=== PATIENT | female | born 1980 | race African-American/Black ===

== ENCOUNTER 2016-07-04 15:35 | Emergency (ER) | payer OTHER ==
[~2016-07-04] VITALS: Ht 157.5 cm; Wt 98.0 kg
[~2016-07-04 15:35] MED LIST: ASPI81CH CHEW; CARA1TAB6 PO; CYMB30CA PO; HYDR-3533 PO; PROT40TA PO; REST15CA PO
[2016-07-04 15:40] VITALS: BP 129/60; PULSE 118; RESP 17; TEMP 98.1; O2SAT 96
--- NOTE | 2016-07-04 17:28 | PD ---
HPI Chief Complaint: Medical Clearance Time Seen by Provider: 17:28 Travel History International Travel<30 days: No Contact w/Intl Traveler<30days: No Traveled to known affect area: No History of Present Illness HPI 35-year-old Afro-[place] female presents the emergency department with 4 day history of left-sided tremor mainly in the left arm and hand. Patient has a history of CVA in the past and followed by Dr. Riddle. Patient had an appointment with Dr. Riddle today and she was referred here for further evaluation and treatment. Patient denies any specific pain although Friday she had a headache, which has since resolved, but now she has left-sided tremor in the left hand and arm. Patient has a history of left-sided weakness from previous CVA. Patient denies fever but has had some chills. She denies any other symptoms at this time. She is allergic to Dilaudid and penicillin. PFSH Past Medical History Arthritis: No Asthma: Yes (USES INHALERS) Autoimmune Disease: No Anxiety: No Depression: No Heart Rhythm Problems: No Cancer: No Cardiovascular Problems: No High Cholesterol: No Chemotherapy: No Chest Pain: No Congestive Heart Failure: No COPD: No Cerebrovascular Accident: Yes Diabetes: Yes (BORDERLINE DIABETES, HYPERGLYCEMIA) Diminished Hearing: No Endocrine: No Gastrointestinal Disorders: Yes (RECENT ABD PAIN WITH MELENA) GERD: Yes Genitourinary: Yes Headaches: Yes Hiatal Hernia: No Hypertension: Yes (UNCONTROLLED HTN) Immune Disorder: No Kidney Stones: No Musculoskeletal: Yes Neurologic: Yes (ACUTE ENCEPHALOPATHY) Psychiatric: No Reproductive: No Respiratory: Yes (ASPIRATION PNEUMONIA, ACUTE RESPIRATORY FAILURE WITH HYPOXEMIA) Migraines: No Radiation Therapy: No Renal Failure: Yes (ACUTE RENAL INSUFFICIENCY) Seizures: No Sickle Cell Disease: No Sleep Apnea: No Thyroid Disease: No Ulcer: No ?: Not LMP: 06/06/2016 : 0 Ovarian Cysts: Yes Past Surgical History Abdominal Surgery: Yes (GALLBLADDER 2014 ) AICD: No Arteriovenous Shunt: No Cardiac Surgery: No Cholecystectomy: Yes Ear Surgery: No Endocrine Surgery: No Eye Surgery: No Genitourinary Surgery: No Gynecologic Surgery: Yes (OVARIAN CYST D/C 2014) Insulin Pump: No Joint Replacement: No Oral Surgery: No Pacemaker: No Thoracic Surgery: No Other Surgery: Yes Social History Alcohol Use: No Tobacco Use: No Substance Use: No Allergies-Medications (Allergen,Severity, Reaction): Coded Allergies: Penicillin (Verified Allergy, Unknown, hives, 07/04/16) Dilaudid (Verified Adverse Reaction, Intermediate, Itching, 07/04/16) PT. STATES SHE ITCHES WHEN SHE GETS DILAUDID AND GETS BENADRYL WITH IT Reported Meds & Prescriptions Reported Meds & Active Scripts Active Restoril (Temazepam) 15 Mg Cap 0.5 Tab PO HS PRN Cymbalta DR (Duloxetine HCl) 30 Mg Capdr 30 Mg PO DAILY Lortab (Hydrocodone-Acetaminophen) 5-325 Mg Tab 1 Tab PO Q8HR PRN Reported Protonix (Pantoprazole Sodium) 40 Mg Tab 40 Mg PO DAILY Carafate (Sucralfate) 1 Gm Tab 1 Gm PO TID On empty stomach Aspirin 81 Mg Chew 81 Mg CHEW DAILY Review of Systems Except as stated in HPI: all other systems reviewed are Neg General / Constitutional: No: Fever Eyes: No: Visual changes HENT: No: Headaches Cardiovascular: No: Chest Pain or Discomfort Respiratory: No: Shortness of Breath Gastrointestinal: No: Abdominal Pain Genitourinary: No: Dysuria Musculoskeletal: Positive: Limited ROM (chronic left-sided weakness.), No: Myalgias, Arthralgias, Pain Skin: No Rash Neurologic: Positive: Tremor (see history present illness.), No: Weakness Psychiatric: No: Depression Endocrine: No: Polydipsia Hematologic/Lymphatic: No: Easy Bruising Physical Exam Narrative GENERAL: Patient is alert and oriented, and anxious but in otherwise no acute distress. SKIN: Warm and dry. Normal color. Normal turgor. HEAD: Atraumatic. Normocephalic. EYES: Pupils equal and round. No scleral icterus. No injection or drainage. ENT: No nasal bleeding or discharge. Mucous membranes pink and moist. Pharynx is normal. Airway is patent. NECK: Trachea midline. Supple and nontender. No bruits appreciated. CARDIOVASCULAR: Regular rate and rhythm. RESPIRATORY: No accessory muscle use. Clear to auscultation. Breath sounds equal bilaterally. MUSCULOSKELETAL: Extremities without clubbing, cyanosis, or edema. No obvious deformities. Patient has foot drop brace present on the left. She has normal left-sided tremor which is constant even with active movement and at rest. It is localized to the left wrist and fingers. Patient has no focal findings otherwise that are new. NEUROLOGICAL: Awake and alert. No obvious cranial nerve deficits. Motor grossly within normal limits. Five out of 5 muscle strength in the arms and legs. Normal speech. PSYCHIATRIC: Appropriate mood and affect; insight and judgment normal. Data Data Last Documented VS Vital Signs Date Time Temp Pulse Resp B/P Pulse Ox O2 Delivery O2 Flow Rate FiO2 07/04/16 15:40 98.1 118 17 129/60 96 Orders Complete Blood Count With Diff (07/04/16 17:34) Comprehensive Metabolic Panel (07/04/16 17:34) Prothrombin Time / Inr (Pt) (07/04/16 17:34) Act Partial Throm Time (Ptt) (07/04/16 17:34) Urinalysis - C+S If Indicated (07/04/16 17:34) NPO (07/04/16 17:34) Acetaminophen (Tylenol) (07/04/16 17:45) Mri Brain W/O Contrast (07/04/16 17:34) Labs Laboratory Tests Test 07/04/16 17:58 White Blood Count 8.5 TH/MM3 Red Blood Count 4.37 MIL/MM3 Hemoglobin 12.3 GM/DL Hematocrit 37.2 % Mean Corpuscular Volume 85.2 FL Mean Corpuscular Hemoglobin 28.2 PG Mean Corpuscular Hemoglobin 33.1 % Concent Red Cell Distribution Width 16.3 % Platelet Count 362 TH/MM3 Mean Platelet Volume 7.3 FL Neutrophils (%) (Auto) 44.8 % Lymphocytes (%) (Auto) 46.2 % Monocytes (%) (Auto) 6.9 % Eosinophils (%) (Auto) 1.6 % Basophils (%) (Auto) 0.5 % Neutrophils # (Auto) 3.8 TH/MM3 Lymphocytes # (Auto) 3.9 TH/MM3 Monocytes # (Auto) 0.6 TH/MM3 Eosinophils # (Auto) 0.1 TH/MM3 Basophils # (Auto) 0.0 TH/MM3 CBC Comment DIFF FINAL Differential Comment Prothrombin Time 10.5 SEC Prothromb Time International 1.0 RATIO Ratio Activated Partial 31.3 SEC Thromboplast Time Sodium Level 138 MEQ/L Potassium Level 4.0 MEQ/L Chloride Level 104 MEQ/L Carbon Dioxide Level 26.5 MEQ/L Anion Gap 8 MEQ/L Blood Urea Nitrogen 10 MG/DL Creatinine 0.95 MG/DL Estimat Glomerular Filtration 82 ML/MIN Rate Random Glucose 84 MG/DL Calcium Level 9.1 MG/DL Total Bilirubin 0.4 MG/DL Aspartate Amino Transf 11 U/L (AST/SGOT) Alanine Aminotransferase 19 U/L (ALT/SGPT) Alkaline Phosphatase 88 U/L Total Protein 8.5 GM/DL Albumin 3.7 GM/DL MDM Medical Decision Making Medical Screen Exam Complete: Yes Emergency Medical Condition: Yes Differential Diagnosis New-onset tremor. CVA. Anxiety. Narrative Course Patient is felt to be medically stable at time of exam. Labs ordered on the patient including CBC, CMP, urinalysis, PT PTT and INR. Patient is given Tylenol 1000 mg by mouth. MRI of the brain is ordered with and without contrast. CBC was within normal limits. CMP is essentially unremarkable. Coags are normal. MRI is pending. Patient is awaiting medical bed placement. Condition: Stable Jonas Beckman Jul 04, 2016 17:28
[2016-07-04] MEDS ORDERED: ACETAMINOPHEN 500 MG CPLT PO ONE (17:45)
[2016-07-04 18:15] LABS: AUTOMATED NEUTROPHIL # 3.8 TH/MM3 (1.8-7.7); BASOPHIL % 0.5 % (0.0-2.0); EOSINOPHIL # 0.1 TH/MM3 (0-0.4); EOSINOPHIL % 1.6 % (0.0-4.0); HEMATOCRIT 37.2 % (35.0-46.0); HEMO FLAGS DIFF FINAL; LYMPH % 46.2 % (9.0-44.0); LYMPHOCYTE # 3.9 TH/MM3 (1.0-4.8); MEAN CELL VOLUME 85.2 FL (80.0-100.0); MEAN CORPUSCULAR HEMOGLOBIN 28.2 PG (27.0-34.0); MEAN CORPUSCULAR HGB CONC 33.1 % (32.0-36.0); MONO % 6.9 % (0.0-8.0); NEUT % 44.8 % (16.0-70.0); PLATELET COUNT 362 TH/MM3 (150-450); RED BLOOD COUNT 4.37 MIL/MM3 (4.00-5.30); RED CELL DISTRIBUTION WIDTH 16.3 % (11.6-17.2); WHITE BLOOD COUNT 8.5 TH/MM3 (4.0-11.0)
[2016-07-04 18:22] LABS: APTT (PATIENT) 31.3 SEC (24.3-30.1); PROTHROMBIN TIME - PATIENT 10.5 SEC (9.8-11.6)
[2016-07-04 18:32] LABS: ANION GAP 8 MEQ/L (5-15); AST (GOT) 11 U/L (15-37); BICARBONATE 26.5 MEQ/L (21.0-32.0); BLOOD UREA NITROGEN 10 MG/DL (7-18); CHLORIDE 104 MEQ/L (98-107); GLOMERULAR FILTRATION RATE 82 ML/MIN (>89); SODIUM (NA) 138 MEQ/L (136-145)
[2016-07-04 18:35] LABS: ALKALINE PHOSPHATASE 88 U/L (45-117); ALT (GPT) 19 U/L (10-53); TOTAL BILIRUBIN ADULT 0.4 MG/DL (0.2-1.0)
--- NOTE | 2016-07-04 19:05 | RADRPT ---
EXAM DATE/TIME: 07/04/2016 18:29 [facility] COMPARISON: MRV BRAIN W/WO CONTRAST, December 12, 2015, 19:16. MRI BRAIN W/O CONTRAST, December 12, 2015, 11:35. INDICATIONS : Seizures. Tremors with weakness on left side. MEDICAL HISTORY : Asthma. SURGICAL HISTORY : Cholecystectomy. ENCOUNTER: Subsequent ACUITY: 3 day PAIN SCORE: 2/10 LOCATION: Head. TECHNIQUE: Multiplanar, multisequence MRI of the brain was performed without contrast. FINDINGS: CEREBRUM: The ventricles are normal for age. No evidence of midline shift, mass lesion, hemorrhage or acute in farction. No extraaxial fluid collections are seen. The pituitary gland and suprasellar cistern are normal in configuration. Old infarcts of the bilateral perifalcine parietal lobes again noted. WHITE MATTER: No significant signal abnormalities are seen in the white matter. POSTERIOR FOSSA: The cerebellum and brainstem are intact. The 4th ventricle is midline. The cerebellopontine angle is unremarkable. The cerebellar tonsils are normal in position. DIFFUSION IMAGING: No focal areas of restricted diffusion are seen. No evidence of acute infarction. EXTRACRANIAL: The visualized portions of the orbits and paranasal sinuses are unremarkable. CONCLUSION: 1. No acute intracranial abnormality. 2. Old, focal cortical infarcts perifalcine regions of both parietal lobes, right more so than left. Julio West MD on July 04, 2016 at 19:01 Board Certified Radiologist. This report was verified electronically.
--- NOTE | 2016-07-04 21:33 | PD ---
Physical Exam Time Seen by Provider: 21:31 Narrative 35-year-old female with history of bilateral parietal infarct in November 2015 presents to emergency department for evaluation of generalized tremor that developed over the weekend following a severe headache that lasted for approximately one hour. Pt is followed by Dr. Brock. She advised the pt to come to the ED for further evaluation. Patient denies any recent illnesses. She has had no fever. She denies any head trauma. Workup was initiated in triage. MRI was complete. Data Data Last Documented VS Vital Signs Date Time Temp Pulse Resp B/P Pulse Ox O2 Delivery O2 Flow Rate FiO2 07/04/16 15:40 98.1 118 17 129/60 96 Orders Complete Blood Count With Diff (07/04/16 17:34) Comprehensive Metabolic Panel (07/04/16 17:34) Prothrombin Time / Inr (Pt) (07/04/16 17:34) Act Partial Throm Time (Ptt) (07/04/16 17:34) Urinalysis - C+S If Indicated (07/04/16 17:34) NPO (07/04/16 17:34) Acetaminophen (Tylenol) (07/04/16 17:45) Mri Brain W/O Contrast (07/04/16 17:34) Labs Laboratory Tests Test 07/04/16 17:58 White Blood Count 8.5 TH/MM3 Red Blood Count 4.37 MIL/MM3 Hemoglobin 12.3 GM/DL Hematocrit 37.2 % Mean Corpuscular Volume 85.2 FL Mean Corpuscular Hemoglobin 28.2 PG Mean Corpuscular Hemoglobin 33.1 % Concent Red Cell Distribution Width 16.3 % Platelet Count 362 TH/MM3 Mean Platelet Volume 7.3 FL Neutrophils (%) (Auto) 44.8 % Lymphocytes (%) (Auto) 46.2 % Monocytes (%) (Auto) 6.9 % Eosinophils (%) (Auto) 1.6 % Basophils (%) (Auto) 0.5 % Neutrophils # (Auto) 3.8 TH/MM3 Lymphocytes # (Auto) 3.9 TH/MM3 Monocytes # (Auto) 0.6 TH/MM3 Eosinophils # (Auto) 0.1 TH/MM3 Basophils # (Auto) 0.0 TH/MM3 CBC Comment DIFF FINAL Differential Comment Prothrombin Time 10.5 SEC Prothromb Time International 1.0 RATIO Ratio Activated Partial 31.3 SEC Thromboplast Time Sodium Level 138 MEQ/L Potassium Level 4.0 MEQ/L Chloride Level 104 MEQ/L Carbon Dioxide Level 26.5 MEQ/L Anion Gap 8 MEQ/L Blood Urea Nitrogen 10 MG/DL Creatinine 0.95 MG/DL Estimat Glomerular Filtration 82 ML/MIN Rate Random Glucose 84 MG/DL Calcium Level 9.1 MG/DL Total Bilirubin 0.4 MG/DL Aspartate Amino Transf 11 U/L (AST/SGOT) Alanine Aminotransferase 19 U/L (ALT/SGPT) Alkaline Phosphatase 88 U/L Total Protein 8.5 GM/DL Albumin 3.7 GM/DL [facility] Medical Record Reviewed: Yes Supervised Visit with HERMAN: No Differential Diagnosis essential tremor vs viral syndrome vs intracranial etiology Narrative Course 35 year old female presents to the ED for evaluation of generalized tremors. Lab work is without acute concern. VS are stable. MRI is without acute intracranial abnormality. I discussed the pt with my attending Dr. Crabtree who advised contacting neurology for any additional work up recommendations. I spoke with Dr. Kemp, neurologist business support liaison. He agrees the pt can be followed up with outpt. Plan is discussed with pt. She is in agreement with this plan of care. HemaPrompt Test Point of Care Comment I spoke with Dr. Kemp, neurology business support liaison. I informed him of the MRI and lab findings. At this time, he agrees the pt can follow up outpt. Diagnosis Primary Impression: Tremor of unknown origin Additional Impression: History of CVA (cerebrovascular accident) Referrals: Ilene Brock MD Neurologist Primary Care Physician Patient Instructions: General Instructions, Tremors (ED) Additional Instruction: Follow up with Dr. Brock Return immediately with any acute worsening of symptoms Med/Other Pt SpecificInfo: No Change to Meds Disposition: 01 DISCHARGE HOME Condition: Stable Shell Schneider ABHISHEK Jul 04, 2016 21:33
[2016-07-22] MEDS ORDERED: CYMB60CA PO (16:49)
[2016-10-16] MEDS ORDERED: ULTR50TA5 PO (10:25)
[2016-10-16] MEDS ORDERED: ASPI325T PO (13:28)
== END 2016-07-04 22:22 | disposition home or self-care (01) ==
LOC: NEPC 15:35
DX: R25.1 Tremor, unspecified (principal); J45.909 Unspecified asthma, uncomplicated; I10 Essential (primary) hypertension; R73.9 Hyperglycemia, unspecified; N17.9 Acute kidney failure, unspecified; Z86.73 Personal history of transient ischemic attack (TIA), and cerebral infarction without residual deficits
CPT/HCPCS: 70551; 80053; 85025; 85610; 85730

== ENCOUNTER 2016-12-26 18:13 | Inpatient (IN) | payer OTHER ==
[~2016-12-26] VITALS: Ht 167.6 cm; Wt 127.5 kg
[~2016-12-26 18:13] MED LIST changes: +ASPI325T PO; -ASPI81CH CHEW; -HYDR-3533 PO; -REST15CA PO; +ULTR50TA5 PO
[2016-12-26 18:30] VITALS: BP 124/72; PULSE 80; RESP 18; TEMP 100.3; TEMP 98.3; O2SAT 98
--- NOTE | 2016-12-26 18:35 | PD ---
HPI Chief Complaint: Altered Mental Status Time Seen by Provider: 18:32 Travel History International Travel<30 days: No Contact w/Intl Traveler<30days: No Traveled to known affect area: No History of Present Illness HPI Patient comes in by EMS after reported having altered mental status since 11 AM this morning by her sister. Patient has a history of CVAs 2 and reportedly has some unknown neurological deficits. Per EMS patient sister is uncertain what the deficit is. Patient is currently nonverbal but will respond to painful stimuli thus limiting H&P. EMS reports patient was nonverbal in route as well. EMS reports patient sister is a poor historian and not able give much information on patient's altered mental status. PFSH Past Medical History Hx Anticoagulant Therapy: Yes Arthritis: No Asthma: Yes (USES INHALERS) Autoimmune Disease: No Anxiety: No Depression: No Heart Rhythm Problems: No Cancer: No Cardiovascular Problems: No High Cholesterol: No Chemotherapy: No Chest Pain: No Congestive Heart Failure: No COPD: No Cerebrovascular Accident: Yes Diabetes: Yes (BORDERLINE DIABETES, HYPERGLYCEMIA) Diminished Hearing: No Endocrine: No Gastrointestinal Disorders: Yes (RECENT ABD PAIN WITH MELENA) GERD: Yes Genitourinary: Yes Headaches: Yes Hiatal Hernia: No Hypertension: Yes (UNCONTROLLED HTN) Immune Disorder: No Kidney Stones: No Musculoskeletal: Yes Neurologic: Yes (ACUTE ENCEPHALOPATHY) Psychiatric: No Reproductive: No Respiratory: Yes (ASPIRATION PNEUMONIA, ACUTE RESPIRATORY FAILURE WITH HYPOXEMIA) Migraines: No Radiation Therapy: No Renal Failure: Yes (ACUTE RENAL INSUFFICIENCY) Seizures: No Sickle Cell Disease: No Sleep Apnea: No Thyroid Disease: No Ulcer: No : 0 Ovarian Cysts: Yes Past Surgical History Abdominal Surgery: Yes (GALLBLADDER 2014 ) AICD: No Arteriovenous Shunt: No Cardiac Surgery: No Cholecystectomy: Yes Ear Surgery: No Endocrine Surgery: No Eye Surgery: No Genitourinary Surgery: No Gynecologic Surgery: Yes (OVARIAN CYST D/C 2014) Insulin Pump: No Joint Replacement: No Oral Surgery: No Pacemaker: No Thoracic Surgery: No Other Surgery: Yes Social History Alcohol Use: No Tobacco Use: No Substance Use: No Allergies-Medications (Allergen,Severity, Reaction): Coded Allergies: penicillin G (Unverified Allergy, Unknown, hives, 12/26/16) hydromorphone (Unverified Adverse Reaction, Intermediate, Itching, 12/26/16 ) PT. STATES SHE ITCHES WHEN SHE GETS DILAUDID AND GETS BENADRYL WITH IT Reported Meds & Prescriptions Reported Meds & Active Scripts Active Cymbalta DR (Duloxetine HCl) 30 Mg Capdr 30 Mg PO DAILY Reported [place]ink (Hydrocodone-Acetaminophen) 5-325 mg Tab 1 Tab PO Q6H PRN Gabapentin 300 Mg Cap 300 Mg PO BID Gabapentin 100 Mg Cap 100 Mg PO HS Celexa (Citalopram Hydrobromide) 20 Mg Tab 20 Mg PO DAILY Aspirin 325 Mg Tab 325 Mg PO DAILY Protonix (Pantoprazole Sodium) 40 Mg Tab 40 Mg PO DAILY Carafate (Sucralfate) 1 Gm Tab 1 Gm PO TID On empty stomach Review of Systems ROS Limitations: Altered Mental Status Except as stated in HPI: all other systems reviewed are Neg Physical Exam Exam Limitations: Altered Mental Status Narrative GENERAL: Well-developed, overly nourished, in no acute distress, and non-ill appearing. SKIN: Focused skin assessment warm and dry. HEAD: Atraumatic. Normocephalic. EYES: Pupils equal and round. EOMI. No scleral icterus. No injection or drainage. ENT: No nasal bleeding or discharge. Mucous membranes pink and moist. NECK: Trachea midline. Supple. No nuclear rigidity. CARDIOVASCULAR: Regular rate and rhythm. No murmur appreciated. RESPIRATORY: No accessory muscle use. No respiratory distress. Clear to auscultation. Breath sounds equal bilaterally. MUSCULOSKELETAL: No obvious deformities. No clubbing. No cyanosis. No edema. Full range of motion. NEUROLOGICAL: No obvious cranial nerve deficits. Data Data Last Documented VS Vital Signs Date Time Temp Pulse Resp B/P (MAP) Pulse Ox O2 Delivery O2 Flow Rate FiO2 12/26/16 18:49 16 100 Room Air 12/26/16 18:36 80 12/26/16 18:30 100.3 124/72 (89) Orders Orders Electrocardiogram (12/26/16 18:34) Complete Blood Count With Diff (12/26/16 18:34) Comprehensive Metabolic Panel (12/26/16 18:34) Creatine Kinase (Cpk) (12/26/16 18:34) Prothrombin Time / Inr (Pt) (12/26/16 18:34) Act Partial Throm Time (Ptt) (12/26/16 18:34) Troponin I (12/26/16 18:34) Thyroid Stimulating Hormone (12/26/16 18:34) Urinalysis - C+S If Indicated (12/26/16 18:34) Chest, Single Ap (12/26/16 18:34) Ct Brain W/O Iv Contrast(Rout) (12/26/16 18:34) Blood Glucose (12/26/16 18:34) Ecg Monitoring (12/26/16 18:34) Iv Access Insert/Monitor (12/26/16 18:34) Cath For Specimen (12/26/16 18:34) Oximetry (12/26/16 18:34) Sodium Chloride 0.9% Flush (Ns Flush) (12/26/16 18:45) Drug Screen, Random Urine (12/26/16 18:34) Alcohol (Ethanol) (12/26/16 18:34) Ed Urine Pregnancytest Poc (12/26/16 18:34) Lorazepam Inj (Ativan Inj) (12/26/16 18:45) Sodium Chlor 0.9% 1000 Ml Inj (Ns 1000 M (12/26/16 19:00) Admit Order (Ed Use Only) (12/26/16 20:42) Labs Laboratory Tests Test 12/26/16 18:45 12/26/16 20:20 White Blood Count 8.4 TH/MM3 Red Blood Count 4.26 MIL/MM3 Hemoglobin 11.4 GM/DL Hematocrit 34.6 % Mean Corpuscular Volume 81.3 FL Mean Corpuscular Hemoglobin 26.7 PG Mean Corpuscular Hemoglobin Concent 32.9 % Red Cell Distribution Width 16.8 % Platelet Count 371 TH/MM3 Mean Platelet Volume 7.0 FL Neutrophils (%) (Auto) 50.5 % Lymphocytes (%) (Auto) 37.6 % Monocytes (%) (Auto) 9.2 % Eosinophils (%) (Auto) 2.4 % Basophils (%) (Auto) 0.3 % Neutrophils # (Auto) 4.3 TH/MM3 Lymphocytes # (Auto) 3.2 TH/MM3 Monocytes # (Auto) 0.8 TH/MM3 Eosinophils # (Auto) 0.2 TH/MM3 Basophils # (Auto) 0.0 TH/MM3 CBC Comment DIFF FINAL Differential Comment Prothrombin Time 9.8 SEC Prothromb Time International Ratio 0.9 RATIO Activated Partial Thromboplast Time 28.7 SEC Blood Urea Nitrogen 10 MG/DL Creatinine 0.86 MG/DL Random Glucose 99 MG/DL Total Protein 7.6 GM/DL Albumin 3.3 GM/DL Calcium Level 8.8 MG/DL Alkaline Phosphatase 86 U/L Aspartate Amino Transf (AST/SGOT) 21 U/L Alanine Aminotransferase (ALT/SGPT) 22 U/L Total Bilirubin 0.3 MG/DL Sodium Level 139 MEQ/L Potassium Level 4.0 MEQ/L Chloride Level 106 MEQ/L Carbon Dioxide Level 25.1 MEQ/L Anion Gap 8 MEQ/L Estimat Glomerular Filtration Rate 91 ML/MIN Total Creatine Kinase 121 U/L Troponin I LESS THAN 0.02 NG/ML Thyroid Stimulating Hormone 3rd Gen 1.940 uIU/ML Ethyl Alcohol Level 4 MG/DL Urine Color YELLOW Urine Turbidity CLEAR Urine pH 6.5 Urine Specific Barling 1.028 Urine Protein TRACE mg/dL Urine Glucose (UA) NEG mg/dL Urine Ketones NEG mg/dL Urine Occult Blood NEG Urine Nitrite NEG Urine Bilirubin NEG Urine Urobilinogen 2.0 MG/DL Urine Leukocyte Esterase NEG Urine RBC 2 /hpf Urine WBC 2 /hpf Urine Squamous Epithelial Cells 1 /hpf Urine Mucus FEW /lpf Microscopic Urinalysis Comment CATH-CULT NOT IND MDM Medical Decision Making Medical Screen Exam Complete: Yes Emergency Medical Condition: Yes Interpretation(s) CT the head read by the radiologist shows: No acute disease. Small areas of the encephalomalacia at the posterior medial parietal lobes are again seen. Chest x-ray read by the radiologist shows: No acute disease EKG reviewed by Dr. Pardo shows sinus rhythm with ventricular rate of 90. No STEMI. Differential Diagnosis CVA, electrolyte abnormality, sepsis, pneumonia, UTI, other Narrative Course After initial evaluation. RN reports patient was started to froth at the mouth. Patient was reassessed and noted to be having active seizure. 2 mg Ativan was ordered IV. Patient is not a TPA candidate secondary to seizures. 1853 after patient received Ativan. Patient is postictal. 1910 patient's sister is not bedside states that around 520 pm she was found by her daughter to be laying in bed convulsing. Sister states that the provider covering physician and she would open her eyes to stimulation but would not talk. Denies any known history of seizures. Denies any known trauma. Denies fevers. Patient recently started seeing a new neurologist and was started on new medication however she has not started taking that she. Sister states patient is normally able to ambulate with a cane and has residual weakness on the left side secondary to previous stroke. Denies any history of seizures. I clinic in patient's sister. All questions were answered. Will admit patient to hospital. Discussed patient with , who is agreeable to plan of care and disposition. Discussed patient with hospitalist who is agreeable to admit the patient. 2144 patient's sister comes and states patient's complaining of generalized body pain. Patient is reassessed and is answering questions easier now. Reports generalized body pain all over. Patient states she is allergic to Dilaudid and penicillin but can take morphine. We'll give the patient dose of morphine for her pain. Physician Communication Physician Communication [id number] Woods, who is agreeable to admit the patient. Diagnosis Primary Impression: New onset seizure Admitting Information Admitting Physician Requests: Admit Condition: Stable Abner Gan Dec 26, 2016 18:35
[2016-12-26] MEDS ORDERED: SODIUM CHLORIDE 0.9% FLUSH 5 ML FLUSH IV FLUSH PRN (18:45)
[2016-12-26] MEDS ORDERED: LORazepam 2 MG/ML VIAL IV PUSH ONE (18:45)
[2016-12-26 18:49] VITALS: RESP 16; O2SAT 100
[2016-12-26] MEDS ORDERED: SODIUM CHLOR 0.9% 1000 ML INJ 1,000 ML IV ONE (19:00)
[2016-12-26 19:07] LABS: AUTOMATED NEUTROPHIL # 4.3 TH/MM3 (1.8-7.7); BASOPHIL % 0.3 % (0.0-2.0); EOSINOPHIL # 0.2 TH/MM3 (0-0.4); EOSINOPHIL % 2.4 % (0.0-4.0); HEMATOCRIT 34.6 % (35.0-46.0); HEMO FLAGS DIFF FINAL; LYMPH % 37.6 % (9.0-44.0); LYMPHOCYTE # 3.2 TH/MM3 (1.0-4.8); MEAN CELL VOLUME 81.3 FL (80.0-100.0); MEAN CORPUSCULAR HEMOGLOBIN 26.7 PG (27.0-34.0); MEAN CORPUSCULAR HGB CONC 32.9 % (32.0-36.0); MONO % 9.2 % (0.0-8.0); NEUT % 50.5 % (16.0-70.0); PLATELET COUNT 371 TH/MM3 (150-450); RED BLOOD COUNT 4.26 MIL/MM3 (4.00-5.30); RED CELL DISTRIBUTION WIDTH 16.8 % (11.6-17.2); WHITE BLOOD COUNT 8.4 TH/MM3 (4.0-11.0)
[2016-12-26 19:17] LABS: APTT (PATIENT) 28.7 SEC (24.3-30.1); INTERNATIONAL NORMALIZED RATIO 0.9 RATIO; PROTHROMBIN TIME - PATIENT 9.8 SEC (9.8-11.6)
[2016-12-26 19:27] LABS: ANION GAP 8 MEQ/L (5-15); AST (GOT) 21 U/L (15-37); BICARBONATE 25.1 MEQ/L (21.0-32.0); BLOOD UREA NITROGEN 10 MG/DL (7-18); CHLORIDE 106 MEQ/L (98-107); GLOMERULAR FILTRATION RATE 91 ML/MIN (>89); SODIUM (NA) 139 MEQ/L (136-145)
[2016-12-26 19:28] LABS: ALT (GPT) 22 U/L (10-53)
[2016-12-26 19:38] LABS: ALKALINE PHOSPHATASE 86 U/L (45-117); CREATINE KINASE 121 U/L (26-192); TOTAL BILIRUBIN ADULT 0.3 MG/DL (0.2-1.0)
[2016-12-26 19:41] LABS: ALCOHOL 4 MG/DL (0-5)
--- NOTE | 2016-12-26 20:16 | RADRPT ---
EXAM DATE/TIME: 12/26/2016 19:06 [facility] COMPARISON: CHEST SINGLE AP, December 16, 2015, 4:12. INDICATIONS : Seizure. MEDICAL HISTORY : Asthma, Seizures, Stroke. SURGICAL HISTORY : Cholecystectomy. ENCOUNTER: Initial ACUITY: 1 day PAIN SCORE: Non-responsive. LOCATION: Bilateral chest FINDINGS: A single view of the chest demonstrates the lungs to be symmetrically aerated without evidence of mas s, infiltrate or effusion. The cardiomediastinal contours are unremarkable. Osseous structures are intact. CONCLUSION: No acute disease. Julio Velasco MD on December 26, 2016 at 20:14 Board Certified Radiologist. This report was verified electronically.
--- NOTE | 2016-12-26 20:22 | RADRPT ---
EXAM DATE/TIME: 12/26/2016 19:07 [facility] COMPARISON: MRI BRAIN W/O CONTRAST, July 04, 2016, 18:29. MRI BRAIN W/O CONTRAST, December 12, 2015, 11:35. CT B RAIN W/O CONTRAST, December 12, 2015, 8:33. INDICATIONS : Altered mental status. Possible seizure. RADIATION DOSE: 39.51 CTDIvol (mGy) MEDICAL HISTORY : Cerebrovascular disease. Hypertension. Diabetes mellitus type 2. SURGICAL HISTORY : None. ENCOUNTER: Initial ACUITY: 1 day PAIN SCALE: Non-responsive LOCATION: cranial TECHNIQUE: Multiple contiguous axial images were obtained of the head. Using automated exposure control and adj ustment of the mA and/or kV according to patient size, radiation dose was kept as low as reasonably a chievable to obtain optimal diagnostic quality images. DICOM format image data is available electro nically for review and comparison. FINDINGS: CEREBRUM: The ventricles are normal for age. There are small areas of the encephalomalacia at the posterior me dial parietal lobes in the parafalcine regions being greater on the right than the left. No evidence of midline shift, mass lesion, hemorrhage or acute infarction. No extra-axial fluid collections are seen. POSTERIOR FOSSA: The cerebellum and brainstem are intact. The 4th ventricle is midline. The cerebellopontine angle i s unremarkable. EXTRACRANIAL: The visualized portion of the orbits is intact. SKULL: The calvaria is intact. No evidence of skull fracture. CONCLUSION: No acute disease. Small areas of the encephalomalacia at the posterior medial parietal lobes are agai n seen. Julio Velasco MD on December 26, 2016 at 20:18 Board Certified Radiologist. This report was verified electronically.
[2016-12-26 20:58] LABS: BLOOD, URINE NEG (NEG); GLUCOSE,URINE NEG (NEG); KETONE, URINE NEG (NEG); MUCUS URINE FEW /lpf (OCC); NITRITE,URINE NEG (NEG); PH, URINE 6.5 (5.0-8.5); SQUAMOUS EPITHELIAL CELL URINE 1 /hpf (0-5); URINE COLOR YELLOW (YELLW/STRAW)
[2016-12-26 21:00] VITALS: BP 125/80; PULSE 86; RESP 17; O2SAT 99
[2016-12-26 21:00] LABS: COMMENT (UR) CATH-CULT NOT IND; CULTURE IF INDICATED CATH CULTURE NOT IND
[2016-12-26] MEDS ORDERED: GABA100C4 PO (21:21)
[2016-12-26] MEDS ORDERED: NORC5TAB PO (21:21)
[2016-12-26] MEDS ORDERED: CELE20TA PO (21:21)
[2016-12-26] MEDS ORDERED: GABA300C5 PO (21:21)
[2016-12-26 22:00] VITALS: BP 119/73; PULSE 92; RESP 17; O2SAT 97
[2016-12-26] MEDS ORDERED: ONDANSETRON HCL 4 MG/2 ML VIAL IV PUSH ONE (22:00)
[2016-12-26] MEDS ORDERED: MORPHINE SULFATE 4 MG/ML INJ IV PUSH ONE (22:00)
[2016-12-26 23:00] VITALS: BP 117/65; PULSE 86; RESP 15; O2SAT 97
--- NOTE | 2016-12-26 23:55 | HHI.HP ---
[facility] Denita Gayle M.D. Admission Diagnosis new-onset seizures Diagnoses: Chief Complaint: seizure Travel History International Travel<30 Days: No Contact w/Intl Traveler <30 Da: No Traveled to Known Affected Are: No History of Present Illness Written by ABHISHEK Pereyra acting as scribe for [Chuck] on 12/26/16 at 23: 44. 36 y/o female with a history of CVA x 2, insomnia, intermittent HTN, SHANEKA and COPD presented to the ED with complaints of a seizure per her sister. Per her sister she was laying in bed and she felt sick and then the patient began to have a seizure. She was also told in the [facility] that she had another one. She is able to communicate very little, and able to to nod yes and no as well. She states she has had a productive cough for 2 days with yellow sputum, nausea and dizziness, but no passing out episodes. She denies any chest pain, sob, fever or chills. She states she follows outpatient with treatment supervisor Dr. Lake. She does walk with a cane and has a foot drop. Review of Systems Except as stated in HPI: all other systems reviewed are Neg Past Family Social History Past Medical History CVA x 2 intermittent HTN COPD insomnia SHANEKA Past Surgical History Cholecystectomy Fibroid surgery Reported Medications Reported Meds & Active Scripts Active Cymbalta (Duloxetine HCl) 30 Mg Capdr 30 Mg PO DAILY Reported Sublette (Hydrocodone-Acetaminophen) 5-325 mg Tab 1 Tab PO Q6H PRN Gabapentin 300 Mg Cap 300 Mg PO BID Gabapentin 100 Mg Cap 100 Mg PO HS Celexa (Citalopram Hydrobromide) 20 Mg Tab 20 Mg PO DAILY Aspirin 325 Mg Tab 325 Mg PO DAILY Protonix (Pantoprazole Sodium) 40 Mg Tab 40 Mg PO DAILY Carafate (Sucralfate) 1 Gm Tab 1 Gm PO TID On empty stomach Allergies: Coded Allergies: penicillin G (Unverified Allergy, Unknown, hives, 12/26/16) hydromorphone (Unverified Adverse Reaction, Intermediate, Itching, 12/26/16 ) PT. STATES SHE ITCHES WHEN SHE GETS DILAUDID AND GETS BENADRYL WITH IT Active Ordered Medications Current Medications Medications (Trade) Dose Ordered Sig/Annette Route Start Time Stop Time Status Last Admin (NS Flush) 2 ml UNSCH PRN IV FLUSH 12/26/16 18:45 12/26/16 22:18 Family History Family history significant for breast, ovarian, and stomach cancer, and DM Social History Tobacco use: Denies Alcohol use: Denies Physical Exam Vital Signs Vital Signs Date Time Temp Pulse Resp B/P (MAP) Pulse Ox O2 Delivery O2 Flow Rate FiO2 12/26/16 22:00 92 17 119/73 (88) 97 Room Air 12/26/16 18:49 16 100 Room Air 12/26/16 18:36 80 18 97 Room Air 12/26/16 18:30 100.3 80 18 124/72 (89) 98 Physical Exam GENERAL: This is a well-nourished, obese patient, who appears in pain with mild tremors. SKIN: No rashes, ecchymoses or lesions. Cool and dry. HEAD: Atraumatic. Normocephalic. EYES: Pupils equal round and reactive. Extraocular motions intact. No scleral icterus. No injection or drainage. ENT: Nose without bleeding, purulent drainage or septal hematoma. Airway patent. NECK: Trachea midline. No JVD or lymphadenopathy. Supple, nontender, no meningeal signs. CARDIOVASCULAR: Regular rate and rhythm without murmurs, gallops, or rubs. RESPIRATORY: Clear to auscultation. Breath sounds equal bilaterally. No wheezes , rales, or rhonchi. GASTROINTESTINAL: Abdomen soft, non-tender, nondistended. No hepato-splenomegaly , or palpable masses. No guarding. MUSCULOSKELETAL: Extremities without clubbing, cyanosis, or edema. No joint tenderness, effusion, or edema noted. No calf tenderness. NEUROLOGICAL: Awake and alert. Mild tremors in bilateral upper extremities. Motor and sensory grossly within normal limits. Normal speech. Laboratory Laboratory Tests Test 12/26/16 18:45 12/26/16 20:20 White Blood Count 8.4 Red Blood Count 4.26 Hemoglobin 11.4 Hematocrit 34.6 Mean Corpuscular Volume 81.3 Mean Corpuscular Hemoglobin 26.7 Mean Corpuscular Hemoglobin Concent 32.9 Red Cell Distribution Width 16.8 Platelet Count 371 Mean Platelet Volume 7.0 Neutrophils (%) (Auto) 50.5 Lymphocytes (%) (Auto) 37.6 Monocytes (%) (Auto) 9.2 Eosinophils (%) (Auto) 2.4 Basophils (%) (Auto) 0.3 Neutrophils # (Auto) 4.3 Lymphocytes # (Auto) 3.2 Monocytes # (Auto) 0.8 Eosinophils # (Auto) 0.2 Basophils # (Auto) 0.0 CBC Comment DIFF FINAL Differential Comment Prothrombin Time 9.8 Prothromb Time International Ratio 0.9 Activated Partial Thromboplast Time 28.7 Blood Urea Nitrogen 10 Creatinine 0.86 Random Glucose 99 Total Protein 7.6 Albumin 3.3 Calcium Level 8.8 Alkaline Phosphatase 86 Aspartate Amino Transf (AST/SGOT) 21 Alanine Aminotransferase (ALT/SGPT) 22 Total Bilirubin 0.3 Sodium Level 139 Potassium Level 4.0 Chloride Level 106 Carbon Dioxide Level 25.1 Anion Gap 8 Estimat Glomerular Filtration Rate 91 Total Creatine Kinase 121 Troponin I LESS THAN 0.02 Thyroid Stimulating Hormone 3rd Gen 1.940 Ethyl Alcohol Level 4 Urine Color YELLOW Urine Turbidity CLEAR Urine pH 6.5 Urine Specific [place] 1.028 Urine Protein TRACE Urine Glucose (UA) NEG Urine Ketones NEG Urine Occult Blood NEG Urine Nitrite NEG Urine Bilirubin NEG Urine Urobilinogen 2.0 Urine Leukocyte Esterase NEG Urine RBC 2 Urine WBC 2 Urine Squamous Epithelial Cells 1 Urine Mucus FEW Microscopic Urinalysis Comment CATH-CULT NOT IND Result Diagram: 12/26/16 1845 12/26/16 184 Imaging Last Impressions Head CT 12/26/161833 Signed Impressions: Service Date/Time: November 19:07 - CONCLUSION: No acute disease. Small areas of the encephalomalacia at the posterior medial parietal lobes are again seen. Julio Velasco MD Chest X-Ray 12/26/161833 Signed Impressions: Service Date/Time: November 19:06 - CONCLUSION: No acute disease. MD Mazin Andersen VTE Risk Assessment Ismaeli VTE Risk Assessment: Mod/High Risk (score >= 2) Caprini Risk Assessment Model Point Value = 1 Point Value = 2 Point Value = 3 Point Value = 5 Age 41-60 Minor surgery BMI > 25 kg/m2 Swollen legs Varicose veins or History of unexplained or recurrent spontaneous Oral contraceptives or hormone replacement Sepsis (< 1 month) Serious lung disease, including pneumonia (< 1 month) Abnormal pulmonary function Acute myocardial infarction Congestive heart failure (< 1 month) History of inflammatory bowel disease Medical patient at bed rest Age 61-74 Arthroscopic surgery Major open surgery (> 45 min) Laparoscopic surgery (> 45 min) Malignancy Confined to bed (> 72 hours) Immobilizing plaster cast Central venous access Age >= 75 History of VTE Family history of VTE Factor V Leiden Prothrombin [id number] Lupus anticoagulant Anticardiolipin antibodies Elevated serum homocysteine Heparin-induced thrombocytopenia Other congenital or acquired thrombophilia Stroke (< 1 month) Elective arthroplasty Hip, pelvis, or leg fracture Acute spinal cord injury (< 1 month) Prophylaxis Regimen Total Risk Factor Score Risk Level Prophylaxis Regimen 0-1 Low Early ambulation 2 Moderate Order ONE of the following: *Sequential Compression Device (SCD) *Heparin 5000 units SQ BID 3-4 Higher Order ONE of the following medications: *Heparin 5000 units SQ TID *Enoxaparin/Lovenox 40 mg SQ daily (WT < 150 kg, CrCl > 30 mL/min) *Enoxaparin/Lovenox 30 mg SQ daily (WT < 150 kg, CrCl > 10-29 mL/min) *Enoxaparin/Lovenox 30 mg SQ BID (WT < 150 kg, CrCl > 30 mL/min) AND/OR *Sequential Compression Device (SCD) 5 or more Highest Order ONE of the following medications: *Heparin 5000 units SQ TID (Preferred with Epidurals) *Enoxaparin/Lovenox 40 mg SQ daily (WT < 150 kg, CrCl > 30 mL/min) *Enoxaparin/Lovenox 30 mg SQ daily (WT < 150 kg, CrCl > 10-29 mL/min) *Enoxaparin/Lovenox 30 mg SQ BID (WT < 150 kg, CrCl > 30 mL/min) AND *Sequential Compression Device (SCD) Assessment and Plan Problem List: (1) New onset seizure ICD Code: R56.9 - Unspecified convulsions Status: Acute Assessment and Plan 36 y/o female with a history of CVA x 2, insomnia, intermittent HTN, Factor 8 disorder, COPD presented to the ED with complaints of a seizure per her sister. New Onset seizure patient had 2 witnessed tonic clonic seizures Head CT reviewed and shows -Consult neurology for recommendations on therapy -Seizure precautions -Ativan IV PRN -EEG ordered -Loaded with Fosphenytoin 1000mg -ASA daily Muscular pain, suspected due to multiple seizures -Sublette for pain management -PT eval and treat Depression, chronic: Reorder home medications DVT prophylaxis: Lovenox This note was transcribed by scribe [Jessica Morris]. I, Dr. Kelsey Woods personally performed the history, physical exam, and medical decision making; and confirmed the accuracy of the information in the transcribed note. Authenticated by Dr. Kelsey Woods on 12/26/16 at 23:44. Physician Certification 2 Midnight Certification Type: Admission for Inpatient Services Order for Inpatient Services The services are ordered in accordance with Medicare regulations or non- Medicare payer requirements, as applicable. In the case of services not specified as inpatient-only, they are appropriately provided as inpatient services in accordance with the 2-midnight benchmark. Estimated LOS (days): 2 days is the estimated time the patient will need to remain in the hospital, assuming treatment plan goals are met and no additional complications. Post-Hospital Plan: Home Jessica Morris Dec 26, 2016 23:55 Kelsey Woods MD Dec 27, 2016 09:36
[2016-12-27] VITALS (10 sets, daily range): BP systolic 113–152; BP diastolic 68–78; PULSE 53–97; RESP 16–20; TEMP 97.7–98.7; O2SAT 94–99
[2016-12-27] MEDS ORDERED: NALOXONE HCL 0.4 MG/ML AMP IV PRN (00:15)
[2016-12-27] MEDS ORDERED: SODIUM CHLORIDE 0.9% FLUSH 10 ML FLUSH IV FLUSH PRN (00:15)
[2016-12-27] MEDS ORDERED: LORazepam 2 MG/ML VIAL IV PUSH PRN (00:45)
[2016-12-27] MEDS: ACETAMINOPHEN/HYDROcodone 325 MG/5 MG TAB PO PRN ×3 (00:47→23:28)
[2016-12-27] MEDS ORDERED: FOSPHENYTOIN INJ 1,000 MGPE in SODIUM CHLORIDE 0.9% INJ 50 ML IV ONE (01:00)
[2016-12-27] MEDS: SODIUM CHLORIDE 0.9% FLUSH 10 ML FLUSH IV FLUSH SCH ×2 (09:00→20:30)
[2016-12-27] MEDS: PANTOPRAZOLE SOD 40 MG DELAYED RELEASE TAB PO SCH (09:49)
[2016-12-27] MEDS: GABAPENTIN 300 MG CAP PO SCH ×2 (09:49→20:28)
[2016-12-27] MEDS: ENOXAPARIN SODIUM 40 MG/0.4 ML SYRINGE SQ SCH (09:49)
[2016-12-27] MEDS: ASPIRIN 325 MG TAB PO SCH (09:49)
[2016-12-27] MEDS: CITALOPRAM HYDROBROMIDE 20 MG TAB PO SCH (09:49)
[2016-12-27] MEDS: SUCRALFATE 1 GM TAB PO SCH ×3 (09:49→17:44)
[2016-12-27] MEDS: DULoxetine HCl DR 30 MG CAP PO SCH (09:49)
[2016-12-27] MEDS: levETIRAcetam 500 MG TAB PO SCH ×2 (14:30→20:29)
--- NOTE | 2016-12-27 14:55 | HHI.PR ---
Subjective Remarks patient c/o diffuse pain on the left side of the body also some chest pain denies sob No further seizures since yesterday denies abdominal pain, nausea or vomiting Vital signs stable Objective Vitals Vital Signs Date Time Temp Pulse Resp B/P (MAP) Pulse Ox O2 Delivery O2 Flow Rate FiO2 12/27/16 12:00 98.7 87 18 121/72 (88) 94 12/27/16 08:00 98.5 64 16 118/78 (91) 96 12/27/16 04:00 98.6 97 20 118/71 (87) 94 12/27/16 03:10 82 12/27/16 01:00 92 17 119/73 (88) 97 Room Air 12/27/16 00:59 86 16 121/76 (91) 97 12/27/16 00:00 88 17 116/75 (89) 98 Room Air 12/26/16 23:00 86 15 117/65 (82) 97 Room Air 12/26/16 22:00 92 17 119/73 (88) 97 Room Air 12/26/16 21:00 86 17 125/80 (95) 99 Room Air 12/26/16 18:49 16 100 Room Air 12/26/16 18:36 80 18 97 Room Air 12/26/16 18:30 100.3 80 18 124/72 (89) 98 I/O 12/26/16 12/26/16 12/26/16 12/27/16 12/27/16 12/27/16 06:59 14:59 22:59 06:59 14:59 22:59 Output Total 350 ml Balance -350 ml Output Urine Total 350 ml # Voids 1 Result Diagram: 12/26/16184412/26/161844 Imaging Last Impressions Head CT 12/26/161833 Signed Impressions: Service Date/Time: November 19:07 - CONCLUSION: No acute disease. Small areas of the encephalomalacia at the posterior medial parietal lobes are again seen. Julio Velasco MD Chest X-Ray 12/26/161833 Signed Impressions: Service Date/Time: November 19:06 - CONCLUSION: No acute disease. Julio Velasco MD Objective Remarks AAOx3 NAD Left hemiparesis with intact sensation difuse muscular pain over left side of the body on upper and lower extremities Clear lungs BL S1S2 RRR, no MRG Left foot drop Medications and IVs Current Medications Medications (Trade) Dose Ordered Sig/Annette Route Start Time Stop Time Status Last Admin (NS Flush) 2 ml UNSCH PRN IV FLUSH 12/26/16 18:45 12/26/16 22:18 (Aspirin) 325 mg DAILY PO 12/27/16 09:00 12/27/16 09:49 (CeleXA) 20 mg DAILY PO 12/27/16 09:00 12/27/16 09:49 (Cymbalta Dr) 30 mg DAILY PO 12/27/16 09:00 12/27/16 09:49 (Neurontin) 100 mg HS PO 12/27/16 21:00 (Neurontin) 300 mg BID PO 12/27/16 09:00 12/27/16 09:49 (Trimble 5-325 Mg) 1 tab Q6H PRN PO 12/27/16 00:15 12/27/16 12:22 (Protonix) 40 mg DAILY PO 12/27/16 09:00 12/27/16 09:49 (Carafate) 1 gm TID PO 12/27/16 09:00 12/27/16 12:21 (NS Flush) 2 ml UNSCH PRN IV FLUSH 12/27/16 00:15 (NS Flush) 2 ml BID IV FLUSH 12/27/16 09:00 12/27/16 09:00 (Narcan Inj) 0.4 mg UNSCH PRN IV 12/27/16 00:15 (Lovenox Inj) 40 mg Q24H SQ 12/27/16 09:00 12/27/16 09:49 (Ativan Inj) 1 mg Q15M PRN IV PUSH 12/27/16 00:45 (Keppra) 500 mg Q12HR PO 12/27/16 14:15 12/27/16 14:30 Urinary Catheter: No A/P Problem List: (1) New onset seizure ICD Code: R56.9 - Unspecified convulsions Status: Acute Plan: CT of the head did not show any acute disease The patient was admitted to the neurological floor and placed on seizure precautions Patient started on Ativan when necessary and loaded with fosphenytoin 1000 mg. Patient has been started on Keppra as per neurology recommendations. Continue daily aspirin. EEG ordered and pending. (2) Chest pain ICD Code: R07.9 - Chest pain, unspecified Status: Acute Plan: Likely muscular skeletal in nature. EKG on admission showed normal sinus rhythm without ST-T changes. Reviewed by me. I will repeat EKG and and repeat troponin level. (3) Muscular pain ICD Code: M79.1 - Myalgia Status: Acute Plan: Likely secondary to seizure activity and compulsions. Continue gabapentin, continue Trimble for pain management. I will add IV morphine for breakthrough pain and give 1 dose of 2 mg IV morphine now since patient seems to be uncontrolled. Patient states that she is not allergic to morphine and that she really does not have a true allergy to hydromorphone. She states that she gets itching and needs to get Benadryl with it. (4) Left hemiparesis ICD Code: G81.94 - Hemiplegia, unspecified affecting left nondominant side Status: Chronic Plan: PT consulted. Recommended home with home health PT versus outpatient PT. We'll consult occupational therapy (5) Depression ICD Code: F32.9 - Major depressive disorder, single episode, unspecified Status: Chronic Plan: Seems stable. Continue Celexa. (6) H/O: CVA (cerebrovascular accident) ICD Code: Z86.73 - Personal history of transient ischemic attack (TIA), and cerebral infarction without residual deficits Status: Chronic Plan: Continue aspirin daily. Head CT as above. Neurology following Assessment and Plan GI prophylaxis: Continue Carafate and PPI that the patient has been taking for gastritis. DVT prophylaxis: SCDs, no chemoprophylaxis given previous history of iron deficiency anemia and gastritis. Discharge Planning Continue to monitor in the medical floor. Discharge pending neurology clearance , OT consultation. Problem Qualifiers (1) Depression: Qualified Codes: F32.9 - Major depressive disorder, single episode, unspecified Rudolph Russell MD Dec 27, 2016 14:55
[2016-12-27] MEDS ORDERED: MORPHINE SULFATE 4 MG/ML INJ IV PUSH ONE (16:00)
--- NOTE | 2016-12-27 19:06 | MB ---
cc: ELIZABETH ORTIZ M.D. DATE OF CONSULTATION 12/27/16 DATE OF 1980 AGE [id number]. REASON FOR CONSULTATION Seizure. HISTORY OF PRESENT ILLNESS The patient is a 36-year-old woman with a history of stroke back in 2016 with residual left hemiparesis and left foot drop, wears an AFO and walks with a cane. Hypertension, COPD, came into the ER with a seizure. per her sister apparently may have had two while asleep. She does not remember feeling ill prior to that. She does admit to having a mild headache the night before, now she has some pain over her left side. Per note she may have had a productive cough for a couple of days. PAST MEDICAL HISTORY She has a history of stroke x2, intermittent hypertension, COPD, insomnia, increased factor VIII disorder. Iron deficiency anemia. PAST SURGICAL HISTORY Cholecystectomy, fibroids. MEDICATIONS Active medicines at home are: 1. Cymbalta. 2. [place]. 3. Gabapentin. 4. Celexa. 5. Full dose aspirin. 6. Protonix. 7. Carafate. ALLERGIES PENICILLIN G AND HYDROMORPHONE. FAMILY HISTORY Breast, ovarian, stomach cancer as well as diabetes in the FAMILY. SOCIAL HISTORY Does not smoke or drink. Lives with family PHYSICAL EXAMINATION VITAL SIGNS: Temperature is 98.7, pulse 87, respiratory rate 18, blood pressure 121/72. NECK: supple. HEART: Regular. NEURO: She is awake and alert. Her speech is normal, fluent. Pupils reactive. Face is symmetrical. She has residual left hemiparesis as well as upper and lower extremity with a left foot drop. Reflexes trace to 1+. Sensory is normal. Cerebellum on the right is intact. Gait is withheld LABORATORY DATA Labs were reviewed. The hemoglobin is 11.4, hematocrit 34.6, platelets are 371,000. Coags are normal. Chemistries are unremarkable except albumin 3.3. Toxicology was unremarkable as well. Urine few mucus, otherwise, unremarkable. IMAGING STUDIES CT head shows no acute findings, just encephalomalacia from old strokes in the parietal lobes. IMPRESSION Acute onset seizure likely due to history of stroke. Recommend getting an EEG. She was loaded with Cerebyx, I am going to change that over to the Keppra 500 milligrams q. 12. Will get a follow-up MRI. Continue her gabapentin. I am not sure why she is on Celexa and Cymbalta. Out of bed with physical therapy and depending on findings further recommendations will be made. Maintain seizure precautions. Elizabeth Ortiz MD DF/FAISAL /2:14 PM /6:49 PM
--- NOTE | 2016-12-27 20:07 | RADRPT ---
EXAM DATE/TIME: 12/27/2016 18:38 [facility] COMPARISON: CT BRAIN W/O CONTRAST, December 26, 2016, 19:07. MRI BRAIN W/O CONTRAST, July 04, 2016, 18:29. INDICATIONS : Seizures. New onset seizures. MEDICAL HISTORY : None. SURGICAL HISTORY : Cholecystectomy. Ovarian cyst removal. ENCOUNTER: Subsequent ACUITY: 1 day PAIN SCORE: 3/10 LOCATION: cranial TECHNIQUE: Multiplanar, multisequence MRI of the brain was performed without contrast. FINDINGS: CEREBRUM: The ventricles are normal for age. There are stable small areas of encephalomalacia at the superior medial parietal lobes being greater on the right. There some stable minimal dural thickening at the posterior right parietal region. There stable small cystic areas in the medial basal ganglia regions related to either lacunar infarct or dilated perivascular spaces. No evidence of midline shift, mass lesion, hemorrhage or acute infarction. No extraaxial fluid collections are seen. The pituitary gla nd and suprasellar cistern are normal in configuration. The hippocampal structures appear fairly symm etric. The temporal horn of the right lateral ventricle is slightly larger than the left temporal hor n. WHITE MATTER: No significant signal abnormalities are seen in the white matter. POSTERIOR FOSSA: The cerebellum and brainstem are intact. The 4th ventricle is midline. The cerebellopontine angle is unremarkable. The cerebellar tonsils are normal in position. DIFFUSION IMAGING: No focal areas of restricted diffusion are seen. No evidence of acute infarction. EXTRACRANIAL: The visualized portions of the orbits and paranasal sinuses are unremarkable. CONCLUSION: 1. No acute abnormality is seen. 2. Small areas of encephalomalacia at the superior medial parietal lobe being greater on the right. 3. Small area of stable cystic change in the medial basal ganglia regions representing either lacunar infarcts or dilated perivascular spaces. 4. Minimal asymmetry to the temporal horns of the lateral ventricles with the right side being slight ly more distended. The hippocampal structures themselves appear relatively symmetric. Julio Velasco MD on December 27, 2016 at 20:01 Board Certified Radiologist. This report was verified electronically.
[2016-12-27] MEDS: MORPHINE SULFATE 4 MG/ML INJ IV PUSH PRN (20:25)
[2016-12-27] MEDS: GABAPENTIN 100 MG CAP PO SCH (20:29)
--- NOTE | 2016-12-27 21:36 | MG ---
cc: ELIZABETH ORTIZ MD Lab No: [id number] Date: 12/27/16 Age: 36 Sex: F Race: DATE OF [address] Lee Hyperventilation and photic stimulation with fair effort, awake, drowsy study. CT - no acute disease except for bilateral more posterior medial parietal lobe infarcts, old infarcts. Admitted due to possible new onset seizures. Loaded with Cerebyx. DESCRIPTION OF RECORD The patient has an overall 8-9 Hz alpha. At one point at epoch 9 she develops what looks like phase reversals. This is predominately over the right frontal and parietal occipital left. Some sharp waves were seen bilaterally as well. Sharp waves were quite frequent after the initial portion bilateral. There was some twitching over the right face during the sharp wave activity. Photic stimulation did elicit a driving response. Hyperventilation performed. Adequate with occasional sharps there as well. IMPRESSION Abnormal EEG due to sharp wave activity in the few phase reversals seen consistent with epileptic activity in this patient. After EEG was completed, the patient was evaluated by myself and I started her on Keppra 500 mg twice a day. Further recommendations will be made. Clinical correlation. Elizabeth Ortiz MD DF/ /7:27 PM /9:19 PM
[2016-12-28] VITALS (8 sets, daily range): BP systolic 117–143; BP diastolic 58–85; PULSE 64–96; RESP 16–20; TEMP 97.7–98.6; O2SAT 95–100
--- NOTE | 2016-12-28 00:57 | EKG ---
Date Performed: 12/26/2016 Time Performed: 20:13:13 PTAGE: 36 years EKG: Sinus rhythm NON-SPECIFIC ST/T WAVES CHANGES PREVIOUS TRACING : 12/12/2015 07.29 Compared to prior tracing no significant change DOCTOR: London James Interpretating Date/Time 12/28/2016 00:56:32
[2016-12-28] MEDS: MORPHINE SULFATE 4 MG/ML INJ IV PUSH PRN ×5 (01:06→20:34)
[2016-12-28] MEDS: ACETAMINOPHEN/HYDROcodone 325 MG/5 MG TAB PO PRN ×3 (06:23→18:44)
[2016-12-28] MEDS: SUCRALFATE 1 GM TAB PO SCH ×3 (09:17→17:41)
[2016-12-28] MEDS: ENOXAPARIN SODIUM 40 MG/0.4 ML SYRINGE SQ SCH (09:17)
[2016-12-28] MEDS: levETIRAcetam 500 MG TAB PO SCH ×2 (09:18→20:34)
[2016-12-28] MEDS: GABAPENTIN 300 MG CAP PO SCH ×2 (09:18→20:34)
[2016-12-28] MEDS: PANTOPRAZOLE SOD 40 MG DELAYED RELEASE TAB PO SCH (09:18)
[2016-12-28] MEDS: DULoxetine HCl DR 30 MG CAP PO SCH (09:19)
[2016-12-28] MEDS: ASPIRIN 325 MG TAB PO SCH (09:19)
[2016-12-28] MEDS: CITALOPRAM HYDROBROMIDE 20 MG TAB PO SCH (09:27)
[2016-12-28] MEDS: SODIUM CHLORIDE 0.9% FLUSH 10 ML FLUSH IV FLUSH SCH ×2 (09:27→20:34)
--- NOTE | 2016-12-28 09:45 | EKG ---
Date Performed: 12/27/2016 Time Performed: 16:29:30 PTAGE: 36 years EKG: Sinus rhythm NORMAL ECG PREVIOUS TRACING : 12/26/2016 20.13 DOCTOR: Maurilio Tello Interpretating Date/Time 12/28/2016 09:44:24
[2016-12-28 09:55] LABS: AUTOMATED NEUTROPHIL # 3.3 TH/MM3 (1.8-7.7); BASOPHIL % 0.4 % (0.0-2.0); EOSINOPHIL # 0.3 TH/MM3 (0-0.4); EOSINOPHIL % 3.7 % (0.0-4.0); HEMATOCRIT 35.5 % (35.0-46.0); LYMPH % 44.5 % (9.0-44.0); LYMPHOCYTE # 3.3 TH/MM3 (1.0-4.8); MEAN CELL VOLUME 82.3 FL (80.0-100.0); MEAN CORPUSCULAR HEMOGLOBIN 26.6 PG (27.0-34.0); MEAN CORPUSCULAR HGB CONC 32.3 % (32.0-36.0); MONO % 6.1 % (0.0-8.0); NEUT % 45.3 % (16.0-70.0); PLATELET COUNT 331 TH/MM3 (150-450); RED BLOOD COUNT 4.32 MIL/MM3 (4.00-5.30); WHITE BLOOD COUNT 7.3 TH/MM3 (4.0-11.0)
[2016-12-28 10:03] LABS: HEMO FLAGS AUTO DIFF
[2016-12-28 10:18] LABS: BICARBONATE 28.9 MEQ/L (21.0-32.0); POTASSIUM 3.8 MEQ/L (3.5-5.1)
[2016-12-28 10:55] LABS: PLATELET ESTIMATE SMEAR NORMAL (NORMAL); PLATELET MORPHOLOGY NORMAL (NORMAL); SCAN/DIFF AUTO DIFF CONFIRMED
--- NOTE | 2016-12-28 14:05 | HHI.PR ---
Subjective Remarks c/o left sided pain from neck to left leg. no sz's reported. Objective Vital Signs Date Time Temp Pulse Resp B/P (MAP) Pulse Ox O2 Delivery O2 Flow Rate FiO2 12/28/16 12:00 97.7 64 17 143/81 (101) 97 12/28/16 09:33 16 12/28/16 08:00 97.9 76 16 117/85 (96) 100 12/28/16 07:51 81 12/28/16 07:51 16 12/28/16 04:00 98.1 82 20 122/66 (84) 96 12/28/16 00:00 98.6 85 20 129/58 (81) 95 12/27/16 20:16 89 12/27/16 20:00 97.7 78 20 123/75 (91) 99 12/27/16 16:00 98.4 78 20 113/78 (90) 94 I/O 12/27/16 12/27/16 12/27/16 12/28/16 12/28/16 12/28/16 07:00 15:00 23:00 07:00 15:00 23:00 # Voids 1 1 1 awake alert fluent,perrla c spine normal rom some tenderness to touch left arm able to lift left leg unable o lift due to pain. dtrs 1+ gait can not test Result Diagram: 12/28/16 0855 12/28/16 0855 Imaging mri brain no acute findings eeg c/w sz Assessment and Plan Assessment and Plan sz left leg pain and weakness-possible muscular from sz -cont keppra sz precautions ativan prn -oob with PT for eval. consider doppler left leg doubt dvt but tender check cpk level as well if not done. can try muscle relaxer. Elizabeth Ortiz MD Dec 28, 2016 14:05
[2016-12-28] MEDS: diphenhydrAMINE HCL 25 MG CAP PO PRN ×2 (15:51→23:03)
--- NOTE | 2016-12-28 16:32 | HHI.PR ---
Subjective Remarks Denies any further seizures still c/o pain over the left side of her body afebrile vital signs stable Objective Vitals Vital Signs Date Time Temp Pulse Resp B/P (MAP) Pulse Ox O2 Delivery O2 Flow Rate FiO2 12/28/16 12:00 97.7 64 17 143/81 (101) 97 12/28/16 09:33 16 12/28/16 08:00 97.9 76 16 117/85 (96) 100 12/28/16 07:51 81 12/28/16 07:51 16 12/28/16 04:00 98.1 82 20 122/66 (84) 96 12/28/16 00:00 98.6 85 20 129/58 (81) 95 12/27/16 20:16 89 12/27/16 20:00 97.7 78 20 123/75 (91) 99 I/O 12/27/16 12/27/16 12/27/16 12/28/16 12/28/16 12/28/16 06:59 14:59 22:59 06:59 14:59 22:59 # Voids 1 1 1 Result Diagram: 12/28/16 0855 12/28/16 0855 Imaging Last Impressions Brain MRI 12/27/16 0000 Signed Impressions: Service Date/Time: Tuesday, December 27, 2016 18:38 - CONCLUSION: 1. No acute abnormality is seen. 2. Small areas of encephalomalacia at the superior medial parietal lobe being greater on the right. 3. Small area of stable cystic change in the medial basal ganglia regions representing either lacunar infarcts or dilated perivascular spaces. 4. Minimal asymmetry to the temporal horns of the lateral ventricles with the right side being slightly more distended. The hippocampal structures themselves appear relatively symmetric. Julio Velasco MD Head CT 12/26/161833 Signed Impressions: Service Date/Time: November 19:07 - CONCLUSION: No acute disease. Small areas of the encephalomalacia at the posterior medial parietal lobes are again seen. Julio Velasco MD Chest X-Ray 12/26/161833 Signed Impressions: Service Date/Time: November 19:06 - CONCLUSION: No acute disease. Julio Velasco MD Objective Remarks AAOx3 NAD Left hemiparesis with intact sensation difuse muscular pain over left side of the body on upper and lower extremities there is some spasm over the left side of the neck Upper extremity with some spasticity Clear lungs BL S1S2 RRR, no MRG Left foot drop Procedures None Medications and IVs Current Medications Medications (Trade) Dose Ordered Sig/Annette Route Start Time Stop Time Status Last Admin (NS Flush) 2 ml UNSCH PRN IV FLUSH 12/26/16 18:45 12/26/16 22:18 (Aspirin) 325 mg DAILY PO 12/27/16 09:00 12/28/16 09:19 (CeleXA) 20 mg DAILY PO 12/27/16 09:00 12/28/16 09:27 (Cymbalta Dr) 30 mg DAILY PO 12/27/16 09:00 12/28/16 09:19 (Neurontin) 100 mg HS PO 12/27/16 21:00 12/27/16 20:29 (Neurontin) 300 mg BID PO 12/27/16 09:00 12/28/16 09:18 ([place] 5-325 Mg) 1 tab Q6H PRN PO 12/27/16 00:15 12/28/16 12:55 (Protonix) 40 mg DAILY PO 12/27/16 09:00 12/28/16 09:18 (Carafate) 1 gm TID PO 12/27/16 09:00 12/28/16 12:55 (NS Flush) 2 ml UNSCH PRN IV FLUSH 12/27/16 00:15 (NS Flush) 2 ml BID IV FLUSH 12/27/16 09:00 12/28/16 09:27 (Narcan Inj) 0.4 mg UNSCH PRN IV 12/27/16 00:15 (Lovenox Inj) 40 mg Q24H SQ 12/27/16 09:00 12/28/16 09:17 (Ativan Inj) 1 mg Q15M PRN IV PUSH 12/27/16 00:45 (Keppra) 500 mg Q12HR PO 12/27/16 14:15 12/28/16 09:18 (Morphine Inj) 2 mg Q3H PRN IV PUSH 12/27/16 18:00 12/28/16 15:52 (Benadryl) 25 mg Q4H PRN PO 12/28/16 15:30 12/28/16 15:51 Urinary Catheter: No Vascular Central Line Catheter: No A/P Problem List: (1) New onset seizure ICD Code: R56.9 - Unspecified convulsions Status: Acute (2) Chest pain ICD Code: R07.9 - Chest pain, unspecified Status: Acute (3) Muscular pain ICD Code: M79.1 - Myalgia Status: Acute (4) Left hemiparesis ICD Code: G81.94 - Hemiplegia, unspecified affecting left nondominant side Status: Chronic (5) Depression ICD Code: F32.9 - Major depressive disorder, single episode, unspecified Status: Chronic (6) H/O: CVA (cerebrovascular accident) ICD Code: Z86.73 - Personal history of transient ischemic attack (TIA), and cerebral infarction without residual deficits Status: Chronic Assessment and Plan (1) New onset seizure Plan: CT of the head did not show any acute disease The patient was admitted to the neurological floor and placed on seizure precautions Patient started on Ativan when necessary and loaded with fosphenytoin 1000 mg. Patient has been started on Keppra as per neurology recommendations. Continue daily aspirin. 12/28 EEG abnormal due to sharp wave activity in the few phase reversal seen consistent with epileptic activity. Patient started on Keppra 500 mg twice a day. No further seizure activity reported. Continue to follow-up neurology recommendations. MRI of the brain did not show any acute abnormalities. (2) Chest pain Plan: Likely muscular skeletal in nature. EKG on admission showed normal sinus rhythm without ST-T changes. Reviewed by me. Chest pain now resolved. (3) Muscular pain Plan: Likely secondary to seizure activity and compulsions. Continue gabapentin, continue [place] for pain management. Patient started an IV morphine for breakthrough pain. 12/28 patient is complaining of itchiness, I will Rx morphine be given prior to IV morphine to prevent itchiness. The patient is also still complaining of left -sided pain. I will request a venous Doppler of the left upper and lower extremities to rule out DVT. I will also start the patient on baclofen since there is some evidence of muscle spasms. (4) Left hemiparesis Plan: PT consulted. Recommended home with home health PT versus outpatient PT. We'll consult occupational therapy (5) Depression Plan: Seems stable. Continue Celexa. (6) H/O: CVA (cerebrovascular accident) Plan: Continue aspirin daily. Head CT as above. Neurology following Assessment and Plan GI prophylaxis: Continue Carafate and PPI that the patient has been taking for gastritis. DVT prophylaxis: SCDs, no chemoprophylaxis given previous history of iron deficiency anemia and gastritis. GI prophylaxis: Continue Carafate and PPI that the patient has been taking for gastritis. DVT prophylaxis: SCDs, no chemoprophylaxis given previous history of iron deficiency anemia and gastritis. Discharge Planning Continue to monitor in the medical floor. Discharge pending neurology clearance , OT consultation. Problem Qualifiers (1) Depression: Qualified Codes: F32.9 - Major depressive disorder, single episode, unspecified Rudolph Russell MD Dec 28, 2016 16:32
--- NOTE | 2016-12-28 16:40 | RADRPT ---
EXAM DATE/TIME: 12/28/2016 16:06 [facility] COMPARISON: No previous studies available for comparison. INDICATIONS : Left leg pain. MEDICAL HISTORY : Stroke. Hypertension. Neck pain. Acute encephalopathy. Headache. Anticoagulant therapy. Asthma. P neumonia. Ovarian cysts. Renal failure. Absent right kidney. Diabetes. Leukocytosis. SURGICAL HISTORY : Cholecystectomy. ENCOUNTER: Initial ACUITY: 1 month PAIN SCORE: 10/10 LOCATION: Left leg. TECHNIQUE: Venous ultrasound of the leg was performed from the inguinal ligament to the proximal calf. Real-kimberli e, color Doppler and spectral tracing, compression and augmentation techniques were used. FINDINGS: There is normal compressibility of the deep venous system from the inguinal region to the proximal ca lf. No echogenic clot is seen in the lumen of the common femoral, femoral, popliteal, and posterior tibial veins. There is a normal response of the venous system to proximal and distal augmentation an d respiration. CONCLUSION: Negative exam with no evidence of deep venous thrombosis. Ambrosio Tran MD on December 28, 2016 at 16:37 Board Certified Radiologist. This report was verified electronically.
--- NOTE | 2016-12-28 16:41 | RADRPT ---
EXAM DATE/TIME: 12/28/2016 15:54 [facility] COMPARISON: No previous studies available for comparison. INDICATIONS : Left arm pain. MEDICAL HISTORY : Stroke. Hypertension. Neck pain. Acute encephalopathy. Headache. Anticoagulant therapy. Asthma. Pneu monia. Ovarian cysts. Renal failure. Absent right kidney. Diabetes. Leukocytosis. SURGICAL HISTORY : Cholecystectomy. ENCOUNTER: Initial ACUITY: 1 month PAIN SCORE: 10/10 LOCATION: Left arm. FINDINGS: There is spontaneous flow documented in the brachial, basilic, cephalic, axillary, and subclavian vei ns. The vessels are compressible and augmentation response is documented. No filling defects are se en. The flow is phasic with respiration. Direction of flow in the jugular vein is caudal. CONCLUSION: Negative exam with no evidence of deep venous thrombosis. Ambrosio Tran MD on December 28, 2016 at 16:38 Board Certified Radiologist. This report was verified electronically.
[2016-12-28] MEDS: BACLOFEN 10 MG TAB PO SCH ×2 (17:41→22:34)
[2016-12-28] MEDS: GABAPENTIN 100 MG CAP PO SCH (20:34)
[2016-12-29] VITALS (8 sets, daily range): BP systolic 105–145; BP diastolic 55–71; PULSE 79–95; RESP 15–20; TEMP 96.9–98.6; O2SAT 95–100
[2016-12-29] MEDS: MORPHINE SULFATE 4 MG/ML INJ IV PUSH PRN ×4 (03:06→21:47)
[2016-12-29] MEDS: ACETAMINOPHEN/HYDROcodone 325 MG/5 MG TAB PO PRN ×3 (05:10→17:46)
[2016-12-29] MEDS: BACLOFEN 10 MG TAB PO SCH ×3 (05:10→21:48)
[2016-12-29] MEDS: SUCRALFATE 1 GM TAB PO SCH ×3 (08:38→17:46)
[2016-12-29] MEDS: levETIRAcetam 500 MG TAB PO SCH ×2 (08:38→21:47)
[2016-12-29] MEDS: DULoxetine HCl DR 30 MG CAP PO SCH (08:38)
[2016-12-29] MEDS: GABAPENTIN 300 MG CAP PO SCH ×2 (08:38→21:47)
[2016-12-29] MEDS: PANTOPRAZOLE SOD 40 MG DELAYED RELEASE TAB PO SCH (08:38)
[2016-12-29] MEDS: CITALOPRAM HYDROBROMIDE 40 MG TAB PO SCH (08:38)
[2016-12-29] MEDS: ASPIRIN 325 MG TAB PO SCH (08:38)
[2016-12-29] MEDS: ENOXAPARIN SODIUM 40 MG/0.4 ML SYRINGE SQ SCH (08:39)
[2016-12-29] MEDS: diphenhydrAMINE HCL 25 MG CAP PO PRN ×4 (08:39→21:30)
[2016-12-29] MEDS: SODIUM CHLORIDE 0.9% FLUSH 10 ML FLUSH IV FLUSH SCH ×2 (08:41→21:52)
--- NOTE | 2016-12-29 16:51 | HHI.PR ---
Subjective Remarks Denies further seizures pain in left side of the body is much improved Objective Vitals Vital Signs Date Time Temp Pulse Resp B/P (MAP) Pulse Ox O2 Delivery O2 Flow Rate FiO2 12/29/16 13:09 16 12/29/16 12:40 98.6 88 15 145/67 (93) 98 12/29/16 12:33 16 12/29/16 08:00 97.8 84 16 125/68 (87) 95 12/29/16 07:15 79 12/29/16 04:00 98.3 79 18 105/55 (72) 97 12/29/16 00:00 98.1 84 20 115/70 (85) 96 12/28/16 21:55 96 12/28/16 20:00 98.3 86 18 131/74 (93) 97 I/O 12/28/16 12/28/16 12/28/16 12/29/16 12/29/16 12/29/16 07:00 15:00 23:00 07:00 15:00 23:00 Intake Total 1200 ml 360 ml Balance 1200 ml 360 ml Intake Oral 1200 ml 360 ml # Voids 1 2 1 # Bowel Movements 0 Result Diagram: 12/28/16 0855 12/28/16 0855 Imaging Last Impressions Upper Extremity Ultrasound 12/28/16 0000 Signed Impressions: Service Date/Time: Wednesday, December 28, 2016 15:54 - CONCLUSION: Negative exam with no evidence of deep venous thrombosis. Ambrosio Tran MD Lower Extremity Ultrasound 12/28/16 0000 Signed Impressions: Service Date/Time: Wednesday, December 28, 2016 16:06 - CONCLUSION: Negative exam with no evidence of deep venous thrombosis. Ambrosio Tran MD Brain MRI 12/27/16 0000 Signed Impressions: Service Date/Time: Tuesday, December 27, 2016 18:38 - CONCLUSION: 1. No acute abnormality is seen. 2. Small areas of encephalomalacia at the superior medial parietal lobe being greater on the right. 3. Small area of stable cystic change in the medial basal ganglia regions representing either lacunar infarcts or dilated perivascular spaces. 4. Minimal asymmetry to the temporal horns of the lateral ventricles with the right side being slightly more distended. The hippocampal structures themselves appear relatively symmetric. Julio Velasco MD Head CT [id number] Signed Impressions: Service Date/Time: November 19:07 - CONCLUSION: No acute disease. Small areas of the encephalomalacia at the posterior medial parietal lobes are again seen. Julio Velasco MD Chest X-Ray 12/26/161833 Signed Impressions: Service Date/Time: November 19:06 - CONCLUSION: No acute disease. Julio Velasco MD Objective Remarks AAOx3 NAD Left hemiparesis with intact sensation difuse muscular pain over left side of the body on upper and lower extremities there is some spasm over the left side of the neck Upper extremity with some spasticity Clear lungs BL S1S2 RRR, no MRG Left foot drop Procedures None Medications and IVs Current Medications Medications (Trade) Dose Ordered Sig/Annette Route Start Time Stop Time Status Last Admin (NS Flush) 2 ml UNSCH PRN IV FLUSH 12/26/16 18:45 12/26/16 22:18 (Aspirin) 325 mg DAILY PO 12/27/16 09:00 12/29/16 08:38 (Cymbalta Dr) 30 mg DAILY PO 12/27/16 09:00 12/29/16 08:38 (Neurontin) 100 mg HS PO 12/27/16 21:00 12/28/16 20:34 (Neurontin) 300 mg BID PO 12/27/16 09:00 12/29/16 08:38 ([place] 5-325 Mg) 1 tab Q6H PRN PO 12/27/16 00:15 12/29/16 17:46 (Protonix) 40 mg DAILY PO 12/27/16 09:00 12/29/16 08:38 (Carafate) 1 gm TID PO 12/27/16 09:00 12/29/16 17:46 (NS Flush) 2 ml UNSCH PRN IV FLUSH 12/27/16 00:15 (NS Flush) 2 ml BID IV FLUSH 12/27/16 09:00 12/29/16 08:41 (Narcan Inj) 0.4 mg UNSCH PRN IV 12/27/16 00:15 (Lovenox Inj) 40 mg Q24H SQ 12/27/16 09:00 12/29/16 08:39 (Ativan Inj) 1 mg Q15M PRN IV PUSH 12/27/16 00:45 (Keppra) 500 mg Q12HR PO 12/27/16 14:15 12/29/16 08:38 (Morphine Inj) 2 mg Q3H PRN IV PUSH 12/27/16 18:00 12/29/16 13:03 (Benadryl) 25 mg Q4H PRN PO 12/28/16 15:30 12/29/16 17:46 (Lioresal) 10 mg Q8HR PO 12/28/16 16:45 12/29/16 13:02 (CeleXA) 40 mg DAILY PO 12/29/16 09:00 12/29/16 08:38 (Narcan Inj) 0.4 mg UNSCH PRN IV 12/29/16 17:00 (Kate-Colace) 1 tab BID PO 12/29/16 21:00 (Milk Of Magnesia Liq) 30 ml Q12H PRN PO 12/29/16 17:00 (Senokot) 17.2 mg Q12H PRN PO 12/29/16 17:00 (Dulcolax Supp) 10 mg DAILY PRN RECTAL 12/29/16 17:00 (Lactulose Liq) 30 ml DAILY PRN PO 12/29/16 17:00 Urinary Catheter: No Vascular Central Line Catheter: No A/P Problem List: (1) New onset seizure ICD Code: R56.9 - Unspecified convulsions Status: Acute (2) Chest pain ICD Code: R07.9 - Chest pain, unspecified Status: Acute (3) Muscular pain ICD Code: M79.1 - Myalgia Status: Acute (4) Left hemiparesis ICD Code: G81.94 - Hemiplegia, unspecified affecting left nondominant side Status: Chronic (5) Depression ICD Code: F32.9 - Major depressive disorder, single episode, unspecified Status: Chronic (6) H/O: CVA (cerebrovascular accident) ICD Code: Z86.73 - Personal history of transient ischemic attack (TIA), and cerebral infarction without residual deficits Status: Chronic Assessment and Plan (1) New onset seizure Plan: CT of the head did not show any acute disease The patient was admitted to the neurological floor and placed on seizure precautions Patient started on Ativan when necessary and loaded with fosphenytoin 1000 mg. Patient has been started on Keppra as per neurology recommendations. Continue daily aspirin. EEG abnormal due to sharp wave activity in the few phase reversal seen consistent with epileptic activity. Patient started on Keppra 500 mg twice a day. No further seizure activity reported. Continue to follow-up neurology recommendations. MRI of the brain did not show any acute abnormalities. (2) Chest pain Plan: Likely muscular skeletal in nature. EKG on admission showed normal sinus rhythm without ST-T changes. Reviewed by me. Chest pain now resolved. (3) Muscular pain Plan: Likely secondary to seizure activity and compulsions. Continue gabapentin, continue [place] for pain management. Patient started an IV morphine for breakthrough pain. 12/28 patient is complaining of itchiness, I will Rx morphine be given prior to IV morphine to prevent itchiness. The patient is also still complaining of left -sided pain. I will request a venous Doppler of the left upper and lower extremities to rule out DVT. I will also start the patient on baclofen since there is some evidence of muscle spasms. 12/29 doppler ultrasound negative for DVT. Pain on left side of the body better on Baclofen. continue. (4) Left hemiparesis Plan: PT consulted. Recommended home with home health PT versus outpatient PT. We'll consult occupational therapy (5) Depression Plan: Seems stable. Continue Celexa. (6) H/O: CVA (cerebrovascular accident) Plan: Continue aspirin daily. Head CT as above. Neurology following Assessment and Plan GI prophylaxis: Continue Carafate and PPI that the patient has been taking for gastritis. DVT prophylaxis: SCDs, no chemoprophylaxis given previous history of iron deficiency anemia and gastritis. GI prophylaxis: Continue Carafate and PPI that the patient has been taking for gastritis. DVT prophylaxis: SCDs, no chemoprophylaxis given previous history of iron deficiency anemia and gastritis. Discharge Planning Continue to monitor in the medical floor. Discharge pending neurology clearance , OT consultation. Problem Qualifiers (1) Depression: Qualified Codes: F32.9 - Major depressive disorder, single episode, unspecified Rudolph Russell MD Dec 29, 2016 16:51
[2016-12-29] MEDS ORDERED: MAGNESIUM HYDROXIDE SUSP 30 ML CUP PO PRN (17:00)
[2016-12-29] MEDS ORDERED: LACTULOSE SYRUP 20 GM/30 ML CUP PO PRN (17:00)
[2016-12-29] MEDS ORDERED: BISACODYL 10 MG SUPP RECTAL PRN (17:00)
[2016-12-29] MEDS ORDERED: NALOXONE HCL 0.4 MG/ML AMP IV PRN (17:00)
[2016-12-29] MEDS ORDERED: SENNOSIDES 8.6 MG TAB PO PRN (17:00)
[2016-12-29] MEDS: DOCUSATE SODIUM 50 MG/SENNA 8.6 MG TAB PO SCH (21:47)
[2016-12-29] MEDS: GABAPENTIN 100 MG CAP PO SCH (21:48)
[2016-12-30] VITALS (8 sets, daily range): BP systolic 105–131; BP diastolic 59–84; PULSE 70–106; RESP 18–20; TEMP 98.3–99.5; O2SAT 97–99
[2016-12-30] MEDS: ACETAMINOPHEN/HYDROcodone 325 MG/5 MG TAB PO PRN ×3 (02:18→16:27)
[2016-12-30] MEDS: diphenhydrAMINE HCL 25 MG CAP PO PRN ×4 (03:54→20:50)
[2016-12-30] MEDS: MORPHINE SULFATE 4 MG/ML INJ IV PUSH PRN ×4 (04:04→17:57)
[2016-12-30] MEDS: BACLOFEN 10 MG TAB PO SCH ×2 (06:06→13:26)
[2016-12-30] MEDS: GABAPENTIN 300 MG CAP PO SCH ×2 (08:32→17:57)
[2016-12-30] MEDS: CITALOPRAM HYDROBROMIDE 40 MG TAB PO SCH (08:32)
[2016-12-30] MEDS: SUCRALFATE 1 GM TAB PO SCH ×3 (08:33→17:56)
[2016-12-30] MEDS: PANTOPRAZOLE SOD 40 MG DELAYED RELEASE TAB PO SCH (08:33)
[2016-12-30] MEDS: DULoxetine HCl DR 30 MG CAP PO SCH (08:33)
[2016-12-30] MEDS: ASPIRIN 325 MG TAB PO SCH (08:33)
[2016-12-30] MEDS: DOCUSATE SODIUM 50 MG/SENNA 8.6 MG TAB PO SCH ×2 (08:33→20:56)
[2016-12-30] MEDS: levETIRAcetam 500 MG TAB PO SCH ×2 (08:33→20:56)
[2016-12-30] MEDS: ENOXAPARIN SODIUM 40 MG/0.4 ML SYRINGE SQ SCH (08:34)
[2016-12-30] MEDS: SODIUM CHLORIDE 0.9% FLUSH 10 ML FLUSH IV FLUSH SCH ×2 (08:34→20:56)
--- NOTE | 2016-12-30 16:09 | HHI.PR ---
Subjective Remarks Patient still complaining of pain in left side of the body. Denies further seizures Objective Vitals Vital Signs Date Time Temp Pulse Resp B/P (MAP) Pulse Ox O2 Delivery O2 Flow Rate FiO2 12/30/16 13:40 20 12/30/16 12:00 98.3 87 20 117/84 (95) 99 12/30/16 10:38 20 12/30/16 08:37 76 12/30/16 08:00 98.4 82 20 121/75 (90) 97 12/30/16 04:00 98.4 79 18 120/75 (90) 98 12/30/16 00:00 98.3 70 18 105/64 (78) 99 12/29/16 21:00 95 12/29/16 19:40 96.9 94 116/71 (86) 100 12/29/16 19:40 96.9 94 116/71 (86) 100 I/O 12/29/16 12/29/16 12/29/16 12/30/16 12/30/16 12/30/16 06:59 14:59 22:59 06:59 14:59 22:59 Intake Total 360 ml 480 ml 360 ml Balance 360 ml 480 ml 360 ml Intake Oral 360 ml 480 ml 360 ml # Voids 1 1 2 Result Diagram: 12/28/16 0855 12/28/16 0855 Imaging Last Impressions Upper Extremity Ultrasound 12/28/16 0000 Signed Impressions: Service Date/Time: Wednesday, December 28, 2016 15:54 - CONCLUSION: Negative exam with no evidence of deep venous thrombosis. Ambrosio Tran MD Lower Extremity Ultrasound 12/28/16 0000 Signed Impressions: Service Date/Time: Wednesday, December 28, 2016 16:06 - CONCLUSION: Negative exam with no evidence of deep venous thrombosis. Ambrosio Tran MD Brain MRI 12/27/16 0000 Signed Impressions: Service Date/Time: Tuesday, December 27, 2016 18:38 - CONCLUSION: 1. No acute abnormality is seen. 2. Small areas of encephalomalacia at the superior medial parietal lobe being greater on the right. 3. Small area of stable cystic change in the medial basal ganglia regions representing either lacunar infarcts or dilated perivascular spaces. 4. Minimal asymmetry to the temporal horns of the lateral ventricles with the right side being slightly more distended. The hippocampal structures themselves appear relatively symmetric. Julio Velasco MD Head CT 12/26/161833 Signed Impressions: Service Date/Time: November 19:07 - CONCLUSION: No acute disease. Small areas of the encephalomalacia at the posterior medial parietal lobes are again seen. Julio Velasco MD Chest X-Ray 12/26/161833 Signed Impressions: Service Date/Time: November 19:06 - CONCLUSION: No acute disease. Julio Velasco MD Objective Remarks AAOx3 NAD Left hemiparesis with intact sensation difuse muscular pain over left side of the body on upper and lower extremities there is some spasm over the left side of the neck Upper extremity with some spasticity Clear lungs BL S1S2 RRR, no MRG Left foot drop Procedures None Medications and IVs Current Medications Medications (Trade) Dose Ordered Sig/Annette Route Start Time Stop Time Status Last Admin (NS Flush) 2 ml UNSCH PRN IV FLUSH 12/26/16 18:45 12/26/16 22:18 (Aspirin) 325 mg DAILY PO 12/27/16 09:00 12/30/16 08:33 (Cymbalta Dr) 30 mg DAILY PO 12/27/16 09:00 12/30/16 08:33 (Neurontin) 100 mg HS PO 12/27/16 21:00 12/29/16 21:48 (Neurontin) 300 mg BID PO 12/27/16 09:00 12/30/16 08:32 ([place] 5-325 Mg) 1 tab Q6H PRN PO 12/27/16 00:15 12/30/16 08:32 (Protonix) 40 mg DAILY PO 12/27/16 09:00 12/30/16 08:33 (Carafate) 1 gm TID PO 12/27/16 09:00 12/30/16 13:21 (NS Flush) 2 ml UNSCH PRN IV FLUSH 12/27/16 00:15 (NS Flush) 2 ml BID IV FLUSH 12/27/16 09:00 12/30/16 08:34 (Narcan Inj) 0.4 mg UNSCH PRN IV 12/27/16 00:15 (Lovenox Inj) 40 mg Q24H SQ 12/27/16 09:00 12/30/16 08:34 (Ativan Inj) 1 mg Q15M PRN IV PUSH 12/27/16 00:45 (Keppra) 500 mg Q12HR PO 12/27/16 14:15 12/30/16 08:33 (Morphine Inj) 2 mg Q3H PRN IV PUSH 12/27/16 18:00 12/30/16 13:27 (Benadryl) 25 mg Q4H PRN PO 12/28/16 15:30 12/30/16 08:32 (Lioresal) 10 mg Q8HR PO 12/28/16 16:45 12/30/16 13:26 (CeleXA) 40 mg DAILY PO 12/29/16 09:00 12/30/16 08:32 (Narcan Inj) 0.4 mg UNSCH PRN IV 12/29/16 17:00 (Kate-Colace) 1 tab BID PO 12/29/16 21:00 12/30/16 08:33 (Milk Of Magnesia Liq) 30 ml Q12H PRN PO 12/29/16 17:00 (Senokot) 17.2 mg Q12H PRN PO 12/29/16 17:00 12/30/16 08:33 (Dulcolax Supp) 10 mg DAILY PRN RECTAL 12/29/16 17:00 (Lactulose Liq) 30 ml DAILY PRN PO 12/29/16 17:00 A/P Problem List: (1) New onset seizure ICD Code: R56.9 - Unspecified convulsions Status: Acute (2) Chest pain ICD Code: R07.9 - Chest pain, unspecified Status: Acute (3) Muscular pain ICD Code: M79.1 - Myalgia Status: Acute (4) Left hemiparesis ICD Code: G81.94 - Hemiplegia, unspecified affecting left nondominant side Status: Chronic (5) Depression ICD Code: F32.9 - Major depressive disorder, single episode, unspecified Status: Chronic (6) H/O: CVA (cerebrovascular accident) ICD Code: Z86.73 - Personal history of transient ischemic attack (TIA), and cerebral infarction without residual deficits Status: Chronic Assessment and Plan (1) New onset seizure Plan: CT of the head did not show any acute disease The patient was admitted to the neurological floor and placed on seizure precautions Patient started on Ativan when necessary and loaded with fosphenytoin 1000 mg. Patient has been started on Keppra as per neurology recommendations. Continue daily aspirin. EEG abnormal due to sharp wave activity in the few phase reversal seen consistent with epileptic activity. Patient started on Keppra 500 mg twice a day. No further seizure activity reported. Continue to follow-up neurology recommendations. MRI of the brain did not show any acute abnormalities. (2) Chest pain Plan: Likely muscular skeletal in nature. EKG on admission showed normal sinus rhythm without ST-T changes. Reviewed by me. Chest pain now resolved. (3) Muscular pain Plan: Likely secondary to seizure activity and compulsions. Continue gabapentin, continue [place] for pain management. Patient started an IV morphine for breakthrough pain. 12/28 patient is complaining of itchiness, I will Rx morphine be given prior to IV morphine to prevent itchiness. The patient is also still complaining of left -sided pain. I will request a venous Doppler of the left upper and lower extremities to rule out DVT. I will also start the patient on baclofen since there is some evidence of muscle spasms. doppler ultrasound negative for DVT. Pain on left side of the body better on Baclofen. continue. 12/30 Continue Baclofen, patient still c/o left body pain. Possibly due to neuropathic pain, will increase Gabapentin to 300 mg po TID. (4) Left hemiparesis Plan: PT consulted. Recommended home with home health PT versus outpatient PT. We'll consult occupational therapy (5) Depression Plan: Seems stable. Continue Celexa. (6) H/O: CVA (cerebrovascular accident) Plan: Continue aspirin daily. Head CT as above. Neurology following GI prophylaxis: Continue Carafate and PPI that the patient has been taking for gastritis. DVT prophylaxis: SCDs, no chemoprophylaxis given previous history of iron deficiency anemia and gastritis. Discharge Planning Continue to monitor in the medical floor. Discharge pending neurology clearance , OT consultation. Problem Qualifiers (1) Depression: Qualified Codes: F32.9 - Major depressive disorder, single episode, unspecified Rudolph Russell MD Dec 30, 2016 16:09
[2016-12-31] VITALS (8 sets, daily range): BP systolic 111–134; BP diastolic 59–83; PULSE 83–96; RESP 17–18; TEMP 97.5–98.5; O2SAT 95–97
[2016-12-31] MEDS: ACETAMINOPHEN/HYDROcodone 325 MG/5 MG TAB PO PRN ×4 (00:32→22:50)
[2016-12-31] MEDS: BACLOFEN 10 MG TAB PO SCH ×3 (02:37→21:21)
[2016-12-31] MEDS: MORPHINE SULFATE 4 MG/ML INJ IV PUSH PRN ×6 (02:40→21:11)
[2016-12-31] MEDS: DULoxetine HCl DR 30 MG CAP PO SCH (08:37)
[2016-12-31] MEDS: ENOXAPARIN SODIUM 40 MG/0.4 ML SYRINGE SQ SCH (08:37)
[2016-12-31] MEDS: SODIUM CHLORIDE 0.9% FLUSH 10 ML FLUSH IV FLUSH SCH ×2 (08:38→21:22)
[2016-12-31] MEDS: GABAPENTIN 300 MG CAP PO SCH ×3 (08:38→16:52)
[2016-12-31] MEDS: ASPIRIN 325 MG TAB PO SCH (08:39)
[2016-12-31] MEDS: PANTOPRAZOLE SOD 40 MG DELAYED RELEASE TAB PO SCH (08:39)
[2016-12-31] MEDS: levETIRAcetam 500 MG TAB PO SCH ×2 (08:40→21:12)
[2016-12-31] MEDS: CITALOPRAM HYDROBROMIDE 40 MG TAB PO SCH (08:40)
[2016-12-31] MEDS: SUCRALFATE 1 GM TAB PO SCH ×3 (08:40→16:52)
[2016-12-31] MEDS: DOCUSATE SODIUM 50 MG/SENNA 8.6 MG TAB PO SCH ×2 (08:41→21:12)
--- NOTE | 2016-12-31 15:50 | HHI.PR ---
Subjective Remarks no further seizures still c/o pain in left side of the body Objective Vitals Vital Signs Date Time Temp Pulse Resp B/P (MAP) Pulse Ox O2 Delivery O2 Flow Rate FiO2 12/31/16 12:00 98.5 90 18 125/77 (93) 96 12/31/16 08:31 84 12/31/16 08:00 98.3 93 18 116/74 (88) 96 12/31/16 05:15 97.5 87 17 111/59 (76) 97 12/31/16 00:49 97.8 83 17 134/78 (96) 97 12/30/16 20:55 99.3 87 131/74 (93) 99 12/30/16 20:00 106 12/30/16 18:07 18 12/30/16 17:27 18 12/30/16 16:00 99.5 100 20 118/59 (78) 98 I/O 12/30/16 12/30/16 12/30/16 12/31/16 12/31/16 12/31/16 07:00 15:00 23:00 07:00 15:00 23:00 Intake Total 360 ml 600 ml 240 ml Balance 360 ml 600 ml 240 ml Intake Oral 360 ml 600 ml 240 ml # Voids 2 5 2 # Bowel Movements 1 Result Diagram: 12/28/1685412/28/1655 Imaging Last Impressions Upper Extremity Ultrasound 12/28/16 0000 Signed Impressions: Service Date/Time: Wednesday, December 28, 2016 15:54 - CONCLUSION: Negative exam with no evidence of deep venous thrombosis. Ambrosio Tran MD Lower Extremity Ultrasound 12/28/16 0000 Signed Impressions: Service Date/Time: Wednesday, December 28, 2016 16:06 - CONCLUSION: Negative exam with no evidence of deep venous thrombosis. Ambrosio Tran MD Brain MRI 12/27/16 0000 Signed Impressions: Service Date/Time: Tuesday, December 27, 2016 18:38 - CONCLUSION: 1. No acute abnormality is seen. 2. Small areas of encephalomalacia at the superior medial parietal lobe being greater on the right. 3. Small area of stable cystic change in the medial basal ganglia regions representing either lacunar infarcts or dilated perivascular spaces. 4. Minimal asymmetry to the temporal horns of the lateral ventricles with the right side being slightly more distended. The hippocampal structures themselves appear relatively symmetric. Julio Velasco MD Head CT 12/26/161833 Signed Impressions: Service Date/Time: November 19:07 - CONCLUSION: No acute disease. Small areas of the encephalomalacia at the posterior medial parietal lobes are again seen. Julio Velasco MD Chest X-Ray 12/26/161833 Signed Impressions: Service Date/Time: November 19:06 - CONCLUSION: No acute disease. Julio Velasco MD Objective Remarks AAOx3 NAD Left hemiparesis with intact sensation difuse muscular pain over left side of the body on upper and lower extremities there is some spasm over the left side of the neck Upper extremity with some spasticity Clear lungs BL S1S2 RRR, no MRG Left foot drop Procedures None Medications and IVs Current Medications Medications (Trade) Dose Ordered Sig/Annette Route Start Time Stop Time Status Last Admin (NS Flush) 2 ml UNSCH PRN IV FLUSH 12/26/16 18:45 12/26/16 22:18 (Aspirin) 325 mg DAILY PO 12/27/16 09:00 12/31/16 08:39 (Cymbalta Dr) 30 mg DAILY PO 12/27/16 09:00 12/31/16 08:37 ([place] 5-325 Mg) 1 tab Q6H PRN PO 12/27/16 00:15 12/31/16 08:13 (Protonix) 40 mg DAILY PO 12/27/16 09:00 12/31/16 08:39 (Carafate) 1 gm TID PO 12/27/16 09:00 12/31/16 13:21 (NS Flush) 2 ml UNSCH PRN IV FLUSH 12/27/16 00:15 (NS Flush) 2 ml BID IV FLUSH 12/27/16 09:00 12/31/16 08:38 (Narcan Inj) 0.4 mg UNSCH PRN IV 12/27/16 00:15 (Lovenox Inj) 40 mg Q24H SQ 12/27/16 09:00 12/31/16 08:37 (Ativan Inj) 1 mg Q15M PRN IV PUSH 12/27/16 00:45 (Keppra) 500 mg Q12HR PO 12/27/16 14:15 12/31/16 08:40 (Morphine Inj) 2 mg Q3H PRN IV PUSH 12/27/16 18:00 12/31/16 13:19 (Benadryl) 25 mg Q4H PRN PO 12/28/16 15:30 12/30/16 20:50 (CeleXA) 40 mg DAILY PO 12/29/16 09:00 12/31/16 08:40 (Narcan Inj) 0.4 mg UNSCH PRN IV 12/29/16 17:00 (Kate-Colace) 1 tab BID PO 12/29/16 21:00 12/31/16 08:41 (Milk Of Magnesia Liq) 30 ml Q12H PRN PO 12/29/16 17:00 (Senokot) 17.2 mg Q12H PRN PO 12/29/16 17:00 12/30/16 08:33 (Dulcolax Supp) 10 mg DAILY PRN RECTAL 12/29/16 17:00 (Lactulose Liq) 30 ml DAILY PRN PO 12/29/16 17:00 (Neurontin) 300 mg TID PO 12/30/16 18:00 12/31/16 13:21 (Lioresal) 20 mg Q8HR PO 12/31/16 14:00 12/31/16 13:20 A/P Problem List: (1) New onset seizure ICD Code: R56.9 - Unspecified convulsions Status: Acute (2) Chest pain ICD Code: R07.9 - Chest pain, unspecified Status: Acute (3) Muscular pain ICD Code: M79.1 - Myalgia Status: Acute (4) Left hemiparesis ICD Code: G81.94 - Hemiplegia, unspecified affecting left nondominant side Status: Chronic (5) Depression ICD Code: F32.9 - Major depressive disorder, single episode, unspecified Status: Chronic (6) H/O: CVA (cerebrovascular accident) ICD Code: Z86.73 - Personal history of transient ischemic attack (TIA), and cerebral infarction without residual deficits Status: Chronic Assessment and Plan (1) New onset seizure Plan: CT of the head did not show any acute disease The patient was admitted to the neurological floor and placed on seizure precautions Patient started on Ativan when necessary and loaded with fosphenytoin 1000 mg. Patient has been started on Keppra as per neurology recommendations. Continue daily aspirin. EEG abnormal due to sharp wave activity in the few phase reversal seen consistent with epileptic activity. Patient started on Keppra 500 mg twice a day. No further seizure activity reported. Continue to follow-up neurology recommendations. MRI of the brain did not show any acute abnormalities. 12/31 As per RN report - Patient cleared to be discharged by neurology. (2) Chest pain Plan: Likely muscular skeletal in nature. EKG on admission showed normal sinus rhythm without ST-T changes. Reviewed by me. Chest pain now resolved. (3) Muscular pain Plan: Likely secondary to seizure activity and compulsions. Continue gabapentin, continue [place] for pain management. Patient started an IV morphine for breakthrough pain. 12/28 patient is complaining of itchiness, I will Rx morphine be given prior to IV morphine to prevent itchiness. The patient is also still complaining of left -sided pain. I will request a venous Doppler of the left upper and lower extremities to rule out DVT. I will also start the patient on baclofen since there is some evidence of muscle spasms. doppler ultrasound negative for DVT. Pain on left side of the body better on Baclofen. continue. 12/30 Continue Baclofen, patient still c/o left body pain. Possibly due to neuropathic pain, will increase Gabapentin to 300 mg po TID. 12/31 Patient still c/o pain on left side of the body. Continue Gabapentin and increase baclofen dose to 20 mg po TID. (4) Left hemiparesis Plan: PT consulted. Recommended home with home health PT versus outpatient PT. We'll consult occupational therapy (5) Depression Plan: Seems stable. Continue Celexa. (6) H/O: CVA (cerebrovascular accident) Plan: Continue aspirin daily. Head CT as above. Neurology following GI prophylaxis: Continue Carafate and PPI that the patient has been taking for gastritis. DVT prophylaxis: SCDs, no chemoprophylaxis given previous history of iron deficiency anemia and gastritis. Discharge Planning Possible Dc later today vs am - depending on clinical improvement on pain on left side. Problem Qualifiers (1) Depression: Qualified Codes: F32.9 - Major depressive disorder, single episode, unspecified Rudolph Russell MD Dec 31, 2016 15:50
--- NOTE | 2016-12-31 16:01 | HHI.DCPOC ---
Discharge Care Plan Diagnosis: (1) CVA (cerebral vascular accident) (2) New onset seizure (3) Left hemiparesis (4) H/O: CVA (cerebrovascular accident) (5) Neuropathic pain (6) Pain of left side of body (7) Depression Goals to Promote Your Health * To prevent worsening of your condition and complications * To maintain your health at the optimal level Directions to Meet Your Goals Take your medications as prescribed Follow your dietary instruction Follow activity as directed Keep your appointments as scheduled Take your immunizations and boosters as scheduled If your symptoms worsen call your PCP, if no PCP go to Urgent Care Center or Emergency Room Smoking is Dangerous to Your Health. Avoid second hand smoke Call the 24-hour hour crisis hotline for domestic abuse at Rudolph Russell MD Dec 31, 2016 16:01
--- NOTE | 2016-12-31 16:08 | HHI.DCPOC ---
Discharge Care Plan Diagnosis: (1) New onset seizure (2) Pain of left side of body (3) H/O: CVA (cerebrovascular accident) (4) Left hemiparesis (5) Depression (6) Neuropathic pain Goals to Promote Your Health * To prevent worsening of your condition and complications * To maintain your health at the optimal level Directions to Meet Your Goals Take your medications as prescribed Follow your dietary instruction Follow activity as directed Keep your appointments as scheduled Take your immunizations and boosters as scheduled If your symptoms worsen call your PCP, if no PCP go to Urgent Care Center or Emergency Room Smoking is Dangerous to Your Health. Avoid second hand smoke Call the 24-hour hour crisis hotline for domestic abuse at Rudolph Russell MD Dec 31, 2016 16:08
--- NOTE | 2016-12-31 16:10 | HHI.FF ---
Face to Face Verification Diagnosis: (1) H/O: CVA (cerebrovascular accident) (2) Pain of left side of body (3) New onset seizure (4) Left hemiparesis (5) Depression (6) Neuropathic pain Physical Therapy Order: Improve ambulation, Strength and gait training Occupational Therapy Order: Gross motor coordination, Fine motor coordination I have seen patient Faith Cuevas on 12/31/16. My clinical findings support the need for the requested home health care services because: Ltd mobility - disease progression Deconditioned w/ increased weakness Limited ability to care for self Need for psychosocial assistance High risk of falls I certify that my clinical findings support that this patient is homebound because: Unsafe to leave home unassisted Need for psychosocial assistance [id number] bed/chair Unable to use public transportation Rudolph Russell MD Dec 31, 2016 16:10
[2016-12-31] MEDS: diphenhydrAMINE HCL 25 MG CAP PO PRN (21:21)
[2017-01-01] VITALS (8 sets, daily range): BP systolic 119–145; BP diastolic 58–93; PULSE 80–93; RESP 16–20; TEMP 97.5–98.4; O2SAT 95–99
[2017-01-01] MEDS: BACLOFEN 10 MG TAB PO SCH ×3 (05:07→21:28)
[2017-01-01] MEDS: MORPHINE SULFATE 4 MG/ML INJ IV PUSH PRN ×4 (05:12→19:07)
[2017-01-01] MEDS: diphenhydrAMINE HCL 25 MG CAP PO PRN ×2 (05:16→21:25)
[2017-01-01] MEDS: GABAPENTIN 400 MG CAP PO SCH ×3 (08:18→18:10)
[2017-01-01] MEDS: CITALOPRAM HYDROBROMIDE 40 MG TAB PO SCH (08:18)
[2017-01-01] MEDS: ENOXAPARIN SODIUM 40 MG/0.4 ML SYRINGE SQ SCH (08:19)
[2017-01-01] MEDS: levETIRAcetam 500 MG TAB PO SCH ×2 (08:19→21:27)
[2017-01-01] MEDS: SUCRALFATE 1 GM TAB PO SCH ×3 (08:19→18:10)
[2017-01-01] MEDS: DOCUSATE SODIUM 50 MG/SENNA 8.6 MG TAB PO SCH ×2 (08:19→21:28)
[2017-01-01] MEDS: ASPIRIN 325 MG TAB PO SCH (08:19)
[2017-01-01] MEDS: DULoxetine HCl DR 30 MG CAP PO SCH (08:19)
[2017-01-01] MEDS: PANTOPRAZOLE SOD 40 MG DELAYED RELEASE TAB PO SCH (08:19)
[2017-01-01] MEDS: SODIUM CHLORIDE 0.9% FLUSH 10 ML FLUSH IV FLUSH SCH ×2 (08:20→21:27)
[2017-01-01] MEDS: ACETAMINOPHEN/HYDROcodone 325 MG/5 MG TAB PO PRN (09:51)
[2017-01-01] MEDS ORDERED: oxyCODONE/ACETAMINOPHEN 7.5 MG/325 MG TAB PO PRN (13:15)
--- NOTE | 2017-01-01 17:00 | HHI.PR ---
Subjective Remarks Patient seen at 1:20 pm Patient had a witnessed seizure as per patient lost urine control Patient still c/o severe left body pain. Objective Vitals Vital Signs Date Time Temp Pulse Resp B/P (MAP) Pulse Ox O2 Delivery O2 Flow Rate FiO2 01/01/17 12:00 98.1 86 20 119/82 (94) 98 01/01/17 10:24 83 01/01/17 08:00 97.5 93 20 140/76 (97) 95 01/01/17 06:17 98.4 90 16 120/59 (79) 97 01/01/17 01:50 98.2 85 16 128/58 (81) 97 12/31/16 21:49 98.3 91 18 127/75 (92) 95 12/31/16 17:59 96 I/O 12/31/16 12/31/16 12/31/16 01/01/17 01/01/17 01/01/17 07:00 15:00 23:00 07:00 15:00 23:00 Intake Total 240 ml 720 ml Balance 240 ml 720 ml Intake Oral 240 ml 720 ml # Voids 2 3 1 2 # Bowel Movements 1 2 0 Result Diagram: 12/28/16 0855 12/28/16 0855 Imaging Last Impressions Upper Extremity Ultrasound 12/28/16 0000 Signed Impressions: Service Date/Time: Wednesday, December 28, 2016 15:54 - CONCLUSION: Negative exam with no evidence of deep venous thrombosis. Ambrosio Tran MD Lower Extremity Ultrasound 12/28/16 0000 Signed Impressions: Service Date/Time: Wednesday, December 28, 2016 16:06 - CONCLUSION: Negative exam with no evidence of deep venous thrombosis. Ambrosio Tran MD Brain MRI 12/27/16 0000 Signed Impressions: Service Date/Time: Tuesday, December 27, 2016 18:38 - CONCLUSION: 1. No acute abnormality is seen. 2. Small areas of encephalomalacia at the superior medial parietal lobe being greater on the right. 3. Small area of stable cystic change in the medial basal ganglia regions representing either lacunar infarcts or dilated perivascular spaces. 4. Minimal asymmetry to the temporal horns of the lateral ventricles with the right side being slightly more distended. The hippocampal structures themselves appear relatively symmetric. Julio Velasco MD Head CT 12/26/16 0597 Signed Impressions: Service Date/Time: November 19:07 - CONCLUSION: No acute disease. Small areas of the encephalomalacia at the posterior medial parietal lobes are again seen. Julio Velasco MD Chest X-Ray 12/26/161833 Signed Impressions: Service Date/Time: November 19:06 - CONCLUSION: No acute disease. Julio Velasco MD Objective Remarks AAOx3 NAD Left hemiparesis with intact sensation difuse muscular pain over left side of the body on upper and lower extremities there is some spasm over the left side of the neck Upper extremity with some spasticity Clear lungs BL S1S2 RRR, no MRG Left foot drop Procedures None Medications and IVs Current Medications Medications (Trade) Dose Ordered Sig/Annette Route Start Time Stop Time Status Last Admin (NS Flush) 2 ml UNSCH PRN IV FLUSH 12/26/16 18:45 12/26/16 22:18 (Aspirin) 325 mg DAILY PO 12/27/16 09:00 01/01/17 08:19 (Cymbalta Dr) 30 mg DAILY PO 12/27/16 09:00 01/01/17 08:19 (Protonix) 40 mg DAILY PO 12/27/16 09:00 01/01/17 08:19 (Carafate) 1 gm TID PO 12/27/16 09:00 01/01/17 12:28 (NS Flush) 2 ml UNSCH PRN IV FLUSH 12/27/16 00:15 (NS Flush) 2 ml BID IV FLUSH 12/27/16 09:00 01/01/17 08:20 (Narcan Inj) 0.4 mg UNSCH PRN IV 12/27/16 00:15 (Lovenox Inj) 40 mg Q24H SQ 12/27/16 09:00 01/01/17 08:19 (Ativan Inj) 1 mg Q15M PRN IV PUSH 12/27/16 00:45 01/01/17 12:50 (Keppra) 500 mg Q12HR PO 12/27/16 14:15 01/01/17 08:19 (Morphine Inj) 2 mg Q3H PRN IV PUSH 12/27/16 18:00 01/01/17 12:28 (Benadryl) 25 mg Q4H PRN PO 12/28/16 15:30 01/01/17 05:16 (CeleXA) 40 mg DAILY PO 12/29/16 09:00 01/01/17 08:18 (Narcan Inj) 0.4 mg UNSCH PRN IV 12/29/16 17:00 (Kate-Colace) 1 tab BID PO 12/29/16 21:00 01/01/17 08:19 (Milk Of Magnesia Liq) 30 ml Q12H PRN PO 12/29/16 17:00 (Senokot) 17.2 mg Q12H PRN PO 12/29/16 17:00 12/30/16 08:33 (Dulcolax Supp) 10 mg DAILY PRN RECTAL 12/29/16 17:00 (Lactulose Liq) 30 ml DAILY PRN PO 12/29/16 17:00 (Lioresal) 20 mg Q8HR PO 12/31/16 14:00 01/01/17 12:28 (Neurontin) 400 mg TID PO 01/01/17 09:00 01/01/17 12:28 (Percocet 7.5-325 Mg) 1 tab Q4H PRN PO 01/01/17 13:15 (Percocet 10-325 Mg) 1 tab Q4H PRN PO 01/01/17 13:15 Urinary Catheter: No Vascular Central Line Catheter: No A/P Problem List: (1) New onset seizure ICD Code: R56.9 - Unspecified convulsions Status: Acute (2) Chest pain ICD Code: R07.9 - Chest pain, unspecified Status: Acute (3) Muscular pain ICD Code: M79.1 - Myalgia Status: Acute (4) Left hemiparesis ICD Code: G81.94 - Hemiplegia, unspecified affecting left nondominant side Status: Chronic (5) Depression ICD Code: F32.9 - Major depressive disorder, single episode, unspecified Status: Chronic (6) H/O: CVA (cerebrovascular accident) ICD Code: Z86.73 - Personal history of transient ischemic attack (TIA), and cerebral infarction without residual deficits Status: Chronic Assessment and Plan (1) New onset seizure Plan: CT of the head did not show any acute disease The patient was admitted to the neurological floor and placed on seizure precautions Patient started on Ativan when necessary and loaded with fosphenytoin 1000 mg. Patient has been started on Keppra as per neurology recommendations. Continue daily aspirin. EEG abnormal due to sharp wave activity in the few phase reversal seen consistent with epileptic activity. Patient started on Keppra 500 mg twice a day. No further seizure activity reported. Continue to follow-up neurology recommendations. MRI of the brain did not show any acute abnormalities. 12/31 As per RN report - Patient cleared to be discharged by neurology. 01/01 reported seizure again today. Will check EEG and increase keppra dose to 1000 mg BID. Check Keppra level. (2) Chest pain Plan: Likely muscular skeletal in nature. EKG on admission showed normal sinus rhythm without ST-T changes. Reviewed by me. Chest pain now resolved. (3) Muscular pain Plan: Likely secondary to seizure activity and compulsions. Continue gabapentin, continue [place] for pain management. Patient started an IV morphine for breakthrough pain. 12/28 patient is complaining of itchiness, I will Rx morphine be given prior to IV morphine to prevent itchiness. The patient is also still complaining of left -sided pain. I will request a venous Doppler of the left upper and lower extremities to rule out DVT. I will also start the patient on baclofen since there is some evidence of muscle spasms. doppler ultrasound negative for DVT. Pain on left side of the body better on Baclofen. continue. 12/30 Continue Baclofen, patient still c/o left body pain. Possibly due to neuropathic pain, will increase Gabapentin to 300 mg po TID. 12/31 Patient still c/o pain on left side of the body. Continue Gabapentin and increase baclofen dose to 20 mg po TID. 01/01 Still c/o left side body pain. Likely neuropathic. Increase Gabapentin to 600 mg po TID. Continue Baclofen and Continue Percocet with increased dose of 7.5 mg every 4 hrs as needed for pain 1- 4 and 10 mg for pain 5-10. (4) Left hemiparesis Plan: PT consulted. Recommended home with home health PT versus outpatient PT. OT consulted. Patient will need OT as outpatient. (5) Depression Plan: Seems stable. Continue Celexa. (6) H/O: CVA (cerebrovascular accident) Plan: Continue aspirin daily. Head CT as above. Neurology following GI prophylaxis: Continue Carafate and PPI that the patient has been taking for gastritis. DVT prophylaxis: SCDs, no chemoprophylaxis given previous history of iron deficiency anemia and gastritis. Discharge Planning Possible Dc later today vs am - depending on clinical improvement on pain on left side. Rudolph Russell MD Jan 01, 2017 17:00
[2017-01-01] MEDS ORDERED: PILL SPLITTER OTHER PRN (17:30)
[2017-01-01] MEDS ORDERED: levETIRAcetam 250 MG TAB PO ONE (18:00)
[2017-01-01] MEDS: oxyCODONE/ACETAMINOPHEN 10 MG/325 MG TAB PO PRN ×2 (18:10→21:25)
[2017-01-01] MEDS: RESP: ALBUTEROL 2.5 MG/IPRATROPIUM 0.5 MG NEB (PRN) NEB (22:39)
[2017-01-02] VITALS (9 sets, daily range): BP systolic 113–144; BP diastolic 61–104; PULSE 69–91; RESP 17–20; TEMP 97.5–98.3; O2SAT 96–100
[2017-01-02] MEDS: MORPHINE SULFATE 4 MG/ML INJ IV PUSH PRN ×5 (00:37→13:03)
[2017-01-02] MEDS: oxyCODONE/ACETAMINOPHEN 10 MG/325 MG TAB PO PRN ×5 (03:12→20:38)
[2017-01-02] MEDS: BACLOFEN 10 MG TAB PO SCH ×3 (05:39→20:36)
[2017-01-02] MEDS: RESP: ALBUTEROL 2.5 MG/IPRATROPIUM 0.5 MG NEB (PRN) NEB ×2 (08:22→21:41)
[2017-01-02] MEDS: GABAPENTIN 400 MG CAP PO SCH ×3 (08:39→18:37)
[2017-01-02] MEDS: CITALOPRAM HYDROBROMIDE 40 MG TAB PO SCH (08:39)
[2017-01-02] MEDS: DULoxetine HCl DR 30 MG CAP PO SCH (08:39)
[2017-01-02] MEDS: SUCRALFATE 1 GM TAB PO SCH ×3 (08:39→18:37)
[2017-01-02] MEDS: ASPIRIN 325 MG TAB PO SCH (08:39)
[2017-01-02] MEDS: PANTOPRAZOLE SOD 40 MG DELAYED RELEASE TAB PO SCH (08:39)
[2017-01-02] MEDS: DOCUSATE SODIUM 50 MG/SENNA 8.6 MG TAB PO SCH ×2 (08:39→20:36)
[2017-01-02] MEDS: ENOXAPARIN SODIUM 40 MG/0.4 ML SYRINGE SQ SCH (08:40)
[2017-01-02] MEDS: levETIRAcetam 500 MG TAB PO SCH ×2 (08:40→20:36)
[2017-01-02] MEDS: SODIUM CHLORIDE 0.9% FLUSH 10 ML FLUSH IV FLUSH SCH ×2 (08:40→20:38)
--- NOTE | 2017-01-02 15:46 | HHI.PR ---
Subjective Remarks Deferred entrythe patient seen earlier at around 12:30 pm The patient states she had a seizure while having the EEG done. The patient denies nausea, vomiting. It sign still complains of left-sided body pain. Objective Vitals Vital Signs Date Time Temp Pulse Resp B/P (MAP) Pulse Ox O2 Delivery O2 Flow Rate FiO2 01/02/17 12:00 97.9 89 18 133/82 (99) 98 01/02/17 08:00 97.9 74 20 140/80 (100) 96 01/02/17 07:24 89 01/02/17 06:20 134/88 (103) 01/02/17 05:58 98.0 91 18 144/104 (117) 100 01/02/17 00:51 98.3 75 20 117/73 (88) 96 01/01/17 22:00 88 01/01/17 21:34 98.1 80 18 125/87 (100) 97 01/01/17 16:00 98.0 87 20 145/93 (110) 99 I/O 01/01/17 01/01/17 01/01/17 01/02/17 01/02/17 01/02/17 07:00 15:00 23:00 07:00 15:00 23:00 Intake Total 480 ml Balance 480 ml Intake Oral 480 ml # Voids 1 2 2 2 # Bowel Movements 2 0 0 Imaging Last Impressions Upper Extremity Ultrasound 12/28/16 0000 Signed Impressions: Service Date/Time: Wednesday, December 28, 2016 15:54 - CONCLUSION: Negative exam with no evidence of deep venous thrombosis. Ambrosio Tran MD Lower Extremity Ultrasound 12/28/16 0000 Signed Impressions: Service Date/Time: Wednesday, December 28, 2016 16:06 - CONCLUSION: Negative exam with no evidence of deep venous thrombosis. Ambrosio Tran MD Brain MRI 12/27/16 0000 Signed Impressions: Service Date/Time: Tuesday, December 27, 2016 18:38 - CONCLUSION: 1. No acute abnormality is seen. 2. Small areas of encephalomalacia at the superior medial parietal lobe being greater on the right. 3. Small area of stable cystic change in the medial basal ganglia regions representing either lacunar infarcts or dilated perivascular spaces. 4. Minimal asymmetry to the temporal horns of the lateral ventricles with the right side being slightly more distended. The hippocampal structures themselves appear relatively symmetric. Julio Velasco MD Head CT 12/26/161833 Signed Impressions: Service Date/Time: November 19:07 - CONCLUSION: No acute disease. Small areas of the encephalomalacia at the posterior medial parietal lobes are again seen. Julio Velasco MD Chest X-Ray 12/26/161833 Signed Impressions: Service Date/Time: November 19:06 - CONCLUSION: No acute disease. Julio Velasco MD Objective Remarks AAOx3 NAD Left hemiparesis with intact sensation difuse muscular pain over left side of the body on upper and lower extremities there is some spasm over the left side of the neck Upper extremity with some spasticity Clear lungs BL S1S2 RRR, no MRG Left foot drop Procedures None Medications and IVs Current Medications Medications (Trade) Dose Ordered Sig/Annette Route Start Time Stop Time Status Last Admin (Aspirin) 325 mg DAILY PO 12/27/16 09:00 01/02/17 08:39 (Cymbalta Dr) 30 mg DAILY PO 12/27/16 09:00 01/02/17 08:39 (Protonix) 40 mg DAILY PO 12/27/16 09:00 01/02/17 08:39 (Carafate) 1 gm TID PO 12/27/16 09:00 01/02/17 13:03 (NS Flush) 2 ml UNSCH PRN IV FLUSH 12/27/16 00:15 (NS Flush) 2 ml BID IV FLUSH 12/27/16 09:00 01/02/17 08:40 (Lovenox Inj) 40 mg Q24H SQ 12/27/16 09:00 01/02/17 08:40 (Ativan Inj) 1 mg Q15M PRN IV PUSH 12/27/16 00:45 01/01/17 12:50 (Morphine Inj) 2 mg Q3H PRN IV PUSH 12/27/16 18:00 01/02/17 13:03 (Benadryl) 25 mg Q4H PRN PO 12/28/16 15:30 01/01/17 21:25 (CeleXA) 40 mg DAILY PO 12/29/16 09:00 01/02/17 08:39 (Narcan Inj) 0.4 mg UNSCH PRN IV 12/29/16 17:00 (Kate-Colace) 1 tab BID PO 12/29/16 21:00 01/02/17 08:39 (Milk Of Magnesia Liq) 30 ml Q12H PRN PO 12/29/16 17:00 (Senokot) 17.2 mg Q12H PRN PO 12/29/16 17:00 12/30/16 08:33 (Dulcolax Supp) 10 mg DAILY PRN RECTAL 12/29/16 17:00 (Lactulose Liq) 30 ml DAILY PRN PO 12/29/16 17:00 (Lioresal) 20 mg Q8HR PO 12/31/16 14:00 01/02/17 13:03 (Neurontin) 400 mg TID PO 01/01/17 09:00 01/02/17 13:01 (Percocet 7.5-325 Mg) 1 tab Q4H PRN PO 01/01/17 13:15 (Percocet 10-325 Mg) 1 tab Q4H PRN PO 01/01/17 13:15 01/02/17 10:49 (Keppra) 750 mg Q12HR PO 01/01/17 21:00 01/02/17 08:40 (Pill Splitter) 1 ea UNSCH PRN OTHER 01/01/17 17:30 (Duoneb Neb) 1 ampule Q4HR NEB PRN NEB 01/01/17 22:00 01/02/17 08:22 Urinary Catheter: No Vascular Central Line Catheter: No A/P Problem List: (1) New onset seizure ICD Code: R56.9 - Unspecified convulsions Status: Acute (2) Chest pain ICD Code: R07.9 - Chest pain, unspecified Status: Acute (3) Muscular pain ICD Code: M79.1 - Myalgia Status: Acute (4) Left hemiparesis ICD Code: G81.94 - Hemiplegia, unspecified affecting left nondominant side Status: Chronic (5) Depression ICD Code: F32.9 - Major depressive disorder, single episode, unspecified Status: Chronic (6) H/O: CVA (cerebrovascular accident) ICD Code: Z86.73 - Personal history of transient ischemic attack (TIA), and cerebral infarction without residual deficits Status: Chronic Assessment and Plan (1) New onset seizure Plan: CT of the head did not show any acute disease The patient was admitted to the neurological floor and placed on seizure precautions Patient started on Ativan when necessary and loaded with fosphenytoin 1000 mg. Patient has been started on Keppra as per neurology recommendations. Continue daily aspirin. EEG abnormal due to sharp wave activity in the few phase reversal seen consistent with epileptic activity. Patient started on Keppra 500 mg twice a day. No further seizure activity reported. Continue to follow-up neurology recommendations. MRI of the brain did not show any acute abnormalities. 12/31 As per RN report - Patient cleared to be discharged by neurology. 01/01 reported seizure again today. Will check EEG and increase keppra dose to 750 mg BID. Check Keppra level. 01/02 reported seizure during EEG. Follow-up EEG results. Continue Keppra 750 mg by mouth twice a day. If EKG negative then will discharge home on current dose of Keppra. (2) Chest pain Plan: Likely muscular skeletal in nature. EKG on admission showed normal sinus rhythm without ST-T changes. Reviewed by me. Chest pain now resolved. (3) Muscular pain Plan: Likely secondary to seizure activity and compulsions. Continue gabapentin, continue [place] for pain management. Patient started an IV morphine for breakthrough pain. 12/28 patient is complaining of itchiness, I will Rx morphine be given prior to IV morphine to prevent itchiness. The patient is also still complaining of left -sided pain. I will request a venous Doppler of the left upper and lower extremities to rule out DVT. I will also start the patient on baclofen since there is some evidence of muscle spasms. doppler ultrasound negative for DVT. Pain on left side of the body better on Baclofen. continue. 12/30 Continue Baclofen, patient still c/o left body pain. Possibly due to neuropathic pain, will increase Gabapentin to 300 mg po TID. 12/31 Patient still c/o pain on left side of the body. Continue Gabapentin and increase baclofen dose to 20 mg po TID. 01/01 Still c/o left side body pain. Likely neuropathic. Increase Gabapentin to 600 mg po TID. Continue Baclofen and Continue Percocet with increased dose of 7.5 mg every 4 hrs as needed for pain 1- 4 and 10 mg for pain 5-10. 01/02 patient is still complaining of left sided body pain. However the patient is requesting morphine frequently without exceeding many signs of severe pain. I will DC IV morphine and only continue Percocet. Continue gabapentin 600 mg by mouth 3 times a day and baclofen at same dose for now. (4) Left hemiparesis Plan: PT consulted. Recommended home with home health PT versus outpatient PT. OT consulted. Patient will need OT as outpatient. (5) Depression Plan: Seems stable. Continue Celexa. (6) H/O: CVA (cerebrovascular accident) Plan: Continue aspirin daily. Head CT as above. Neurology following GI prophylaxis: Continue Carafate and PPI that the patient has been taking for gastritis. DVT prophylaxis: SCDs, no chemoprophylaxis given previous history of iron deficiency anemia and gastritis. Discharge Planning Discharge pending EEG. Rudolph Russell MD Jan 02, 2017 15:46
--- NOTE | 2017-01-02 16:02 | HHI.PR ---
Subjective Remarks pt stated she had a sz when the eeg was done and was asked to flex her neck. she stated her upper lip started moving upwards toward her nose then her arms started shaking and she was unable to speak.No incontinence still pain in neck and entire left side left leg weaker from the knee down and this is new since coming to the hospital mri brain did not show new findings or stroke. had f/al eeg pending resilts and keppra increased to 750 mg bid. Objective Vital Signs Date Time Temp Pulse Resp B/P (MAP) Pulse Ox O2 Delivery O2 Flow Rate FiO2 01/02/17 12:00 97.9 89 18 133/82 (99) 98 01/02/17 08:00 97.9 74 20 140/80 (100) 96 01/02/17 07:24 89 01/02/17 06:20 134/88 (103) 01/02/17 05:58 98.0 91 18 144/104 (117) 100 01/02/17 00:51 98.3 75 20 117/73 (88) 96 01/01/17 22:00 88 01/01/17 21:34 98.1 80 18 125/87 (100) 97 01/01/17 16:00 98.0 87 20 145/93 (110) 99 I/O 01/01/17 01/01/17 01/01/17 01/02/17 01/02/17 01/02/17 07:00 15:00 23:00 07:00 15:00 23:00 Intake Total 480 ml 480 ml Balance 480 ml 480 ml Intake Oral 480 ml 480 ml # Voids 1 2 2 2 2 # Bowel Movements 2 0 0 Objective Remarks awake alert fluent perrla left side c/w hemiparesis right side intact. c spine tender as is left arm and leg gait deferred to PT> Assessment and Plan Assessment and Plan s/p sz-keppra 750mg bid can always if needed go to 1000mg bid. eeg results pending ativan if needed for active sz. neck pain with left sided weakness -check mri c spine. PT scd's,lovenox ok. if w/u is negative and pt is stable ok to d/c home or rehab on keppra and ativan 0.5mg prn if needed in case has another sz at home.I do not want to change keppra at this point. d/c planning 24-48hrs. please call me with any questions. Elizabeth Ortiz MD Jan 02, 2017 16:02
--- NOTE | 2017-01-02 17:51 | MG ---
cc: MORENO GALVAN MD Lab No: [id number] Date: 01/02/17 Age: 36 Sex: F Race: DATE OF 1980 History of mental status change. 3-6 Hz activity, 20-40 microvolts followed by excessive myogenic artifact in the middle of the recording. Background increment EEG up to 5-6 Hz followed by bursts of generalized delta slowing, 2-4 Hz with paroxysmal generalized as well as frontal delta activity occurring. Facial twitching, left arm shaking EPOC 9, 10, 11. Excessive myogenic artifact difficult to really tell if there is seizure activity or not although appear to be lesser likely, slight visualization of posterior rhythms. The patient is able to answer questions during this spell. INTERPRETATION Mild encephalopathy. Suspect the shaking episode is nonepileptic. Clinical correlation. Moreno Galvan MD MG/EO /5:22 PM /5:35 PM MTDKelly
--- NOTE | 2017-01-02 18:38 | RADRPT ---
EXAM DATE/TIME: 01/02/2017 17:50 [facility] COMPARISON: No previous studies available for comparison. INDICATIONS : Pain. MEDICAL HISTORY : Stroke Seizures. SURGICAL HISTORY : Cholecystectomy. Ovarian cyst removed. ENCOUNTER: Subsequent ACUITY: 2 day PAIN SCORE: 6/10 LOCATION: Neck. TECHNIQUE: Multiplanar, multisequence MRI examination of the cervical spine was performed. FINDINGS: Sagittal T1, T2 and inversion recovery images are limited due to motion artifact but do show reversal of the normal curvature with multilevel degenerative disc disease. Disc bulges with spurs are seen p redominantly from C4-5 through C6-7, most severe at the C5-6 and C6-7 level where there may be an alex ment of cord compromise, particularly at C6-7. 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 No emerson Chiari malformation, however. Verte bral body heights are maintained without fracture or listhesis. Detailed axial images as follows: C2-C3: The thecal sac has a normal configuration. There is no evidence of disc herniation or spinal canal s tenosis. The neural foramina are patent bilaterally. C3-C4: Uncovertebral ridging flattens the anterior aspect of the thecal sac. Minimal encroachment on both ne ural foramina but the spinal canal and neural foramina appear to be adequate. C4-C5: The uncovertebral ridging encroaches on the anterior epidural space without obvious cord compromise.. Anatomic detail is quite limited and there does appear to be some mild encroachment on the left neur al foramina. C5-C6: Left posterior disc encroaches on the spinal canal and does result in some degree of spinal stenosis with probable compromise of the left side of the cord. Minimal encroachment on the left neural forami na but I believe the foramina remain adequate C6-C7: Most severely affected level with a large posterior disc and spur which results in moderately severe spinal stenosis anomalous certain cord compromise. Both neural foramina are adequate C7-T1: Extremely limited anatomic detail due to to motion artifact. No obvious cord compromise. CONCLUSION: 1. Scan is limited due to motion artifact on just about every pulse sequence. 2. However, there is some degree of spinal stenosis from C3-4 through C6-7, most severe at C5-6 and C 6-7 where there appears to be moderate to severe spinal stenosis and probable cord compromise, especi ally at C6-7. 3. While there does appear to be some encroachment on the neural foramina at multiple levels, particu larly on the left, I do not believe that this is severe enough to compromise exiting nerve roots. Aga in, anatomic detail is limited. 4. Tonsillar ectopia without a emerson Chiari malformation. Justo Wallace MD on January 02, 2017 at 18:29 Board Certified Radiologist. This report was verified electronically.
[2017-01-03] VITALS (7 sets, daily range): BP systolic 124–146; BP diastolic 74–85; PULSE 75–102; RESP 17–18; TEMP 97.4–98.3; O2SAT 95–96
[2017-01-03] MEDS: oxyCODONE/ACETAMINOPHEN 10 MG/325 MG TAB PO PRN ×6 (00:33→21:46)
[2017-01-03] MEDS: BACLOFEN 10 MG TAB PO SCH ×3 (05:26→21:46)
[2017-01-03] MEDS: PANTOPRAZOLE SOD 40 MG DELAYED RELEASE TAB PO SCH (09:04)
[2017-01-03] MEDS: SUCRALFATE 1 GM TAB PO SCH ×3 (09:04→17:36)
[2017-01-03] MEDS: levETIRAcetam 500 MG TAB PO SCH ×2 (09:04→21:46)
[2017-01-03] MEDS: DULoxetine HCl DR 30 MG CAP PO SCH (09:04)
[2017-01-03] MEDS: GABAPENTIN 400 MG CAP PO SCH ×3 (09:05→17:36)
[2017-01-03] MEDS: DOCUSATE SODIUM 50 MG/SENNA 8.6 MG TAB PO SCH ×2 (09:05→21:46)
[2017-01-03] MEDS: CITALOPRAM HYDROBROMIDE 40 MG TAB PO SCH (09:05)
[2017-01-03] MEDS: ASPIRIN 325 MG TAB PO SCH (09:05)
[2017-01-03] MEDS: ENOXAPARIN SODIUM 40 MG/0.4 ML SYRINGE SQ SCH (09:05)
[2017-01-03] MEDS: SODIUM CHLORIDE 0.9% FLUSH 10 ML FLUSH IV FLUSH SCH ×2 (09:08→21:00)
--- NOTE | 2017-01-03 14:37 | HHI.PR ---
Subjective Remarks Patient denies any further seizures Denies cp/sob still c/o left body side pain which states is not much improved Objective Vitals Vital Signs Date Time Temp Pulse Resp B/P (MAP) Pulse Ox O2 Delivery O2 Flow Rate FiO2 01/03/17 12:32 97.4 89 18 140/76 (97) 95 01/03/17 10:16 102 01/03/17 08:46 97.9 96 18 124/85 (98) 96 01/03/17 04:30 98.3 79 17 141/74 (96) 95 01/03/17 00:30 98.2 83 17 146/83 (104) 96 01/02/17 22:07 85 01/02/17 21:25 97 Room Air 01/02/17 20:30 98.1 82 17 132/75 (94) 96 01/02/17 16:00 97.9 85 18 136/81 (99) 97 I/O 01/02/17 01/02/17 01/02/17 01/03/17 01/03/17 01/03/17 07:00 15:00 23:00 07:00 15:00 23:00 Intake Total 480 ml 480 ml Balance 480 ml 480 ml Intake Oral 480 ml 480 ml # Voids 2 2 3 # Bowel Movements 0 Objective Remarks AAOx3 NAD Left hemiparesis with intact sensation difuse muscular pain over left side of the body on upper and lower extremities there is some spasm over the left side of the neck and tenderness to palpation Upper extremity with some spasticity Clear lungs BL S1S2 RRR, no MRG Left foot drop Procedures None Medications and IVs Last Impressions Cervical Spine MRI 01/02/17 0000 Signed Impressions: Service Date/Time: December 17:50 - CONCLUSION: 1. Scan is limited due to motion artifact on just about every pulse sequence. 2. However, there is some degree of spinal stenosis from C3-4 through C6-7, most severe at C5-6 and C6-7 where there appears to be moderate to severe spinal stenosis and probable cord compromise, especially at C6-7. 3. While there does appear to be some encroachment on the neural foramina at multiple levels, particularly on the left, I do not believe that this is severe enough to compromise exiting nerve roots. Again, anatomic detail is limited. 4. Tonsillar ectopia without a emerson Chiari malformation. Justo Wallace MD Upper Extremity Ultrasound 12/28/16 0000 Signed Impressions: Service Date/Time: Wednesday, December 28, 2016 15:54 - CONCLUSION: Negative exam with no evidence of deep venous thrombosis. Ambrosio Tran MD Lower Extremity Ultrasound 12/28/16 0000 Signed Impressions: Service Date/Time: Wednesday, December 28, 2016 16:06 - CONCLUSION: Negative exam with no evidence of deep venous thrombosis. Ambrosio Tran MD Brain MRI 12/27/16 Signed Impressions: Service Date/Time: Tuesday, December 27, 2016 18:38 - CONCLUSION: 1. No acute abnormality is seen. 2. Small areas of encephalomalacia at the superior medial parietal lobe being greater on the right. 3. Small area of stable cystic change in the medial basal ganglia regions representing either lacunar infarcts or dilated perivascular spaces. 4. Minimal asymmetry to the temporal horns of the lateral ventricles with the right side being slightly more distended. The hippocampal structures themselves appear relatively symmetric. Julio Velasco MD Head CT 12/26/161833 Signed Impressions: Service Date/Time: November 19:07 - CONCLUSION: No acute disease. Small areas of the encephalomalacia at the posterior medial parietal lobes are again seen. Julio Velasco MD Chest X-Ray 12/26/161833 Signed Impressions: Service Date/Time: November 19:06 - CONCLUSION: No acute disease. Julio Velasco MD A/P Problem List: (1) New onset seizure ICD Code: R56.9 - Unspecified convulsions Status: Acute (2) Chest pain ICD Code: R07.9 - Chest pain, unspecified Status: Acute (3) Muscular pain ICD Code: M79.1 - Myalgia Status: Acute (4) Left hemiparesis ICD Code: G81.94 - Hemiplegia, unspecified affecting left nondominant side Status: Chronic (5) Depression ICD Code: F32.9 - Major depressive disorder, single episode, unspecified Status: Chronic (6) H/O: CVA (cerebrovascular accident) ICD Code: Z86.73 - Personal history of transient ischemic attack (TIA), and cerebral infarction without residual deficits Status: Chronic Assessment and Plan (1) New onset seizure Plan: CT of the head did not show any acute disease The patient was admitted to the neurological floor and placed on seizure precautions Patient started on Ativan when necessary and loaded with fosphenytoin 1000 mg. Patient has been started on Keppra as per neurology recommendations. Continue daily aspirin. EEG abnormal due to sharp wave activity in the few phase reversal seen consistent with epileptic activity. Patient started on Keppra 500 mg twice a day. No further seizure activity reported. Continue to follow-up neurology recommendations. MRI of the brain did not show any acute abnormalities. 12/31 As per RN report - Patient cleared to be discharged by neurology. 01/01 reported seizure again today. Will check EEG and increase keppra dose to 750 mg BID. Check Keppra level. 01/02 reported seizure during EEG. Follow-up EEG results. Continue Keppra 750 mg by mouth twice a day. If EKG negative then will discharge home on current dose of Keppra. (2) Chest pain Plan: Likely muscular skeletal in nature. EKG on admission showed normal sinus rhythm without ST-T changes. Reviewed by me. Chest pain now resolved. (3) Neck pain with left sided weakness and pain Plan: Patient on gabapentin, started on [place] and IV morphine for breakthrough pain. The patient's left-sided continue to be painful. He was noted that the patient also had some neck pain. Patient underwent a venous Doppler of the left upper and lower extremities to rule out DVT. This was negative. Patient started on baclofen for possible muscle spasms with transient improvement in left-sided pain. However patient continued to have pain in left side of the body, despite maximizing baclofen dose and increase gabapentin to 600 mg by mouth 3 times a day. 01/03 MRI ordered as per neurology on 01/02 which shows a limited scan due to motion. There is some degree of spinal stenosis from C3 to C4 through C6-7. There appears to be moderate to severe spinal stenosis and probable cord compromise especially at the level of C6-7. I will consult neurosurgery stat. I will also place the patient on bedrest and to the patient was evaluated by neurosurgery. Hold OT and PT. Called and Discussed case with Dr Garrett who stated will see the patient. . (4) Left hemiparesis Plan: PT consulted. Recommended home with home health PT versus outpatient PT. OT consulted. Patient will need OT as outpatient. (5) Depression Plan: Seems stable. Continue Celexa. (6) H/O: CVA (cerebrovascular accident) Plan: Continue aspirin daily. Head CT as above. Neurology following GI prophylaxis: Continue Carafate and PPI that the patient has been taking for gastritis. DVT prophylaxis: SCDs, no chemoprophylaxis given previous history of iron deficiency anemia and gastritis. Discharge Planning Discharge pending EEG. Rudolph Russell MD Jan 03, 2017 14:37
[2017-01-03] MEDS: RESP: ALBUTEROL 2.5 MG/IPRATROPIUM 0.5 MG NEB (PRN) NEB (14:47)
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
--- NOTE | 2017-01-03 19:09 | RADRPT ---
EXAM DATE/TIME: 01/03/2017 18:26 [facility] COMPARISON: No previous studies available for comparison. INDICATIONS : Neck pain. Post seizure. RADIATION DOSE: 41.24 CTDIvol (mGy) ; Patient body habitus MEDICAL HISTORY : Cardiovascular disease. Hypertension. Diabetes mellitus type 2.Renal failure SURGICAL HISTORY : None. ENCOUNTER: Initial ACUITY: 1 day PAIN SCALE: 5/10 LOCATION: neck TECHNIQUE: Volumetric scanning of the cervical spine was performed. Multiplanar reconstructions in the sagittal, coronal and oblique axial planes were performed. Using automated exposure control and adjustment o f the mA and/or kV according to patient size, radiation dose was kept as low as reasonably achievable to obtain optimal diagnostic quality images. DICOM format image data is available electronically f or review and comparison. FINDINGS: VERTEBRAE: Normal vertebral body height. ALIGNMENT: No evidence of subluxation. Slight reversal of normal cervical lordosis. C2-C3: The bony spinal canal is normal in size. No evidence of disc bulge or herniation. The neural forami na are bilaterally patent. C3-C4: The bony spinal canal is normal in size. No evidence of disc bulge or herniation. The neural forami na are bilaterally patent. C4-C5: The bony spinal canal is normal in size. No evidence of disc bulge or herniation. The neural forami na are bilaterally patent. C5-C6: The bony spinal canal is normal in size. No evidence of disc bulge or herniation. The neural forami na are bilaterally patent. C6-C7: Posterior disc osteophyte complex with at least mild AP canal stenosis. C7-T1: The bony spinal canal is normal in size. No evidence of disc bulge or herniation. The neural forami na are bilaterally patent. CONCLUSION: No acute findings. At C6-7 there is a prominent posterior disc osteophyte complex with at least mild canal stenosis. Reversal of normal cervical lordosis. Landon Love MD on January 03, 2017 at 19:03 Board Certified Radiologist. This report was verified electronically.
[2017-01-04] VITALS (9 sets, daily range): BP systolic 106–136; BP diastolic 53–78; PULSE 18–96; RESP 16–18; TEMP 91–98.9; O2SAT 95–100
[2017-01-04] MEDS: oxyCODONE/ACETAMINOPHEN 10 MG/325 MG TAB PO PRN ×4 (03:36→17:46)
[2017-01-04] MEDS: BACLOFEN 10 MG TAB PO SCH ×3 (05:06→20:29)
[2017-01-04] MEDS: SODIUM CHLORIDE 0.9% FLUSH 10 ML FLUSH IV FLUSH SCH ×2 (09:00→20:29)
[2017-01-04] MEDS: ENOXAPARIN SODIUM 40 MG/0.4 ML SYRINGE SQ SCH (09:44)
[2017-01-04] MEDS: GABAPENTIN 400 MG CAP PO SCH ×3 (09:45→17:46)
[2017-01-04] MEDS: CITALOPRAM HYDROBROMIDE 40 MG TAB PO SCH (09:45)
[2017-01-04] MEDS: levETIRAcetam 500 MG TAB PO SCH ×2 (09:45→20:29)
[2017-01-04] MEDS: PANTOPRAZOLE SOD 40 MG DELAYED RELEASE TAB PO SCH (09:48)
[2017-01-04] MEDS: SUCRALFATE 1 GM TAB PO SCH ×3 (09:48→17:46)
[2017-01-04] MEDS: DOCUSATE SODIUM 50 MG/SENNA 8.6 MG TAB PO SCH ×2 (09:49→20:28)
[2017-01-04] MEDS: DULoxetine HCl DR 30 MG CAP PO SCH (09:49)
--- NOTE | 2017-01-04 12:21 | HHI.PR ---
Review/Management Diagnosis/Plan: (1) Cervical stenosis of spinal canal ICD Codes: M48.02 - Spinal stenosis, cervical region Status: Chronic Plan: seen by nsx appreciate their help plans for decompression (2) Seizure ICD Codes: R56.9 - Unspecified convulsions Status: Acute Plan: stable baclofen can lower sz threshol- reduce dose f/u keppra/gabapentin levels (3) Acute encephalopathy ICD Codes: G93.40 - Encephalopathy, unspecified Status: Resolved (4) Anemia ICD Codes: D64.9 - Anemia, unspecified Status: Acute Subjective Subjective Comments No acute events reported No headache No chest pain No dyspnea xcover Active Medications Current Medications Medications (Trade) Dose Ordered Sig/Annette Route Start Time Stop Time Status Last Admin (Cymbalta Dr) 30 mg DAILY PO 12/27/16 09:00 01/04/17 09:49 (Protonix) 40 mg DAILY PO 12/27/16 09:00 01/04/17 09:48 (Carafate) 1 gm TID PO 12/27/16 09:00 01/04/17 09:48 (NS Flush) 2 ml UNSCH PRN IV FLUSH 12/27/16 00:15 (NS Flush) 2 ml BID IV FLUSH 12/27/16 09:00 01/03/17 09:08 (Lovenox Inj) 40 mg Q24H SQ 12/27/16 09:00 01/04/17 09:44 (Ativan Inj) 1 mg Q15M PRN IV PUSH 12/27/16 00:45 01/01/17 12:50 (Benadryl) 25 mg Q4H PRN PO 12/28/16 15:30 01/01/17 21:25 (CeleXA) 40 mg DAILY PO 12/29/16 09:00 01/04/17 09:45 (Narcan Inj) 0.4 mg UNSCH PRN IV 12/29/16 17:00 (Kate-Colace) 1 tab BID PO 12/29/16 21:00 01/04/17 09:49 (Milk Of Magnesia Liq) 30 ml Q12H PRN PO 12/29/16 17:00 (Senokot) 17.2 mg Q12H PRN PO 12/29/16 17:00 12/30/16 08:33 (Dulcolax Supp) 10 mg DAILY PRN RECTAL 12/29/16 17:00 (Lactulose Liq) 30 ml DAILY PRN PO 12/29/16 17:00 (Lioresal) 20 mg Q8HR PO 12/31/16 14:00 01/03/17 21:46 (Neurontin) 400 mg TID PO 01/01/17 09:00 01/04/17 09:45 (Percocet 7.5-325 Mg) 1 tab Q4H PRN PO 01/01/17 13:15 (Percocet 10-325 Mg) 1 tab Q4H PRN PO 01/01/17 13:15 01/04/17 09:47 (Keppra) 750 mg Q12HR PO 01/01/17 21:00 01/04/17 09:45 (Pill Splitter) 1 ea UNSCH PRN OTHER 01/01/17 17:30 (Duoneb Neb) 1 ampule Q4HR NEB PRN NEB 01/01/17 22:00 01/03/17 14:47 Allergies Allergies Coded Allergies penicillin G (Unverified Allergy, Unknown, hives, 12/26/16) hydromorphone (Unverified Adverse Reaction, Intermediate, Itching, 12/26/16) Review of Systems All other ROS: ROS reviewed as documented in chart Exam I&O / VS Vital Signs Date Time Temp Pulse Resp B/P (MAP) Pulse Ox O2 Delivery O2 Flow Rate FiO2 01/04/17 10:48 82 01/04/17 08:30 97.9 92 18 106/72 (83) 96 01/04/17 05:03 98.6 82 18 136/65 (88) 100 01/04/17 04:08 18 01/04/17 03:44 98.6 82 18 136/65 (88) 100 01/04/17 00:39 98.5 96 18 130/53 (78) 100 01/03/17 23:34 75 01/03/17 23:31 94 Nasal Cannula 2.00 01/03/17 16:15 98.3 101 18 124/76 (92) 95 01/03/17 12:32 97.4 89 18 140/76 (97) 95 General: Alert and Oriented, No acute distress Respiratory: Non-labored respirations Cardiology: Normal rate, Regular Rhythm Neurologic: Alert, Oriented Psychiatric: Cooperative, Appropriate mood & affect Exam Comments ox 3, follows, eomi, face sym, ue 5/5, mild distal left le weakness 4/5, rt le 5 -/5, le hyper-reflexia, + crossed-adductor, rt kj brisker then left, mild ankle clonus Rory Chun MD Jan 04, 2017 12:21
--- NOTE | 2017-01-04 16:04 | HHI.PR ---
Subjective Remarks Seen earlier today. Says she feels improving. She did take a shower. Left hand weakness improving. Able to raise L hand off gravity has a very weak care transport nurse. Still with pain and sensory deficit on the left hand. No n/v/d/c. No seizures reported since 2 days ago Objective Vitals Vital Signs Date Time Temp Pulse Resp B/P (MAP) Pulse Ox O2 Delivery O2 Flow Rate FiO2 01/04/17 14:01 92 16 134/78 (96) 98 01/04/17 12:00 98.9 95 18 95 01/04/17 10:48 82 01/04/17 09:45 Room Air 01/04/17 08:30 97.9 92 18 106/72 (83) 96 01/04/17 05:03 98.6 82 18 136/65 (88) 100 01/04/17 04:08 18 01/04/17 03:44 98.6 82 18 136/65 (88) 100 01/04/17 00:39 98.5 96 18 130/53 (78) 100 01/03/17 23:34 75 01/03/17 23:31 94 Nasal Cannula 2.00 01/03/17 16:15 98.3 101 18 124/76 (92) 95 I/O 01/03/17 01/03/17 01/03/17 01/04/17 01/04/17 01/04/17 07:00 15:00 23:00 07:00 15:00 23:00 Intake Total 480 ml 620 ml 900 ml 480 ml Balance 480 ml 620 ml 900 ml 480 ml Intake Oral 480 ml 620 ml 900 ml 480 ml # Voids 3 1 3 # Bowel Movements 0 Imaging GENERAL: Very pleasant young F, alert and oriented, in the chair, appear in nad. EYES: No scleral icterus. No injection or drainage. NECK: Supple, trachea midline. No JVD or lymphadenopathy. CARDIOVASCULAR: Regular rate and rhythm without murmurs, gallops, or rubs. RESPIRATORY: Breath sounds equal bilaterally. No accessory muscle use. GASTROINTESTINAL: Abdomen soft, non-tender, nondistended. MUSCULOSKELETAL: No cyanosis, or edema. BACK: Nontender without obvious deformity. No CVA tenderness. NEURO: Left hemiparesis with mild sensory deficit Diffuse muscular pain over left side of the body on upper and lower extremities Spasm over the left side of the neck and tenderness to palpation. Upper extremity with some spasticity Left foot drop Procedures None A/P Problem List: (1) New onset seizure ICD Code: R56.9 - Unspecified convulsions Status: Acute (2) Chest pain ICD Code: R07.9 - Chest pain, unspecified Status: Acute (3) Muscular pain ICD Code: M79.1 - Myalgia Status: Acute (4) Left hemiparesis ICD Code: G81.94 - Hemiplegia, unspecified affecting left nondominant side Status: Chronic (5) Depression ICD Code: F32.9 - Major depressive disorder, single episode, unspecified Status: Chronic (6) H/O: CVA (cerebrovascular accident) ICD Code: Z86.73 - Personal history of transient ischemic attack (TIA), and cerebral infarction without residual deficits Status: Chronic Assessment and Plan (1) New onset seizure Plan: CT of the head did not show any acute disease The patient was admitted to the neurological floor and placed on seizure precautions Patient started on Ativan when necessary and loaded with fosphenytoin 1000 mg. Patient has been started on Keppra as per neurology recommendations. Continue daily aspirin. EEG abnormal due to sharp wave activity in the few phase reversal seen consistent with epileptic activity. Patient started on Keppra 500 mg twice a day. No further seizure activity reported. Continue to follow-up neurology recommendations. MRI of the brain did not show any acute abnormalities. 12/31 As per RN report - Patient cleared to be discharged by neurology. 01/01 reported seizure again today. Will check EEG and increase keppra dose to 750 mg BID. Check Keppra level. 01/02 reported seizure during EEG. Follow-up EEG results. Continue Keppra 750 mg by mouth twice a day. If EKG negative then will discharge home on current dose of Keppra. (2) Chest pain Plan: Likely muscular skeletal in nature. EKG on admission showed normal sinus rhythm without ST-T changes. Reviewed by me. Chest pain now resolved. (3) Neck pain with left sided weakness and pain Plan: Patient on gabapentin, started on Ferguson and IV morphine for breakthrough pain. The patient's left-sided continue to be painful. He was noted that the patient also had some neck pain. Patient underwent a venous Doppler of the left upper and lower extremities to rule out DVT. This was negative. Patient started on baclofen for possible muscle spasms with transient improvement in left-sided pain. However patient continued to have pain in left side of the body, despite maximizing baclofen dose and increase gabapentin to 600 mg by mouth 3 times a day. 01/03 MRI ordered as per neurology on 01/02 which shows a limited scan due to motion. There is some degree of spinal stenosis from C3 to C4 through C6-7. There appears to be moderate to severe spinal stenosis and probable cord compromise especially at the level of C6-7. I will consult neurosurgery stat. I will also place the patient on bedrest and to the patient was evaluated by neurosurgery. Hold OT and PT. Called and Discussed case with Dr Garrett who stated will see the patient. . (4) Left hemiparesis Plan: PT consulted. Recommended home with home health PT versus outpatient PT. OT consulted. Patient will need OT as outpatient. (5) Depression Plan: Seems stable. Continue Celexa. (6) H/O: CVA (cerebrovascular accident) Plan: Continue aspirin daily. Head CT as above. Neurology following GI prophylaxis: Continue Carafate and PPI that the patient has been taking for gastritis. DVT prophylaxis: SCDs, no chemoprophylaxis given previous history of iron deficiency anemia and gastritis. Discharge Planning Discharge pending neurosurgery clearance. Plan for surgery on Friday Amelia Mayo MD Jan 04, 2017 16:04
--- NOTE | 2017-01-04 17:15 | HHI.NSPN ---
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 At that time she presented with primarily left lower extremity weakness. She states that she had also some left upper extremity deficit. She underwent physical therapy with gradual improvement of the deficit. She has been left with moderate numbness and weakness in primarily the distal left lower extremity but has been able to ambulate with a cane. She states that normally she cannot move her left foot or ankle. She has had some residual numbness in her left hand and occasional weakness but no significant loss of coordination. Exam Results Vital Signs Date Time Temp Pulse Resp B/P (MAP) Pulse Ox O2 Delivery O2 Flow Rate FiO2 01/04/17 16:00 98.6 89 18 134/78 (96) 99 Manual Cuff/Auscultation 01/04/17 09:45 Room Air 01/03/17 23:31 2.00 Intake and Output 01/04/17 01/04/17 01/05/17 08:00 16:00 00:00 Intake Total 600 ml 480 ml Balance 600 ml 480 ml Physical Examination Awake and alert Cranial nerves II through XII grossly intact. 5/5 motor strength right upper and lower extremity. 4/5 left upper extremity except 3/5 hand intrinsics with 3-4/5 proximal and absent distal left lower extremity motor function. Sensation intact to light touch to the right extremities. Decrease in sensation to the left upper extremity into the proximal left lower extremity that is normal. Decreased sensation to the distal left lower extremity since the seizure. No ankle clonus. No Chris sign. No plantar response. Lab, Micro, Other Results 01/03/2017 CT scan cervical spine images reviewed. Agree with findings as noted below: Cervical Spine CT 01/03/17 0000 Signed Impressions: Service Date/Time: Tuesday, January 03, 2017 18:26 - CONCLUSION: No acute findings. At C6-7 there is a prominent posterior disc osteophyte complex with at least mild canal stenosis. Reversal of normal cervical lordosis. Landon Love MD Medical Decision Making Impression and Plan Impression: 1. Severe C6 7 and moderately severe C5 6 canal stenosis due to chronic- appearing posterior osteophytic disc complex. There is increased signal intensity within the cord at the C6 7 level. 2. Cervical myelopathy 3. Previous left hemiparesis related to prior CVA. 4. Seizure disorder Plan: Findings were discussed with the patient. Treatment options explained again. She wishes to proceed with surgical intervention which is tentatively scheduled for 01/07/17. Encourage out of bed Chris Garrett MD Jan 04, 2017 17:15
[2017-01-04] MEDS: RESP: ALBUTEROL 2.5 MG/IPRATROPIUM 0.5 MG NEB (PRN) NEB (21:53)
[2017-01-05] VITALS (7 sets, daily range): BP systolic 102–124; BP diastolic 59–72; PULSE 82–95; RESP 18–20; TEMP 97.5–98.6; O2SAT 96–99
[2017-01-05] MEDS: oxyCODONE/ACETAMINOPHEN 10 MG/325 MG TAB PO PRN ×5 (01:27→19:51)
[2017-01-05] MEDS: BACLOFEN 10 MG TAB PO SCH ×3 (06:24→22:21)
[2017-01-05] MEDS: DOCUSATE SODIUM 50 MG/SENNA 8.6 MG TAB PO SCH ×2 (09:00→19:51)
--- NOTE | 2017-01-05 09:25 | HHI.PR ---
Review/Management Diagnosis/Plan: (1) Cervical stenosis of spinal canal ICD Codes: M48.02 - Spinal stenosis, cervical region Status: Chronic Plan: seen by nsx appreciate their help plans for decompression friday neuro stable check rt le venous u/s (2) Seizure ICD Codes: R56.9 - Unspecified convulsions Status: Acute Plan: stable baclofen can lower sz threshol- reduce dose f/u keppra/gabapentin levels-pending (3) Acute encephalopathy ICD Codes: G93.40 - Encephalopathy, unspecified Status: Resolved (4) Anemia ICD Codes: D64.9 - Anemia, unspecified Status: Acute Subjective Subjective Comments No acute events reported feels like her rt thigh has some swelling, no calf pain No headache No chest pain No dyspnea Active Medications Current Medications Medications (Trade) Dose Ordered Sig/Annette Route Start Time Stop Time Status Last Admin (Cymbalta Dr) 30 mg DAILY PO 12/27/16 09:00 01/04/17 09:49 (Protonix) 40 mg DAILY PO 12/27/16 09:00 01/04/17 09:48 (Carafate) 1 gm TID PO 12/27/16 09:00 01/04/17 17:46 (NS Flush) 2 ml UNSCH PRN IV FLUSH 12/27/16 00:15 (NS Flush) 2 ml BID IV FLUSH 12/27/16 09:00 01/04/17 20:29 (Lovenox Inj) 40 mg Q24H SQ 12/27/16 09:00 01/04/17 09:44 (Ativan Inj) 1 mg Q15M PRN IV PUSH 12/27/16 00:45 01/01/17 12:50 (Benadryl) 25 mg Q4H PRN PO 12/28/16 15:30 01/01/17 21:25 (CeleXA) 40 mg DAILY PO 12/29/16 09:00 01/04/17 09:45 (Narcan Inj) 0.4 mg UNSCH PRN IV 12/29/16 17:00 (Kate-Colace) 1 tab BID PO 12/29/16 21:00 01/04/17 09:49 (Milk Of Magnesia Liq) 30 ml Q12H PRN PO 12/29/16 17:00 (Senokot) 17.2 mg Q12H PRN PO 12/29/16 17:00 12/30/16 08:33 (Dulcolax Supp) 10 mg DAILY PRN RECTAL 12/29/16 17:00 (Lactulose Liq) 30 ml DAILY PRN PO 12/29/16 17:00 (Neurontin) 400 mg TID PO 01/01/17 09:00 01/04/17 17:46 (Percocet 7.5-325 Mg) 1 tab Q4H PRN PO 01/01/17 13:15 01/04/17 21:38 (Percocet 10-325 Mg) 1 tab Q4H PRN PO 01/01/17 13:15 01/05/17 06:29 (Keppra) 750 mg Q12HR PO 01/01/17 21:00 01/04/17 20:29 (Pill Splitter) 1 ea UNSCH PRN OTHER 01/01/17 17:30 (Duoneb Neb) 1 ampule Q4HR NEB PRN NEB 01/01/17 22:00 01/04/17 21:53 (Lioresal) 10 mg Q8HR PO 01/04/17 14:00 01/05/17 06:24 Allergies Allergies Coded Allergies penicillin G (Unverified Allergy, Unknown, hives, 12/26/16) hydromorphone (Unverified Adverse Reaction, Intermediate, Itching, 12/26/16) Review of Systems All other ROS: ROS reviewed as documented in chart Exam I&O / VS Vital Signs Date Time Temp Pulse Resp B/P (MAP) Pulse Ox O2 Delivery O2 Flow Rate FiO2 01/05/17 06:17 97.7 95 20 107/68 (81) 96 01/05/17 00:00 97.5 91 18 124/63 (83) 97 01/04/17 19:00 91.0 18 18 113/58 (76) 97 01/04/17 16:00 98.6 89 18 134/78 (96) 99 Manual Cuff/Auscultation 01/04/17 14:01 92 16 134/78 (96) 98 01/04/17 12:00 98.9 95 18 95 01/04/17 10:48 82 01/04/17 09:45 Room Air General: Alert and Oriented, No acute distress Respiratory: Non-labored respirations Cardiology: Normal rate, Regular Rhythm Neurologic: Alert, Oriented Psychiatric: Cooperative, Appropriate mood & affect Exam Comments ox 3, follows, eomi, face sym, ue 5/5, mild distal left le weakness 4/5, rt le 5 -/5, le hyper-reflexia, + crossed-adductor, rt kj brisker then left, mild ankle clonus nadiya, no thigh swelling, negative homans sign Rory Chun MD Jan 05, 2017 09:25
[2017-01-05] MEDS: ENOXAPARIN SODIUM 40 MG/0.4 ML SYRINGE SQ SCH (09:38)
[2017-01-05] MEDS: GABAPENTIN 400 MG CAP PO SCH ×3 (09:38→17:57)
[2017-01-05] MEDS: PANTOPRAZOLE SOD 40 MG DELAYED RELEASE TAB PO SCH (09:39)
[2017-01-05] MEDS: DULoxetine HCl DR 30 MG CAP PO SCH (09:39)
[2017-01-05] MEDS: SUCRALFATE 1 GM TAB PO SCH ×3 (09:40→17:56)
[2017-01-05] MEDS: levETIRAcetam 500 MG TAB PO SCH ×2 (09:40→19:51)
[2017-01-05] MEDS: CITALOPRAM HYDROBROMIDE 40 MG TAB PO SCH (09:41)
[2017-01-05] MEDS: SODIUM CHLORIDE 0.9% FLUSH 10 ML FLUSH IV FLUSH SCH ×2 (09:41→19:51)
--- NOTE | 2017-01-05 10:42 | RADRPT ---
EXAM DATE/TIME: 01/05/2017 10:16 [facility] COMPARISON: No previous studies available for comparison. INDICATIONS : Right leg redness. MEDICAL HISTORY : Gastroesophageal reflux disease. Acute encephalopathy. CVA. Seizures. Confusion. Tremors. HTN. A shtma. Aspiration pnemonia. Hypoexmia. Ovarian cysts. Renal failure. Borderline diabetes. Absent righ t kidney. Leukocytosis. Elevated Factor VII. Anemia. Iron deficiency. Decreased antithrombin III. An ticoagulant therapy, Lovenox. SURGICAL HISTORY : Cholecystectomy. ENCOUNTER: Initial ACUITY: 2 day PAIN SCORE: 10/10 LOCATION: Right leg. TECHNIQUE: Venous ultrasound of the leg was performed from the inguinal ligament to the proximal calf. Real-kimberli e, color Doppler and spectral tracing, compression and augmentation techniques were used. FINDINGS: There is normal compressibility of the deep venous system from the inguinal region to the proximal ca lf. No echogenic clot is seen in the lumen of the common femoral, femoral, popliteal, and posterior tibial veins. There is a normal response of the venous system to proximal and distal augmentation an d respiration. CONCLUSION: No DVT is identified in the right lower extremity. Julio Flores MD on January 05, 2017 at 10:40 Board Certified Radiologist. This report was verified electronically.
--- NOTE | 2017-01-05 12:12 | HHI.PR ---
Subjective Remarks In the bed. Says she has pain in her left arm, radiating to the arm and left sie of her body. Current pain meds helps but has breakthrough pain . No n/v/d/ c. Not much improvement since yesterday. Objective Vitals Vital Signs Date Time Temp Pulse Resp B/P (MAP) Pulse Ox O2 Delivery O2 Flow Rate FiO2 01/05/17 08:00 97.7 82 18 114/59 (77) 97 01/05/17 06:17 97.7 95 20 107/68 (81) 96 01/05/17 00:00 97.5 91 18 124/63 (83) 97 01/04/17 19:00 91.0 18 18 113/58 (76) 97 01/04/17 16:00 98.6 89 18 134/78 (96) 99 Manual Cuff/Auscultation 01/04/17 14:01 92 16 134/78 (96) 98 I/O 01/04/17 01/04/17 01/04/17 01/05/17 01/05/17 01/05/17 06:59 14:59 22:59 06:59 14:59 22:59 Intake Total 900 ml 480 ml 360 ml Balance 900 ml 480 ml 360 ml Intake Oral 900 ml 480 ml 360 ml # Voids 3 2 # Bowel Movements 0 Imaging Last Impressions Lower Extremity Ultrasound 01/05/17 0000 Signed Impressions: Service Date/Time: Thursday, January 05, 2017 10:16 - CONCLUSION: No DVT is identified in the right lower extremity. Julio Flores MD Cervical Spine CT 01/03/17 0000 Signed Impressions: Service Date/Time: Tuesday, January 03, 2017 18:26 - CONCLUSION: No acute findings. At C6-7 there is a prominent posterior disc osteophyte complex with at least mild canal stenosis. Reversal of normal cervical lordosis. Landon Love MD Cervical Spine MRI 01/02/17 0000 Signed Impressions: Service Date/Time: December 17:50 - CONCLUSION: 1. Scan is limited due to motion artifact on just about every pulse sequence. 2. However, there is some degree of spinal stenosis from C3-4 through C6-7, most severe at C5-6 and C6-7 where there appears to be moderate to severe spinal stenosis and probable cord compromise, especially at C6-7. 3. While there does appear to be some encroachment on the neural foramina at multiple levels, particularly on the left, I do not believe that this is severe enough to compromise exiting nerve roots. Again, anatomic detail is limited. 4. Tonsillar ectopia without a emerson Chiari malformation. Justo Wallace MD Upper Extremity Ultrasound 12/28/16 0000 Signed Impressions: Service Date/Time: Wednesday, December 28, 2016 15:54 - CONCLUSION: Negative exam with no evidence of deep venous thrombosis. Ambrosio Tran MD Brain MRI 12/27/16 0000 Signed Impressions: Service Date/Time: Tuesday, December 27, 2016 18:38 - CONCLUSION: 1. No acute abnormality is seen. 2. Small areas of encephalomalacia at the superior medial parietal lobe being greater on the right. 3. Small area of stable cystic change in the medial basal ganglia regions representing either lacunar infarcts or dilated perivascular spaces. 4. Minimal asymmetry to the temporal horns of the lateral ventricles with the right side being slightly more distended. The hippocampal structures themselves appear relatively symmetric. Julio Velasco MD Head CT 12/26/161833 Signed Impressions: Service Date/Time: November 19:07 - CONCLUSION: No acute disease. Small areas of the encephalomalacia at the posterior medial parietal lobes are again seen. uJlio Velasco MD Chest X-Ray 12/26/161833 Signed Impressions: Service Date/Time: November 19:06 - CONCLUSION: No acute disease. Julio Velasco MD Objective Remarks GENERAL: Very pleasant young F, alert and oriented, in the chair, appear in nad. EYES: No scleral icterus. No injection or drainage. NECK: Supple, trachea midline. No JVD or lymphadenopathy. CARDIOVASCULAR: Regular rate and rhythm without murmurs, gallops, or rubs. RESPIRATORY: Breath sounds equal bilaterally. No accessory muscle use. GASTROINTESTINAL: Abdomen soft, non-tender, nondistended. MUSCULOSKELETAL: No cyanosis, or edema. BACK: Nontender without obvious deformity. No CVA tenderness. NEURO: Left hemiparesis with mild sensory deficit Diffuse muscular pain over left side of the body on upper and lower extremities Spasm over the left side of the neck and tenderness to palpation. Upper extremity with some spasticity Left foot drop Procedures None A/P Problem List: (1) New onset seizure ICD Code: R56.9 - Unspecified convulsions Status: Acute (2) Chest pain ICD Code: R07.9 - Chest pain, unspecified Status: Acute (3) Muscular pain ICD Code: M79.1 - Myalgia Status: Acute (4) Left hemiparesis ICD Code: G81.94 - Hemiplegia, unspecified affecting left nondominant side Status: Chronic (5) Depression ICD Code: F32.9 - Major depressive disorder, single episode, unspecified Status: Chronic (6) H/O: CVA (cerebrovascular accident) ICD Code: Z86.73 - Personal history of transient ischemic attack (TIA), and cerebral infarction without residual deficits Status: Chronic Assessment and Plan (1) New onset seizure Plan: CT of the head did not show any acute disease The patient was admitted to the neurological floor and placed on seizure precautions Patient started on Ativan when necessary and loaded with fosphenytoin 1000 mg. Patient has been started on Keppra as per neurology recommendations. Continue daily aspirin. EEG abnormal due to sharp wave activity in the few phase reversal seen consistent with epileptic activity. Patient started on Keppra 500 mg twice a day. No further seizure activity reported. Continue to follow-up neurology recommendations. MRI of the brain did not show any acute abnormalities. 12/31 As per RN report - Patient cleared to be discharged by neurology. 01/01 reported seizure again today. Will check EEG and increase keppra dose to 750 mg BID. Check Keppra level. 01/02 reported seizure during EEG. Follow-up EEG results. Continue Keppra 750 mg by mouth twice a day. If EKG negative then will discharge home on current dose of Keppra. (2) Chest pain Plan: Likely muscular skeletal in nature. EKG on admission showed normal sinus rhythm without ST-T changes. Reviewed by me. Chest pain now resolved. (3) Neck pain with left sided weakness and pain Plan: Patient on gabapentin, started on Velpen and IV morphine for breakthrough pain. The patient's left-sided continue to be painful. He was noted that the patient also had some neck pain. Patient underwent a venous Doppler of the left upper and lower extremities to rule out DVT. This was negative. Patient started on baclofen for possible muscle spasms with transient improvement in left-sided pain. However patient continued to have pain in left side of the body, despite maximizing baclofen dose and increase gabapentin to 600 mg by mouth 3 times a day. On percocet per pain scale,. will ad small dose of dialudid for breakthrough pain. 01/03 MRI ordered as per neurology on 01/02 which shows a limited scan due to motion. There is some degree of spinal stenosis from C3 to C4 through C6-7. There appears to be moderate to severe spinal stenosis and probable cord compromise especially at the level of C6-7. I will consult neurosurgery stat. I will also place the patient on bedrest and to the patient was evaluated by neurosurgery. Hold OT and PT. Seen by Dr Garrett, plan for tentative surgery on Friday (4) Left hemiparesis Plan: PT consulted. Recommended home with home health PT versus outpatient PT. OT consulted. Patient will need OT as outpatient. (5) Depression Plan: Seems stable. Continue Celexa. (6) H/O: CVA (cerebrovascular accident) Plan: Continue aspirin daily. Head CT as above. Neurology following GI prophylaxis: Continue Carafate and PPI that the patient has been taking for gastritis. DVT prophylaxis: SCDs, no chemoprophylaxis given previous history of iron deficiency anemia and gastritis. Discharge Planning Discharge pending neurosurgery clearance. Plan for surgery on Friday Amelia Mayo MD Jan 05, 2017 12:12
--- NOTE | 2017-01-05 12:41 | HHI.NSPN ---
(José Manuel Venegas) History Chief Complaint: Continued decreased sensation and weakness to left lower leg. 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 At that time she presented with primarily left lower extremity weakness. She states that she had also some left upper extremity deficit. She underwent physical therapy with gradual improvement of the deficit. She has been left with moderate numbness and weakness in primarily the distal left lower extremity but has been able to ambulate with a cane. She states that normally she cannot move her left foot or ankle. She has had some residual numbness in her left hand and occasional weakness but no significant loss of coordination. She now presents through the emergency room on December 26 with new onset seizure which apparently occurred while she was asleep. The patient does not recall the incident. She states that she had another seizure yesterday. The patient complains of aching and some pain over the left lower greater than upper extremity since the seizure. She also complains of increased numbness in the left arm and leg. She states that she does not necessarily have any increased weakness in the left leg since her seizure, but her walking is more impaired. She also notes that she was walking independently with a cane prior to the seizure, but now is able to ablate only with great difficulty and with assistance. No complaint of any new bowel or bladder dysfunction. 01/05: The patient states that she is doing good. She endorses some mild abdominal pain which is better than yesterday. She continues to have decreased sensation to the left lower extremity below the knee since her seizure as well as decreased motor function. (José Manuel Venegas) System Review Comments Constitutional: Patient denies any fever or chills. HEENT: Patient denies any visual or hearing difficulty. Respiratory: Patient denies any shortness of breath or productive cough. Cardiovascular: Patient denies any chest pain, palpitations or irregular heartbeat. Gastrointestinal: Patient does have some right upper quadrant abdominal pain that is better than yesterday. She denies any nausea, vomiting or incontinence of urine. Genitourinary: Patient denies any incontinence of urine. Musculoskeletal: Patient denies any neck, back or extremity pain. Neurologic: Patient complains of left-sided weakness and numbness since a prior stroke which is worse to the distal leg since her seizure. She denies any headache, dizziness or tingling. (José Manuel Venegas) Exam Results 01/03/17 01/03/17 01/04/17 01/04/17 01/05/17 01/05/17 05:59 17:59 05:59 17:59 05:59 17:59 Intake Total 480 ml 620 ml 300 ml 1080 ml 360 ml Balance 480 ml 620 ml 300 ml 1080 ml 360 ml Intake Oral 480 ml 620 ml 300 ml 1080 ml 360 ml # Voids 3 1 3 2 # Bowel Movements 0 Vital Signs Date Time Temp Pulse Resp B/P (MAP) Pulse Ox O2 Delivery O2 Flow Rate FiO2 01/05/17 08:00 97.7 82 18 114/59 (77) 97 01/05/17 06:17 97.7 95 20 107/68 (81) 96 01/05/17 00:00 97.5 91 18 124/63 (83) 97 01/04/17 19:00 91.0 18 18 113/58 (76) 97 01/04/17 16:00 98.6 89 18 134/78 (96) 99 Manual Cuff/Auscultation 01/04/17 14:01 92 16 134/78 (96) 98 01/04/17 12:00 98.9 95 18 95 01/04/17 10:48 82 01/04/17 09:45 Room Air 01/04/17 08:30 97.9 92 18 106/72 (83) 96 01/04/17 05:03 98.6 82 18 136/65 (88) 100 01/04/17 04:08 18 01/04/17 03:44 98.6 82 18 136/65 (88) 100 01/04/17 00:39 98.5 96 18 130/53 (78) 100 01/03/17 23:34 75 01/03/17 23:31 94 Nasal Cannula 2.00 01/03/17 16:15 98.3 101 18 124/76 (92) 95 01/03/17 12:32 97.4 89 18 140/76 (97) 95 01/03/17 10:16 102 01/03/17 08:46 97.9 96 18 124/85 (98) 96 01/03/17 04:30 98.3 79 17 141/74 (96) 95 01/03/17 00:30 98.2 83 17 146/83 (104) 96 01/02/17 22:07 85 01/02/17 21:25 97 Room Air 01/02/17 20:30 98.1 82 17 132/75 (94) 96 01/02/17 16:00 97.9 85 18 136/81 (99) 97 (José Manuel Venegas) Physical Examination GENERAL: The patient is awake & alert and readily interacts. Her affect is normal. She is not in any apparent distress. SKIN: Warm, dry & intact w/o any evident rashes, ulcerations or lesions. HEENT: Normocephalic, atraumatic. NECK: No JVD, trachea midline. CARDIOVASCULAR: S1S2 w/RRR w/o M/G/R, radial & pedal pulses 2+ bilateral, cap refill < 2 sec, no pedal edema. RESPIRATORY: CTAB w/o W/R/R, equal excursion, nonlaboured, on RA. GASTROINTESTINAL: Abdomen soft, nontender, positive bowel sounds. MUSCULOSKELETAL: No evident deformity or clubbing. NEUROLOGICAL: AAOx3. Speech clear & appropriate. Follows simple commands w/o difficulty. Sensation intact to light touch to RUE & RLE, decreased to LUE & LLE secondary to prior CVA but even more decreased below the knee since her seizure, no change since then. Motor strength 5/5 to all major flexion & extension muscle groups RUE & RLE. Motor strength 4/5 LUE except for 3/5 hand intrinsic, 3 to 4/5 proximal LLE and 0/5 distal LLE. (José Manuel Venegas) Lab, Micro, Other Results Recent Impressions Lower Extremity Ultrasound 01/05/17 0000 Signed Impressions: Service Date/Time: Thursday, January 05, 2017 10:16 - CONCLUSION: No DVT is identified in the right lower extremity. Julio Flores MD Cervical Spine CT 01/03/17 0000 Signed Impressions: Service Date/Time: Tuesday, January 03, 2017 18:26 - CONCLUSION: No acute findings. At C6-7 there is a prominent posterior disc osteophyte complex with at least mild canal stenosis. Reversal of normal cervical lordosis. Landon Love MD (José Manuel Venegas) Medical Decision Making Impression and Plan Impression: 1. Severe C6 7 and moderately severe C5 6 canal stenosis due to chronic- appearing posterior osteophytic disc complex. There is increased signal intensity within the cord at the C6 7 level. 2. Cervical myelopathy 3. Previous left hemiparesis related to prior CVA. 4. Seizure disorder Patient continues to do well and has a stable neurological examination. Plan: Discussed plan of care with patient. Tentatively scheduled for surgical intervention on . Mobilise patient w/assistance. (José Manuel Venegas) Attending Statement The exam, history, and the medical decision-making described in the above note were completed with the assistance of the mid-level provider. I reviewed and agree with the findings presented. I attest that I had a [id number] encounter with the patient on the same day, and personally performed and documented my assessment and findings in the medical record. Physical exam unchanged today compared to 01/04/17. She complains of mostly mild to moderate burning dysesthesia left upper and lower extremity. She initially states that this is new pain, but when questioned further, indicates that she has been on gabapentin and Cymbalta for an extended period of time for the pain. No other new symptoms. Continue to plan for anterior discectomy and fusion for cervical stenosis on 04/13. (Chris Garrett MD) José Manuel Venegas Jan 05, 2017 12:41 Chris Garrett MD Jan 05, 2017 16:46
[2017-01-05] MEDS: HYDROmorphone HCL PF 1 MG/ML VIAL IV PUSH PRN (22:22)
[2017-01-05] MEDS: diphenhydrAMINE HCL 25 MG CAP PO PRN (22:30)
[2017-01-06] VITALS (7 sets, daily range): BP systolic 113–125; BP diastolic 66–72; PULSE 87–109; RESP 18; TEMP 97.5–98.2; O2SAT 95–97
[2017-01-06] MEDS: oxyCODONE/ACETAMINOPHEN 10 MG/325 MG TAB PO PRN ×3 (04:16→20:12)
[2017-01-06] MEDS: BACLOFEN 10 MG TAB PO SCH ×3 (05:04→20:12)
[2017-01-06] MEDS: DULoxetine HCl DR 30 MG CAP PO SCH (08:25)
[2017-01-06] MEDS: PANTOPRAZOLE SOD 40 MG DELAYED RELEASE TAB PO SCH (08:25)
[2017-01-06] MEDS: ENOXAPARIN SODIUM 40 MG/0.4 ML SYRINGE SQ SCH (08:25)
[2017-01-06] MEDS: levETIRAcetam 500 MG TAB PO SCH ×2 (08:26→20:12)
[2017-01-06] MEDS: DOCUSATE SODIUM 50 MG/SENNA 8.6 MG TAB PO SCH ×2 (08:26→20:12)
[2017-01-06] MEDS: SUCRALFATE 1 GM TAB PO SCH ×3 (08:27→17:35)
[2017-01-06] MEDS: GABAPENTIN 400 MG CAP PO SCH ×3 (08:27→17:36)
[2017-01-06] MEDS: CITALOPRAM HYDROBROMIDE 40 MG TAB PO SCH (08:27)
[2017-01-06] MEDS: SODIUM CHLORIDE 0.9% FLUSH 10 ML FLUSH IV FLUSH SCH ×2 (08:28→20:13)
[2017-01-06] MEDS: HYDROmorphone HCL PF 1 MG/ML VIAL IV PUSH PRN ×2 (08:33→17:37)
--- NOTE | 2017-01-06 11:22 | HHI.NSPN ---
(José Manuel Venegas) History Chief Complaint: Continues with decreased sensation and weakness to left lower leg. 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 At that time she presented with primarily left lower extremity weakness. She states that she had also some left upper extremity deficit. She underwent physical therapy with gradual improvement of the deficit. She has been left with moderate numbness and weakness in primarily the distal left lower extremity but has been able to ambulate with a cane. She states that normally she cannot move her left foot or ankle. She has had some residual numbness in her left hand and occasional weakness but no significant loss of coordination. She now presents through the emergency room on December 26 with new onset seizure which apparently occurred while she was asleep. The patient does not recall the incident. She states that she had another seizure yesterday. The patient complains of aching and some pain over the left lower greater than upper extremity since the seizure. She also complains of increased numbness in the left arm and leg. She states that she does not necessarily have any increased weakness in the left leg since her seizure, but her walking is more impaired. She also notes that she was walking independently with a cane prior to the seizure, but now is able to ablate only with great difficulty and with assistance. No complaint of any new bowel or bladder dysfunction. 01/05: The patient states that she is doing good. She endorses some mild abdominal pain which is better than yesterday. She continues to have decreased sensation to the left lower extremity below the knee since her seizure as well as decreased motor function. 01/06: This morning the patient is doing well. She again states that things have been worse to the left lower extremity since the seizure. She had no other complaints. (José Manuel Venegas) System Review Comments Constitutional: Patient denies any fever or chills. HEENT: Patient denies any visual or hearing difficulty. Respiratory: Patient denies any shortness of breath or productive cough. Cardiovascular: Patient denies any chest pain, palpitations or irregular heartbeat. Gastrointestinal: Patient denies any abdominal pain, nausea, vomiting or incontinence of urine. Genitourinary: Patient denies any incontinence of urine. Musculoskeletal: Patient denies any neck, back or extremity pain. Neurologic: Patient complains of left-sided weakness and numbness since a prior stroke which is worse to the distal leg since her seizure. She denies any headache, dizziness or tingling. (José Manuel Venegas) Exam Results 01/04/17 01/04/17 01/05/17 01/05/17 01/06/17 01/06/17 06:00 18:00 06:00 18:00 06:00 18:00 Intake Total 300 ml 1080 ml 960 ml 600 ml Balance 300 ml 1080 ml 960 ml 600 ml Intake Oral 300 ml 1080 ml 960 ml 600 ml # Voids 3 4 2 # Bowel Movements 0 0 Vital Signs Date Time Temp Pulse Resp B/P (MAP) Pulse Ox O2 Delivery O2 Flow Rate FiO2 01/06/17 08:00 98.1 99 18 114/72 (86) 95 01/06/17 04:00 98.2 90 18 113/68 (83) 96 01/06/17 00:00 97.8 87 18 115/70 (85) 97 01/05/17 22:52 18 01/05/17 20:00 97.6 89 18 118/68 (85) 99 01/05/17 16:00 98.6 89 18 122/70 (87) 96 01/05/17 12:40 83 01/05/17 12:00 97.9 84 18 102/72 (82) 97 01/05/17 09:30 Room Air 01/05/17 08:00 97.7 82 18 114/59 (77) 97 01/05/17 06:17 97.7 95 20 107/68 (81) 96 01/05/17 00:00 97.5 91 18 124/63 (83) 97 01/04/17 19:00 91.0 18 18 113/58 (76) 97 01/04/17 16:00 98.6 89 18 134/78 (96) 99 Manual Cuff/Auscultation 01/04/17 14:01 92 16 134/78 (96) 98 01/04/17 12:00 98.9 95 18 95 01/04/17 10:48 82 01/04/17 09:45 Room Air 01/04/17 08:30 97.9 92 18 106/72 (83) 96 01/04/17 05:03 98.6 82 18 136/65 (88) 100 01/04/17 04:08 18 01/04/17 03:44 98.6 82 18 136/65 (88) 100 01/04/17 00:39 98.5 96 18 130/53 (78) 100 01/03/17 23:34 75 01/03/17 23:31 94 Nasal Cannula 2.00 01/03/17 16:15 98.3 101 18 124/76 (92) 95 01/03/17 12:32 97.4 89 18 140/76 (97) 95 (José Manuel Venegas) Physical Examination GENERAL: The patient is awake & alert and readily interacts. Her affect is normal. She is not in any apparent distress. SKIN: Warm, dry & intact w/o any evident rashes, ulcerations or lesions. HEENT: Normocephalic, atraumatic. NECK: No JVD, trachea midline. MUSCULOSKELETAL: No evident deformity or clubbing. NEUROLOGICAL: AAOx3. Speech clear & appropriate. Follows simple commands w/o difficulty. Sensation intact to light touch to RUE & RLE, decreased to LUE & LLE especially below the knee. Motor strength 5/5 to all major flexion & extension muscle groups RUE & RLE. Motor strength 4/5 LUE, 3 to 4/5 proximal LLE and 0/5 distal LLE. (José Manuel Venegas) Lab, Micro, Other Results Recent Impressions Lower Extremity Ultrasound 01/05/17 0000 Signed Impressions: Service Date/Time: Thursday, January 05, 2017 10:16 - CONCLUSION: No DVT is identified in the right lower extremity. Julio Flores MD (José Manuel Venegas) Medical Decision Making Impression and Plan Impression: 1. Severe C6 7 and moderately severe C5 6 canal stenosis due to chronic- appearing posterior osteophytic disc complex. There is increased signal intensity within the cord at the C6 7 level. 2. Cervical myelopathy 3. Previous left hemiparesis related to prior CVA. 4. Seizure disorder Patient continues to do well and has a stable neurological examination. Plan: Discussed plan of care with patient. Tentatively scheduled for surgical intervention on . Mobilise patient w/assistance. (José Manuel Venegas) Attending Statement The exam, history, and the medical decision-making described in the above note were completed with the assistance of the mid-level provider. I reviewed and agree with the findings presented. I attest that I had a [id number] encounter with the patient on the same day, and personally performed and documented my assessment and findings in the medical record. The patient's examination remained stable today. I had a long discussion with her today regarding her previous symptoms and her new symptoms and findings since her seizure. She states that her left side motor and coordination deficits are worse since his seizure. I advised her that although she does have significant spinal cord compression at the C5 6 and C6 7 levels, I cannot be certain to what extent myelopathy may be responsible for any of her chronic or more acute symptoms or deficit. She does have a obvious deficit from her previous stroke, and it is unclear whether she has had definite recent seizures and whether or not these may have increased her deficit. She understands that there is a definite chance of progressive cervical myelopathy and myelomalacia with cervical treatment and observation. She also clearly understands that surgery may not necessarily help her deficit at this point. Taking all of this under consideration, the patient is very definite that she wishes to proceed with surgical intervention for spinal cord decompression. Risk and possible complications have been discussed including the risk of anesthesia, organ failure, stroke, , bleeding, infection, nerve damage, pain, weakness, numbness, paralysis, loss of bowel, bladder or sexual function, spinal fluid leak, failure of instrumentation or fusion. Consents have been reviewed with the patient. All questions have been answered. She appears to understand the above and wishes to proceed with surgery which is tentatively scheduled for 01/07/17. (Chris Garrett MD) José Manuel Venegas Jan 06, 2017 11:22 Chris Garrett MD Jan 06, 2017 11:49
--- NOTE | 2017-01-06 12:37 | HHI.PR ---
Subjective Remarks In the bed. Says Kenyattaid works well and she has less pain in her left arm. Denies chest pain or sob. No n/v/d/c. Denies new motor deficit. Eating well. Objective Vitals Vital Signs Date Time Temp Pulse Resp B/P (MAP) Pulse Ox O2 Delivery O2 Flow Rate FiO2 01/06/17 08:48 Room Air 01/06/17 08:00 98.1 99 18 114/72 (86) 95 01/06/17 04:00 98.2 90 18 113/68 (83) 96 01/06/17 00:00 97.8 87 18 115/70 (85) 97 01/05/17 22:52 18 01/05/17 20:00 97.6 89 18 118/68 (85) 99 01/05/17 16:00 98.6 89 18 122/70 (87) 96 01/05/17 12:40 83 I/O 01/05/17 01/05/17 01/05/17 01/06/17 01/06/17 01/06/17 07:00 15:00 23:00 07:00 15:00 23:00 Intake Total 360 ml 600 ml 360 ml 240 ml Balance 360 ml 600 ml 360 ml 240 ml Intake Oral 360 ml 600 ml 360 ml 240 ml # Voids 2 2 1 1 # Bowel Movements 0 0 Imaging Last Impressions Lower Extremity Ultrasound 01/05/17 0000 Signed Impressions: Service Date/Time: Thursday, January 05, 2017 10:16 - CONCLUSION: No DVT is identified in the right lower extremity. Julio Flores MD Cervical Spine CT 01/03/17 0000 Signed Impressions: Service Date/Time: Tuesday, January 03, 2017 18:26 - CONCLUSION: No acute findings. At C6-7 there is a prominent posterior disc osteophyte complex with at least mild canal stenosis. Reversal of normal cervical lordosis. Landon Love MD Cervical Spine MRI 01/02/17 0000 Signed Impressions: Service Date/Time: December 17:50 - CONCLUSION: 1. Scan is limited due to motion artifact on just about every pulse sequence. 2. However, there is some degree of spinal stenosis from C3-4 through C6-7, most severe at C5-6 and C6-7 where there appears to be moderate to severe spinal stenosis and probable cord compromise, especially at C6-7. 3. While there does appear to be some encroachment on the neural foramina at multiple levels, particularly on the left, I do not believe that this is severe enough to compromise exiting nerve roots. Again, anatomic detail is limited. 4. Tonsillar ectopia without a emerson Chiari malformation. Justo Wallace MD Upper Extremity Ultrasound 12/28/16 0000 Signed Impressions: Service Date/Time: Wednesday, December 28, 2016 15:54 - CONCLUSION: Negative exam with no evidence of deep venous thrombosis. Ambrosio Tran MD Brain MRI 12/27/16 0000 Signed Impressions: Service Date/Time: Tuesday, December 27, 2016 18:38 - CONCLUSION: 1. No acute abnormality is seen. 2. Small areas of encephalomalacia at the superior medial parietal lobe being greater on the right. 3. Small area of stable cystic change in the medial basal ganglia regions representing either lacunar infarcts or dilated perivascular spaces. 4. Minimal asymmetry to the temporal horns of the lateral ventricles with the right side being slightly more distended. The hippocampal structures themselves appear relatively symmetric. Julio Velasco MD Head CT 12/26/161833 Signed Impressions: Service Date/Time: , December 26, 2016 19:07 - CONCLUSION: No acute disease. Small areas of the encephalomalacia at the posterior medial parietal lobes are again seen. Julio Velasco MD Chest X-Ray 12/26/161833 Signed Impressions: Service Date/Time: November 19:06 - CONCLUSION: No acute disease. Jluio Velasco MD Objective Remarks GENERAL: Very pleasant young F, alert and oriented, in the chair, appear in nad. EYES: No scleral icterus. No injection or drainage. NECK: Supple, trachea midline. No JVD or lymphadenopathy. CARDIOVASCULAR: Regular rate and rhythm without murmurs, gallops, or rubs. RESPIRATORY: Breath sounds equal bilaterally. No accessory muscle use. GASTROINTESTINAL: Abdomen soft, non-tender, nondistended. MUSCULOSKELETAL: No cyanosis, or edema. BACK: Nontender without obvious deformity. No CVA tenderness. NEURO: Left hemiparesis with mild sensory deficit Diffuse muscular pain over left side of the body on upper and lower extremities Spasm over the left side of the neck and tenderness to palpation. Upper extremity with some spasticity Left foot drop Procedures None A/P Problem List: (1) New onset seizure ICD Code: R56.9 - Unspecified convulsions Status: Acute (2) Chest pain ICD Code: R07.9 - Chest pain, unspecified Status: Acute (3) Muscular pain ICD Code: M79.1 - Myalgia Status: Acute (4) Left hemiparesis ICD Code: G81.94 - Hemiplegia, unspecified affecting left nondominant side Status: Chronic (5) Depression ICD Code: F32.9 - Major depressive disorder, single episode, unspecified Status: Chronic (6) H/O: CVA (cerebrovascular accident) ICD Code: Z86.73 - Personal history of transient ischemic attack (TIA), and cerebral infarction without residual deficits Status: Chronic Assessment and Plan (1) New onset seizure Plan: CT of the head did not show any acute disease The patient was admitted to the neurological floor and placed on seizure precautions Patient started on Ativan when necessary and loaded with fosphenytoin 1000 mg. Patient has been started on Keppra as per neurology recommendations. Continue daily aspirin. EEG abnormal due to sharp wave activity in the few phase reversal seen consistent with epileptic activity. Patient started on Keppra 500 mg twice a day. No further seizure activity reported. Continue to follow-up neurology recommendations. MRI of the brain did not show any acute abnormalities. 12/31 As per RN report - Patient cleared to be discharged by neurology. 01/01 reported seizure again today. Will check EEG and increase keppra dose to 750 mg BID. Check Keppra level. 01/02 reported seizure during EEG. Follow-up EEG results. Continue Keppra 750 mg by mouth twice a day. If EKG negative then will discharge home on current dose of Keppra. (2) Chest pain Plan: Likely muscular skeletal in nature. EKG on admission showed normal sinus rhythm without ST-T changes. Reviewed by me. Chest pain now resolved. (3) Neck pain with left sided weakness and pain Plan: Patient on gabapentin, started on [place] and IV morphine for breakthrough pain. The patient's left-sided continue to be painful. He was noted that the patient also had some neck pain. Patient underwent a venous Doppler of the left upper and lower extremities to rule out DVT. This was negative. Patient started on baclofen for possible muscle spasms with transient improvement in left-sided pain. However patient continued to have pain in left side of the body, despite maximizing baclofen dose and increase gabapentin to 600 mg by mouth 3 times a day. On percocet per pain scale,. will ad small dose of dialudid for breakthrough pain. 01/03 MRI ordered as per neurology on 01/02 which shows a limited scan due to motion. There is some degree of spinal stenosis from C3 to C4 through C6-7. There appears to be moderate to severe spinal stenosis and probable cord compromise especially at the level of C6-7. I will consult neurosurgery stat. I will also place the patient on bedrest and to the patient was evaluated by neurosurgery. Hold OT and PT. Seen by Dr Garrett, plan for tentative surgery on Friday (4) Left hemiparesis Plan: PT consulted. Recommended home with home health PT versus outpatient PT. OT consulted. Patient will need OT as outpatient. (5) Depression Plan: Seems stable. Continue Celexa. (6) H/O: CVA (cerebrovascular accident) Plan: Continue aspirin daily. Head CT as above. Neurology following GI prophylaxis: Continue Carafate and PPI that the patient has been taking for gastritis. DVT prophylaxis: SCDs, no chemoprophylaxis given previous history of iron deficiency anemia and gastritis. Discharge Planning Discharge pending neurosurgery clearance. Plan for surgery on Friday Amelia Mayo MD Jan 06, 2017 12:37
[2017-01-06] MEDS ORDERED: LACTATED RINGER'S 1000 ML IV PRN (16:15)
[2017-01-06] MEDS ORDERED: POVIDONE IODINE 5% (ANTISEPSIS KIT) 4 APPLICATIONS EACH NARE PRN (16:15)
[2017-01-06] MEDS ORDERED: CHLORHEXIDINE GLUCONATE 2 % 1 PACK (2 CLOTHS) TOPICAL PRN (16:15)
[2017-01-06] MEDS ORDERED: METOPROLOL TARTRATE 25 MG TAB PO PRN (16:15)
[2017-01-06] MEDS ORDERED: INSULIN HUMAN REGULAR 1,000 UNITS/10 ML VIAL SQ PRN (16:15)
[2017-01-06] MEDS ORDERED: SODIUM CHLORID 0.9% 500 ML IV PRN (16:15)
[2017-01-06 18:56] LABS: AUTOMATED NEUTROPHIL # 3.5 TH/MM3 (1.8-7.7); BASOPHIL % 0.3 % (0.0-2.0); EOSINOPHIL # 0.2 TH/MM3 (0-0.4); EOSINOPHIL % 2.8 % (0.0-4.0); HEMATOCRIT 30.2 % (35.0-46.0); HEMO FLAGS DIFF FINAL; LYMPH % 43.6 % (9.0-44.0); LYMPHOCYTE # 3.4 TH/MM3 (1.0-4.8); MEAN CELL VOLUME 82.5 FL (80.0-100.0); MEAN CORPUSCULAR HEMOGLOBIN 26.7 PG (27.0-34.0); MEAN CORPUSCULAR HGB CONC 32.4 % (32.0-36.0); MONO % 8.5 % (0.0-8.0); NEUT % 44.8 % (16.0-70.0); PLATELET COUNT 328 TH/MM3 (150-450); RED BLOOD COUNT 3.66 MIL/MM3 (4.00-5.30); RED CELL DISTRIBUTION WIDTH 17.5 % (11.6-17.2); WHITE BLOOD COUNT 7.7 TH/MM3 (4.0-11.0)
[2017-01-06 19:22] LABS: INTERNATIONAL NORMALIZED RATIO 0.9 RATIO; PROTHROMBIN TIME - PATIENT 9.8 SEC (9.8-11.6)
[2017-01-06 19:23] LABS: BICARBONATE 29.8 MEQ/L (21.0-32.0); POTASSIUM 4.1 MEQ/L (3.5-5.1)
[2017-01-07] VITALS: BP 123/72; PULSE 86; RESP 18; TEMP 98; O2SAT 96
[2017-01-07 04:00] VITALS: BP 121/62; PULSE 79; RESP 18; TEMP 97; O2SAT 97
[2017-01-07] MEDS: BACLOFEN 10 MG TAB PO SCH ×3 (05:27→21:32)
[2017-01-07] MEDS: oxyCODONE/ACETAMINOPHEN 10 MG/325 MG TAB PO PRN ×2 (05:27→21:36)
[2017-01-07] MEDS ORDERED: LIDOCAINE 2%/EPINEPHrine PF 1:200,000 20ML SDV ONE (07:46)
[2017-01-07] MEDS ORDERED: GELFOAM SIZE 100 ONE (07:46)
[2017-01-07] MEDS ORDERED: THROMBIN (TOPICAL) 5,000 UNIT VIAL ONE (07:46)
[2017-01-07] MEDS ORDERED: GENTAMICIN SULFATE 80 MG/2 ML VIAL ONE (07:46)
[2017-01-07] MEDS: DULoxetine HCl DR 30 MG CAP PO SCH (08:17)
[2017-01-07] MEDS: PANTOPRAZOLE SOD 40 MG DELAYED RELEASE TAB PO SCH (08:17)
[2017-01-07] MEDS: CITALOPRAM HYDROBROMIDE 40 MG TAB PO SCH (08:17)
[2017-01-07] MEDS: GABAPENTIN 400 MG CAP PO SCH ×3 (08:17→18:57)
[2017-01-07] MEDS: SUCRALFATE 1 GM TAB PO SCH ×3 (08:18→18:00)
[2017-01-07] MEDS: DOCUSATE SODIUM 50 MG/SENNA 8.6 MG TAB PO SCH ×2 (08:18→21:00)
[2017-01-07] MEDS: levETIRAcetam 500 MG TAB PO SCH ×2 (08:18→21:31)
[2017-01-07] MEDS: SODIUM CHLORIDE 0.9% FLUSH 10 ML FLUSH IV FLUSH SCH ×2 (08:18→21:31)
[2017-01-07 08:25] VITALS: BP 128/74; PULSE 87; RESP 20; TEMP 98.1; O2SAT 96
[2017-01-07] MEDS ORDERED: CLINDAMYCIN PHOS 600 MG/4 ML VIAL ONE (09:50)
[2017-01-07] MEDS ORDERED: SODIUM CHLORIDE 0.9% INJ 100 ML ONE (09:50)
--- NOTE | 2017-01-07 10:09 | HHI.PR ---
Subjective Remarks Went for surgery. Will return after done with surgery The patient was seen in PACU. Waking up. No pain at this time. HR into a higher side in 120s and SBP 160s. Received labetalol. Monitor VS closely discussed with the nurse. Patient with h/o factor VIII deficiency however did not loose much blood suring surgery per report. Avoid ASA/ nsaids Objective Vitals Vital Signs Date Time Temp Pulse Resp B/P (MAP) Pulse Ox O2 Delivery O2 Flow Rate FiO2 01/07/17 09:57 Room Air 01/07/17 08:25 98.1 87 20 128/74 (92) 96 01/07/17 04:00 97.0 79 18 121/62 (81) 97 01/07/17 00:00 98.0 86 18 123/72 (89) 96 01/06/17 19:59 98.2 97 18 125/72 (89) 96 01/06/17 19:23 95 01/06/17 16:29 97.6 100 18 120/66 (84) 95 01/06/17 12:00 97.5 109 18 117/72 (87) 96 I/O 01/06/17 01/06/17 01/06/17 01/07/17 01/07/17 01/07/17 07:00 15:00 23:00 07:00 15:00 23:00 Intake Total 240 ml Balance 240 ml Intake Oral 240 ml # Voids 1 2 # Bowel Movements 0 Result Diagram: 01/06/17181401/06/171814 Imaging Last Impressions Cervical Spine X-Ray 01/07/17 0000 Signed Impressions: Service Date/Time: Saturday, January 07, 2017 11:19 - CONCLUSION: Status post anterior fusion. Ambrosio Tran MD Lower Extremity Ultrasound 01/05/17 0000 Signed Impressions: Service Date/Time: Thursday, January 05, 2017 10:16 - CONCLUSION: No DVT is identified in the right lower extremity. Julio Flores MD Cervical Spine CT 01/03/17 0000 Signed Impressions: Service Date/Time: Tuesday, January 03, 2017 18:26 - CONCLUSION: No acute findings. At C6-7 there is a prominent posterior disc osteophyte complex with at least mild canal stenosis. Reversal of normal cervical lordosis. Landon Love MD Cervical Spine MRI 01/02/17 0000 Signed Impressions: Service Date/Time: December 17:50 - CONCLUSION: 1. Scan is limited due to motion artifact on just about every pulse sequence. 2. However, there is some degree of spinal stenosis from C3-4 through C6-7, most severe at C5-6 and C6-7 where there appears to be moderate to severe spinal stenosis and probable cord compromise, especially at C6-7. 3. While there does appear to be some encroachment on the neural foramina at multiple levels, particularly on the left, I do not believe that this is severe enough to compromise exiting nerve roots. Again, anatomic detail is limited. 4. Tonsillar ectopia without a emerson Chiari malformation. Justo Wallace MD Upper Extremity Ultrasound 12/28/16 0000 Signed Impressions: Service Date/Time: Wednesday, December 28, 2016 15:54 - CONCLUSION: Negative exam with no evidence of deep venous thrombosis. Ambrosio Tran MD Brain MRI 12/27/16 0000 Signed Impressions: Service Date/Time: Tuesday, December 27, 2016 18:38 - CONCLUSION: 1. No acute abnormality is seen. 2. Small areas of encephalomalacia at the superior medial parietal lobe being greater on the right. 3. Small area of stable cystic change in the medial basal ganglia regions representing either lacunar infarcts or dilated perivascular spaces. 4. Minimal asymmetry to the temporal horns of the lateral ventricles with the right side being slightly more distended. The hippocampal structures themselves appear relatively symmetric. Julio Velasco MD Head CT 12/26/161833 Signed Impressions: Service Date/Time: November 19:07 - CONCLUSION: No acute disease. Small areas of the encephalomalacia at the posterior medial parietal lobes are again seen. Julio Velasco MD Chest X-Ray 12/26/161833 Signed Impressions: Service Date/Time: November 19:06 - CONCLUSION: No acute disease. Julio Velasco MD Objective Remarks GENERAL: Young F, obese, in bed, sleepy after surgery EYES: No scleral icterus. No injection or drainage. NECK: Supple, trachea midline. No JVD or lymphadenopathy. CARDIOVASCULAR: Regular rate and rhythm without murmurs, gallops, or rubs. RESPIRATORY: Breath sounds equal bilaterally. No accessory muscle use. GASTROINTESTINAL: Abdomen soft, non-tender, nondistended. MUSCULOSKELETAL: No cyanosis, or edema. BACK: Nontender without obvious deformity. No CVA tenderness. NEURO: Left hemiparesis with mild sensory deficit Diffuse muscular pain over left side of the body on upper and lower extremities Left foot drop Procedures S/P surgery by Dr Tobar on 01/07/17: C 5-6 and C6-7 Anterior cervical discectomy C 5-6 and C6-7 Anterior Interbody fusion with allograft bone C5-7 Anterior cervical instrumentation A/P Problem List: (1) New onset seizure ICD Code: R56.9 - Unspecified convulsions Status: Acute (2) Chest pain ICD Code: R07.9 - Chest pain, unspecified Status: Acute (3) Muscular pain ICD Code: M79.1 - Myalgia Status: Acute (4) Left hemiparesis ICD Code: G81.94 - Hemiplegia, unspecified affecting left nondominant side Status: Chronic (5) Depression ICD Code: F32.9 - Major depressive disorder, single episode, unspecified Status: Chronic (6) H/O: CVA (cerebrovascular accident) ICD Code: Z86.73 - Personal history of transient ischemic attack (TIA), and cerebral infarction without residual deficits Status: Chronic Assessment and Plan (1) New onset seizure- controlled now Plan: CT of the head did not show any acute disease The patient was admitted to the neurological floor and placed on seizure precautions Patient started on Ativan when necessary and loaded with fosphenytoin 1000 mg. Patient has been started on Keppra as per neurology recommendations. Continue daily aspirin. EEG abnormal due to sharp wave activity in the few phase reversal seen consistent with epileptic activity. Patient started on Keppra 500 mg twice a day. No further seizure activity reported. Continue to follow-up neurology recommendations. MRI of the brain did not show any acute abnormalities. 12/31 As per RN report - Patient cleared to be discharged by neurology. 01/01 reported seizure again today. Will check EEG and increase keppra dose to 750 mg BID. Check Keppra level. 01/02 reported seizure during EEG. Repeat EEG reviewed. Continue Keppra 750 mg by mouth twice a day. EKG negative will discharge home on current dose of Keppra. (2) Chest pain Plan: Likely muscular skeletal in nature. EKG on admission showed normal sinus rhythm without ST-T changes. Reviewed by me. Chest pain now resolved. (3) Neck pain with left sided weakness and pain Plan: Patient on gabapentin, started on [place] and IV morphine for breakthrough pain. The patient's left-sided continue to be painful. He was noted that the patient also had some neck pain. Patient underwent a venous Doppler of the left upper and lower extremities to rule out DVT. This was negative. Patient started on baclofen for possible muscle spasms with transient improvement in left-sided pain. However patient continued to have pain in left side of the body, despite maximizing baclofen dose and increase gabapentin to 600 mg by mouth 3 times a day. On percocet per pain scale,. will ad small dose of dialudid for breakthrough pain. 01/03 MRI ordered as per neurology on 01/02 which shows a limited scan due to motion. There is some degree of spinal stenosis from C3 to C4 through C6-7. There appears to be moderate to severe spinal stenosis and probable cord compromise especially at the level of C6-7. I will consult neurosurgery stat. I will also place the patient on bedrest and to the patient was evaluated by neurosurgery. Hold OT and PT. Seen by Dr Garrett, s/p surgery Friday Noted tachycardia and hypertension in PACU after surgery. Received labetalol. monitor VS closely (4) Left hemiparesis Plan: PT consulted. Recommended home with home health PT versus outpatient PT. OT consulted. Patient will need OT as outpatient. (5) Depression Plan: Seems stable. Continue Celexa. (6) H/O: CVA (cerebrovascular accident) Plan: Continue aspirin daily. Head CT as above. Neurology following GI prophylaxis: Continue Carafate and PPI that the patient has been taking for gastritis. DVT prophylaxis: SCDs, no chemoprophylaxis given previous history of iron deficiency anemia and gastritis. Discharge Planning Discharge pending neurosurgery clearance. S/P surgery on Friday01/07/17 Amelia Mayo MD Jan 07, 2017 10:09
[2017-01-07] MEDS ORDERED: DEXAMETHASONE SOD PHOS 4 MG/ML VIAL ONE (10:14)
[2017-01-07] MEDS ORDERED: MIDAZOLAM HCL 2 MG/2 ML VIAL ONE (10:14)
[2017-01-07] MEDS ORDERED: KETAMINE HCL 500 MG/5 ML VIAL ONE (10:14)
[2017-01-07] MEDS ORDERED: ACETAMINOPHEN 1000 MG/100 ML 100 ML IV ONE (10:14)
[2017-01-07 10:31] VITALS: PULSE 86
[2017-01-07] MEDS ORDERED: NORMOSOL R INJ 1,000 ML IV ONE (12:00)
[2017-01-07] MEDS ORDERED: LACTATED RINGER'S 1000 ML INJ 1,000 ML IV ONE (12:00)
[2017-01-07] MEDS ORDERED: SODIUM CHLORID 0.9% 500 ML INJ 500 ML IV ONE (12:00)
[2017-01-07] MEDS ORDERED: PHENYLEPH/NS 1000 MCG/10 ML SYR IV ONE (12:00)
[2017-01-07] MEDS ORDERED: ONDANSETRON HCL 4 MG/2 ML VIAL IV PUSH ONE (12:00)
[2017-01-07] MEDS ORDERED: PROPOFOL 200 MG/20 ML AMP IV ONE (12:00)
[2017-01-07] MEDS ORDERED: DO NOT ADM ANY ANTICOAGULANT DRUGS PRN ×2 (16:15)
[2017-01-07] MEDS ORDERED: HYDROmorphone HCL PF 1 MG/ML VIAL IV PRN (17:00)
[2017-01-07] MEDS ORDERED: SODIUM CHLORIDE 0.9% FLUSH 5 ML FLUSH IVF PRN (17:00)
[2017-01-07] MEDS ORDERED: NALOXONE HCL 0.4 MG/ML AMP IV PRN (17:00)
[2017-01-07] MEDS ORDERED: MORPHINE SULFATE 4 MG/ML INJ IV PRN (17:00)
--- NOTE | 2017-01-07 17:12 | PD.OP ---
Operative Report Date of Surgery: Jan 07, 2017 Preoperative Diagnosis: (1) Cervical disc disease with myelopathy (2) Cervical stenosis of spinal canal 1. Cervical spondylosis and degenerative disc disease 2. Cervical stenosis 3. Cervical myelopathy Postoperative Diagnosis: (1) Cervical disc disease with myelopathy (2) Cervical stenosis of spinal canal 1. Cervical spondylosis and degenerative disc disease 2. Cervical stenosis 3. Cervical myelopathy Procedure: C 5-6 and C6-7 Anterior cervical discectomy C 5-6 and C6-7 Anterior Interbody fusion with allograft bone C5-7 Anterior cervical instrumentation Anesthesia: General Surgeon: Chris Garrett Briefcase Sewer(s): Margarita Ryan Operation and Findings: Procedure in detail: The patient was brought into the operating room and positioned in supine position on the 3080 table with the head and neck in neutral position. Cisneros catheter was placed. Lines were established by Anesthesia. Gen. endotracheal anesthesia was induced without difficulty, taking care not to significantly flex or extend the patient's neck during intubation and positioning. Leads for intraoperative neuro monitoring were placed and a baseline study obtained. All extremities were appropriately padded. The neck and upper chest were shaved with clippers and sterilely prepped and draped. Appropriate timeout procedure was performed with all personnel present and in agreement 1% Xylocaine with epinephrine was used for local infiltration over the incision site which was made transversely at the left C6 level and carried sharply down through the platysma muscle. The exposure was continued medial to the sternocleidomastoid muscle and carotid artery, and lateral to the trachea and esophagus. The prevertebral fascia was elevated away from the anterior longitudinal ligament with a Kitner sponge. The longus coli muscle on each side was elevated with the Villegas elevator. The self-retaining retractor was placed with the blades beneath the longus coli muscle on each side. The appropriate levels were confirmed with intraoperative C-arm and preoperative imaging studies. The microscope was brought into place and used for the remainder of the procedure including the closure. The 14 mm distraction pins were used as needed for gentle distraction during the procedure. The procedure was performed sequentially at the C5 6 and C6 7 levels. At each level the anterior osteophyte was resected with the Leksell rongeur. The disc and annulus was incised with a 15 blade knife and discectomy performed with pituitary biopsy forceps and straight and angled curettes. The TPS drill with the 5 mm barrel bur was used to decorticate the endplates and removed the majority of the osteophyte along the anterior spinal canal as well as the right and left uncovertebral joint. The thin ligament dissector was used to free up the posterior annulus and ligament from the vertebral body margin. The remainder of the resection of the posterior annulus and ligament as well as the posterior osteophyte and bilateral uncovertebral joint was performed with the 2 and 3 mm thin footplate Kerrison rongeurs. A component of herniated nucleus pulposus was encountered posterior to the annulus and was lifted away from the thecal sac with the thickened ligament dissector and removed. Significant posterior osteophyte was encountered and extensively removed. The posterior vertebral bodies were undercut with the Kerrison rongeur and the TPS drill with the 4 mm jaqueline bur as needed to fully decompress the anterior spinal canal. The appropriate size V G2 bone graft was then placed at each level with a good fit of the graft. The blunt nerve hook was used to probe beneath the bone graft to ensure that there was no impingement on the thecal sac or exiting nerve roots. The appropriate size Precision anterior cervical plate was then chosen and the bone screws were placed with the 14 mm fixed screws at the caudal most level and the 14 mm variable screws at the cephalad level of the decompression. The screws were firmly secured and the locking cams engaged. The entire construct was checked with intraoperative C-arm and felt to be satisfactory. The 10 Australian drain was brought out through a small incision in the left lower neck and secured to the skin with nylon suture and attached to sterile suction. The closure was performed with 3-0 Vicryl running for the platysma and interrupted for the subcutaneous closure, with 4-0 Vicryl running for the subcuticular closure. A dressing of sterile Mastisol, Steri-Strips, and Primapore dressing was placed. The patient was placed into a cervical collar, and taken to recovery room in stable condition. All counts were correct at the end of the case. Estimated blood loss was 100 No specimen was sent to pathology. Intraoperative neuro monitoring remained stable during the procedure. Chris Garrett MD Jan 07, 2017 17:12
--- NOTE | 2017-01-07 17:23 | RADRPT ---
EXAM DATE/TIME: 01/07/2017 11:19 [facility] COMPARISON: [facility] ([facility]), June 24, 2014, 0:32. INDICATIONS : C5-6, C6-7 Anterior cervical disc fusion. MEDICAL HISTORY : Hypertension. Stroke. Diabetes mellitus type II. Asthma. SURGICAL HISTORY : None. ENCOUNTER: Subsequent ACUITY: 4 - 6 days PAIN SCORE: Non-responsive. LOCATION: Cervical spine. FINDINGS: Cone down views of the cervical spine were obtained using a matrix camera and demonstrate the patien t is status post fusion at the C5-6 and C6-7 levels. The alignment is anatomic. There is an endotrach eal tube in place as well as a temperature probe. There is a catheter noted in the anterior soft tiss ues. CONCLUSION: Status post anterior fusion. Ambrosio Tran MD on January 07, 2017 at 17:15 Board Certified Radiologist. This report was verified electronically.
[2017-01-07] MEDS ORDERED: *morphine SULFATE 8 MG/ML PERIprocedure ONLY ONE (17:28)
[2017-01-07] MEDS: D5-1/2 NS + KCL 20 MEQ INJ 1,000 ML IV SCH (17:30)
[2017-01-07] MEDS: HYDROmorphone HCL PF 1 MG/ML VIAL IV PUSH PRN ×2 (18:30→23:47)
[2017-01-07] MEDS: diphenhydrAMINE HCL 25 MG CAP PO PRN (18:31)
[2017-01-07 19:58] VITALS: O2SAT 97
[2017-01-07 20:00] VITALS: BP_SYST 135; BP_SYST 151; BP_DIAS 65; BP_DIAS 67; PULSE 108; PULSE 98; RESP 18; RESP 20; TEMP 98.3; TEMP 98.8; O2SAT 97; O2SAT 98
[2017-01-07] MEDS: SODIUM CHLORIDE 0.9% FLUSH 5 ML FLUSH IVF SCH (21:00)
[2017-01-08] VITALS (9 sets, daily range): BP systolic 103–120; BP diastolic 58–79; PULSE 87–121; RESP 16–20; TEMP 97.2–98.8; O2SAT 94–99
[2017-01-08] MEDS: oxyCODONE/ACETAMINOPHEN 10 MG/325 MG TAB PO PRN ×5 (02:44→21:18)
[2017-01-08] MEDS: D5-1/2 NS + KCL 20 MEQ INJ 1,000 ML IV SCH ×2 (03:56→23:21)
[2017-01-08] MEDS: HYDROmorphone HCL PF 1 MG/ML VIAL IV PUSH PRN ×5 (03:58→23:11)
[2017-01-08] MEDS: BACLOFEN 10 MG TAB PO SCH ×3 (06:24→21:17)
[2017-01-08] MEDS: PANTOPRAZOLE SOD 40 MG DELAYED RELEASE TAB PO SCH (08:53)
[2017-01-08] MEDS: SUCRALFATE 1 GM TAB PO SCH ×3 (08:53→17:17)
[2017-01-08] MEDS: levETIRAcetam 500 MG TAB PO SCH ×2 (08:53→21:17)
[2017-01-08] MEDS: GABAPENTIN 400 MG CAP PO SCH ×3 (08:53→17:17)
[2017-01-08] MEDS: DOCUSATE SODIUM 50 MG/SENNA 8.6 MG TAB PO SCH ×2 (08:53→21:18)
[2017-01-08] MEDS: CITALOPRAM HYDROBROMIDE 40 MG TAB PO SCH (08:53)
[2017-01-08] MEDS: DULoxetine HCl DR 30 MG CAP PO SCH (08:53)
[2017-01-08] MEDS: SODIUM CHLORIDE 0.9% FLUSH 5 ML FLUSH IVF SCH ×2 (09:00→21:00)
[2017-01-08] MEDS: SODIUM CHLORIDE 0.9% FLUSH 10 ML FLUSH IV FLUSH SCH ×2 (09:00→21:17)
--- NOTE | 2017-01-08 09:12 | HHI.NSPN ---
(Pillo Venegasamy WEISS) History Chief Complaint: Pain to both arms. (José Manuel VenegasNuria WEISS) Interval History 01/03: The patient is a pleasant 36-year-old female who has a previous history of bilateral parietal CVA in November 2016. At that time she presented with primarily left lower extremity weakness. She states that she had also some left upper extremity deficit. She underwent physical therapy with gradual improvement of the deficit. She has been left with moderate numbness and weakness in primarily the distal left lower extremity but has been able to ambulate with a cane. She states that normally she cannot move her left foot or ankle. She has had some residual numbness in her left hand and occasional weakness but no significant loss of coordination. She now presents through the emergency room on December 26 with new onset seizure which apparently occurred while she was asleep. The patient does not recall the incident. She states that she had another seizure yesterday. The patient complains of aching and some pain over the left lower greater than upper extremity since the seizure. She also complains of increased numbness in the left arm and leg. She states that she does not necessarily have any increased weakness in the left leg since her seizure, but her walking is more impaired. She also notes that she was walking independently with a cane prior to the seizure, but now is able to ablate only with great difficulty and with assistance. No complaint of any new bowel or bladder dysfunction. 01/05: The patient states that she is doing good. She endorses some mild abdominal pain which is better than yesterday. She continues to have decreased sensation to the left lower extremity below the knee since her seizure as well as decreased motor function. 01/06: This morning the patient is doing well. She again states that things have been worse to the left lower extremity since the seizure. She had no other complaints. 01/07: The patient went for an anterior cervical discectomy with fusion and instrumentation at the C5 to C7 levels. Post-operatively she returned to a regular med/surg floor. 01/08: When seen this morning the patient stated she was having pain to both arms. She also had pain to the surgical incision. She did say the numbness to the left lower extremity was better. (José Manuel Venegas) System Review Comments Constitutional: Patient denies any fever or chills. HEENT: Patient denies any visual or hearing difficulty. Neck: Patient does have pain to the surgical incision. Respiratory: Patient denies any shortness of breath or productive cough. Cardiovascular: Patient denies any chest pain, palpitations or irregular heartbeat. Gastrointestinal: Patient denies any abdominal pain, nausea, vomiting or incontinence of urine. Genitourinary: Patient denies any incontinence of urine. Musculoskeletal: Patient complains of pain to both arms. She denies any back pain. Neurologic: Patient still with left-sided weakness but states the numbness to the left lower extremity is better. She denies any headache, dizziness or tingling. (José Manuel Venegas) Exam Results 01/06/17 01/06/17 01/07/17 01/07/17 01/08/17 01/08/17 06:00 18:00 06:00 18:00 06:00 18:00 Intake Total 600 ml 3300 ml 50 ml 178 ml Output Total 1860 ml 2400 ml 3005 ml Balance 600 ml 1440 ml -2350 ml -2827 ml Intake Oral 600 ml IV Total 50 ml 178 ml Other 3300 ml Output Urine Total 1750 ml 2400 ml 3000 ml Drainage Total 10 ml 5 ml Estimated Blood Loss 100 ml # Voids 2 2 1 # Bowel Movements 0 Vital Signs Date Time Temp Pulse Resp B/P (MAP) Pulse Ox O2 Delivery O2 Flow Rate FiO2 01/08/17 08:09 98 Nasal Cannula 2.00 01/08/17 04:00 97.2 94 20 112/76 (88) 96 01/08/17 00:00 98.1 121 18 120/65 (83) 96 01/07/17 23:45 Nasal Cannula 3.00 01/07/17 20:00 98.8 108 18 135/65 (88) 98 01/07/17 19:58 97 Nasal Cannula 3.00 01/07/17 18:00 98.2 104 16 131/72 (91) 97 Nasal Cannula 3 01/07/17 17:45 105 16 133/74 (93) 97 Nasal Cannula 3 9/12/17 17:33 15 01/07/17 17:30 106 16 136/74 (94) 97 Nasal Cannula 3 01/07/17 17:15 105 15 138/77 (97) 97 Nasal Cannula 3 01/07/17 17:00 104 15 139/75 (96) 98 Nasal Cannula 3 01/07/17 16:45 105 15 138/77 (97) 97 Nasal Cannula 3 01/07/17 16:30 108 15 142/88 (106) 100 Simple Mask 7 01/07/17 16:15 98.5 110 16 151/88 (109) 99 Simple Mask 7 01/07/17 10:31 86 01/07/17 09:57 Room Air 01/07/17 08:25 98.1 87 20 128/74 (92) 96 01/07/17 04:00 97.0 79 18 121/62 (81) 97 01/07/17 00:00 98.0 86 18 123/72 (89) 96 01/06/17 19:59 98.2 97 18 125/72 (89) 96 01/06/17 19:23 95 01/06/17 16:29 97.6 100 18 120/66 (84) 95 01/06/17 12:00 97.5 109 18 117/72 (87) 96 01/06/17 08:48 Room Air 01/06/17 08:00 98.1 99 18 114/72 (86) 95 01/06/17 04:00 98.2 90 18 113/68 (83) 96 01/06/17 00:00 97.8 87 18 115/70 (85) 97 01/05/17 22:52 18 01/05/17 20:00 97.6 89 18 118/68 (85) 99 01/05/17 16:00 98.6 89 18 122/70 (87) 96 (José Manuel Venegas) Physical Examination GENERAL: The patient is awake & alert and readily interacts. Her affect is normal. She is not in any apparent distress. SKIN: Warm, dry & intact except for anterior neck surgical incision w/intact dressing, w/o any evident rashes, ulcerations or lesions. HEENT: Normocephalic, atraumatic. NECK: Douglas J cervical collar in place, anterior neck surgical incision w/ intact dressing TTP, midline cervical spine mildly TTP, no JVD, trachea midline. RESPIRATORY: CTAB w/o W/R/R, equal excursion, nonlaboured, on RA. CARDIOVASCULAR: S1S2 w/RRR w/o M/G/R, radial & pedal pulses 2+ bilaterally, cap refill < 2 sec, no pedal edema. GASTROINTESTINAL: Abdomen soft, nontender, positive bowel sounds. MUSCULOSKELETAL: No evident deformity or clubbing. NEUROLOGICAL: AAOx3. Speech clear & appropriate. Follows simple commands w/o difficulty. Sensation intact to light touch to RUE & RLE, decreased to LUE & LLE especially below the knee. Motor strength 5/5 to all major flexion & extension muscle groups RUE & RLE. Motor strength 4/5 left biceps & triceps, 3/5 to the left deltoid, 3 to 4/5 proximal LLE and 1/5 distal LLE. (José Manuel Venegas) Lab, Micro, Other Results Recent Impressions Cervical Spine X-Ray 01/07/17 0000 Signed Impressions: Service Date/Time: Saturday, January 07, 2017 11:19 - CONCLUSION: Status post anterior fusion. Ambrosio Tran MD Laboratory Tests Test 01/06/17 18:15 White Blood Count 7.7 TH/MM3 Red Blood Count 3.66 MIL/MM3 Hemoglobin 9.8 GM/DL Hematocrit 30.2 % Mean Corpuscular Volume 82.5 FL Mean Corpuscular Hemoglobin 26.7 PG Mean Corpuscular Hemoglobin Concent 32.4 % Red Cell Distribution Width 17.5 % Platelet Count 328 TH/MM3 Mean Platelet Volume 7.5 FL Neutrophils (%) (Auto) 44.8 % Lymphocytes (%) (Auto) 43.6 % Monocytes (%) (Auto) 8.5 % Eosinophils (%) (Auto) 2.8 % Basophils (%) (Auto) 0.3 % Neutrophils # (Auto) 3.5 TH/MM3 Lymphocytes # (Auto) 3.4 TH/MM3 Monocytes # (Auto) 0.7 TH/MM3 Eosinophils # (Auto) 0.2 TH/MM3 Basophils # (Auto) 0.0 TH/MM3 CBC Comment DIFF FINAL Differential Comment Prothrombin Time 9.8 SEC Prothromb Time International Ratio 0.9 RATIO Blood Urea Nitrogen 8 MG/DL Creatinine 0.81 MG/DL Random Glucose 86 MG/DL Calcium Level 9.1 MG/DL Sodium Level 139 MEQ/L Potassium Level 4.1 MEQ/L Chloride Level 102 MEQ/L Carbon Dioxide Level 29.8 MEQ/L Anion Gap 7 MEQ/L Estimat Glomerular Filtration Rate 98 ML/MIN (José Manuel Venegas) Medical Decision Making Impression and Plan Impression: 1. Severe C6 7 and moderately severe C5 6 canal stenosis due to chronic- appearing posterior osteophytic disc complex. There is increased signal intensity within the cord at the C6 7 level. 2. Cervical myelopathy 3. Previous left hemiparesis related to prior CVA. 4. Seizure disorder Postoperative Diagnosis: (1) Cervical disc disease with myelopathy (2) Cervical stenosis of spinal canal Patient doing well post-operatively with essentially stable neuro exam. POD #1 () s/p: C 5-6 and C6-7 Anterior cervical discectomy C 5-6 and C6-7 Anterior Interbody fusion with allograft bone C5-7 Anterior cervical instrumentation Plan: Primary management per Hospitalist. Neuro checks. Douglas J cervical collar at all times. Mobilise patient w/assistance. PT eval & tx. Will request [facility] evaluate patient for intensive inpatient rehab. (José Manuel Venegas) Attending Statement The exam, history, and the medical decision-making described in the above note were completed with the assistance of the mid-level provider. I reviewed and agree with the findings presented. I attest that I had a [id number] encounter with the patient on the same day, and personally performed and documented my assessment and findings in the medical record. Doing well postoperatively Myelopathic symptoms improving Tolerating diet Continue therapy (Chris Garrett MD) José Manuel Venegas Jan 08, 2017 09:12 Chris Garrett MD Feb 03, 2017 07:00
--- NOTE | 2017-01-08 11:26 | HHI.PR ---
Subjective Remarks Seen earlier today. Patient says she has pain in both arms. Says morphine doesn' t work but she is getting dilaudid and pain is fairly controlled. No fever ro chills. No nausea or vomiting. Denies sob or wheezing, however she is on 2L NC at this time. Objective Vitals Vital Signs Date Time Temp Pulse Resp B/P (MAP) Pulse Ox O2 Delivery O2 Flow Rate FiO2 01/08/17 10:31 87 01/08/17 10:26 Room Air 01/08/17 09:23 98.2 97 16 103/61 (75) 99 01/08/17 08:09 98 Nasal Cannula 2.00 01/08/17 04:00 97.2 94 20 112/76 (88) 96 01/08/17 00:00 98.1 121 18 120/65 (83) 96 01/07/17 23:45 Nasal Cannula 3.00 01/07/17 20:00 98.8 108 18 135/65 (88) 98 01/07/17 19:58 97 Nasal Cannula 3.00 01/07/17 18:00 98.2 104 16 131/72 (91) 97 Nasal Cannula 3 01/07/17 17:45 105 16 133/74 (93) 97 Nasal Cannula 3 01/07/17 17:33 15 01/07/17 17:30 106 16 136/74 (94) 97 Nasal Cannula 3 01/07/17 17:15 105 15 138/77 (97) 97 Nasal Cannula 3 01/07/17 17:00 104 15 139/75 (96) 98 Nasal Cannula 3 01/07/17 16:45 105 15 138/77 (97) 97 Nasal Cannula 3 01/07/17 16:30 108 15 142/88 (106) 100 Simple Mask 7 01/07/17 16:15 98.5 110 16 151/88 (109) 99 Simple Mask 7 I/O 01/07/17 01/07/17 01/07/17 01/08/17 01/08/17 01/08/17 07:00 15:00 23:00 07:00 15:00 23:00 Intake Total 3350 ml 178 ml Output Total 1860 ml 2405 ml 3000 ml Balance 1490 ml -2227 ml -3000 ml IV Total 50 ml 178 ml Other 3300 ml Output Urine Total 1750 ml 2400 ml 3000 ml Drainage Total 10 ml 5 ml Estimated Blood Loss 100 ml # Voids 2 1 Result Diagram: 01/06/17181401/06/171814 Imaging Last Impressions Cervical Spine X-Ray 01/07/17 0000 Signed Impressions: Service Date/Time: Saturday, January 07, 2017 11:19 - CONCLUSION: Status post anterior fusion. Ambrosio Tran MD Lower Extremity Ultrasound 01/05/17 0000 Signed Impressions: Service Date/Time: Thursday, January 05, 2017 10:16 - CONCLUSION: No DVT is identified in the right lower extremity. Julio Flores MD Cervical Spine CT 01/03/17 0000 Signed Impressions: Service Date/Time: Tuesday, January 03, 2017 18:26 - CONCLUSION: No acute findings. At C6-7 there is a prominent posterior disc osteophyte complex with at least mild canal stenosis. Reversal of normal cervical lordosis. Landon Love MD Cervical Spine MRI 01/02/17 0000 Signed Impressions: Service Date/Time: December 17:50 - CONCLUSION: 1. Scan is limited due to motion artifact on just about every pulse sequence. 2. However, there is some degree of spinal stenosis from C3-4 through C6-7, most severe at C5-6 and C6-7 where there appears to be moderate to severe spinal stenosis and probable cord compromise, especially at C6-7. 3. While there does appear to be some encroachment on the neural foramina at multiple levels, particularly on the left, I do not believe that this is severe enough to compromise exiting nerve roots. Again, anatomic detail is limited. 4. Tonsillar ectopia without a emerson Chiari malformation. Justo Wallace MD Upper Extremity Ultrasound 12/28/16 0000 Signed Impressions: Service Date/Time: Wednesday, December 28, 2016 15:54 - CONCLUSION: Negative exam with no evidence of deep venous thrombosis. Ambrosio Tran MD Brain MRI 12/27/16 0000 Signed Impressions: Service Date/Time: Tuesday, December 27, 2016 18:38 - CONCLUSION: 1. No acute abnormality is seen. 2. Small areas of encephalomalacia at the superior medial parietal lobe being greater on the right. 3. Small area of stable cystic change in the medial basal ganglia regions representing either lacunar infarcts or dilated perivascular spaces. 4. Minimal asymmetry to the temporal horns of the lateral ventricles with the right side being slightly more distended. The hippocampal structures themselves appear relatively symmetric. Julio Velasco MD Head CT 12/26/161833 Signed Impressions: Service Date/Time: November 19:07 - CONCLUSION: No acute disease. Small areas of the encephalomalacia at the posterior medial parietal lobes are again seen. Julio Velasco MD Chest X-Ray 12/26/161833 Signed Impressions: Service Date/Time: November 19:06 - CONCLUSION: No acute disease. Julio Velasco MD Objective Remarks GENERAL: Very pleasant young F, obese, in bed. EYES: No scleral icterus. No injection or drainage. NECK: Supple, trachea midline. No JVD or lymphadenopathy. CARDIOVASCULAR: Regular rate and rhythm without murmurs, gallops, or rubs. RESPIRATORY: Breath sounds equal bilaterally. No accessory muscle use. GASTROINTESTINAL: Abdomen soft, non-tender, nondistended. MUSCULOSKELETAL: No cyanosis, or edema. BACK: Nontender without obvious deformity. No CVA tenderness. NEURO: Left hemiparesis with mild sensory deficit. Diffuse muscular pain over left side of the body on upper and lower extremities. Also pain over right upper extremity. Left foot drop Procedures S/P surgery by Dr Tobar on 01/07/17: C 5-6 and C6-7 Anterior cervical discectomy C 5-6 and C6-7 Anterior Interbody fusion with allograft bone C5-7 Anterior cervical instrumentation A/P Problem List: (1) New onset seizure ICD Code: R56.9 - Unspecified convulsions Status: Acute (2) Chest pain ICD Code: R07.9 - Chest pain, unspecified Status: Acute (3) Muscular pain ICD Code: M79.1 - Myalgia Status: Acute (4) Left hemiparesis ICD Code: G81.94 - Hemiplegia, unspecified affecting left nondominant side Status: Chronic (5) Depression ICD Code: F32.9 - Major depressive disorder, single episode, unspecified Status: Chronic (6) H/O: CVA (cerebrovascular accident) ICD Code: Z86.73 - Personal history of transient ischemic attack (TIA), and cerebral infarction without residual deficits Status: Chronic Assessment and Plan (1) New onset seizure- controlled now Plan: CT of the head did not show any acute disease The patient was admitted to the neurological floor and placed on seizure precautions Patient started on Ativan when necessary and loaded with fosphenytoin 1000 mg. Patient has been started on Keppra as per neurology recommendations. Continue daily aspirin. EEG abnormal due to sharp wave activity in the few phase reversal seen consistent with epileptic activity. Patient started on Keppra 500 mg twice a day. No further seizure activity reported. Continue to follow-up neurology recommendations. MRI of the brain did not show any acute abnormalities. 12/31 As per RN report - Patient cleared to be discharged by neurology. 01/01 reported seizure again today. Will check EEG and increase keppra dose to 750 mg BID. Check Keppra level. 01/02 reported seizure during EEG. Repeat EEG reviewed. Continue Keppra 750 mg by mouth twice a day. EKG negative will discharge home on current dose of Keppra. (2) Chest pain Plan: Likely muscular skeletal in nature. EKG on admission showed normal sinus rhythm without ST-T changes. Reviewed by me. Chest pain now resolved. (3) Neck pain with left sided weakness and pain Plan: Patient on gabapentin, started on [place] and IV morphine for breakthrough pain. The patient's left-sided continue to be painful. He was noted that the patient also had some neck pain. Patient underwent a venous Doppler of the left upper and lower extremities to rule out DVT. This was negative. Patient started on baclofen for possible muscle spasms with transient improvement in left-sided pain. However patient continued to have pain in left side of the body, despite maximizing baclofen dose and increase gabapentin to 600 mg by mouth 3 times a day. On percocet per pain scale,. will ad small dose of dialudid for breakthrough pain. 01/03 MRI ordered as per neurology on 01/02 which shows a limited scan due to motion. There is some degree of spinal stenosis from C3 to C4 through C6-7. There appears to be moderate to severe spinal stenosis and probable cord compromise especially at the level of C6-7. I will consult neurosurgery stat. I will also place the patient on bedrest and to the patient was evaluated by neurosurgery. Hold OT and PT. Seen by Dr Garrett, s/p surgery Friday Noted tachycardia and hypertension in PACU after surgery. Received labetalol. monitor VS closely Pain management (4) Left hemiparesis Plan: PT consulted. Recommended home with home health PT versus outpatient PT. OT consulted. Patient will need OT as outpatient. (5) Depression Plan: Seems stable. Continue Celexa. (6) H/O: CVA (cerebrovascular accident) Plan: Continue aspirin daily. Head CT as above. Neurology following (7) Morbid obesity with BMI 43.8. Also patient might have sleep apnea. Currently on 2L NC. Needs sleep study as OP. O2 supplement, keep O2 sat > 94 %. Diet and exercise, to follow up as OP with PCP, mergers and acquisitions attorney, might consider bariatric surgery GI prophylaxis: Continue Carafate and PPI that the patient has been taking for gastritis. DVT prophylaxis: SCDs, no chemoprophylaxis given previous history of iron deficiency anemia and gastritis. Discharge Planning Pending improvement. Discharge pending neurosurgery clearance. S/P surgery on Friday01/07/17 Amelia Mayo MD Jan 08, 2017 11:26
[2017-01-08 12:43] LABS: AUTOMATED NEUTROPHIL # 6.7 TH/MM3 (1.8-7.7); BASOPHIL % 0.2 % (0.0-2.0); EOSINOPHIL % 0.2 % (0.0-4.0); HEMO FLAGS DIFF FINAL; LYMPH % 30.1 % (9.0-44.0); LYMPHOCYTE # 3.2 TH/MM3 (1.0-4.8); MEAN CELL VOLUME 82.8 FL (80.0-100.0); MEAN CORPUSCULAR HGB CONC 32.6 % (32.0-36.0); MONO % 6.8 % (0.0-8.0); NEUT % 62.7 % (16.0-70.0); PLATELET COUNT 315 TH/MM3 (150-450); RED CELL DISTRIBUTION WIDTH 17.5 % (11.6-17.2); WHITE BLOOD COUNT 10.7 TH/MM3 (4.0-11.0)
[2017-01-08 13:03] LABS: BICARBONATE 29.4 MEQ/L (21.0-32.0); POTASSIUM 4.1 MEQ/L (3.5-5.1)
[2017-01-09] VITALS (8 sets, daily range): BP systolic 105–124; BP diastolic 55–74; PULSE 92–101; RESP 18–22; TEMP 97.3–98.9; O2SAT 92–97
[2017-01-09] MEDS: oxyCODONE/ACETAMINOPHEN 10 MG/325 MG TAB PO PRN ×5 (02:27→21:35)
[2017-01-09] MEDS: BACLOFEN 10 MG TAB PO SCH ×3 (06:30→21:34)
[2017-01-09] MEDS: DOCUSATE SODIUM 50 MG/SENNA 8.6 MG TAB PO SCH ×2 (08:47→21:34)
[2017-01-09] MEDS: GABAPENTIN 400 MG CAP PO SCH ×3 (08:47→18:48)
[2017-01-09] MEDS: CITALOPRAM HYDROBROMIDE 40 MG TAB PO SCH (08:47)
[2017-01-09] MEDS: levETIRAcetam 500 MG TAB PO SCH ×2 (08:47→21:34)
[2017-01-09] MEDS: SUCRALFATE 1 GM TAB PO SCH ×3 (08:48→18:48)
[2017-01-09] MEDS: PANTOPRAZOLE SOD 40 MG DELAYED RELEASE TAB PO SCH (08:48)
[2017-01-09] MEDS: DULoxetine HCl DR 30 MG CAP PO SCH (08:48)
[2017-01-09] MEDS: HYDROmorphone HCL PF 1 MG/ML VIAL IV PUSH PRN ×4 (08:52→18:49)
[2017-01-09] MEDS: SODIUM CHLORIDE 0.9% FLUSH 10 ML FLUSH IV FLUSH SCH ×2 (09:00→21:00)
[2017-01-09] MEDS: SODIUM CHLORIDE 0.9% FLUSH 5 ML FLUSH IVF SCH ×2 (09:00→21:00)
[2017-01-09] MEDS: D5-1/2 NS + KCL 20 MEQ INJ 1,000 ML IV SCH ×2 (09:53→18:49)
[2017-01-09] MEDS: RESP: ALBUTEROL 2.5 MG/IPRATROPIUM 0.5 MG NEB (PRN) NEB (09:59)
[2017-01-09] MEDS ORDERED: BENZOCAINE-MENTHOL (SUGAR FREE) 15 MG-3.6 MG LOZENGE BUCCAL PRN (14:30)
[2017-01-09] MEDS ORDERED: guaiFENesin/DEXTROMETHORPHAN 200 MG/20 MG/10 ML CUP PO PRN (14:30)
--- NOTE | 2017-01-09 14:40 | RADRPT ---
EXAM DATE/TIME: 01/09/2017 12:14 [place] COMPARISON: CHEST SINGLE AP, December 26, 2016, 19:06. INDICATIONS : Cough. MEDICAL HISTORY : Stroke. Seizures SURGICAL HISTORY : Cholecystectomy. Ovarian cyst removed ENCOUNTER: Initial ACUITY: 1 day PAIN SCORE: Non-responsive. LOCATION: Bilateral upper chest FINDINGS: Minimal streakiness is noted within the left lung base consistent with atelectasis and/or minimal inf iltrate. Clinical correlation is recommended. The right lung is clear. Degenerative changes and scoli osis of the thoracolumbar spine are noted. CONCLUSION: 1. Left basilar streakiness consistent with atelectasis and/or infiltrates. Clinical correlation is recommended. 2. Degenerative changes and scoliosis of the thoracolumbar spine. Carlos Bauer MD on January 09, 2017 at 13:21 Board Certified Radiologist. This report was verified electronically.
--- NOTE | 2017-01-09 14:42 | HHI.NSPN ---
(José Manuel Venegas) History Chief Complaint: Pain to the surgical incision. 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 At that time she presented with primarily left lower extremity weakness. She states that she had also some left upper extremity deficit. She underwent physical therapy with gradual improvement of the deficit. She has been left with moderate numbness and weakness in primarily the distal left lower extremity but has been able to ambulate with a cane. She states that normally she cannot move her left foot or ankle. She has had some residual numbness in her left hand and occasional weakness but no significant loss of coordination. She now presents through the emergency room on December 26 with new onset seizure which apparently occurred while she was asleep. The patient does not recall the incident. She states that she had another seizure yesterday. The patient complains of aching and some pain over the left lower greater than upper extremity since the seizure. She also complains of increased numbness in the left arm and leg. She states that she does not necessarily have any increased weakness in the left leg since her seizure, but her walking is more impaired. She also notes that she was walking independently with a cane prior to the seizure, but now is able to ablate only with great difficulty and with assistance. No complaint of any new bowel or bladder dysfunction. 01/05: The patient states that she is doing good. She endorses some mild abdominal pain which is better than yesterday. She continues to have decreased sensation to the left lower extremity below the knee since her seizure as well as decreased motor function. 01/06: This morning the patient is doing well. She again states that things have been worse to the left lower extremity since the seizure. She had no other complaints. 01/07: The patient went for an anterior cervical discectomy with fusion and instrumentation at the C5 to C7 levels. Post-operatively she returned to a regular med/surg floor. 01/08: When seen this morning the patient stated she was having pain to both arms. She also had pain to the surgical incision. She did say the numbness to the left lower extremity was better. 01/09: This afternoon the patient complains of surgical incision pain. She endorses a focal headache to the right occipital region. Earlier she had nausea that has resolved. The patient states that she thinks she is getting a cold because she is coughing up yellow sputum with flecks of blood in it. Her sister reports that the patient had shortness of breath this morning and received a neb treatment which relieved it. The patient denies any numbness or weakness. (José Manuel Venegas) System Review Comments Constitutional: Patient denies any fever or chills. HEENT: Patient has a sore throat but denies any difficulty swallowing. She denies any visual or hearing difficulty. Neck: Patient complains of pain to the surgical incision. Respiratory: Patient has productive cough. She denies any shortness of breath at present but did have some this morning. Cardiovascular: Patient denies any chest pain, palpitations or irregular heartbeat. Gastrointestinal: Patient had nausea earlier this morning but none at present. She denies any abdominal pain, vomiting or incontinence of urine. Genitourinary: Patient denies any incontinence of urine. Musculoskeletal: Patient denies any back or extremity pain. Neurologic: Patient has focal headache to the right occipital region. She denies any dizziness, numbness or tingling. She denies any focal weakness. (José Manuel Venegas) Exam Results 01/07/17 01/07/17 01/08/17 01/08/17 01/09/17 01/09/17 06:00 18:00 06:00 18:00 06:00 18:00 Intake Total 3300 ml 50 ml 1618 ml 801 ml 724 ml Output Total 1860 ml 2400 ml 4408 ml Balance 1440 ml -2350 ml -2790 ml 801 ml 724 ml Intake Oral 1440 ml 420 ml IV Total 50 ml 178 ml 381 ml 724 ml Other 3300 ml Output Urine Total 1750 ml 2400 ml 4400 ml Drainage Total 10 ml 8 ml Estimated Blood Loss 100 ml # Voids 2 1 3 # Bowel Movements 1 Vital Signs Date Time Temp Pulse Resp B/P (MAP) Pulse Ox O2 Delivery O2 Flow Rate FiO2 01/09/17 11:52 97.5 101 20 114/71 (85) 97 9/14/17 10:00 95 21 01/09/17 08:24 97.5 92 20 105/59 (74) 92 01/09/17 04:00 98.9 96 20 117/67 (84) 94 01/09/17 02:45 Room Air 01/09/17 00:00 98.5 101 22 124/73 (90) 94 01/08/17 23:30 96 01/08/17 20:48 98.8 90 16 110/79 (89) 96 01/08/17 17:04 97.9 99 18 111/65 (80) 94 01/08/17 12:34 98.4 107 18 107/58 (74) 97 01/08/17 10:31 87 01/08/17 10:26 Room Air 01/08/17 09:23 98.2 97 16 103/61 (75) 99 01/08/17 08:09 98 Nasal Cannula 2.00 01/08/17 04:00 97.2 94 20 112/76 (88) 96 01/08/17 00:00 98.1 121 18 120/65 (83) 96 01/07/17 23:45 Nasal Cannula 3.00 01/07/17 20:00 98.8 108 18 135/65 (88) 98 01/07/17 19:58 97 Nasal Cannula 3.00 01/07/17 18:00 98.2 104 16 131/72 (91) 97 Nasal Cannula 3 01/07/17 17:45 105 16 133/74 (93) 97 Nasal Cannula 3 01/07/17 17:33 15 01/07/17 17:30 106 16 136/74 (94) 97 Nasal Cannula 3 01/07/17 17:15 105 15 138/77 (97) 97 Nasal Cannula 3 01/07/17 17:00 104 15 139/75 (96) 98 Nasal Cannula 3 01/07/17 16:45 105 15 138/77 (97) 97 Nasal Cannula 3 01/07/17 16:30 108 15 142/88 (106) 100 Simple Mask 7 01/07/17 16:15 98.5 110 16 151/88 (109) 99 Simple Mask 7 01/07/17 10:31 86 01/07/17 09:57 Room Air 01/07/17 08:25 98.1 87 20 128/74 (92) 96 01/07/17 04:00 97.0 79 18 121/62 (81) 97 01/07/17 00:00 98.0 86 18 123/72 (89) 96 01/06/17 19:59 98.2 97 18 125/72 (89) 96 01/06/17 19:23 95 01/06/17 16:29 97.6 100 18 120/66 (84) 95 (José Manuel Venegas) Physical Examination GENERAL: The patient is asleep but awakens to verbal stimulation. She is awake after that and readily interacts. Her affect is flat. She is not in any distress but appears moderately uncomfortable. SKIN: Warm, dry & intact except for anterior neck surgical incision w/intact dressing, w/o any evident rashes, ulcerations or lesions. HEENT: Normocephalic, atraumatic. NECK: [place] J cervical collar in place, anterior neck surgical incision w/ intact dressing TTP, MILLIE drain to bulb suction w/scant drainage, midline cervical spine NTTP, no JVD, trachea midline. RESPIRATORY: CTAB w/o W/R/R, equal excursion, nonlaboured, on RA. CARDIOVASCULAR: S1S2 w/RRR w/o M/G/R, radial & pedal pulses 2+ bilaterally, cap refill < 2 sec, no pedal edema. GASTROINTESTINAL: Abdomen soft, nontender, positive bowel sounds. MUSCULOSKELETAL: No evident deformity or clubbing. NEUROLOGICAL: AAOx3. Speech clear & appropriate. Follows simple commands w/o difficulty. Sensation intact to light touch to all extremities. Motor strength: Right side: 5/5 to all major flexion & extension muscle groups. Left side: 4/5 left biceps & triceps, 3/5 left deltoid, 3+ to 4/5 left iliopsoas, 2/5 tibialis anterior & gastrocnemius, 4/5 extensor digitorum brevis and 3+/5 extensor hallucis longus. (José Manuel Venegas) Lab, Micro, Other Results Recent Impressions Cervical Spine X-Ray 01/07/17 0000 Signed Impressions: Service Date/Time: Saturday, January 07, 2017 11:19 - CONCLUSION: Status post anterior fusion. Ambrosio Tran MD Laboratory Tests Test 01/06/17 18:15 01/08/17 10:53 White Blood Count 7.7 TH/MM3 10.7 TH/MM3 Red Blood Count 3.66 MIL/MM3 3.50 MIL/MM3 Hemoglobin 9.8 GM/DL 9.5 GM/DL Hematocrit 30.2 % 29.0 % Mean Corpuscular Volume 82.5 FL 82.8 FL Mean Corpuscular Hemoglobin 26.7 PG 27.0 PG Mean Corpuscular Hemoglobin Concent 32.4 % 32.6 % Red Cell Distribution Width 17.5 % 17.5 % Platelet Count 328 TH/MM3 315 TH/MM3 Mean Platelet Volume 7.5 FL 7.6 FL Neutrophils (%) (Auto) 44.8 % 62.7 % Lymphocytes (%) (Auto) 43.6 % 30.1 % Monocytes (%) (Auto) 8.5 % 6.8 % Eosinophils (%) (Auto) 2.8 % 0.2 % Basophils (%) (Auto) 0.3 % 0.2 % Neutrophils # (Auto) 3.5 TH/MM3 6.7 TH/MM3 Lymphocytes # (Auto) 3.4 TH/MM3 3.2 TH/MM3 Monocytes # (Auto) 0.7 TH/MM3 0.7 TH/MM3 Eosinophils # (Auto) 0.2 TH/MM3 0.0 TH/MM3 Basophils # (Auto) 0.0 TH/MM3 0.0 TH/MM3 CBC Comment DIFF FINAL DIFF FINAL Differential Comment Prothrombin Time 9.8 SEC Prothromb Time International Ratio 0.9 RATIO Blood Urea Nitrogen 8 MG/DL 6 MG/DL Creatinine 0.81 MG/DL 0.69 MG/DL Random Glucose 86 MG/DL 108 MG/DL Calcium Level 9.1 MG/DL 8.5 MG/DL Sodium Level 139 MEQ/L 139 MEQ/L Potassium Level 4.1 MEQ/L 4.1 MEQ/L Chloride Level 102 MEQ/L 104 MEQ/L Carbon Dioxide Level 29.8 MEQ/L 29.4 MEQ/L Anion Gap 7 MEQ/L 6 MEQ/L Estimat Glomerular Filtration Rate 98 ML/MIN 118 ML/MIN (José Manuel Venegas) Medical Decision Making Impression and Plan Impression: 1. Severe C6 7 and moderately severe C5 6 canal stenosis due to chronic- appearing posterior osteophytic disc complex. There is increased signal intensity within the cord at the C6 7 level. 2. Cervical myelopathy 3. Previous left hemiparesis related to prior CVA. 4. Seizure disorder Postoperative Diagnosis: (1) Cervical disc disease with myelopathy (2) Cervical stenosis of spinal canal Patient doing well except for pain at surgical incision, essentially stable neuro exam. POD #2 () s/p: C 5-6 and C6-7 Anterior cervical discectomy C 5-6 and C6-7 Anterior Interbody fusion with allograft bone C5-7 Anterior cervical instrumentation Plan: Primary management per Hospitalist. Neuro checks. [place] J cervical collar at all times. Mobilise patient w/assistance. PT eval & tx. D/C MILLIE drain. (José Manuel Venegas) Attending Statement The exam, history, and the medical decision-making described in the above note were completed with the assistance of the mid-level provider. I reviewed and agree with the findings presented. I attest that I had a [id number] encounter with the patient on the same day, and personally performed and documented my assessment and findings in the medical record. Continues to improve postoperative Discontinue drain (Chris Garrett MD) José Manuel Venegas Jan 09, 2017 14:42 Chris Garrett MD Feb 03, 2017 07:00
--- NOTE | 2017-01-09 15:38 | HHI.PR ---
Subjective Remarks Seen earlier today. Patient complaints of cough with sputum production whitish/ yellow, no fever or chills. No n/v/d/c. pain is fairly controlled by meds. Has pain in bl arms, and at the surgical site, less numbness. Objective Vitals Vital Signs Date Time Temp Pulse Resp B/P (MAP) Pulse Ox O2 Delivery O2 Flow Rate FiO2 01/09/17 11:52 97.5 101 20 114/71 (85) 97 01/09/17 10:00 95 21 01/09/17 08:24 97.5 92 20 105/59 (74) 92 01/09/17 04:00 98.9 96 20 117/67 (84) 94 01/09/17 02:45 Room Air 01/09/17 00:00 98.5 101 22 124/73 (90) 94 01/08/17 23:30 96 01/08/17 20:48 98.8 90 16 110/79 (89) 96 01/08/17 17:04 97.9 99 18 111/65 (80) 94 I/O 01/08/17 01/08/17 01/08/17 01/09/17 01/09/17 01/09/17 07:00 15:00 23:00 07:00 15:00 23:00 Intake Total 178 ml 1440 ml 1525 ml Output Total 2405 ml 3000 ml 1403 ml Balance -2227 ml -3000 ml 37 ml 1525 ml Intake Oral 1440 ml 420 ml IV Total 178 ml 1105 ml Output Urine Total 2400 ml 3000 ml 1400 ml Drainage Total 5 ml 3 ml # Voids 1 3 # Bowel Movements 1 Result Diagram: 01/08/17 1053 01/08/17 1053 Imaging Last Impressions Cervical Spine X-Ray 01/07/17 0000 Signed Impressions: Service Date/Time: Saturday, January 07, 2017 11:19 - CONCLUSION: Status post anterior fusion. Ambrosio Tran MD Lower Extremity Ultrasound 01/05/17 0000 Signed Impressions: Service Date/Time: Thursday, January 05, 2017 10:16 - CONCLUSION: No DVT is identified in the right lower extremity. Julio Flores MD Cervical Spine CT 01/03/17 0000 Signed Impressions: Service Date/Time: Tuesday, January 03, 2017 18:26 - CONCLUSION: No acute findings. At C6-7 there is a prominent posterior disc osteophyte complex with at least mild canal stenosis. Reversal of normal cervical lordosis. Landon Love MD Cervical Spine MRI 01/02/17 0000 Signed Impressions: Service Date/Time: December 17:50 - CONCLUSION: 1. Scan is limited due to motion artifact on just about every pulse sequence. 2. However, there is some degree of spinal stenosis from C3-4 through C6-7, most severe at C5-6 and C6-7 where there appears to be moderate to severe spinal stenosis and probable cord compromise, especially at C6-7. 3. While there does appear to be some encroachment on the neural foramina at multiple levels, particularly on the left, I do not believe that this is severe enough to compromise exiting nerve roots. Again, anatomic detail is limited. 4. Tonsillar ectopia without a emerson Chiari malformation. Justo Wallace MD Upper Extremity Ultrasound 12/28/16 0000 Signed Impressions: Service Date/Time: Wednesday, December 28, 2016 15:54 - CONCLUSION: Negative exam with no evidence of deep venous thrombosis. Ambrosio Tran MD Brain MRI 12/27/16 0000 Signed Impressions: Service Date/Time: Tuesday, December 27, 2016 18:38 - CONCLUSION: 1. No acute abnormality is seen. 2. Small areas of encephalomalacia at the superior medial parietal lobe being greater on the right. 3. Small area of stable cystic change in the medial basal ganglia regions representing either lacunar infarcts or dilated perivascular spaces. 4. Minimal asymmetry to the temporal horns of the lateral ventricles with the right side being slightly more distended. The hippocampal structures themselves appear relatively symmetric. Julio Velasco MD Head CT 12/26/161833 Signed Impressions: Service Date/Time: November 19:07 - CONCLUSION: No acute disease. Small areas of the encephalomalacia at the posterior medial parietal lobes are again seen. Julio Velasco MD Chest X-Ray [id number]/26/161833 Signed Impressions: Service Date/Time: November 19:06 - CONCLUSION: No acute disease. Julio Velasco MD Objective Remarks GENERAL: Very pleasant young F, obese, in bed. EYES: No scleral icterus. No injection or drainage. NECK: Supple, trachea midline. No JVD or lymphadenopathy. CARDIOVASCULAR: Regular rate and rhythm without murmurs, gallops, or rubs. RESPIRATORY: Breath sounds equal bilaterally. No accessory muscle use. GASTROINTESTINAL: Abdomen soft, non-tender, nondistended. MUSCULOSKELETAL: No cyanosis, or edema. BACK: Nontender without obvious deformity. No CVA tenderness. NEURO: Left hemiparesis with mild sensory deficit. Diffuse muscular pain over left side of the body on upper and lower extremities. Also pain over right upper extremity. Left foot drop Procedures S/P surgery by Dr Tobar on 01/07/17: C 5-6 and C6-7 Anterior cervical discectomy C 5-6 and C6-7 Anterior Interbody fusion with allograft bone C5-7 Anterior cervical instrumentation A/P Problem List: (1) New onset seizure ICD Code: R56.9 - Unspecified convulsions Status: Acute (2) Chest pain ICD Code: R07.9 - Chest pain, unspecified Status: Acute (3) Muscular pain ICD Code: M79.1 - Myalgia Status: Acute (4) Left hemiparesis ICD Code: G81.94 - Hemiplegia, unspecified affecting left nondominant side Status: Chronic (5) Depression ICD Code: F32.9 - Major depressive disorder, single episode, unspecified Status: Chronic (6) H/O: CVA (cerebrovascular accident) ICD Code: Z86.73 - Personal history of transient ischemic attack (TIA), and cerebral infarction without residual deficits Status: Chronic Assessment and Plan (1) New onset seizure- controlled now Plan: CT of the head did not show any acute disease The patient was admitted to the neurological floor and placed on seizure precautions Patient started on Ativan when necessary and loaded with fosphenytoin 1000 mg. Patient has been started on Keppra as per neurology recommendations. Continue daily aspirin. EEG abnormal due to sharp wave activity in the few phase reversal seen consistent with epileptic activity. Patient started on Keppra 500 mg twice a day. No further seizure activity reported. Continue to follow-up neurology recommendations. MRI of the brain did not show any acute abnormalities. 12/31 As per RN report - Patient cleared to be discharged by neurology. 01/01 reported seizure again today. Will check EEG and increase keppra dose to 750 mg BID. Check Keppra level. 01/02 reported seizure during EEG. Repeat EEG reviewed. Continue Keppra 750 mg by mouth twice a day. EKG negative will discharge home on current dose of Keppra. (2) Chest pain Plan: Likely muscular skeletal in nature. EKG on admission showed normal sinus rhythm without ST-T changes. Reviewed by me. Chest pain now resolved. (3) Neck pain with left sided weakness and pain Plan: Patient on gabapentin, started on [place] and IV morphine for breakthrough pain. The patient's left-sided continue to be painful. He was noted that the patient also had some neck pain. Patient underwent a venous Doppler of the left upper and lower extremities to rule out DVT. This was negative. Patient started on baclofen for possible muscle spasms with transient improvement in left-sided pain. However patient continued to have pain in left side of the body, despite maximizing baclofen dose and increase gabapentin to 600 mg by mouth 3 times a day. On percocet per pain scale,. will ad small dose of dialudid for breakthrough pain. 01/03 MRI ordered as per neurology on 01/02 which shows a limited scan due to motion. There is some degree of spinal stenosis from C3 to C4 through C6-7. There appears to be moderate to severe spinal stenosis and probable cord compromise especially at the level of C6-7. I will consult neurosurgery stat. I will also place the patient on bedrest and to the patient was evaluated by neurosurgery. Hold OT and PT. Seen by Dr Garrett, s/p surgery Friday Noted tachycardia and hypertension in PACU after surgery. Received labetalol. monitor VS closely Pain management (4) Left hemiparesis Plan: PT consulted. Recommended home with home health PT versus outpatient PT. OT consulted. Patient will need OT as outpatient. (5) Depression Plan: Seems stable. Continue Celexa. (6) H/O: CVA (cerebrovascular accident) Plan: Continue aspirin daily. Head CT as above. Neurology following (7) Morbid obesity with BMI 43.8. Also patient might have sleep apnea. Currently on 2L NC. Needs sleep study as OP. O2 supplement, keep O2 sat > 94 %. Diet and exercise, to follow up as OP with PCP, chiropractic physician, might consider bariatric surgery (8) Cough/ Bronchitis CXR atelectasis poss infiltrate right lower base. Start azithromycin. IV, robitussin, encourage IS , add nebulizers. GI prophylaxis: Continue Carafate and PPI that the patient has been taking for gastritis. DVT prophylaxis: SCDs, no chemoprophylaxis given previous history of iron deficiency anemia and gastritis. Discharge Planning Pending improvement. Discharge pending neurosurgery clearance. S/P surgery on Friday01/07/17 Amelia Mayo MD Jan 09, 2017 15:38
[2017-01-09] MEDS ORDERED: RESP: ALBUTEROL 2.5 MG/IPRATROPIUM 0.5 MG NEB (PRN) NEB (15:45)
[2017-01-09] MEDS: AZITHROMYCIN INJ 500 MG in SODIUM CHLOR 0.9% 250 ML INJ 250 ML IV SCH (18:50)
[2017-01-10] VITALS (8 sets, daily range): BP systolic 111–129; BP diastolic 63–75; PULSE 80–97; RESP 18–20; TEMP 97.7–98.8; O2SAT 95–100
[2017-01-10] MEDS: oxyCODONE/ACETAMINOPHEN 10 MG/325 MG TAB PO PRN ×5 (01:35→21:15)
[2017-01-10] MEDS: D5-1/2 NS + KCL 20 MEQ INJ 1,000 ML IV SCH ×4 (04:57→21:16)
[2017-01-10] MEDS: BACLOFEN 10 MG TAB PO SCH ×3 (05:20→21:14)
[2017-01-10 08:12] LABS: LEVETIRACETAM 21.8 mcg/mL (12.0 - 46.0)
[2017-01-10] MEDS: SODIUM CHLORIDE 0.9% FLUSH 5 ML FLUSH IVF SCH ×2 (09:00→21:00)
[2017-01-10] MEDS: HYDROmorphone HCL PF 1 MG/ML VIAL IV PUSH PRN (09:31)
[2017-01-10] MEDS: SODIUM CHLORIDE 0.9% FLUSH 10 ML FLUSH IV FLUSH SCH ×2 (09:33→21:15)
[2017-01-10] MEDS: ONDANSETRON HCL 4 MG/2 ML VIAL IV PUSH PRN (10:11)
--- NOTE | 2017-01-10 10:15 | HHI.PR ---
Subjective Remarks Appears sleepy. Yvette nauseated in the morning, received zofran and now is trying to eat . No fever or chills. Less cough. No vomiting , diarrhea or constipation. Says pain in her shoulders and at the surgical site is fairly controlled. There is not numbness, main complaint is pain. Denies chest pain or sob. Objective Vitals Vital Signs Date Time Temp Pulse Resp B/P (MAP) Pulse Ox O2 Delivery O2 Flow Rate FiO2 01/10/17 08:11 98.0 80 20 111/67 (82) 97 01/10/17 04:00 98.6 96 19 122/64 (83) 97 01/10/17 00:00 98.8 97 18 119/63 (81) 100 01/09/17 23:38 Room Air 01/09/17 22:27 94 Nasal Cannula 2.00 01/09/17 20:00 98.3 101 18 113/74 (87) 93 01/09/17 16:00 97.3 100 20 116/55 (75) 92 01/09/17 13:07 17 01/09/17 11:52 97.5 101 20 114/71 (85) 97 I/O 01/09/17 01/09/17 01/09/17 01/10/17 01/10/17 01/10/17 07:00 15:00 23:00 07:00 15:00 23:00 Intake Total 1525 ml 490 ml 763 ml Balance 1525 ml 490 ml 763 ml Intake Oral 420 ml 240 ml IV Total 1105 ml 250 ml 763 ml # Voids 3 4 1 Result Diagram: 01/08/17 1053 01/08/17 1053 Imaging Last Impressions Chest X-Ray 01/09/17 0000 Signed Impressions: Service Date/Time: December 12:14 - CONCLUSION: 1. Left basilar streakiness consistent with atelectasis and/or infiltrates. Clinical correlation is recommended. 2. Degenerative changes and scoliosis of the thoracolumbar spine. Carlos Bauer MD Cervical Spine X-Ray 01/07/17 0000 Signed Impressions: Service Date/Time: Saturday, January 07, 2017 11:19 - CONCLUSION: Status post anterior fusion. Ambrosio Tran MD Lower Extremity Ultrasound 01/05/17 0000 Signed Impressions: Service Date/Time: Thursday, January 05, 2017 10:16 - CONCLUSION: No DVT is identified in the right lower extremity. Julio Flores MD Cervical Spine CT 01/03/17 0000 Signed Impressions: Service Date/Time: Tuesday, January 03, 2017 18:26 - CONCLUSION: No acute findings. At C6-7 there is a prominent posterior disc osteophyte complex with at least mild canal stenosis. Reversal of normal cervical lordosis. Landon Love MD Cervical Spine MRI 01/02/17 0000 Signed Impressions: Service Date/Time: December 17:50 - CONCLUSION: 1. Scan is limited due to motion artifact on just about every pulse sequence. 2. However, there is some degree of spinal stenosis from C3-4 through C6-7, most severe at C5-6 and C6-7 where there appears to be moderate to severe spinal stenosis and probable cord compromise, especially at C6-7. 3. While there does appear to be some encroachment on the neural foramina at multiple levels, particularly on the left, I do not believe that this is severe enough to compromise exiting nerve roots. Again, anatomic detail is limited. 4. Tonsillar ectopia without a emerson Chiari malformation. Justo Wallace MD Upper Extremity Ultrasound 12/28/16 0000 Signed Impressions: Service Date/Time: Wednesday, December 28, 2016 15:54 - CONCLUSION: Negative exam with no evidence of deep venous thrombosis. Ambrosio Tran MD Brain MRI 12/27/16 0000 Signed Impressions: Service Date/Time: Tuesday, December 27, 2016 18:38 - CONCLUSION: 1. No acute abnormality is seen. 2. Small areas of encephalomalacia at the superior medial parietal lobe being greater on the right. 3. Small area of stable cystic change in the medial basal ganglia regions representing either lacunar infarcts or dilated perivascular spaces. 4. Minimal asymmetry to the temporal horns of the lateral ventricles with the right side being slightly more distended. The hippocampal structures themselves appear relatively symmetric. Julio Velasco MD Head CT 12/26/16 3472 Signed Impressions: Service Date/Time: November 19:07 - CONCLUSION: No acute disease. Small areas of the encephalomalacia at the posterior medial parietal lobes are again seen. Julio Velasco MD Objective Remarks GENERAL: Very pleasant young F, obese, in bed. EYES: No scleral icterus. No injection or drainage. NECK: Supple, trachea midline. No JVD or lymphadenopathy. CARDIOVASCULAR: Regular rate and rhythm without murmurs, gallops, or rubs. RESPIRATORY: Breath sounds equal bilaterally. No accessory muscle use. GASTROINTESTINAL: Abdomen soft, non-tender, nondistended. MUSCULOSKELETAL: No cyanosis, or edema. BACK: Nontender without obvious deformity. No CVA tenderness. NEURO: Left hemiparesis with mild sensory deficit. Diffuse muscular pain over left side of the body on upper and lower extremities. Also pain over right upper extremity. Left foot drop Procedures S/P surgery by Dr Tobar on 01/07/17: C 5-6 and C6-7 Anterior cervical discectomy C 5-6 and C6-7 Anterior Interbody fusion with allograft bone C5-7 Anterior cervical instrumentation A/P Problem List: (1) New onset seizure ICD Code: R56.9 - Unspecified convulsions Status: Acute (2) Chest pain ICD Code: R07.9 - Chest pain, unspecified Status: Acute (3) Muscular pain ICD Code: M79.1 - Myalgia Status: Acute (4) Left hemiparesis ICD Code: G81.94 - Hemiplegia, unspecified affecting left nondominant side Status: Chronic (5) Depression ICD Code: F32.9 - Major depressive disorder, single episode, unspecified Status: Chronic (6) H/O: CVA (cerebrovascular accident) ICD Code: Z86.73 - Personal history of transient ischemic attack (TIA), and cerebral infarction without residual deficits Status: Chronic Assessment and Plan (1) New onset seizure- controlled now Plan: CT of the head did not show any acute disease The patient was admitted to the neurological floor and placed on seizure precautions Patient started on Ativan when necessary and loaded with fosphenytoin 1000 mg. Patient has been started on Keppra as per neurology recommendations. Continue daily aspirin. EEG abnormal due to sharp wave activity in the few phase reversal seen consistent with epileptic activity. Patient started on Keppra 500 mg twice a day. No further seizure activity reported. Continue to follow-up neurology recommendations. MRI of the brain did not show any acute abnormalities. 12/31 As per RN report - Patient cleared to be discharged by neurology. 01/01 reported seizure again today. Will check EEG and increase keppra dose to 750 mg BID. Check Keppra level. 01/02 reported seizure during EEG. Repeat EEG reviewed. Continue Keppra 750 mg by mouth twice a day. EKG negative will discharge home on current dose of Keppra. (2) Chest pain Plan: Likely muscular skeletal in nature. EKG on admission showed normal sinus rhythm without ST-T changes. Reviewed by me. Chest pain now resolved. (3) Neck pain with left sided weakness and pain Plan: Patient on gabapentin, started on [place] and IV morphine for breakthrough pain. The patient's left-sided continue to be painful. He was noted that the patient also had some neck pain. Patient underwent a venous Doppler of the left upper and lower extremities to rule out DVT. This was negative. Patient started on baclofen for possible muscle spasms with transient improvement in left-sided pain. However patient continued to have pain in left side of the body, despite maximizing baclofen dose and increase gabapentin to 600 mg by mouth 3 times a day. On percocet per pain scale,. will ad small dose of dialudid for breakthrough pain. 01/03 MRI ordered as per neurology on 01/02 which shows a limited scan due to motion. There is some degree of spinal stenosis from C3 to C4 through C6-7. There appears to be moderate to severe spinal stenosis and probable cord compromise especially at the level of C6-7. I will consult neurosurgery stat. I will also place the patient on bedrest and to the patient was evaluated by neurosurgery. Hold OT and PT. Seen by Dr Garrett, s/p surgery Friday Noted tachycardia and hypertension in PACU after surgery. Received labetalol. monitor VS closely Pain management (4) Left hemiparesis Plan: PT consulted. Recommended home with home health PT versus outpatient PT. OT consulted. Patient will need OT as outpatient. (5) Depression Plan: Seems stable. Continue Celexa. (6) H/O: CVA (cerebrovascular accident) Plan: Continue aspirin daily. Head CT as above. Neurology following (7) Morbid obesity with BMI 43.8. Also patient might have sleep apnea. Currently on 2L NC. Needs sleep study as OP. O2 supplement, keep O2 sat > 94 %. Diet and exercise, to follow up as OP with PCP, grader marker, might consider bariatric surgery (8) Cough/ Bronchitis CXR atelectasis poss infiltrate right lower base. Start azithromycin. IV, robitussin, encourage IS , zithromycin, nebulizers. (9) Nausea Antiemetics as need GI prophylaxis: Continue Carafate and PPI that the patient has been taking for gastritis. DVT prophylaxis: SCDs, no chemoprophylaxis given previous history of iron deficiency anemia and gastritis. Discharge Planning Pending improvement. Discharge pending neurosurgery clearance. S/P surgery on Friday01/07/17 Amelia Mayo MD Jan 10, 2017 10:15
[2017-01-10] MEDS: CITALOPRAM HYDROBROMIDE 40 MG TAB PO SCH (10:51)
[2017-01-10] MEDS: PANTOPRAZOLE SOD 40 MG DELAYED RELEASE TAB PO SCH (10:51)
[2017-01-10] MEDS: DULoxetine HCl DR 30 MG CAP PO SCH (10:51)
[2017-01-10] MEDS: GABAPENTIN 400 MG CAP PO SCH ×3 (10:51→16:56)
[2017-01-10] MEDS: DOCUSATE SODIUM 50 MG/SENNA 8.6 MG TAB PO SCH ×2 (10:52→21:15)
[2017-01-10] MEDS: levETIRAcetam 500 MG TAB PO SCH ×2 (10:52→21:15)
[2017-01-10] MEDS: SUCRALFATE 1 GM TAB PO SCH ×3 (10:52→16:56)
[2017-01-10 11:52] LABS: AUTOMATED NEUTROPHIL # 4.6 TH/MM3 (1.8-7.7); BASOPHIL # 0.1 TH/MM3 (0-0.2); BASOPHIL % 0.9 % (0.0-2.0); EOSINOPHIL # 0.4 TH/MM3 (0-0.4); EOSINOPHIL % 3.9 % (0.0-4.0); HEMATOCRIT 29.2 % (35.0-46.0); HEMO FLAGS DIFF FINAL; LYMPH % 38.1 % (9.0-44.0); LYMPHOCYTE # 3.5 TH/MM3 (1.0-4.8); MEAN CELL VOLUME 83.3 FL (80.0-100.0); MEAN CORPUSCULAR HEMOGLOBIN 26.5 PG (27.0-34.0); MEAN CORPUSCULAR HGB CONC 31.8 % (32.0-36.0); MONO % 6.9 % (0.0-8.0); NEUT % 50.2 % (16.0-70.0); PLATELET COUNT 320 TH/MM3 (150-450); RED BLOOD COUNT 3.51 MIL/MM3 (4.00-5.30); RED CELL DISTRIBUTION WIDTH 17.4 % (11.6-17.2); WHITE BLOOD COUNT 9.2 TH/MM3 (4.0-11.0)
[2017-01-10 12:14] LABS: BICARBONATE 30.7 MEQ/L (21.0-32.0); POTASSIUM 3.9 MEQ/L (3.5-5.1)
--- NOTE | 2017-01-10 12:49 | HHI.NSPN ---
(José Manuel Venegas) History Chief Complaint: Pain to the back of the head. 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 At that time she presented with primarily left lower extremity weakness. She states that she had also some left upper extremity deficit. She underwent physical therapy with gradual improvement of the deficit. She has been left with moderate numbness and weakness in primarily the distal left lower extremity but has been able to ambulate with a cane. She states that normally she cannot move her left foot or ankle. She has had some residual numbness in her left hand and occasional weakness but no significant loss of coordination. She now presents through the emergency room on December 26 with new onset seizure which apparently occurred while she was asleep. The patient does not recall the incident. She states that she had another seizure yesterday. The patient complains of aching and some pain over the left lower greater than upper extremity since the seizure. She also complains of increased numbness in the left arm and leg. She states that she does not necessarily have any increased weakness in the left leg since her seizure, but her walking is more impaired. She also notes that she was walking independently with a cane prior to the seizure, but now is able to ablate only with great difficulty and with assistance. No complaint of any new bowel or bladder dysfunction. 01/05: The patient states that she is doing good. She endorses some mild abdominal pain which is better than yesterday. She continues to have decreased sensation to the left lower extremity below the knee since her seizure as well as decreased motor function. 01/06: This morning the patient is doing well. She again states that things have been worse to the left lower extremity since the seizure. She had no other complaints. 01/07: The patient went for an anterior cervical discectomy with fusion and instrumentation at the C5 to C7 levels. Post-operatively she returned to a regular med/surg floor. 01/08: When seen this morning the patient stated she was having pain to both arms. She also had pain to the surgical incision. She did say the numbness to the left lower extremity was better. 01/09: This afternoon the patient complains of surgical incision pain. She endorses a focal headache to the right occipital region. Earlier she had nausea that has resolved. The patient states that she thinks she is getting a cold because she is coughing up yellow sputum with flecks of blood in it. Her sister reports that the patient had shortness of breath this morning and received a neb treatment which relieved it. The patient denies any numbness or weakness. 01/10: The patient states that she hurts when asked how she is doing, She complains of pain that is focal to the lower right occipital region. She appears moderately uncomfortable but not in any distress. She denies any headache, sore throat, difficulty swallowing or neck pain. (José Manuel Venegas) System Review Comments Constitutional: Patient denies any fever or chills. HEENT: Patient complains of focal pain to the lower right occipital region. She denies any sore throat, difficulty swallowing or any visual or hearing difficulty. Neck: Patient denies any neck pain. Respiratory: Patient denies any shortness of breath at present but did have some last night. Cardiovascular: Patient denies any chest pain, palpitations or irregular heartbeat. Gastrointestinal: Patient had nausea and vomiting earlier this morning but none at present. She denies any abdominal pain or incontinence of urine. Genitourinary: Patient denies any incontinence of urine. Musculoskeletal: Patient denies any back or extremity pain. Neurologic: Patient denies any headache, dizziness, numbness or tingling. She denies any focal weakness. (José Manuel Venegas) Exam Results 01/08/17 01/08/17 01/09/17 01/09/17 01/10/17 01/10/17 06: 18:00 06:00 18:00 06:00 18:00 Intake Total 50 ml 1618 ml 801 ml 724 ml 1253 ml Output Total 2400 ml 4408 ml Balance -2350 ml -2790 ml 801 ml 724 ml 1253 ml Intake Oral 1440 ml 420 ml 240 ml IV Total 50 ml 178 ml 381 ml 724 ml 1013 ml Output Urine Total 2400 ml 4400 ml Drainage Total 8 ml # Voids 1 3 3 2 # Bowel Movements 1 Vital Signs Date Time Temp Pulse Resp B/P (MAP) Pulse Ox O2 Delivery O2 Flow Rate FiO2 01/10/17 12:38 93 01/10/17 11:52 97.7 82 20 129/72 (91) 95 01/10/17 08:11 98.0 80 20 111/67 (82) 97 01/10/17 04:00 98.6 96 19 122/64 (83) 97 01/10/17 00:00 98.8 97 18 119/63 (81) 100 01/09/17 23:38 Room Air 01/09/17 22:27 94 Nasal Cannula 2.00 01/09/17 20:00 98.3 101 18 113/74 (87) 93 01/09/17 16:00 97.3 100 20 116/55 (75) 92 01/09/17 13:07 17 01/09/17 11:52 97.5 101 20 114/71 (85) 97 01/09/17 10:00 95 21 01/09/17 09:22 19 01/09/17 08:45 Room Air 01/09/17 08:24 97.5 92 20 105/59 (74) 92 01/09/17 04:00 98.9 96 20 117/67 (84) 94 01/09/17 02:45 Room Air 01/09/17 00:00 98.5 101 22 124/73 (90) 94 01/08/17 23:30 96 01/08/17 20:48 98.8 90 16 110/79 (89) 96 01/08/17 17:04 97.9 99 18 111/65 (80) 94 01/08/17 12:34 98.4 107 18 107/58 (74) 97 01/08/17 10:31 87 01/08/17 10:26 Room Air 01/08/17 09:23 98.2 97 16 103/61 (75) 99 01/08/17 08:09 98 Nasal Cannula 2.00 01/08/17 04:00 97.2 94 20 112/76 (88) 96 01/08/17 00:00 98.1 121 18 120/65 (83) 96 01/07/17 23:45 Nasal Cannula 3.00 01/07/17 20:00 98.8 108 18 135/65 (88) 98 9/12/17 19:58 97 Nasal Cannula 3.00 01/07/17 18:00 98.2 104 16 131/72 (91) 97 Nasal Cannula 3 01/07/17 17:45 105 16 133/74 (93) 97 Nasal Cannula 3 01/07/17 17:33 15 01/07/17 17:30 106 16 136/74 (94) 97 Nasal Cannula 3 01/07/17 17:15 105 15 138/77 (97) 97 Nasal Cannula 3 01/07/17 17:00 104 15 139/75 (96) 98 Nasal Cannula 3 01/07/17 16:45 105 15 138/77 (97) 97 Nasal Cannula 3 01/07/17 16:30 108 15 142/88 (106) 100 Simple Mask 7 01/07/17 16:15 98.5 110 16 151/88 (109) 99 Simple Mask 7 (José Manuel Venegas) Physical Examination GENERAL: The patient is awake in the chair watching TV. She appears moderately uncomfortable but not in any distress. Her affect is flat. SKIN: Warm, dry & intact except for anterior neck surgical incision w/intact steri-strips, w/o any evident rashes, ulcerations or lesions. HEENT: Normocephalic, atraumatic. NECK: [place] J cervical collar in place, anterior neck surgical incision NTTP, midline cervical spine NTTP, no JVD, trachea midline. RESPIRATORY: CTAB w/o W/R/R, equal excursion, nonlaboured, on RA. CARDIOVASCULAR: S1S2 w/RRR w/o M/G/R, radial & pedal pulses 2+ bilaterally, cap refill < 2 sec, no pedal edema. GASTROINTESTINAL: Abdomen soft, nontender, positive bowel sounds. MUSCULOSKELETAL: No evident deformity or clubbing. NEUROLOGICAL: AAOx3. Speech clear & appropriate. Follows simple commands w/o difficulty. Sensation intact to light touch to all extremities. Motor strength: Right side: 5/5 to all major flexion & extension muscle groups. Left side: 4/5 biceps & triceps; 3+/5 deltoid; 3 to 3+/5 iliopsoas; 0/5 tibialis anterior, gastrocnemius, extensor digitorum brevis & extensor hallucis longus. (José Manuel Venegas) Lab, Micro, Other Results Recent Impressions Chest X-Ray 01/09/17 0000 Signed Impressions: Service Date/Time: December 12:14 - CONCLUSION: 1. Left basilar streakiness consistent with atelectasis and/or infiltrates. Clinical correlation is recommended. 2. Degenerative changes and scoliosis of the thoracolumbar spine. Carlos Bauer MD Laboratory Tests Test 01/08/17 10:53 01/10/17 08:31 White Blood Count 10.7 TH/MM3 9.2 TH/MM3 Red Blood Count 3.50 MIL/MM3 3.51 MIL/MM3 Hemoglobin 9.5 GM/DL 9.3 GM/DL Hematocrit 29.0 % 29.2 % Mean Corpuscular Volume 82.8 FL 83.3 FL Mean Corpuscular Hemoglobin 27.0 PG 26.5 PG Mean Corpuscular Hemoglobin Concent 32.6 % 31.8 % Red Cell Distribution Width 17.5 % 17.4 % Platelet Count 315 TH/MM3 320 TH/MM3 Mean Platelet Volume 7.6 FL 7.5 FL Neutrophils (%) (Auto) 62.7 % 50.2 % Lymphocytes (%) (Auto) 30.1 % 38.1 % Monocytes (%) (Auto) 6.8 % 6.9 % Eosinophils (%) (Auto) 0.2 % 3.9 % Basophils (%) (Auto) 0.2 % 0.9 % Neutrophils # (Auto) 6.7 TH/MM3 4.6 TH/MM3 Lymphocytes # (Auto) 3.2 TH/MM3 3.5 TH/MM3 Monocytes # (Auto) 0.7 TH/MM3 0.6 TH/MM3 Eosinophils # (Auto) 0.0 TH/MM3 0.4 TH/MM3 Basophils # (Auto) 0.0 TH/MM3 0.1 TH/MM3 CBC Comment DIFF FINAL DIFF FINAL Differential Comment Blood Urea Nitrogen 6 MG/DL 5 MG/DL Creatinine 0.69 MG/DL 0.76 MG/DL Random Glucose 108 MG/DL 78 MG/DL Calcium Level 8.5 MG/DL 8.4 MG/DL Sodium Level 139 MEQ/L 138 MEQ/L Potassium Level 4.1 MEQ/L 3.9 MEQ/L Chloride Level 104 MEQ/L 102 MEQ/L Carbon Dioxide Level 29.4 MEQ/L 30.7 MEQ/L Anion Gap 6 MEQ/L 5 MEQ/L Estimat Glomerular Filtration Rate 118 ML/MIN 105 ML/MIN (José Manuel Venegas) Medical Decision Making Impression and Plan Impression: 1. Severe C6 7 and moderately severe C5 6 canal stenosis due to chronic- appearing posterior osteophytic disc complex. There is increased signal intensity within the cord at the C6 7 level. 2. Cervical myelopathy 3. Previous left hemiparesis related to prior CVA. 4. Seizure disorder Postoperative Diagnosis: (1) Cervical disc disease with myelopathy (2) Cervical stenosis of spinal canal Patient doing well post-operatively, decrease motor to LLE o/w stable neuro exam. Focal pain to right lower occipital region. POD #3 () s/p: C 5-6 and C6-7 Anterior cervical discectomy C 5-6 and C6-7 Anterior Interbody fusion with allograft bone C5-7 Anterior cervical instrumentation Plan: Primary management per Hospitalist. Neuro checks. [place] J cervical collar at all times. Mobilise patient w/assistance. PT eval & tx. (José Manuel Venegas) Attending Statement The exam, history, and the medical decision-making described in the above note were completed with the assistance of the mid-level provider. I reviewed and agree with the findings presented. I attest that I had a [id number] encounter with the patient on the same day, and personally performed and documented my assessment and findings in the medical record. Stable neurologic exam compared to past couple of days Drain site clean Tolerating diet Continue therapy Home versus rehabilitation (Chris Garrett MD) José Manuel Venegas Jan 10, 2017 12:49 Chris Garrett MD Feb 03, 2017 07:01
[2017-01-10] MEDS: AZITHROMYCIN INJ 500 MG in SODIUM CHLOR 0.9% 250 ML INJ 250 ML IV SCH (16:56)
[2017-01-11] VITALS (8 sets, daily range): BP systolic 111–134; BP diastolic 55–79; PULSE 82–101; RESP 18–20; TEMP 97.3–98.7; O2SAT 91–97
[2017-01-11] MEDS: oxyCODONE/ACETAMINOPHEN 10 MG/325 MG TAB PO PRN ×6 (01:12→21:31)
[2017-01-11] MEDS: ONDANSETRON HCL 4 MG/2 ML VIAL IV PUSH PRN (02:50)
[2017-01-11] MEDS: BACLOFEN 10 MG TAB PO SCH ×3 (05:53→21:31)
[2017-01-11] MEDS ORDERED: HYDROmorphone HCL PF 1 MG/ML VIAL IV PUSH PRN (08:00)
[2017-01-11] MEDS: D5-1/2 NS + KCL 20 MEQ INJ 1,000 ML IV SCH ×2 (08:13→20:57)
[2017-01-11] MEDS: SODIUM CHLORIDE 0.9% FLUSH 5 ML FLUSH IVF SCH ×2 (09:00→21:00)
[2017-01-11] MEDS: SODIUM CHLORIDE 0.9% FLUSH 10 ML FLUSH IV FLUSH SCH ×2 (09:00→21:00)
[2017-01-11] MEDS: GABAPENTIN 400 MG CAP PO SCH ×3 (10:25→17:28)
[2017-01-11] MEDS: DULoxetine HCl DR 30 MG CAP PO SCH (10:27)
[2017-01-11] MEDS: DOCUSATE SODIUM 50 MG/SENNA 8.6 MG TAB PO SCH ×2 (10:27→21:30)
[2017-01-11] MEDS: CITALOPRAM HYDROBROMIDE 40 MG TAB PO SCH (10:27)
[2017-01-11] MEDS: PANTOPRAZOLE SOD 40 MG DELAYED RELEASE TAB PO SCH (10:27)
[2017-01-11] MEDS: levETIRAcetam 500 MG TAB PO SCH ×2 (10:28→21:31)
[2017-01-11] MEDS: SUCRALFATE 1 GM TAB PO SCH ×3 (10:41→17:28)
--- NOTE | 2017-01-11 10:42 | HHI.NSPN ---
History Chief Complaint: Pain to the back of the head. 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 At that time she presented with primarily left lower extremity weakness. She states that she had also some left upper extremity deficit. She underwent physical therapy with gradual improvement of the deficit. She has been left with moderate numbness and weakness in primarily the distal left lower extremity but has been able to ambulate with a cane. She states that normally she cannot move her left foot or ankle. She has had some residual numbness in her left hand and occasional weakness but no significant loss of coordination. She now presents through the emergency room on December 26 with new onset seizure which apparently occurred while she was asleep. The patient does not recall the incident. She states that she had another seizure yesterday. The patient complains of aching and some pain over the left lower greater than upper extremity since the seizure. She also complains of increased numbness in the left arm and leg. She states that she does not necessarily have any increased weakness in the left leg since her seizure, but her walking is more impaired. She also notes that she was walking independently with a cane prior to the seizure, but now is able to ablate only with great difficulty and with assistance. No complaint of any new bowel or bladder dysfunction. 01/05: The patient states that she is doing good. She endorses some mild abdominal pain which is better than yesterday. She continues to have decreased sensation to the left lower extremity below the knee since her seizure as well as decreased motor function. 01/06: This morning the patient is doing well. She again states that things have been worse to the left lower extremity since the seizure. She had no other complaints. 01/07: The patient went for an anterior cervical discectomy with fusion and instrumentation at the C5 to C7 levels. Post-operatively she returned to a regular med/surg floor. 01/08: When seen this morning the patient stated she was having pain to both arms. She also had pain to the surgical incision. She did say the numbness to the left lower extremity was better. 01/09: This afternoon the patient complains of surgical incision pain. She endorses a focal headache to the right occipital region. Earlier she had nausea that has resolved. The patient states that she thinks she is getting a cold because she is coughing up yellow sputum with flecks of blood in it. Her sister reports that the patient had shortness of breath this morning and received a neb treatment which relieved it. The patient denies any numbness or weakness. 01/10: The patient states that she hurts when asked how she is doing, She complains of pain that is focal to the lower right occipital region. She appears moderately uncomfortable but not in any distress. She denies any headache, sore throat, difficulty swallowing or neck pain. 01/11: Pt complains of right sided head pressure. Pain in UEs in no specific distribution described as a sharp but not electrical and not burning in nature. Pt swallowing okay but has complains of nausea which improves with antiemetics. Review of Systems General: Negative for: fever, chills, insomnia Respiratory: Negative for: shortness of breath, cough, sputum Cardiovascular: Negative for: chest pain Gastrointestinal: Positive for: nausea, Negative for: vomitting, diarrhea, constipation Exam Results Vital Signs Date Time Temp Pulse Resp B/P (MAP) Pulse Ox O2 Delivery O2 Flow Rate FiO2 01/11/17 08:01 97.4 82 20 111/55 (73) 95 01/09/17 23:38 Room Air 01/09/17 22:27 2.00 01/09/17 10:00 21 Physical Examination Resp: CTA bilaterally Heart: NSR no murmurs Abd: Soft positive bs. Obese. Skin: Incision clean and dry. steristips intact. Muscle: Moves UEs with Mild 4/5 weakness in LUE. Left plantar and dorsiflexion 0/5 pt states from her previous stroke. Cervical collar intact. Neuro: Pt awake and alert. Follows commands well. Speech clear and appropriate. Pupils equal. Lab, Micro, Other Results Last Impressions Chest X-Ray 01/09/17 0000 Signed Impressions: Service Date/Time: December 12:14 - CONCLUSION: 1. Left basilar streakiness consistent with atelectasis and/or infiltrates. Clinical correlation is recommended. 2. Degenerative changes and scoliosis of the thoracolumbar spine. Carlos Bauer MD Cervical Spine X-Ray 01/07/17 Signed Impressions: Service Date/Time: Saturday, January 07, 2017 11:19 - CONCLUSION: Status post anterior fusion. Ambrosio Tran MD Lower Extremity Ultrasound 01/05/17 0000 Signed Impressions: Service Date/Time: Thursday, January 05, 2017 10:16 - CONCLUSION: No DVT is identified in the right lower extremity. Julio Flores MD Cervical Spine CT 01/03/17 Signed Impressions: Service Date/Time: Tuesday, January 03, 2017 18:26 - CONCLUSION: No acute findings. At C6-7 there is a prominent posterior disc osteophyte complex with at least mild canal stenosis. Reversal of normal cervical lordosis. Landon Love MD Cervical Spine MRI 01/02/17 Signed Impressions: Service Date/Time: December 17:50 - CONCLUSION: 1. Scan is limited due to motion artifact on just about every pulse sequence. 2. However, there is some degree of spinal stenosis from C3-4 through C6-7, most severe at C5-6 and C6-7 where there appears to be moderate to severe spinal stenosis and probable cord compromise, especially at C6-7. 3. While there does appear to be some encroachment on the neural foramina at multiple levels, particularly on the left, I do not believe that this is severe enough to compromise exiting nerve roots. Again, anatomic detail is limited. 4. Tonsillar ectopia without a emerson Chiari malformation. Justo Wallace MD Upper Extremity Ultrasound 12/28/16 Signed Impressions: Service Date/Time: Wednesday, December 28, 2016 15:54 - CONCLUSION: Negative exam with no evidence of deep venous thrombosis. Ambrosio Tran MD Brain MRI 12/27/16 0000 Signed Impressions: Service Date/Time: Tuesday, December 27, 2016 18:38 - CONCLUSION: 1. No acute abnormality is seen. 2. Small areas of encephalomalacia at the superior medial parietal lobe being greater on the right. 3. Small area of stable cystic change in the medial basal ganglia regions representing either lacunar infarcts or dilated perivascular spaces. 4. Minimal asymmetry to the temporal horns of the lateral ventricles with the right side being slightly more distended. The hippocampal structures themselves appear relatively symmetric. Julio Velasco MD Head CT 12/26/16 1834 Signed Impressions: Service Date/Time: November 19:07 - CONCLUSION: No acute disease. Small areas of the encephalomalacia at the posterior medial parietal lobes are again seen. Julio Velasco MD Medical Decision Making Impression and Plan A: 36 y/o FM s/p C5/C6 and C6/C7 anterior cervical fusion with instrumentation. P: Continue with rehab efforts Continue with cervical collar. Teofilo Nj Jan 11, 2017 10:42 am
--- NOTE | 2017-01-11 13:47 | HHI.PR ---
Subjective Remarks In bed, sleepy. Says she still has significant pain back of her head mostly, bilateral shoulders and surgical site. Neck collar is on. Coughing on/off. No fever or chills. Will taper pain meds as tolerated as patient is sleepy Objective Vitals Vital Signs Date Time Temp Pulse Resp B/P (MAP) Pulse Ox O2 Delivery O2 Flow Rate FiO2 01/11/17 12:14 95 01/11/17 11:38 97.5 91 20 112/71 (85) 95 01/11/17 08:01 97.4 82 20 111/55 (73) 95 01/11/17 04:00 97.3 84 18 111/63 (79) 95 01/11/17 00:00 97.9 101 18 116/65 (82) 91 01/11/17 00:00 97.9 101 18 116/65 (82) 91 01/10/17 20:06 93 01/10/17 20:00 97.7 87 18 124/70 (88) 96 01/10/17 16:27 97.9 93 20 119/75 (90) 98 I/O 01/10/17 01/10/17 01/10/17 01/11/17 01/11/17 01/11/17 07:00 15:00 23:00 07:00 15:00 23:00 Intake Total 763 ml 231 ml Balance 763 ml 231 ml Intake Oral 231 ml IV Total 763 ml # Voids 1 2 3 Result Diagram: 01/10/17 0831 01/10/17 0831 Imaging Last Impressions Chest X-Ray 01/09/17 0000 Signed Impressions: Service Date/Time: December 12:14 - CONCLUSION: 1. Left basilar streakiness consistent with atelectasis and/or infiltrates. Clinical correlation is recommended. 2. Degenerative changes and scoliosis of the thoracolumbar spine. Carlos Bauer MD Cervical Spine X-Ray 01/07/17 0000 Signed Impressions: Service Date/Time: Saturday, January 07, 2017 11:19 - CONCLUSION: Status post anterior fusion. Ambrosio Tran MD Lower Extremity Ultrasound 01/05/17 0000 Signed Impressions: Service Date/Time: Thursday, January 05, 2017 10:16 - CONCLUSION: No DVT is identified in the right lower extremity. Julio Flores MD Cervical Spine CT 01/03/17 0000 Signed Impressions: Service Date/Time: Tuesday, January 03, 2017 18:26 - CONCLUSION: No acute findings. At C6-7 there is a prominent posterior disc osteophyte complex with at least mild canal stenosis. Reversal of normal cervical lordosis. Landon Love MD Cervical Spine MRI 01/02/17 0000 Signed Impressions: Service Date/Time: December 17:50 - CONCLUSION: 1. Scan is limited due to motion artifact on just about every pulse sequence. 2. However, there is some degree of spinal stenosis from C3-4 through C6-7, most severe at C5-6 and C6-7 where there appears to be moderate to severe spinal stenosis and probable cord compromise, especially at C6-7. 3. While there does appear to be some encroachment on the neural foramina at multiple levels, particularly on the left, I do not believe that this is severe enough to compromise exiting nerve roots. Again, anatomic detail is limited. 4. Tonsillar ectopia without a emerson Chiari malformation. Justo Wallace MD Upper Extremity Ultrasound 12/28/16 0000 Signed Impressions: Service Date/Time: Wednesday, December 28, 2016 15:54 - CONCLUSION: Negative exam with no evidence of deep venous thrombosis. Ambrosio Tran MD Brain MRI 12/27/16 0000 Signed Impressions: Service Date/Time: Tuesday, December 27, 2016 18:38 - CONCLUSION: 1. No acute abnormality is seen. 2. Small areas of encephalomalacia at the superior medial parietal lobe being greater on the right. 3. Small area of stable cystic change in the medial basal ganglia regions representing either lacunar infarcts or dilated perivascular spaces. 4. Minimal asymmetry to the temporal horns of the lateral ventricles with the right side being slightly more distended. The hippocampal structures themselves appear relatively symmetric. Julio Velasco MD Head CT 12/26/16 2523 Signed Impressions: Service Date/Time: November 19:07 - CONCLUSION: No acute disease. Small areas of the encephalomalacia at the posterior medial parietal lobes are again seen. Julio Velasco MD Objective Remarks GENERAL: Very pleasant young F, obese, in bed. EYES: No scleral icterus. No injection or drainage. NECK: Supple, trachea midline. No JVD or lymphadenopathy. CARDIOVASCULAR: Regular rate and rhythm without murmurs, gallops, or rubs. RESPIRATORY: Breath sounds equal bilaterally. No accessory muscle use. GASTROINTESTINAL: Abdomen soft, non-tender, nondistended. MUSCULOSKELETAL: No cyanosis, or edema. BACK: Nontender without obvious deformity. No CVA tenderness. NEURO: Left hemiparesis with mild sensory deficit. Diffuse muscular pain over left side of the body on upper and lower extremities. Also pain over right upper extremity. Left foot drop Procedures S/P surgery by Dr Tobar on 01/07/17: C 5-6 and C6-7 Anterior cervical discectomy C 5-6 and C6-7 Anterior Interbody fusion with allograft bone C5-7 Anterior cervical instrumentation A/P Problem List: (1) New onset seizure ICD Code: R56.9 - Unspecified convulsions Status: Acute (2) Chest pain ICD Code: R07.9 - Chest pain, unspecified Status: Acute (3) Muscular pain ICD Code: M79.1 - Myalgia Status: Acute (4) Left hemiparesis ICD Code: G81.94 - Hemiplegia, unspecified affecting left nondominant side Status: Chronic (5) Depression ICD Code: F32.9 - Major depressive disorder, single episode, unspecified Status: Chronic (6) H/O: CVA (cerebrovascular accident) ICD Code: Z86.73 - Personal history of transient ischemic attack (TIA), and cerebral infarction without residual deficits Status: Chronic Assessment and Plan (1) New onset seizure- controlled now Plan: CT of the head did not show any acute disease The patient was admitted to the neurological floor and placed on seizure precautions Patient started on Ativan when necessary and loaded with fosphenytoin 1000 mg. Patient has been started on Keppra as per neurology recommendations. Continue daily aspirin. EEG abnormal due to sharp wave activity in the few phase reversal seen consistent with epileptic activity. Patient started on Keppra 500 mg twice a day. No further seizure activity reported. Continue to follow-up neurology recommendations. MRI of the brain did not show any acute abnormalities. 12/31 As per RN report - Patient cleared to be discharged by neurology. 01/01 reported seizure again today. Will check EEG and increase keppra dose to 750 mg BID. Check Keppra level. 01/02 reported seizure during EEG. Repeat EEG reviewed. Continue Keppra 750 mg by mouth twice a day. EKG negative will discharge home on current dose of Keppra. (2) Chest pain Plan: Likely muscular skeletal in nature. EKG on admission showed normal sinus rhythm without ST-T changes. Reviewed by me. Chest pain now resolved. (3) Neck pain with left sided weakness and pain Plan: Patient on gabapentin, started on [place] and IV morphine for breakthrough pain. The patient's left-sided continue to be painful. He was noted that the patient also had some neck pain. Patient underwent a venous Doppler of the left upper and lower extremities to rule out DVT. This was negative. Patient started on baclofen for possible muscle spasms with transient improvement in left-sided pain. However patient continued to have pain in left side of the body, despite maximizing baclofen dose and increase gabapentin to 600 mg by mouth 3 times a day. On percocet per pain scale,. will ad small dose of dialudid for breakthrough pain. 01/03 MRI ordered as per neurology on 01/02 which shows a limited scan due to motion. There is some degree of spinal stenosis from C3 to C4 through C6-7. There appears to be moderate to severe spinal stenosis and probable cord compromise especially at the level of C6-7. I will consult neurosurgery stat. I will also place the patient on bedrest and to the patient was evaluated by neurosurgery. Hold OT and PT. Seen by Dr Garrett, s/p surgery Friday Noted tachycardia and hypertension in PACU after surgery. Received labetalol. monitor VS closely Pain management (4) Left hemiparesis Plan: PT consulted. Recommended home with home health PT versus outpatient PT. OT consulted. Patient will need OT as outpatient. (5) Depression Plan: Seems stable. Continue Celexa. (6) H/O: CVA (cerebrovascular accident) Plan: Continue aspirin daily. Head CT as above. Neurology following (7) Morbid obesity with BMI 43.8. Also patient might have sleep apnea. Currently on 2L NC. Needs sleep study as OP. O2 supplement, keep O2 sat > 94 %. Diet and exercise, to follow up as OP with PCP, office services manager, might consider bariatric surgery (8) Cough/ Bronchitis CXR atelectasis poss infiltrate right lower base. Start azithromycin. IV, robitussin, encourage IS , zithromycin, nebulizers. Encourage IS, add acapella. Will taper down narcotics as patient is sleepy and risk of aspiration PNA. (9) Nausea Antiemetics as need GI prophylaxis: Continue Carafate and PPI that the patient has been taking for gastritis. DVT prophylaxis: SCDs, no chemoprophylaxis given previous history of iron deficiency anemia and gastritis. Discharge Planning Pending improvement. Discharge pending neurosurgery clearance. S/P surgery on Friday01/07/17 Amelia Mayo MD Jan 11, 2017 13:47
[2017-01-11] MEDS: AZITHROMYCIN INJ 500 MG in SODIUM CHLOR 0.9% 250 ML INJ 250 ML IV SCH (17:28)
[2017-01-12] VITALS: BP 136/69; PULSE 79; RESP 18; TEMP 97.8; O2SAT 98
[2017-01-12] MEDS: D5-1/2 NS + KCL 20 MEQ INJ 1,000 ML IV SCH ×2 (00:30→06:57)
[2017-01-12] MEDS: oxyCODONE/ACETAMINOPHEN 10 MG/325 MG TAB PO PRN ×3 (03:55→11:41)
[2017-01-12 04:00] VITALS: BP 120/80; PULSE 90; RESP 20; TEMP 98; O2SAT 100
[2017-01-12] MEDS: BACLOFEN 10 MG TAB PO SCH (05:33)
[2017-01-12] MEDS: ONDANSETRON HCL 4 MG/2 ML VIAL IV PUSH PRN (05:33)
[2017-01-12] MEDS: SODIUM CHLORIDE 0.9% FLUSH 5 ML FLUSH IVF SCH (07:29)
[2017-01-12] MEDS: SODIUM CHLORIDE 0.9% FLUSH 10 ML FLUSH IV FLUSH SCH (07:29)
[2017-01-12] MEDS: DOCUSATE SODIUM 50 MG/SENNA 8.6 MG TAB PO SCH (07:35)
[2017-01-12] MEDS: PANTOPRAZOLE SOD 40 MG DELAYED RELEASE TAB PO SCH (07:35)
[2017-01-12] MEDS: CITALOPRAM HYDROBROMIDE 40 MG TAB PO SCH (07:35)
[2017-01-12] MEDS: SUCRALFATE 1 GM TAB PO SCH ×2 (07:35→11:41)
[2017-01-12] MEDS: DULoxetine HCl DR 30 MG CAP PO SCH (07:36)
[2017-01-12] MEDS: levETIRAcetam 500 MG TAB PO SCH (07:36)
[2017-01-12] MEDS: GABAPENTIN 400 MG CAP PO SCH ×2 (07:36→11:41)
[2017-01-12 08:19] VITALS: BP 145/90; PULSE 88; RESP 20; TEMP 97.9; O2SAT 97
--- NOTE | 2017-01-12 08:31 | HHI.DS ---
Discharge Summary Admission Date Dec 26, 2016 at 20:44 Discharge Date: Jan 12, 2017 Admitting Diagnosis new-onset seizures (1) New onset seizure ICD Code: R56.9 - Unspecified convulsions Status: Acute (2) Chest pain ICD Code: R07.9 - Chest pain, unspecified Status: Acute (3) Muscular pain ICD Code: M79.1 - Myalgia Status: Acute (4) Left hemiparesis ICD Code: G81.94 - Hemiplegia, unspecified affecting left nondominant side Status: Chronic (5) Depression ICD Code: F32.9 - Major depressive disorder, single episode, unspecified Status: Chronic (6) H/O: CVA (cerebrovascular accident) ICD Code: Z86.73 - Personal history of transient ischemic attack (TIA), and cerebral infarction without residual deficits Status: Chronic Procedures S/P surgery by Dr Tobar on 01/07/17: C 5-6 and C6-7 Anterior cervical discectomy C 5-6 and C6-7 Anterior Interbody fusion with allograft bone C5-7 Anterior cervical instrumentation Brief History - From Admission Written by ABHISHEK Pereyra acting as scribe for [Chuck] on 12/26/16 at 23: 44. 36 y/o female with a history of CVA x 2, insomnia, intermittent HTN, SHANEKA and COPD presented to the ED with complaints of a seizure per her sister. Per her sister she was laying in bed and she felt sick and then the patient began to have a seizure. She was also told in the [facility] that she had another one. She is able to communicate very little, and able to to nod yes and no as well. She states she has had a productive cough for 2 days with yellow sputum, nausea and dizziness, but no passing out episodes. She denies any chest pain, sob, fever or chills. She states she follows outpatient with terrazzo finisher helper Dr. Lake. She does walk with a cane and has a foot drop. CBC/BMP: 01/10/17 0831 01/10/17 0831 Significant Findings Laboratory Tests Test 01/10/17 08:31 Red Blood Count 3.51 MIL/MM3 (4.00-5.30) Hemoglobin 9.3 GM/DL (11.6-15.3) Hematocrit 29.2 % (35.0-46.0) Mean Corpuscular Hemoglobin 26.5 PG (27.0-34.0) Mean Corpuscular Hemoglobin Concent 31.8 % (32.0-36.0) Red Cell Distribution Width 17.4 % (11.6-17.2) Blood Urea Nitrogen 5 MG/DL (7-18) Calcium Level 8.4 MG/DL (8.5-10.1) Imaging Last Impressions Chest X-Ray 01/09/17 0000 Signed Impressions: Service Date/Time: December 12:14 - CONCLUSION: 1. Left basilar streakiness consistent with atelectasis and/or infiltrates. Clinical correlation is recommended. 2. Degenerative changes and scoliosis of the thoracolumbar spine. Carlos Bauer MD Cervical Spine X-Ray 01/07/17 0000 Signed Impressions: Service Date/Time: Saturday, January 07, 2017 11:19 - CONCLUSION: Status post anterior fusion. Ambrosio Tran MD Lower Extremity Ultrasound 01/05/17 0000 Signed Impressions: Service Date/Time: Thursday, January 05, 2017 10:16 - CONCLUSION: No DVT is identified in the right lower extremity. Julio Flores MD Cervical Spine CT 01/03/17 0000 Signed Impressions: Service Date/Time: Tuesday, January 03, 2017 18:26 - CONCLUSION: No acute findings. At C6-7 there is a prominent posterior disc osteophyte complex with at least mild canal stenosis. Reversal of normal cervical lordosis. Landon Love MD Cervical Spine MRI 01/02/17 0000 Signed Impressions: Service Date/Time: December 17:50 - CONCLUSION: 1. Scan is limited due to motion artifact on just about every pulse sequence. 2. However, there is some degree of spinal stenosis from C3-4 through C6-7, most severe at C5-6 and C6-7 where there appears to be moderate to severe spinal stenosis and probable cord compromise, especially at C6-7. 3. While there does appear to be some encroachment on the neural foramina at multiple levels, particularly on the left, I do not believe that this is severe enough to compromise exiting nerve roots. Again, anatomic detail is limited. 4. Tonsillar ectopia without a emerson Chiari malformation. Justo Wallace MD Upper Extremity Ultrasound 12/28/16 0000 Signed Impressions: Service Date/Time: Wednesday, December 28, 2016 15:54 - CONCLUSION: Negative exam with no evidence of deep venous thrombosis. Ambrosio Tran MD Brain MRI 12/27/16 0000 Signed Impressions: Service Date/Time: Tuesday, December 27, 2016 18:38 - CONCLUSION: 1. No acute abnormality is seen. 2. Small areas of encephalomalacia at the superior medial parietal lobe being greater on the right. 3. Small area of stable cystic change in the medial basal ganglia regions representing either lacunar infarcts or dilated perivascular spaces. 4. Minimal asymmetry to the temporal horns of the lateral ventricles with the right side being slightly more distended. The hippocampal structures themselves appear relatively symmetric. Julio Velasco MD Head CT 12/26/16 1834 Signed Impressions: Service Date/Time: November 19:07 - CONCLUSION: No acute disease. Small areas of the encephalomalacia at the posterior medial parietal lobes are again seen. Julio Velasco MD PE at Discharge GENERAL: Very pleasant young F, obese, in bed. EYES: No scleral icterus. No injection or drainage. NECK: Supple, trachea midline. No JVD or lymphadenopathy. CARDIOVASCULAR: Regular rate and rhythm without murmurs, gallops, or rubs. RESPIRATORY: Breath sounds equal bilaterally. No accessory muscle use. GASTROINTESTINAL: Abdomen soft, non-tender, nondistended. MUSCULOSKELETAL: No cyanosis, or edema. BACK: Nontender without obvious deformity. No CVA tenderness. NEURO: Left hemiparesis with mild sensory deficit. Diffuse muscular pain over left side of the body on upper and lower extremities. Also pain over right upper extremity. Left foot drop Hospital Course 36 y/o female with a history of CVA x 2, insomnia, intermittent HTN, SHANEKA and COPD presented to the ED with complaints of a seizure per her sister. Per her sister she was laying in bed and she felt sick and then the patient began to have a seizure. She was also told in the [facility] that she had another one. She is able to communicate very little, and able to to nod yes and no as well. She states she has had a productive cough for 2 days with yellow sputum, nausea and dizziness, but no passing out episodes. She denies any chest pain, sob, fever or chills. She states she follows outpatient with terrazzo finisher helper Dr. Lake. She does walk with a cane and has a foot drop. patient with new onset seizure started on Keppra as per neurology recommendations. Continue daily aspirin. EEG abnormal due to sharp wave activity in the few phase reversal seen consistent with epileptic activity. Patient started on Keppra 500 mg twice a day. No further seizure activity reported. Continue to follow-up neurology recommendations. MRI of the brain did not show any acute abnormalities. 01/02 reported seizure during EEG. Repeat EEG reviewed. Continue Keppra 750 mg by mouth twice a day. EKG negative discharge home on current dose of Keppra 750 mg po bid. Patient also with Neck pain with left sided weakness and pain, left hemiparesis. Patient on gabapentin, started on [place] and IV morphine for breakthrough pain. The patient's left-sided continue to be painful. He was noted that the patient also had some neck pain. Patient underwent a venous Doppler of the left upper and lower extremities to rule out DVT. This was negative. Patient started on baclofen for possible muscle spasms with transient improvement in left-sided pain. However patient continued to have pain in left side of the body, despite maximizing baclofen dose and increase gabapentin to 600 mg by mouth 3 times a day. On percocet per pain scale,. will ad small dose of dialudid for breakthrough pain. 01/03 MRI ordered as per neurology on 01/02 which shows a limited scan due to motion. There is some degree of spinal stenosis from C3 to C4 through C6-7. There appears to be moderate to severe spinal stenosis and probable cord compromise especially at the level of C6-7. I will consult neurosurgery stat. I will also place the patient on bedrest and to the patient was evaluated by neurosurgery. Hold OT and PT. Seen by Dr Garrett, s/p surgery Friday Noted tachycardia and hypertension in PACU after surgery. Received labetalol. monitor VS closely Pain management Off dilaudid, add fentanyl patch per neurosurgery PT and OT as outpatient. S/P surgery on Friday01/07/17. Improving. Discussed with neurosurgical team, cleared for DC. Patient was discharged in stable condition to follow up as OP with PCP and consultants. Pt Condition on Discharge: Stable Discharge Disposition: Discharge Home Discharge Time: > 30 minutes Discharge Instructions DIET: Follow Instructions for: Heart Healthy Diet, Diabetic Diet Activities you can perform: Weight Bearing as Ryan Activities to Avoid: Driving Other Activity Instructions: Do not drive until cleared by neurology/neurosurgery Follow up Referrals: Neurology - 2 Weeks Neurosurgery - 1 Week with Chris Garrett MD PCP Follow-up - 1 Week New Medications: Lidocaine (Lidoderm) 5 % Adh..patch 1 PATCH T-DERMAL DAILY for Pain for 7 Days Use 1 patch for 12 hours then remove for 12 hours. Apply to right back of neck close to area of pain. Do not apply close to incision. Oxycodone-Acetaminophen (Percocet) 5-325 mg Tab 1-2 TAB PO Q4H PRN for PAIN, #30 TAB 0 Refills Baclofen (Baclofen) 10 Mg Tab 10 MG PO Q8HR for muscle relaxant , #20 TAB Gabapentin (Neurontin) 400 Mg Cap 400 MG PO TID for neuropathy, #90 CAP Levetiracetam (Keppra) 500 Mg Tab 750 MG PO Q12HR for Seizure Control, #60 TAB Sennosides-Docusate Sodium (Senna Plus 8.6-50 mg) 8.6 Mg-50 Mg Tab 1 TAB PO BID for Constipation, #60 TAB Continued Medications: Aspirin (Aspirin) 325 Mg Tab 325 MG PO DAILY, #30 TAB 0 Refills Citalopram (Celexa) 20 Mg Tab 20 MG PO DAILY for Control Depression, #30 TAB [address] (Cymbalta DR) 30 Mg Capdr 30 MG PO DAILY, #30 CAP 1 Refill Pantoprazole (Protonix) 40 Mg Tab 40 MG PO DAILY for Reflux, #30 TAB 0 Refills Sucralfate (Carafate) 1 Gm Tab 1 GM PO TID for Duodenal ulcer, #90 TAB 0 Refills On empty stomach Discontinued Medications: Gabapentin (Gabapentin) 100 Mg Cap 100 MG PO HS, #30 CAP 0 Refills Gabapentin (Gabapentin) 300 Mg Cap 300 MG PO BID, #60 CAP 0 Refills Hydrocodone-Acetaminophen ([place]) 5-325 mg Tab 1 TAB PO Q6H PRN for PAIN, TAB 0 Refills Amelia Mayo MD Jan 12, 2017 08:31
[2017-01-12] MEDS ORDERED: PERC5TAB12 PO (08:35)
[2017-01-12] MEDS ORDERED: NEUR400C PO (08:35)
[2017-01-12] MEDS ORDERED: SENN1TAB PO (08:35)
[2017-01-12] MEDS ORDERED: LEVE500 PO (08:35)
[2017-01-12] MEDS ORDERED: BACL10TA PO (08:35)
--- NOTE | 2017-01-12 08:41 | HHI.NSPN ---
History Chief Complaint: Pain to the back of the head. 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 At that time she presented with primarily left lower extremity weakness. She states that she had also some left upper extremity deficit. She underwent physical therapy with gradual improvement of the deficit. She has been left with moderate numbness and weakness in primarily the distal left lower extremity but has been able to ambulate with a cane. She states that normally she cannot move her left foot or ankle. She has had some residual numbness in her left hand and occasional weakness but no significant loss of coordination. She now presents through the emergency room on December 26 with new onset seizure which apparently occurred while she was asleep. The patient does not recall the incident. She states that she had another seizure yesterday. The patient complains of aching and some pain over the left lower greater than upper extremity since the seizure. She also complains of increased numbness in the left arm and leg. She states that she does not necessarily have any increased weakness in the left leg since her seizure, but her walking is more impaired. She also notes that she was walking independently with a cane prior to the seizure, but now is able to ablate only with great difficulty and with assistance. No complaint of any new bowel or bladder dysfunction. 01/05: The patient states that she is doing good. She endorses some mild abdominal pain which is better than yesterday. She continues to have decreased sensation to the left lower extremity below the knee since her seizure as well as decreased motor function. 01/06: This morning the patient is doing well. She again states that things have been worse to the left lower extremity since the seizure. She had no other complaints. 01/07: The patient went for an anterior cervical discectomy with fusion and instrumentation at the C5 to C7 levels. Post-operatively she returned to a regular med/surg floor. 01/08: When seen this morning the patient stated she was having pain to both arms. She also had pain to the surgical incision. She did say the numbness to the left lower extremity was better. 01/09: This afternoon the patient complains of surgical incision pain. She endorses a focal headache to the right occipital region. Earlier she had nausea that has resolved. The patient states that she thinks she is getting a cold because she is coughing up yellow sputum with flecks of blood in it. Her sister reports that the patient had shortness of breath this morning and received a neb treatment which relieved it. The patient denies any numbness or weakness. 01/10: The patient states that she hurts when asked how she is doing, She complains of pain that is focal to the lower right occipital region. She appears moderately uncomfortable but not in any distress. She denies any headache, sore throat, difficulty swallowing or neck pain. 01/11: Pt complains of right sided head pressure. Pain in UEs in no specific distribution described as a sharp but not electrical and not burning in nature. Pt swallowing okay but has complains of nausea which improves with antiemetics. 01/12: Pt complains of right sided occipital and trapezius area pain. No radiculopathy in UEs. No anterior neck pain. Review of Systems General: Negative for: fever, chills, insomnia Respiratory: Negative for: shortness of breath, cough, sputum Cardiovascular: Negative for: chest pain Gastrointestinal: Negative for: nausea, vomitting, diarrhea, constipation Exam Results Vital Signs Date Time Temp Pulse Resp B/P (MAP) Pulse Ox O2 Delivery O2 Flow Rate FiO2 01/12/17 08:19 97.9 88 20 145/90 (108) 97 01/09/17 23:38 Room Air 01/09/17 22:27 2.00 01/09/17 10:00 21 Intake and Output 01/12/17 01/12/17 01/13/17 08:00 16:00 00:00 Intake Total 687 ml Balance 687 ml Physical Examination Resp: CTA bilaterally Heart: NSR no murmurs Abd: Soft positive bs. Obese. Skin: Incision clean and dry. steristips intact. Muscle: Moves UEs with Mild 4/5 weakness in LUE. Left plantar and dorsiflexion 0/5 pt states from her previous stroke. Cervical collar intact. Neuro: Pt awake and alert. Follows commands well. Speech clear and appropriate. Pupils equal. Lab, Micro, Other Results Last Impressions Chest X-Ray 01/09/17 0000 Signed Impressions: Service Date/Time: December 12:14 - CONCLUSION: 1. Left basilar streakiness consistent with atelectasis and/or infiltrates. Clinical correlation is recommended. 2. Degenerative changes and scoliosis of the thoracolumbar spine. Carlos Bauer MD Cervical Spine X-Ray 01/07/17 0000 Signed Impressions: Service Date/Time: Saturday, January 07, 2017 11:19 - CONCLUSION: Status post anterior fusion. Ambrosio Tran MD Lower Extremity Ultrasound 01/05/17 0000 Signed Impressions: Service Date/Time: Thursday, January 05, 2017 10:16 - CONCLUSION: No DVT is identified in the right lower extremity. Julio Flores MD Cervical Spine CT 01/03/17 Signed Impressions: Service Date/Time: Tuesday, January 03, 2017 18:26 - CONCLUSION: No acute findings. At C6-7 there is a prominent posterior disc osteophyte complex with at least mild canal stenosis. Reversal of normal cervical lordosis. Landon Love MD Cervical Spine MRI 01/02/17 0000 Signed Impressions: Service Date/Time: December 17:50 - CONCLUSION: 1. Scan is limited due to motion artifact on just about every pulse sequence. 2. However, there is some degree of spinal stenosis from C3-4 through C6-7, most severe at C5-6 and C6-7 where there appears to be moderate to severe spinal stenosis and probable cord compromise, especially at C6-7. 3. While there does appear to be some encroachment on the neural foramina at multiple levels, particularly on the left, I do not believe that this is severe enough to compromise exiting nerve roots. Again, anatomic detail is limited. 4. Tonsillar ectopia without a emerson Chiari malformation. Justo Wallace MD Upper Extremity Ultrasound 12/28/16 0000 Signed Impressions: Service Date/Time: Wednesday, December 28, 2016 15:54 - CONCLUSION: Negative exam with no evidence of deep venous thrombosis. Ambrosio Tran MD Brain MRI 12/27/16 0000 Signed Impressions: Service Date/Time: Tuesday, December 27, 2016 18:38 - CONCLUSION: 1. No acute abnormality is seen. 2. Small areas of encephalomalacia at the superior medial parietal lobe being greater on the right. 3. Small area of stable cystic change in the medial basal ganglia regions representing either lacunar infarcts or dilated perivascular spaces. 4. Minimal asymmetry to the temporal horns of the lateral ventricles with the right side being slightly more distended. The hippocampal structures themselves appear relatively symmetric. Julio Velasco MD Head CT 12/26/16 1834 Signed Impressions: Service Date/Time: November 19:07 - CONCLUSION: No acute disease. Small areas of the encephalomalacia at the posterior medial parietal lobes are again seen. Julio Velasco MD Medical Decision Making Impression and Plan A: 36 y/o FM s/p C5/C6 and C6/C7 anterior cervical fusion with instrumentation. P: Continue with rehab efforts Continue with cervical collar. Likely posterior cervical muscle spasms. Will add Lidoderm patch 5% to go home with in addition to her Percocet and muscle relaxants. Teofilo Nj Jan 12, 2017 8:41 am
--- NOTE | 2017-01-12 08:43 | HHI.PR ---
Subjective Remarks Patient on the bedside commode, doesn't appear in distress. She was transferring herself to the bedside, she complaints of pain mainly in her neck, radiating up towards top of head. Per nurse she is eating well, however patient says she was still nauseated after eating yesterday. No fever or chills. She is more awake and alert. Objective Vitals Vital Signs Date Time Temp Pulse Resp B/P (MAP) Pulse Ox O2 Delivery O2 Flow Rate FiO2 01/12/17 08:19 97.9 88 20 145/90 (108) 97 01/12/17 04:00 98.0 90 20 120/80 (93) 100 01/12/17 00:00 97.8 79 18 136/69 (91) 98 01/11/17 20:00 97.9 96 20 134/79 (97) 95 01/11/17 16:16 98.7 93 20 126/75 (92) 97 01/11/17 16:00 94 01/11/17 12:14 95 01/11/17 11:38 97.5 91 20 112/71 (85) 95 I/O 01/11/17 01/11/17 01/11/17 01/12/17 01/12/17 01/12/17 07:00 15:00 23:00 07:00 15:00 23:00 Intake Total 2294 ml 687 ml Balance 2294 ml 687 ml Intake Oral 1440 ml 400 ml IV Total 854 ml 287 ml # Voids 3 4 1 Result Diagram: 01/10/17 0831 01/10/17 0831 Imaging Last Impressions Chest X-Ray 01/09/17 0000 Signed Impressions: Service Date/Time: December 12:14 - CONCLUSION: 1. Left basilar streakiness consistent with atelectasis and/or infiltrates. Clinical correlation is recommended. 2. Degenerative changes and scoliosis of the thoracolumbar spine. Carlos Bauer MD Cervical Spine X-Ray 01/07/17 0000 Signed Impressions: Service Date/Time: Saturday, January 07, 2017 11:19 - CONCLUSION: Status post anterior fusion. Ambrosio Tran MD Lower Extremity Ultrasound 01/05/17 0000 Signed Impressions: Service Date/Time: Thursday, January 05, 2017 10:16 - CONCLUSION: No DVT is identified in the right lower extremity. Julio Flores MD Cervical Spine CT 01/03/17 0000 Signed Impressions: Service Date/Time: Tuesday, January 03, 2017 18:26 - CONCLUSION: No acute findings. At C6-7 there is a prominent posterior disc osteophyte complex with at least mild canal stenosis. Reversal of normal cervical lordosis. Landon Love MD Cervical Spine MRI 01/02/17 0000 Signed Impressions: Service Date/Time: December 17:50 - CONCLUSION: 1. Scan is limited due to motion artifact on just about every pulse sequence. 2. However, there is some degree of spinal stenosis from C3-4 through C6-7, most severe at C5-6 and C6-7 where there appears to be moderate to severe spinal stenosis and probable cord compromise, especially at C6-7. 3. While there does appear to be some encroachment on the neural foramina at multiple levels, particularly on the left, I do not believe that this is severe enough to compromise exiting nerve roots. Again, anatomic detail is limited. 4. Tonsillar ectopia without a emerson Chiari malformation. Justo Wallace MD Upper Extremity Ultrasound 12/28/16 0000 Signed Impressions: Service Date/Time: Wednesday, December 28, 2016 15:54 - CONCLUSION: Negative exam with no evidence of deep venous thrombosis. Ambrosio Tran MD Brain MRI 12/27/16 0000 Signed Impressions: Service Date/Time: Tuesday, December 27, 2016 18:38 - CONCLUSION: 1. No acute abnormality is seen. 2. Small areas of encephalomalacia at the superior medial parietal lobe being greater on the right. 3. Small area of stable cystic change in the medial basal ganglia regions representing either lacunar infarcts or dilated perivascular spaces. 4. Minimal asymmetry to the temporal horns of the lateral ventricles with the right side being slightly more distended. The hippocampal structures themselves appear relatively symmetric. Julio Velasco MD Head CT 12/26/16 3047 Signed Impressions: Service Date/Time: November 19:07 - CONCLUSION: No acute disease. Small areas of the encephalomalacia at the posterior medial parietal lobes are again seen. Julio Velasco MD Objective Remarks GENERAL: Very pleasant young F, obese, in bed. EYES: No scleral icterus. No injection or drainage. NECK: Supple, trachea midline. No JVD or lymphadenopathy. CARDIOVASCULAR: Regular rate and rhythm without murmurs, gallops, or rubs. RESPIRATORY: Breath sounds equal bilaterally. No accessory muscle use. GASTROINTESTINAL: Abdomen soft, non-tender, nondistended. MUSCULOSKELETAL: No cyanosis, or edema. BACK: Nontender without obvious deformity. No CVA tenderness. NEURO: Left hemiparesis with mild sensory deficit. Diffuse muscular pain over left side of the body on upper and lower extremities. Also pain over right upper extremity. Left foot drop Procedures S/P surgery by Dr Tobar on 01/07/17: C 5-6 and C6-7 Anterior cervical discectomy C 5-6 and C6-7 Anterior Interbody fusion with allograft bone C5-7 Anterior cervical instrumentation A/P Problem List: (1) New onset seizure ICD Code: R56.9 - Unspecified convulsions Status: Acute (2) Chest pain ICD Code: R07.9 - Chest pain, unspecified Status: Acute (3) Muscular pain ICD Code: M79.1 - Myalgia Status: Acute (4) Left hemiparesis ICD Code: G81.94 - Hemiplegia, unspecified affecting left nondominant side Status: Chronic (5) Depression ICD Code: F32.9 - Major depressive disorder, single episode, unspecified Status: Chronic (6) H/O: CVA (cerebrovascular accident) ICD Code: Z86.73 - Personal history of transient ischemic attack (TIA), and cerebral infarction without residual deficits Status: Chronic Assessment and Plan (1) New onset seizure- controlled now Plan: CT of the head did not show any acute disease The patient was admitted to the neurological floor and placed on seizure precautions Patient started on Ativan when necessary and loaded with fosphenytoin 1000 mg. Patient has been started on Keppra as per neurology recommendations. Continue daily aspirin. EEG abnormal due to sharp wave activity in the few phase reversal seen consistent with epileptic activity. Patient started on Keppra 500 mg twice a day. No further seizure activity reported. Continue to follow-up neurology recommendations. MRI of the brain did not show any acute abnormalities. 12/31 As per RN report - Patient cleared to be discharged by neurology. 01/01 reported seizure again today. Will check EEG and increase keppra dose to 750 mg BID. Check Keppra level. 01/02 reported seizure during EEG. Repeat EEG reviewed. Continue Keppra 750 mg by mouth twice a day. EKG negative will discharge home on current dose of Keppra. (2) Chest pain Plan: Likely muscular skeletal in nature. EKG on admission showed normal sinus rhythm without ST-T changes. Reviewed by me. Chest pain now resolved. (3) Neck pain with left sided weakness and pain Plan: Patient on gabapentin, started on [place] and IV morphine for breakthrough pain. The patient's left-sided continue to be painful. He was noted that the patient also had some neck pain. Patient underwent a venous Doppler of the left upper and lower extremities to rule out DVT. This was negative. Patient started on baclofen for possible muscle spasms with transient improvement in left-sided pain. However patient continued to have pain in left side of the body, despite maximizing baclofen dose and increase gabapentin to 600 mg by mouth 3 times a day. On percocet per pain scale,. will ad small dose of dialudid for breakthrough pain. 01/03 MRI ordered as per neurology on 01/02 which shows a limited scan due to motion. There is some degree of spinal stenosis from C3 to C4 through C6-7. There appears to be moderate to severe spinal stenosis and probable cord compromise especially at the level of C6-7. I will consult neurosurgery stat. I will also place the patient on bedrest and to the patient was evaluated by neurosurgery. Hold OT and PT. Seen by Dr Garrett, s/p surgery Friday Noted tachycardia and hypertension in PACU after surgery. Received labetalol. monitor VS closely Pain management Off dilaudid, add fentanyl patch per neurosurgery (4) Left hemiparesis Plan: PT consulted. Recommended home with home health PT versus outpatient PT. OT consulted. Patient will need OT as outpatient. (5) Depression Plan: Seems stable. Continue Celexa. (6) H/O: CVA (cerebrovascular accident) Plan: Continue aspirin daily. Head CT as above. Neurology following (7) Morbid obesity with BMI 43.8. Also patient might have sleep apnea. Currently on 2L NC. Needs sleep study as OP. O2 supplement, keep O2 sat > 94 %. 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 Start azithromycin. IV, robitussin, encourage IS , zithromycin, nebulizers. Encourage IS, add acapella. Will taper down narcotics as patient is sleepy and risk of aspiration PNA. (9) Nausea Antiemetics as need GI prophylaxis: Continue Carafate and PPI that the patient has been taking for gastritis. DVT prophylaxis: SCDs, no chemoprophylaxis given previous history of iron deficiency anemia and gastritis. Discharge Planning S/P surgery on Friday01/07/17. Improving. Discussed with neurosurgical team , cleared for DC. Amelia Mayo MD Jan 12, 2017 08:43
[2017-01-12] MEDS ORDERED: LIDO5DIS5 T-DERMAL (08:46)
[2017-01-12] MEDS ORDERED: LIDOCAINE HCL 5% PATCH T-DERMAL SCH (09:00)
[2017-01-12 11:28] VITALS: PULSE 78
[2017-01-12] MEDS ORDERED: REMOVE OLD LIDOCAINE PATCH T-DERMAL SCH (21:00)
[2017-01-29] MEDS ORDERED: OXYC-432 PO (16:08)
[2017-02-04] MEDS ORDERED: SELE1SHA3 (09:07)
[2017-02-04] MEDS ORDERED: TEMA30CA (09:07)
[2017-02-04] MEDS ORDERED: ESLI1TAB2 (09:07)
[2017-02-04] MEDS ORDERED: VOLT1GEL4 (09:07)
[2017-02-04] MEDS ORDERED: TRIA37.53 (09:07)
== END 2017-01-12 12:32 | disposition home health service (06) | DRG 28 ==
LOC: NEPE 18:13 → NEDA 20:44 → N05A 12-27 01:15
PROVIDERS: ADMIT Hospitalist; ATTEND Hospitalist
PROC: 0RB Upper Joints, Excision (ICD-10-PCS; 2017-01-07)
PROC: 0RG Upper Joints, Fusion (ICD-10-PCS; principal; 2017-01-07 10:18)
DX: G40.909 Epilepsy, unspecified, not intractable, without status epilepticus (principal); D66 Hereditary factor VIII deficiency; G93.40 Encephalopathy, unspecified; M47.12 Other spondylosis with myelopathy, cervical region; Z68.41 Body mass index [BMI] 40.0-44.9, adult; M48.02 Spinal stenosis, cervical region; I69.354 Hemiplegia and hemiparesis following cerebral infarction affecting left non-dominant side; E66.01 Morbid (severe) obesity due to excess calories; M50.022 Cervical disc disorder at C5-C6 level with myelopathy; M50.023 Cervical disc disorder at C6-C7 level with myelopathy; J98.11 Atelectasis; I10 Essential (primary) hypertension; G47.00 Insomnia, unspecified; J44.9 Chronic obstructive pulmonary disease, unspecified; M21.379 Foot drop, unspecified foot; K29.70 Gastritis, unspecified, without bleeding; D50.9 Iron deficiency anemia, unspecified; R73.03 Prediabetes; R00.0 Tachycardia, unspecified; K21.9 Gastro-esophageal reflux disease without esophagitis; M62.838 Other muscle spasm; F32.9 Major depressive disorder, single episode, unspecified; Z88.0 Allergy status to penicillin; Z88.5 Allergy status to narcotic agent
CPT/HCPCS: 70450; 70551; 71010; 72040; 72125; 72141; 76000; 76937; 80048; 80053; 80171; 80177; 80307; 81001; 82550; 84443; 84484; 84703; 85025; 85610; 85730; 93005; 93971; 94150; 94640; 94664; 94667; 94668; 95819; 96361; 96374; C1713; J0131; J0456; J1100; J1170; J1580; J1650; J2060; J2250; J2270; J2370; J2405; J3010; J3480; J7030; J7040; J7050; J7120; L0150; L0172; P9612; Q2009

== ENCOUNTER 2017-04-06 19:55 | Inpatient (IN) | payer OTHER ==
[~2017-04-06] VITALS: Ht 160 cm; Wt 112.0 kg
[~2017-04-06 19:55] MED LIST changes: +ASPI-183 PO; -ASPI325T PO; +BACL10TA PO; +ESLI1TAB2 PO; +LEVE500 PO; +LIDO1ADH4 T-DERMAL; +NEUR400C PO; +OXYC-432 PO; -PROT40TA PO; +SELE1SHA3; +TEMA30CA PO; +TRIA37.53 PO; -ULTR50TA5 PO; +VOLT1GEL16
[2017-04-06] MEDS ORDERED: BUTA1CAP PO (20:10)
[2017-04-06] MEDS ORDERED: PROT40TA PO (20:10)
[2017-04-06] MEDS ORDERED: HYDR4TAB PO (20:10)
[2017-04-06 20:12] VITALS: BP 144/92; PULSE 86; RESP 20; TEMP 98.2; O2SAT 98
[2017-04-06 20:13] VITALS: BP 124/75; PULSE 87; RESP 20; TEMP 98.2; O2SAT 98
--- NOTE | 2017-04-06 20:14 | PD ---
HPI . Seizure Chief Complaint: Seizure Time Seen by Provider: 20:00 Travel History International Travel<30 days: No Contact w/Intl Traveler<30days: No Traveled to known affect area: No History of Present Illness HPI 36-year-old female presents emergency department for evaluation after she experienced multiple seizures today. Patient was diagnosis with new onset seizures in November of this year. After being evaluated by neurologist they attribute the seizures to history of strokes. Patient was started on Keppra at that time. Patient brought in from home by EMS where they report the family witnessed 3 seizures today. The first seizure lasted 6 minutes, the second seizure lasted 7 minutes of the third and final seizure lasted 8 minutes. Patient was given 2 mg IM Ativan in route. Prior to today the patient's last reported seizure was in December. Patient has cervical collar in place upon arrival that she has been wearing since she had cervical spinal surgery with Dr. Garrett. Patient had a cervical discectomy with fusion on January 07 of this year. PFSH Past Medical History Hx Anticoagulant Therapy: Yes Arthritis: No Asthma: Yes (USES INHALERS) Autoimmune Disease: No Anxiety: No Depression: No Heart Rhythm Problems: No Cancer: No Cardiovascular Problems: No High Cholesterol: No Chemotherapy: No Chest Pain: No Congestive Heart Failure: No COPD: No Cerebrovascular Accident: Yes Diabetes: Yes (BORDERLINE DIABETES, HYPERGLYCEMIA) Diminished Hearing: No Endocrine: No Gastrointestinal Disorders: Yes (RECENT ABD PAIN WITH MELENA) GERD: Yes Genitourinary: No Headaches: Yes Hiatal Hernia: No Hypertension: Yes (UNCONTROLLED HTN) Immune Disorder: No Kidney Stones: No Musculoskeletal: Yes Neurologic: Yes (ACUTE ENCEPHALOPATHY) Psychiatric: No Reproductive: No Respiratory: Yes (ASPIRATION PNEUMONIA, ACUTE RESPIRATORY FAILURE WITH HYPOXEMIA) Migraines: No Radiation Therapy: No Renal Failure: Yes (ACUTE RENAL INSUFFICIENCY) Seizures: No Sickle Cell Disease: No Sleep Apnea: No Thyroid Disease: No Ulcer: No : 0 Ovarian Cysts: Yes Past Surgical History Abdominal Surgery: Yes (GALLBLADDER 2014 ) AICD: No Arteriovenous Shunt: No Cardiac Surgery: No Cholecystectomy: Yes Ear Surgery: No Endocrine Surgery: No Eye Surgery: No Genitourinary Surgery: No Gynecologic Surgery: Yes (OVARIAN CYST D/C 2014) Insulin Pump: No Joint Replacement: No Oral Surgery: No Pacemaker: No Thoracic Surgery: No Other Surgery: Yes Social History Alcohol Use: No Tobacco Use: No Substance Use: No Allergies-Medications (Allergen,Severity, Reaction): Coded Allergies: Sulfa (Sulfonamide Antibiotics) (Verified Allergy, Unknown, 04/06/17) penicillin G (Unverified Allergy, Unknown, hives, 04/06/17) Reported Meds & Prescriptions Reported Meds & Active Scripts Active Neurontin (Gabapentin) 400 Mg Cap 400 Mg PO TID Baclofen 10 Mg Tab 10 Mg PO Q8HR Cymbalta DR (Duloxetine HCl) 30 Mg Capdr 30 Mg PO DAILY Reported Hydromorphone (Hydromorphone HCl) 4 Mg Tab 4 Mg PO Q4-6H PRN Protonix (Pantoprazole Sodium) 40 Mg Tab 40 Mg PO DAILY Fioricet (Mfadrojhxj-Zsaacnnyoqjnt-Dqgdxkge) 50-300-40 Mg Cap 1 Cap PO Q4H PRN Aptiom (Eslicarbazepine) 400 Mg Tab 1 Tab PO DAILY Triamterene-Hydrochlorothiazide 37.5-25 Mg Cap 1 Tab PO DAILY Temazepam 30 Mg Cap 1 Tab PO HS Review of Systems Except as stated in HPI: all other systems reviewed are Neg Physical Exam Narrative GENERAL: Postictal 36-year-old female patient that is drooling with cervical collar in place. Patient not verbalizing at this time. SKIN: Focused skin assessment warm/dry. HEAD: Normocephalic. Atraumatic. EYES: PERRLA demonstrated bilaterally. No scleral icterus. No injection or drainage. NECK: Supple, trachea midline. No JVD or lymphadenopathy. CARDIOVASCULAR: Regular rate and rhythm without murmurs, gallops, or rubs. RESPIRATORY: Breath sounds equal bilaterally. No accessory muscle use. GASTROINTESTINAL: Abdomen soft, non-tender, nondistended. MUSCULOSKELETAL: No cyanosis, or edema. Data Data Last Documented VS Vital Signs Date Time Temp Pulse Resp B/P (MAP) Pulse Ox O2 Delivery O2 Flow Rate FiO2 04/06/17 20:23 98.2 88 20 132/72 (92) 98 Nasal Cannula 2.00 Orders Orders Complete Blood Count With Diff (04/06/17 20:00) Drug Screen, Random Urine (04/06/17 20:00) Electrocardiogram (04/06/17 ) Ct Brain W/O Iv Contrast(Rout) (04/06/17 ) Comprehensive Metabolic Panel (04/06/17 20:00) Urinalysis - C+S If Indicated (04/06/17 20:00) Blood Glucose (04/06/17 20:00) Ecg Monitoring (04/06/17 20:00) Iv Access Insert/Monitor (04/06/17 20:00) Oximetry (04/06/17 20:00) Cath For Specimen (04/06/17 20:00) Levetiracetam (04/06/17 20:04) Chest, Single Ap (04/06/17 ) Ct Cerv Spine W/O Contrast (04/06/17 21:42) Labs Laboratory Tests Test 04/06/17 20:13 White Blood Count 7.5 TH/MM3 Red Blood Count 4.22 MIL/MM3 Hemoglobin 12.3 GM/DL Hematocrit 35.6 % Mean Corpuscular Volume 84.3 FL Mean Corpuscular Hemoglobin 29.2 PG Mean Corpuscular Hemoglobin Concent 34.6 % Red Cell Distribution Width 19.7 % Platelet Count 307 TH/MM3 Mean Platelet Volume 7.8 FL Neutrophils (%) (Auto) 45.0 % Lymphocytes (%) (Auto) 43.7 % Monocytes (%) (Auto) 7.8 % Eosinophils (%) (Auto) 3.0 % Basophils (%) (Auto) 0.5 % Neutrophils # (Auto) 3.4 TH/MM3 Lymphocytes # (Auto) 3.3 TH/MM3 Monocytes # (Auto) 0.6 TH/MM3 Eosinophils # (Auto) 0.2 TH/MM3 Basophils # (Auto) 0.0 TH/MM3 CBC Comment DIFF FINAL Differential Comment Urine Color YELLOW Urine Turbidity CLEAR Urine pH 6.0 Urine Specific [place] 1.009 Urine Protein NEG mg/dL Urine Glucose (UA) NEG mg/dL Urine Ketones NEG mg/dL Urine Occult Blood TRACE Urine Nitrite NEG Urine Bilirubin NEG Urine Urobilinogen LESS THAN 2.0 MG/DL Urine Leukocyte Esterase NEG Urine RBC LESS THAN 1 /hpf Urine WBC LESS THAN 1 /hpf Urine Squamous Epithelial Cells 1 /hpf Urine Mucus FEW /lpf Microscopic Urinalysis Comment CATH-CULT NOT IND Blood Urea Nitrogen 8 MG/DL Creatinine 0.84 MG/DL Random Glucose 92 MG/DL Total Protein 8.2 GM/DL Albumin 3.8 GM/DL Calcium Level 8.7 MG/DL Alkaline Phosphatase 97 U/L Aspartate Amino Transf (AST/SGOT) 22 U/L Alanine Aminotransferase (ALT/SGPT) 29 U/L Total Bilirubin 0.2 MG/DL Sodium Level 141 MEQ/L Potassium Level 3.7 MEQ/L Chloride Level 109 MEQ/L Carbon Dioxide Level 23.8 MEQ/L Anion Gap 8 MEQ/L Estimat Glomerular Filtration Rate 94 ML/MIN Urine Opiates Screen NEG Urine Barbiturates Screen POS Urine Amphetamines Screen NEG Urine Benzodiazepines Screen NEG Urine Cocaine Screen NEG Urine Cannabinoids Screen NEG MDM Medical Decision Making Medical Screen Exam Complete: Yes Emergency Medical Condition: Yes Differential Diagnosis Differential diagnoses include but not limited to recurrent seizure, noncompliance of medication regimen, infection, electrolyte abnormality, ICH, CVA Narrative Course 36-year-old female presents emergency department for evaluation of recurrent seizures. Patient experienced 3 witnessed seizures today. IV placed by EMS. Blood work obtained and sent to lab. CBC, CMP, UA, drug screen, Keppra level ordered and pending. Patient placed on monitor, blood glucose obtained. Blood glucose 93. Brain CT and cervical spine CT ordered and pending. Blood work shows no acute abnormality. Brain CT shows no acute abnormality, minimal persistent encephalomalacia at the posterior medial parietal lobes. Patient will be admitted for observation for breakthrough sustained seizures. Residents paged for admission. Residents called back and accepted admission. Patient will be admitted to the hospital for observation at this time. Laboratory Tests Test 04/06/17 20:13 White Blood Count 7.5 TH/MM3 Red Blood Count 4.22 MIL/MM3 Hemoglobin 12.3 GM/DL Hematocrit 35.6 % Mean Corpuscular Volume 84.3 FL Mean Corpuscular Hemoglobin 29.2 PG Mean Corpuscular Hemoglobin Concent 34.6 % Red Cell Distribution Width 19.7 % Platelet Count 307 TH/MM3 Mean Platelet Volume 7.8 FL Neutrophils (%) (Auto) 45.0 % Lymphocytes (%) (Auto) 43.7 % Monocytes (%) (Auto) 7.8 % Eosinophils (%) (Auto) 3.0 % Basophils (%) (Auto) 0.5 % Neutrophils # (Auto) 3.4 TH/MM3 Lymphocytes # (Auto) 3.3 TH/MM3 Monocytes # (Auto) 0.6 TH/MM3 Eosinophils # (Auto) 0.2 TH/MM3 Basophils # (Auto) 0.0 TH/MM3 CBC Comment DIFF FINAL Differential Comment Urine Color YELLOW Urine Turbidity CLEAR Urine pH 6.0 Urine Specific [place] 1.009 Urine Protein NEG mg/dL Urine Glucose (UA) NEG mg/dL Urine Ketones NEG mg/dL Urine Occult Blood TRACE Urine Nitrite NEG Urine Bilirubin NEG Urine Urobilinogen LESS THAN 2.0 MG/DL Urine Leukocyte Esterase NEG Urine RBC LESS THAN 1 /hpf Urine WBC LESS THAN 1 /hpf Urine Squamous Epithelial Cells 1 /hpf Urine Mucus FEW /lpf Microscopic Urinalysis Comment CATH-CULT NOT IND Blood Urea Nitrogen 8 MG/DL Creatinine 0.84 MG/DL Random Glucose 92 MG/DL Total Protein 8.2 GM/DL Albumin 3.8 GM/DL Calcium Level 8.7 MG/DL Alkaline Phosphatase 97 U/L Aspartate Amino Transf (AST/SGOT) 22 U/L Alanine Aminotransferase (ALT/SGPT) 29 U/L Total Bilirubin 0.2 MG/DL Sodium Level 141 MEQ/L Potassium Level 3.7 MEQ/L Chloride Level 109 MEQ/L Carbon Dioxide Level 23.8 MEQ/L Anion Gap 8 MEQ/L Estimat Glomerular Filtration Rate 94 ML/MIN Urine Opiates Screen NEG Urine Barbiturates Screen POS Urine Amphetamines Screen NEG Urine Benzodiazepines Screen NEG Urine Cocaine Screen NEG Urine Cannabinoids Screen NEG Last Impressions Head CT 04/06/17 0000 Signed Impressions: Service Date/Time: Thursday, April 06, 2017 20:18 - CONCLUSION: 1. No acute abnormality seen. 2. Minimal persistent encephalomalacia at the posterior medial parietal lobes. Julio Velasco MD Diagnosis Primary Impression: Seizure Admitting Information Admitting Physician Requests: Observation Annika Quintana [facility] Apr 06, 2017 20:14
[2017-04-06 20:23] VITALS: BP 132/72; PULSE 88; RESP 20; TEMP 98.2; O2SAT 98
[2017-04-06 20:54] LABS: AUTOMATED NEUTROPHIL # 3.4 TH/MM3 (1.8-7.7); BASOPHIL % 0.5 % (0.0-2.0); EOSINOPHIL # 0.2 TH/MM3 (0-0.4); HEMATOCRIT 35.6 % (35.0-46.0); HEMO FLAGS DIFF FINAL; LYMPH % 43.7 % (9.0-44.0); LYMPHOCYTE # 3.3 TH/MM3 (1.0-4.8); MEAN CELL VOLUME 84.3 FL (80.0-100.0); MEAN CORPUSCULAR HEMOGLOBIN 29.2 PG (27.0-34.0); MEAN CORPUSCULAR HGB CONC 34.6 % (32.0-36.0); MONO % 7.8 % (0.0-8.0); PLATELET COUNT 307 TH/MM3 (150-450); RED BLOOD COUNT 4.22 MIL/MM3 (4.00-5.30); RED CELL DISTRIBUTION WIDTH 19.7 % (11.6-17.2); WHITE BLOOD COUNT 7.5 TH/MM3 (4.0-11.0)
[2017-04-06 20:57] LABS: BLOOD, URINE TRACE (NEG); COMMENT (UR) CATH-CULT NOT IND; CULTURE IF INDICATED CATH CULTURE NOT IND; GLUCOSE,URINE NEG (NEG); KETONE, URINE NEG (NEG); MUCUS URINE FEW /lpf (OCC); NITRITE,URINE NEG (NEG); SQUAMOUS EPITHELIAL CELL URINE 1 /hpf (0-5); URINE COLOR YELLOW (YELLW/STRAW)
[2017-04-06 21:00] VITALS: BP 129/69; PULSE 90; RESP 20; O2SAT 98
--- NOTE | 2017-04-06 21:15 | RADRPT ---
EXAM DATE/TIME: 04/06/2017 20:18 [facility] COMPARISON: MRI BRAIN W/O CONTRAST, December 12, 2015, 11:35. CT BRAIN W/O CONTRAST, December 12, 2015, 8:33. MRI B RAIN W/O CONTRAST, July 04, 2016, 18:29. MRI BRAIN W/O CONTRAST, December 27, 2016, 18:38. CT BRA IN W/O CONTRAST, December 26, 2016, 19:07. INDICATIONS : Seizure. RADIATION DOSE: 56.35 CTDIvol (mGy) MEDICAL HISTORY : Renal failure, chronic. Hypertension. Diabetes mellitus type 2.CVA, GERD, Thrombocytopenia SURGICAL HISTORY : Cholecystectomy. C-spine surgery ENCOUNTER: Initial ACUITY: 1 day PAIN SCALE: Non-responsive LOCATION: cranial TECHNIQUE: Multiple contiguous axial images were obtained of the head. Using automated exposure control and adj ustment of the mA and/or kV according to patient size, radiation dose was kept as low as reasonably a chievable to obtain optimal diagnostic quality images. DICOM format image data is available electro nically for review and comparison. FINDINGS: CEREBRUM: There is minimal persistent low density in the superior medial parafalcine parietal lobes bilaterally . The ventricles are normal for age. No evidence of midline shift, mass lesion, hemorrhage or acute infarction. No extra-axial fluid collections are seen. POSTERIOR FOSSA: The cerebellum and brainstem are intact. The 4th ventricle is midline. The cerebellopontine angle i s unremarkable. EXTRACRANIAL: The visualized portion of the orbits is intact. SKULL: The calvaria is intact. No evidence of skull fracture. CONCLUSION: 1. No acute abnormality seen. 2. Minimal persistent encephalomalacia at the posterior medial parietal lobes. Julio Velasco MD on April 06, 2017 at 21:10 Board Certified Radiologist. This report was verified electronically.
[2017-04-06 21:18] LABS: ANION GAP 8 MEQ/L (5-15); AST (GOT) 22 U/L (15-37); BICARBONATE 23.8 MEQ/L (21.0-32.0); BLOOD UREA NITROGEN 8 MG/DL (7-18); CHLORIDE 109 MEQ/L (98-107); GLOMERULAR FILTRATION RATE 94 ML/MIN (>89); POTASSIUM 3.7 MEQ/L (3.5-5.1); SODIUM (NA) 141 MEQ/L (136-145)
[2017-04-06 21:22] LABS: ALKALINE PHOSPHATASE 97 U/L (45-117); ALT (GPT) 29 U/L (10-53); TOTAL BILIRUBIN ADULT 0.2 MG/DL (0.2-1.0)
--- NOTE | 2017-04-06 21:48 | RADRPT ---
EXAM DATE/TIME: 04/06/2017 21:19 [facility] COMPARISON: CHEST SINGLE AP, January 09, 2017, 12:14. INDICATIONS : Cough MEDICAL HISTORY : Seizures SURGICAL HISTORY : Fusion, cervical. ENCOUNTER: Initial ACUITY: 1 day PAIN SCORE: Non-responsive. LOCATION: Bilateral chest FINDINGS: A single view of the chest demonstrates the lungs to be symmetrically aerated without evidence of mas s, infiltrate or effusion. The cardiomediastinal contours are unremarkable. There is an anterior cer vical fusion plate present. There is a dextroscoliosis of the thoracic spine. CONCLUSION: No acute disease. Julio Velasco MD on April 06, 2017 at 21:45 Board Certified Radiologist. This report was verified electronically.
[2017-04-06 22:00] VITALS: BP 116/73; PULSE 86; RESP 20; O2SAT 97
[2017-04-06] MEDS ORDERED: LORazepam 2 MG/ML VIAL IV PUSH PRN ×2 (22:45→23:15)
[2017-04-06 23:00] VITALS: BP 107/73; PULSE 90; RESP 20; O2SAT 97
[2017-04-06] MEDS ORDERED: ENOXAPARIN SODIUM 40 MG/0.4 ML SYRINGE SQ SCH (23:15)
[2017-04-06] MEDS ORDERED: SODIUM CHLORIDE 0.9% FLUSH 10 ML FLUSH IV FLUSH PRN (23:15)
[2017-04-06] MEDS ORDERED: LACTULOSE SYRUP 20 GM/30 ML CUP PO PRN (23:15)
[2017-04-06] MEDS ORDERED: SENNOSIDES 8.6 MG TAB PO PRN (23:15)
[2017-04-06] MEDS ORDERED: BISACODYL 10 MG SUPP RECTAL PRN (23:15)
[2017-04-06] MEDS ORDERED: ACETAMINOPHEN 325 MG TAB PO PRN (23:15)
[2017-04-06] MEDS ORDERED: ONDANSETRON HCL 4 MG/2 ML VIAL IVP PRN (23:15)
[2017-04-06] MEDS ORDERED: MAGNESIUM HYDROXIDE SUSP 30 ML CUP PO PRN (23:15)
[2017-04-06] MEDS ORDERED: NALOXONE HCL 0.4 MG/ML AMP IV PUSH PRN (23:15)
--- NOTE | 2017-04-06 23:21 | HHI.HP ---
HPI Service Family Medicine Primary Care Physician Unknown Admission Diagnosis recurrent breakthrough seizures Diagnoses: International Travel<30 Days: No Contact w/Intl Traveler<30days: No Known Affected Area: No History of Present Illness Patient is a 36 y/o F w/hx of hemiparesis 2/2 to CVA x2 who presents w/ seizures. Sister is at bedside. Patient is unable to respond to verbal stimuli. Sister states that patient was at home with other sister and brother. At around 6 pm in the evening, patient was seen to display twitching and clenching of the muscles in her face and foaming at the mouth. Also had jerking of her hand at one point. 1st seizure was 6 min, the next two were a minute longer. After first seizures, patient was able to speak and move. Patient had three seizures that occurred close apart, each lasting longer than 5 minutes. After second seizure, sister states she was not able to speak and had trouble moving. Patient remained like this for half an hour. After arrival in the ED, spoke a few words to her sister, reporting that she believed she had a pneumonia. Patient has had no recent trauma or fall, no recent sick symptoms. At baseline, patient is able to move around and talk. Has been complaining of neck pain. Sees Dr. Ku of neurology, Dr. Brock for physical medicine and rehab, Dr. Garrett at [facility]. Per patient medical record, she was admitted to [facility] on 01/11/16 after being found unresponsive. MRI showed bilateral parietal infarcts right greater than left. Due to left hemiparesis, she received inpatient rehabilitation at [facility] for inpatient rehabilitation. She subsequently underwent C5-C6/C6-C7 ACDF on 01/07/17 after patient complained of neck pain - imaging showed some degree of spinal stenosis from C3 to C4 through C6-7w/ moderate to severe spinal stenosis and probable cord compromise especially at the level of C6-7. Patient continued to follow up with neurosurgery and wearing a cervical collar. Also has been undergoing physical therapy one day/week and following up with neurology. In November of 2016, patient was admitted to [place] for new onset seizure activity. EEG consistent with epileptic activity but all other imaging showed no acute abnormalities. She had two seizure episodes during the hospitalization ; neuro was consulted, and she was d/c'd on Keppra 750 mg BID PO per recommendations. Review of Systems ROS Limitations: Unresponsive Ears, nose, mouth, throat: COMPLAINS OF: Nasal discharge Past Family Social History Past Medical History 12/2015 CVA x2: bilateral parietal infarcts intermittent HTN insomnia Hx of cervical stenosis of spinal canal left drop foot SLAP lesion of left shoulder Past Surgical History C5-6 and C6-7 anterior cervical discectomy and fusion on 01/07/17 Cholecystectomy Fibroid surgery Reported Medications Reported Meds & Active Scripts Active Neurontin (Gabapentin) 400 Mg Cap 400 Mg PO TID Baclofen 10 Mg Tab 10 Mg PO Q8HR Cymbalta DR (Duloxetine HCl) 30 Mg Capdr 30 Mg PO DAILY Reported Hydromorphone (Hydromorphone HCl) 4 Mg Tab 4 Mg PO Q4-6H PRN Protonix (Pantoprazole Sodium) 40 Mg Tab 40 Mg PO DAILY Fioricet (Tlelblrgke-Jiwvxvgifcwss-Cztdpuqb) 50-300-40 Mg Cap 1 Cap PO Q4H PRN Aptiom (Eslicarbazepine) 400 Mg Tab 1 Tab PO DAILY Triamterene-Hydrochlorothiazide 37.5-25 Mg Cap 1 Tab PO DAILY Temazepam 30 Mg Cap 1 Tab PO HS Seroquel 50 mg daily Allergies: Coded Allergies: Sulfa (Sulfonamide Antibiotics) (Verified Allergy, Unknown, 04/06/17) penicillin G (Unverified Allergy, Unknown, hives, 04/06/17) Family History Mom: asthma, DM Dad:breast, ovarian, and stomach cancer Social History Lives w/brother and sister 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 Eyes are half open, she is laying flat and motionless in bed. Her left hand is bent and rigid >right. Not responsive to sternal rub. I am able to elicit responses based on hand squeeze. During physical assessment, patient begins showing rhythmic jerking of her right hand which progresses to her arm. Ativan 2 mg is given after this episode lasts longer than 1 min. Symptoms then resolve, patient appears for alert after 5 min. NEUROLOGICAL: Reflexes are 3+ (hyperreflexive) bilaterally at patellar and bicipital tendon, patient is respond to verbal instruction and appears to fall asleep during exam. Posturing not observed. Right hand 3/5 strength, left hand 2 /5. SKIN: Cool and dry. HEAD: Atraumatic. Normocephalic. EYES: Pupils 5 mm dilated. Are equal round and briskly reactive. Not able to elicit extraocular motion. Both eyes are midline. No scleral icterus. No injection or drainage. ENT: Patient is able to slowly open mouth for exam. Throat without erythema or lesions. Mucous membranes appear dry. NECK: Wearing Mcpherson J cervical collar. CARDIOVASCULAR: Regular rate and rhythm. RESPIRATORY: Clear to auscultation. GASTROINTESTINAL: Abdomen soft but tender to the upper quadrants - elicits moan and patient signals pain. + guarding to palpation. No palpable masses. MUSCULOSKELETAL: Extremities without clubbing, cyanosis, or edema. Laboratory Laboratory Tests Test 04/06/17 20:13 White Blood Count 7.5 Red Blood Count 4.22 Hemoglobin 12.3 Hematocrit 35.6 Mean Corpuscular Volume 84.3 Mean Corpuscular Hemoglobin 29.2 Mean Corpuscular Hemoglobin Concent 34.6 Red Cell Distribution Width 19.7 Platelet Count 307 Mean Platelet Volume 7.8 Neutrophils (%) (Auto) 45.0 Lymphocytes (%) (Auto) 43.7 Monocytes (%) (Auto) 7.8 Eosinophils (%) (Auto) 3.0 Basophils (%) (Auto) 0.5 Neutrophils # (Auto) 3.4 Lymphocytes # (Auto) 3.3 Monocytes # (Auto) 0.6 Eosinophils # (Auto) 0.2 Basophils # (Auto) 0.0 CBC Comment DIFF FINAL Differential Comment Urine Color YELLOW Urine Turbidity CLEAR Urine pH 6.0 Urine Specific [place] 1.009 Urine Protein NEG Urine Glucose (UA) NEG Urine Ketones NEG Urine Occult Blood TRACE Urine Nitrite NEG Urine Bilirubin NEG Urine Urobilinogen LESS THAN 2.0 Urine Leukocyte Esterase NEG Urine RBC LESS THAN 1 Urine WBC LESS THAN 1 Urine Squamous Epithelial Cells 1 Urine Mucus FEW Microscopic Urinalysis Comment CATH-CULT NOT IND Blood Urea Nitrogen 8 Creatinine 0.84 Random Glucose 92 Total Protein 8.2 Albumin 3.8 Calcium Level 8.7 Alkaline Phosphatase 97 Aspartate Amino Transf (AST/SGOT) 22 Alanine Aminotransferase (ALT/SGPT) 29 Total Bilirubin 0.2 Sodium Level 141 Potassium Level 3.7 Chloride Level 109 Carbon Dioxide Level 23.8 Anion Gap 8 Estimat Glomerular Filtration Rate 94 Urine Opiates Screen NEG Urine Barbiturates Screen POS Urine Amphetamines Screen NEG Urine Benzodiazepines Screen NEG Urine Cocaine Screen NEG Urine Cannabinoids Screen NEG Result Diagram: 04/06/17201204/06/172012 Imaging Last Impressions Head CT 04/06/17 0000 Signed Impressions: Service Date/Time: Thursday, April 06, 2017 20:18 - CONCLUSION: 1. No acute abnormality seen. 2. Minimal persistent encephalomalacia at the posterior medial parietal lobes. Julio Velasco MD Chest X-Ray 04/06/17 0000 Signed Impressions: Service Date/Time: Thursday, April 06, 2017 21:19 - CONCLUSION: No acute disease. Julio Velasco MD Course ECG ordered: shows sinus rhythm UA, CT brain, CMP, ECG, UDS, CBC, CT cerv, Chest XR Caprini VTE Risk Assessment Caprini VTE Risk Assessment: No/Low Risk (score <= 1) Assessment and Plan Assessment and Plan Patient is a 36 y/o F presenting with status epilepticus. Admit to inpatient for treatment and work-up. Code Status FULL Discussed Condition With Dr. Zelaya Problem List: (1) Status epilepticus ICD Codes: G40.901 - Epilepsy, unspecified, not intractable, with status epilepticus Plan: Seizures lasting longer than 5 min, and no interictal return to baseline consciousness Possibly complex partial seizures based on history Patient began seizing during exam, before appeared to be in postictal state 1st seizure occurred in November of this year, was placed on antiseizure medication Keppra Appears to be taking eslicarbazepine 400 mg daily since January CT head and CMP negative for acute abnormalities Diff: post-stroke v medication change v drug/medication intoxication v hypo Mg or Ca v brain cancer v MENT[employer] HE[employer] SPECIALIST infection v idiopathic - Neurology consulted - EEG, Brain MRI - UDS and alcohol level - Ca, Mg level - Based on evaluation of patient in AM, consider LP - Ativan 2 mg IV PRN for seizure activity - Keppra 500 mg Q12H scheduled - PT, OT, speech eval tomorrow AM (2) History of CVA (cerebrovascular accident) ICD Codes: Z86.73 - Personal history of transient ischemic attack (TIA), and cerebral infarction without residual deficits Status: Acute Plan: See above - Con't ASA 325 mg daily (3) Left hemiparesis ICD Codes: G81.94 - Hemiplegia, unspecified affecting left nondominant side Status: Chronic Plan: Hx of left hemiparesis from last CVA episodes in 11/2015 - See above plan (4) Depression ICD Codes: F32.9 - Major depressive disorder, single episode, unspecified Status: Chronic Plan: Holding PO Celexa for now until patient is able to take PO (5) FEN Plan: Fluids: NS @ 115 mls/hr Electrolytes: Not indicated Nutrition: NPO GI prophy: Protonix IV 40 mg daily DVT Prophy: Not indicated Physician Certification 2 Midnight Certification Type: Admission for Inpatient Services Order for Inpatient Services The services are ordered in accordance with Medicare regulations or non- Medicare payer requirements, as applicable. In the case of services not specified as inpatient-only, they are appropriately provided as inpatient services in accordance with the 2-midnight benchmark. Estimated LOS (days): 3 3 days is the estimated time the patient will need to remain in the hospital, assuming treatment plan goals are met and no additional complications. Post-Hospital Plan: Not yet determined Rosalinda Wray MD R1 Apr 06, 2017 23:21
[2017-04-07] VITALS (28 sets, daily range): BP systolic 109–140; BP diastolic 58–91; PULSE 67–91; RESP 15–46; TEMP 97.7–98.7; O2SAT 93–100
[2017-04-07] MEDS: PANTOPRAZOLE SODIUM 40 MG VIAL IV PUSH SCH ×2 (00:12→22:42)
[2017-04-07] MEDS: SODIUM CHLOR 0.9% 1000 ML INJ 1,000 ML IV SCH ×4 (00:13→20:02)
[2017-04-07] MEDS ORDERED: GADODIAMIDE PF 287 MG/ML 20 ML VIAL (for RAD MRI) IV PUSH ONE (00:51)
--- NOTE | 2017-04-07 02:08 | RADRPT ---
EXAM DATE/TIME: 04/07/2017 01:04 [facility] COMPARISON: CT CERVICAL SPINE W/O CONTRAST, January 03, 2017, 18:26. INDICATIONS : Seizures with fall. Recent cervical fusion. RADIATION DOSE: 29.14 CTDIvol (mGy) MEDICAL HISTORY : Hypertension. Seizures. Asthma SURGICAL HISTORY : Cholecystectomy. Fusion, cervical. ENCOUNTER: Initial ACUITY: 1 day PAIN SCALE: Non-responsive LOCATION: neck TECHNIQUE: Volumetric scanning of the cervical spine was performed. Multiplanar reconstructions in the sagittal, coronal and oblique axial planes were performed. Using automated exposure control and adjustment o f the mA and/or kV according to patient size, radiation dose was kept as low as reasonably achievable to obtain optimal diagnostic quality images. DICOM format image data is available electronically f or review and comparison. FINDINGS: Alignment of the cervical spine is similar to preoperative CT cervical spine with reversal of the upp er cervical lordosis. Anterior cervical plate is present at C5-6-7. The hardware is intact. Inters pace fusion with orthotopic position to the plugs. No evidence of compression deformity or spondylol isthesis. The posterior elements are in normal alignment. The atlantoaxial articulation is intact. C2-C3: No fracture seen. The bony neural foramina are patent. C3-C4: No fracture seen. The bony neural foramina are patent. C4-C5: No fracture seen. The bony neural foramina are patent. C5-C6: No fracture seen. The bony neural foramina are patent. C6-C7: No fracture seen. The bony neural foramina are patent. C7-T1: No fracture seen. The bony neural foramina are patent. CONCLUSION: ACF C5-7. Stable alignment of the cervical vertebral bodies. No fractures seen. Truman Felder MD on April 07, 2017 at 2:04 Board Certified Radiologist. This report was verified electronically.
--- NOTE | 2017-04-07 02:19 | RADRPT ---
EXAM DATE/TIME: 04/07/2017 00:40 [facility] COMPARISON: CT BRAIN W/O CONTRAST, April 06, 2017, 20:18. INDICATIONS : Seizures. CONTRAST: 20 cc Omniscan (gadodiamide) IV MEDICAL HISTORY : Seizures. Stroke Renal insufficiency. SURGICAL HISTORY : Fusion, cervical. Cholecystectomy. Ovarian cyst removed. ENCOUNTER: Subsequent ACUITY: 1 day PAIN SCORE: Nonresponsive. LOCATION: cranial TECHNIQUE: Multiplanar, multisequence MRI of the brain was performed both prior to and following the administrat ion of paramagnetic contrast. Motion suppression rapid sequence acquisition protocol was used. FINDINGS: CEREBRUM: The ventricles are normal for age. No evidence of midline shift, mass lesion, hemorrhage or acute in farction. No extraaxial fluid collections are seen. The pituitary gland and suprasellar cistern are normal in configuration. Small bilateral lacunes in the anterior thalamus. WHITE MATTER: No significant signal abnormalities are seen in the white matter. POSTERIOR FOSSA: The cerebellum and brainstem are intact. The 4th ventricle is midline. The cerebellopontine angle is unremarkable. The cerebellar tonsils are normal in position. DIFFUSION IMAGING: No focal areas of restricted diffusion are seen. No evidence of acute infarction. EXTRACRANIAL: The visualized portions of the orbits and paranasal sinuses are unremarkable. POST-CONTRAST: No abnormal areas of parenchymal or dural enhancement. No evidence of blood-brain barrier breakdown. CONCLUSION: 1. Bilateral anterior thalamic lacunar CSF spaces.. 2. No acute findings in the brain. 3. No abnormal areas of enhancement seen. Truman Felder MD on April 07, 2017 at 2:14 Board Certified Radiologist. This report was verified electronically.
[2017-04-07] MEDS: SODIUM CHLORIDE 0.9% FLUSH 10 ML FLUSH IV FLUSH SCH ×2 (08:47→20:01)
[2017-04-07] MEDS: ASPIRIN 325 MG TAB PO SCH (08:47)
[2017-04-07] MEDS ORDERED: levETIRAcetam INJ 500 MG in SODIUM CHLORIDE 0.9% INJ 100 ML IV SCH (09:00)
--- NOTE | 2017-04-07 11:33 | HHI.FPPN ---
Subjective Remarks Pt. seen, examined and discussed with the medicine team. This is a 36 yo AA female with hx of stroke with hemiparesis status post rehab in who had her first seizure in November 2016, at which time she had a + EEG. She had cervical spine fusion and discectomy in December [address] Garrett. On the day of admission she had 3 seizures at home lasting 6, 7 and 7 minutes respectively and subsequently was postictal for >30 minutes. She did lose a small amount of urine, no incontinence of stool, was grinding her teeth. Has been acknowledging pain in her neck and abdomen. Please see H&P for this admission for additional historical details. This a.m., the sister with whom she lives is present, and reports that while she is responding nonverbally to queries, she is not speaking and follows commands poorly. Sister reports that she is taking Keppra although her pill bottle was not among those brought with her to the hospital. Apparently patient saw the neurologist last week and a new medication was prescribed although this has not yet been picked up at the pharmacy. Sister reports that she will get that information to us. Per her nurse, she has been stable overnight, with no further seizure activity. Objective Vitals Vital Signs Date Time Temp Pulse Resp B/P (MAP) Pulse Ox O2 Delivery O2 Flow Rate FiO2 04/07/17 06:00 81 04/07/17 04:00 84 04/07/17 04:00 97.7 84 32 113/68 (83) 99 04/07/17 02:18 04/07/17 02:17 98.5 91 20 121/75 (90) 100 04/07/17 02:05 90 04/07/17 02:00 88 20 122/68 (86) 99 Nasal Cannula 2.00 04/07/17 01:00 86 20 120/62 (81) 99 Nasal Cannula 2.00 04/07/17 00:00 100 Nasal Cannula 3.00 04/07/17 00:00 82 20 116/58 (77) 99 Nasal Cannula 2.00 04/06/17 23:00 90 20 107/73 (84) 97 Nasal Cannula 2.00 04/06/17 22:00 86 20 116/73 (87) 97 Nasal Cannula 2.00 04/06/17 21:00 90 20 129/69 (89) 98 Nasal Cannula 2.00 04/06/17 20:23 98.2 88 20 132/72 (92) 98 Nasal Cannula 2.00 04/06/17 20:13 98.2 87 20 124/75 (91) 98 04/06/17 20:12 98.2 86 20 144/92 (109) 98 Nasal Cannula 2.00 I/O 04/06/17 04/06/17 04/06/17 04/07/17 04/07/17 04/07/17 06:59 14:59 22:59 06:59 14:59 22:59 Intake Total 0 ml Output Total 0 ml Balance 0 ml Intake Oral 0 ml Output Urine Total 0 ml # Bowel Movements 0 Result Diagram: 04/06/17201204/06/172012 Other Results Laboratory Tests Test 04/06/17 20:13 04/07/17 02:15 White Blood Count 7.5 TH/MM3 Red Blood Count 4.22 MIL/MM3 Hemoglobin 12.3 GM/DL Hematocrit 35.6 % Mean Corpuscular Volume 84.3 FL Mean Corpuscular Hemoglobin 29.2 PG Mean Corpuscular Hemoglobin Concent 34.6 % Red Cell Distribution Width 19.7 % Platelet Count 307 TH/MM3 Mean Platelet Volume 7.8 FL Neutrophils (%) (Auto) 45.0 % Lymphocytes (%) (Auto) 43.7 % Monocytes (%) (Auto) 7.8 % Eosinophils (%) (Auto) 3.0 % Basophils (%) (Auto) 0.5 % Neutrophils # (Auto) 3.4 TH/MM3 Lymphocytes # (Auto) 3.3 TH/MM3 Monocytes # (Auto) 0.6 TH/MM3 Eosinophils # (Auto) 0.2 TH/MM3 Basophils # (Auto) 0.0 TH/MM3 CBC Comment DIFF FINAL Differential Comment Urine Color YELLOW Urine Turbidity CLEAR Urine pH 6.0 Urine Specific [place] 1.009 Urine Protein NEG mg/dL Urine Glucose (UA) NEG mg/dL Urine Ketones NEG mg/dL Urine Occult Blood TRACE Urine Nitrite NEG Urine Bilirubin NEG Urine Urobilinogen LESS THAN 2.0 MG/DL Urine Leukocyte Esterase NEG Urine RBC LESS THAN 1 /hpf Urine WBC LESS THAN 1 /hpf Urine Squamous Epithelial Cells 1 /hpf Urine Mucus FEW /lpf Microscopic Urinalysis Comment CATH-CULT NOT IND Blood Urea Nitrogen 8 MG/DL Creatinine 0.84 MG/DL Random Glucose 92 MG/DL Total Protein 8.2 GM/DL Albumin 3.8 GM/DL Calcium Level 8.7 MG/DL Alkaline Phosphatase 97 U/L Aspartate Amino Transf (AST/SGOT) 22 U/L Alanine Aminotransferase (ALT/SGPT) 29 U/L Total Bilirubin 0.2 MG/DL Sodium Level 141 MEQ/L Potassium Level 3.7 MEQ/L Chloride Level 109 MEQ/L Carbon Dioxide Level 23.8 MEQ/L Anion Gap 8 MEQ/L Estimat Glomerular Filtration Rate 94 ML/MIN Urine Opiates Screen NEG Urine Barbiturates Screen POS Urine Amphetamines Screen NEG Urine Benzodiazepines Screen NEG Urine Cocaine Screen NEG Urine Cannabinoids Screen NEG Nasal Screen MRSA (PCR) MRSA NOT DETECTED Imaging Last Impressions Brain MRI 04/07/17 0000 Signed Impressions: Service Date/Time: Friday, April 07, 2017 00:40 - CONCLUSION: 1. Bilateral anterior thalamic lacunar CSF spaces.. 2. No acute findings in the brain. 3. No abnormal areas of enhancement seen. Truman Felder MD Cervical Spine CT 04/06/172141 Signed Impressions: Service Date/Time: Friday, April 07, 2017 01:04 - CONCLUSION: ACF C5-7. Stable alignment of the cervical vertebral bodies. No fractures seen. Truman Felder MD Head CT 04/06/17 0000 Signed Impressions: Service Date/Time: Thursday, April 06, 2017 20:18 - CONCLUSION: 1. No acute abnormality seen. 2. Minimal persistent encephalomalacia at the posterior medial parietal lobes. Julio Velasco MD Chest X-Ray 04/06/17 0000 Signed Impressions: Service Date/Time: Thursday, April 06, 2017 21:19 - CONCLUSION: No acute disease. Julio Velasco MD Objective Remarks GENERAL: Minimally responsive, flutters eyelids when requested to open her eyes. SKIN: No rashes, ecchymoses or lesions. Cool and dry. HEAD: NC/AT EYES: No conjunctival injection or drainage. ENT: Did not open patient's mouth NECK: Firm cervical collar in place CARDIOVASCULAR: NRRR. Normal S1/S2. No MRG RESPIRATORY: CTAB. No crackles or wheezes. GASTROINTESTINAL: Abdomen soft, non-distended, unable to tell if she is tender to palpation. MUSCULOSKELETAL: Extremities without clubbing, cyanosis, or edema. NEUROLOGICAL: Appears to be sleeping, does flutter eyelids when requested to open her eyes. No other verbal response. A/P Assessment and Plan Patient is a 36 y/o F presenting with recurrent seizures. She was admitted to be evaluated by neurology. Discharge Planning Case management Attending Attestation Patient seen and examined. Case reviewed and discussed with the resident team. Agree with plan of care as discussed with me and documented in the resident note. Problem List: (1) Status epilepticus ICD Codes: G40.901 - Epilepsy, unspecified, not intractable, with status epilepticus Status: Acute Plan: Seizures lasting longer than 5 min, and no interictal return to baseline consciousness Possibly complex partial seizures based on history Patient began seizing during exam, before appeared to be in postictal state 1st seizure occurred in November of this year, was placed on antiseizure medication Keppra Appears to be taking eslicarbazepine 400 mg daily since January CT head and CMP negative for acute abnormalities Diff: post-stroke v medication change v drug/medication intoxication v hypo Mg or Ca v brain cancer v [employer]OD[employer]ER infection v idiopathic - Neurology consulted - EEG, Brain MRI - UDS and alcohol level - Ca, Mg level - Based on evaluation of patient in AM, consider LP - Ativan 2 mg IV PRN for seizure activity - Keppra 500 mg Q12H scheduled - PT, OT, speech eval tomorrow AM (2) History of CVA (cerebrovascular accident) ICD Codes: Z86.73 - Personal history of transient ischemic attack (TIA), and cerebral infarction without residual deficits Status: Chronic Plan: See above - Con't ASA 325 mg daily (3) Left hemiparesis ICD Codes: G81.94 - Hemiplegia, unspecified affecting left nondominant side Status: Chronic Plan: Hx of left hemiparesis from last CVA episodes in 11/2015 - See above plan (4) Depression ICD Codes: F32.9 - Major depressive disorder, single episode, unspecified Status: Chronic Plan: Patient on duloxetine at home. (5) FEN Plan: Fluids: NS @ 115 mls/hr Electrolytes: Not indicated Nutrition: NPO GI prophy: Protonix IV 40 mg daily DVT Prophy: Not indicated Monique Arriaga MD Apr 07, 2017 11:33
[2017-04-07 11:59] LABS: BASOPHIL % 0.4 % (0.0-2.0); EOSINOPHIL # 0.2 TH/MM3 (0-0.4); EOSINOPHIL % 3.2 % (0.0-4.0); HEMATOCRIT 34.4 % (35.0-46.0); HEMO FLAGS DIFF FINAL; LYMPH % 43.5 % (9.0-44.0); LYMPHOCYTE # 2.8 TH/MM3 (1.0-4.8); MEAN CORPUSCULAR HEMOGLOBIN 28.3 PG (27.0-34.0); MEAN CORPUSCULAR HGB CONC 33.3 % (32.0-36.0); MONO % 7.2 % (0.0-8.0); NEUT % 45.7 % (16.0-70.0); PLATELET COUNT 281 TH/MM3 (150-450); RED BLOOD COUNT 4.04 MIL/MM3 (4.00-5.30); RED CELL DISTRIBUTION WIDTH 19.1 % (11.6-17.2); WHITE BLOOD COUNT 6.5 TH/MM3 (4.0-11.0)
[2017-04-07 12:31] LABS: ALCOHOL LESS THAN 3 MG/DL (0-5); ALT (GPT) 29 U/L (10-53); ANION GAP 6 MEQ/L (5-15); AST (GOT) 21 U/L (15-37); BICARBONATE 27.3 MEQ/L (21.0-32.0); BLOOD UREA NITROGEN 8 MG/DL (7-18); CHLORIDE 109 MEQ/L (98-107); GLOMERULAR FILTRATION RATE 109 ML/MIN (>89); MAGNESIUM 2.1 MG/DL (1.5-2.5); POTASSIUM 3.9 MEQ/L (3.5-5.1); SODIUM (NA) 142 MEQ/L (136-145)
[2017-04-07 12:33] LABS: ALKALINE PHOSPHATASE 81 U/L (45-117); TOTAL BILIRUBIN ADULT 0.4 MG/DL (0.2-1.0)
--- NOTE | 2017-04-07 13:25 | MG ---
cc: OLESYA FARMER M.D. Lab No: 17- Date: 04/07/2017 Age: 36 Sex: F Race: ___ INDICATIONS An EEG was obtained on this 36-year-old patient being evaluated for encephalopathy and possible seizures. MEDICATIONS Include: 1. Keppra 2. Protonix DESCRIPTION The patient is awake and asleep. This EEG shows 9-11 per second alpha rhythms bilaterally posteriorly. The background is reactive. There are beta rhythms bilaterally. Some mild intermixed theta activity is seen also bilaterally. The patient drowses and there is also some probable sleep stage II. There are some vertex sharp waves, sleepy spindles and K complexes. Photic stimulation showed no significant change. Hyperventilation was not performed. INTERPRETATION Very mildly abnormal EEG because of some intermixed theta rhythms with the awake background suggesting a mild diffuse disturbance of cerebral function. No epileptiform features present. MD MONI Urbano/ANGEL /1:05 PM /1:17 PM
[2017-04-07] MEDS ORDERED: LORazepam 2 MG/ML VIAL IV PUSH PRN (16:15)
--- NOTE | 2017-04-07 16:35 | MB ---
cc: CHARLEEN MCCLAIN M.D. DATE OF CONSULTATION 04/07/2017 REASON FOR CONSULTATION Seizure. HISTORY OF PRESENT ILLNESS This is a 36-year-old female who has a history of strokes in the past times two causing a left hemiparesis. She had a history of seizure disorder as well for which she was started on Keppra 750 milligrams twice a day last November. She continues to take the Keppra 750 mg b.i.d. She is admitted to the hospital now with recurrent "seizure" activity where she developed generalized jerking activity in both upper and lower extremities yesterday. Her family states that she never completely lost consciousness, was able to continue to cry during the episodes. PERSONAL HISTORY 1. History of cervical stenosis. 2. Cervical diskectomy and fusion at C5-6, C6-7 level. 3. Cholecystectomy. 4. History of previous stroke with residual left-sided weakness. MEDICATIONS At home are: 1. Keppra 750 milligrams b.i.d. 2. Neurontin 400 milligrams three times a day. 3. Baclofen 10 mg q.8h. 4. Cymbalta 30 mg daily. 5. Hydromorphone for pain. 6. Protonix. 7. Versed. 8. 9. Temazepam. 10. Triamterene. 11. Seroquel 50 milligrams once a day. ALLERGIES TO SULFA AND PENICILLIN. NEUROLOGIC EXAMINATION VITAL SIGNS: Blood pressure is 115/83, pulse is 80, respiratory rate is 19, temperature 97.7 degrees. Higher cortical functions, she is lethargic but arousable. Follows commands. Cranial nerves intact. Motor exam she is weak in the left side at 4/5 for the left arm and left leg with a normal strength in the right. Reflexes are symmetric. IMAGING MRI of the brain, no focal restriction diffusions identified. Small bilateral lacunar strokes identified in the anterior thalamic nuclei bilaterally which appear to be old. No other changes seen. CT of the brain no acute change. EEG no seizure activity. There is diffuse slowing. CT cervical spine shows anterior cervical fusion C5-C7 with alignment of the cervical and vertebral bodies. No fracture identified. LABORATORY DATA White count 6500, hemoglobin 11.4, hematocrit 34%, platelet count 281,000. Sodium is 142, potassium 3.9, chloride 109, CO2 27.3. Glucose is 81, AST 21, ALT is 29. Tox screen positive barbiturate. IMPRESSION 1. History of stroke. Apparently on the MRI there does appear to be bilateral thalamic strokes. 2. Seizure episode was possible recurrent seizure. However she did not completely lose consciousness in spite of bilateral jerking activity, was crying during the episode which raises the possibility of pseudoseizure. RECOMMENDATIONS increasing Keppra to [address] the patient under seizure precautions. If she continues having seizure episodes may need to consider EEG, telemetry monitoring to rule out pseudoseizure. MD MARGE López/REYMUNDO /3:55 PM /4:06 PM
[2017-04-07] MEDS ORDERED: KETOROLAC TROMETHAMINE 30 MG/ML (IVP) VIAL IV PUSH ONE ×2 (17:45→22:10)
--- NOTE | 2017-04-07 19:03 | EKG ---
Date Performed: 04/06/2017 Time Performed: 20:07:42 PTAGE: 36 years EKG: Sinus rhythm NORMAL ECG PREVIOUS TRACING : 12/27/2016 16.29 Compared to prior tracing no significant change DOCTOR: Ric Ojeda Interpretating Date/Time 04/07/2017 19:01:55
--- NOTE | 2017-04-07 19:28 | HHI.FPPN ---
Addendum to progress note ADDENDUM Reason for addendum: Additonal documentation Additional information S: Paged at 1728hrs by nursing for pt complaints of pain and headache and concerns of pt's sister that her sister was not back at baseline. Fabiano Beckman and Vic responded to bedside to assess pt. Pt minimally responsive, but able to voice "umm-hmm", can squeeze hand and give thumb's up and stick out tongue on command. Upon exiting the room we spoke with pt's sister who told us the pt was uncommunicative when transported to the hospital due to the initial seizure; however, was alert and oriented at 3AM this morning and was able to speak in full sentences, and is now not at that same baseline. The nurse, however, told us the pt's baseline all day has been as we saw her upon entering the room--cannot voice words, but can respond to simple commands. Based on chart review of day team and neurology consult, picture is consistent with their examination findings. Additionally, at 1900hours, nursing paged us for pt chest pain; however, when prompted by the nurse, pt also indicated pain in shoulder and other parts of the body indiscriminately. O: Vital Signs while in room at 1800 hrs: HR 66/BP135/80/100% 2LNC Date Time Temp Pulse Resp B/P (MAP) Pulse Ox O2 Delivery O2 Flow Rate FiO2 04/07/17 18:00 79 04/07/17 18:00 22 140/91 (107) 100 04/07/17 16:00 98.4 04/07/17 12:51 Nasal Cannula 2.00 GENERAL: Well-nourished, well-developed patient lying in bed with neck brace on , intermittently can open eyes fci. SKIN: Warm and dry. No lesions. HEAD: Normocephalic. Atraumatic. EYES: No scleral icterus. No injection or drainage. NECK: Could not assess with neck brace. CARDIOVASCULAR: Regular rate and rhythm without murmur, gallop, or rub. RESPIRATORY: Breath sounds equal bilaterally. No accessory muscle use. EXTREMITIES: No cyanosis, or edema. NEUROLOGICAL: Intermittently awake, can follow simple commands. Pt left hand and lower lip began shaking at end of interview for several minutes and stopped spontaneously. A/P: 36YO female with seizure DO and old thalamic infarcts bilaterally on MRI brain but no acute pathology and possible seizure activity. Our examination reveals no acute change in pt status since this morning. Pt's sister's concerns likely related to her seizures; however, due to shaking noted in left hand and lower lip, will repeat EEG PLAN: -Repeat EEG -Reviewed neurology note/Dr Kemp--following recs -Discussed pt's baseline with sister and day team Pt seen with Dr Beckman and discussed with Manny Ann MD R1 Apr 07, 2017 19:28
[2017-04-07] MEDS: levETIRAcetam INJ 500 MG in SODIUM CHLORIDE 0.9% INJ 100 ML IV SCH ×2 (20:01→23:38)
[2017-04-07] MEDS ORDERED: ACETAMINOPHEN 1000 MG/100 ML 65 ML IV PRN (22:30)
[2017-04-08] VITALS (13 sets, daily range): BP systolic 109–139; BP diastolic 55–91; PULSE 61–88; RESP 16–36; TEMP 98.1–98.5; O2SAT 94–100
[2017-04-08] MEDS: levETIRAcetam INJ 500 MG in SODIUM CHLORIDE 0.9% INJ 100 ML IV SCH ×6 (04:20→23:25)
[2017-04-08] MEDS ORDERED: KETOROLAC TROMETHAMINE 30 MG/ML (IVP) VIAL IV PUSH PRN (05:00)
[2017-04-08] MEDS: ASPIRIN 325 MG TAB PO SCH (08:57)
[2017-04-08] MEDS: SODIUM CHLORIDE 0.9% FLUSH 10 ML FLUSH IV FLUSH SCH ×2 (08:57→20:36)
[2017-04-08] MEDS: SODIUM CHLOR 0.9% 1000 ML INJ 1,000 ML IV SCH (09:03)
[2017-04-08] MEDS: DEXT 5%-NACL 0.9% 1000 ML INJ 1,000 ML IV SCH ×2 (10:55→19:42)
--- NOTE | 2017-04-08 11:42 | HHI.FPPN ---
Subjective Remarks Resident team paged and evaluated patient yesterday evening regarding patient having pain and headache. Patient was given Toradol for breakthrough pain and repeat EEG was ordered due to concern for continued seizure-like activity. Afebrile, vitals stable. Patient seen and examined this AM. Patient is awake, able to mumble this morning and speak in full sentences. Answering questions appropriately and following commands. She denies abdominal pain. Endorses having a moderate-severity headache. Sister is concerned that patient is having headache and is still not back to baseline. Patient to undergo repeat EEG this morning, milking machine technician setting this up. (Austen Zelaya MD R2) Objective Vitals Vital Signs Date Time Temp Pulse Resp B/P (MAP) Pulse Ox O2 Delivery O2 Flow Rate FiO2 04/08/17 10:00 61 04/08/17 08:00 98.5 76 21 135/87 (103) 99 04/08/17 08:00 76 04/08/17 08:00 99 Nasal Cannula 2.00 04/08/17 07:29 99 Nasal Cannula 1.00 04/08/17 06:00 84 04/08/17 04:00 70 04/08/17 04:00 98.3 70 16 125/68 (87) 98 04/08/17 02:00 77 04/08/17 00:00 98.5 68 18 125/82 (96) 100 04/08/17 00:00 68 04/07/17 22:00 80 04/07/17 20:00 98 Nasal Cannula 2.00 04/07/17 20:00 76 04/07/17 20:00 98.7 76 18 130/82 (98) 98 04/07/17 18:00 79 04/07/17 18:00 79 22 140/91 (107) 100 04/07/17 17:30 69 17 135/80 (98) 93 04/07/17 17:00 70 15 138/88 (105) 100 04/07/17 16:30 68 17 116/73 (87) 100 04/07/17 16:00 98.4 81 46 109/81 (90) 100 04/07/17 16:00 81 04/07/17 15:31 67 04/07/17 15:00 71 04/07/17 14:30 78 04/07/17 14:00 78 04/07/17 12:51 99 Nasal Cannula 2.00 04/07/17 12:00 80 19 115/83 (94) 100 04/07/17 12:00 80 I/O 04/07/17 04/07/17 04/07/17 04/08/17 04/08/17 04/08/17 07:00 15:00 23:00 07:00 15:00 23:00 Intake Total 0 ml 1100 ml 1105 ml 305 ml Output Total 0 ml Balance 0 ml 1100 ml 1105 ml 305 ml Intake Oral 0 ml 0 ml 0 ml IV Total 1100 ml 1105 ml 305 ml Output Urine Total 0 ml # Voids 4 3 # Bowel Movements 0 0 0 (Austen Zelaya MD R2) Result Diagram: 04/07/17 1101 04/07/17 1101 Objective Remarks GENERAL: Awake, mumbling speech but coherent and in full sentences, following commands SKIN: No rashes, ecchymoses or lesions. Cool and dry. HEAD: NC/AT EYES: PERRL. No conjunctival injection or drainage. ENT: MMM. No evidence of tongue biting. NECK: Firm cervical collar in place CARDIOVASCULAR: NRRR. Normal S1/S2. No MRG RESPIRATORY: CTAB. No crackles or wheezes. GASTROINTESTINAL: Abdomen soft, protuberant, appearing nontender to palpation. MUSCULOSKELETAL: Extremities without clubbing, cyanosis, or edema. NEUROLOGICAL: Awake. Unable to assess for orientation. Speech is soft, mumbling , coherent. Following basic one-step commands. (Austen Zelaya MD R2) A/P Assessment and Plan 36 year old woman admitted with seizure-like activity concerning for recurrent seizures vs pseudoseizures. Discharge Planning Unclear timetable at this time Neurology following Awaiting further workup including repeat EEG Patient may need PT at rehab once stable for discharge (Austen Zelaya MD R2) Discharge Planning 04-08-17 4 p.m. Anticipate discharge 04-09-17. Attending Attestation When evaluated my be this afternoon, pt. awake, alert, speaking clearly and wanting to have food and to go home. Anticipate discharge tomorrow. Patient seen and examined. Case reviewed and discussed with the resident team. Agree with plan of care as discussed with me and documented in the resident note. (Monique Arriaga MD) Problem List: (1) Seizure ICD Codes: R56.9 - Unspecified convulsions Status: Acute Plan: Seizures lasting longer than 5 min, and no interictal return to baseline consciousness Possibly complex partial seizures based on history, vs. pseudoseizures 1st seizure occurred in November of this year, was placed on antiseizure medication Keppra Head CT showing no acute abnormalities, minimal persistent encephalomalacia at the posterior medial parietal lobes Brain MRI 04/07 with bilateral anterior thalamic lacunar CSF spaces, no acute findings or abnormal areas of enhancement Electrolytes WNL Neurology consulted, appreciate recommendations of Dr. Kemp Initial EEG read as very mildly abnormal EEG due to intermixed theta rhythms with the awake background, no epileptiform features were present Awaiting repeat EEG Consider EEG, telemetry monitoring to rule out pseudoseizures Continue IV Keppra Keep patient NPO until mental status improves and patient is able to take PO Add D5 to NS at 115 cc/hr Ativan 2 mg IV prn seizures (2) History of CVA (cerebrovascular accident) ICD Codes: Z86.73 - Personal history of transient ischemic attack (TIA), and cerebral infarction without residual deficits Status: Chronic Plan: Plan as above Continue aspirin 325 mg daily once able to take PO (3) Left hemiparesis ICD Codes: G81.94 - Hemiplegia, unspecified affecting left nondominant side Status: Chronic Plan: Hx of left hemiparesis from last CVA episode in 11/2015 Plan as above (4) Depression ICD Codes: F32.9 - Major depressive disorder, single episode, unspecified Status: Chronic Plan: Patient on duloxetine at home, resume once able to take PO (5) FEN Plan: Fluids: D5-NS at 115 cc/hr Electrolytes: WNL 04/07 Nutrition: NPO GI ppx: Protonix 40 mg IV daily DVT ppx: Heparin 5000 units sq q12h (Austen Zelaya MD R2) Austen Zelaya MD R2 Apr 08, 2017 11:42 Monique Arriaga MD Apr 08, 2017 16:04
--- NOTE | 2017-04-08 11:48 | EKG ---
Date Performed: 04/07/2017 Time Performed: 18:43:46 PTAGE: 36 years EKG: Sinus rhythm . Normal ECG Compared to prior tracing no significant change PREVIOUS TRACING : 04/06/2017 20.07 DOCTOR: Georges Olivera Interpretating Date/Time 04/08/2017 11:47:53
[2017-04-08] MEDS: HEPARIN SODIUM - SQ 10,000 UNITS/ML VIAL SQ SCH (14:29)
[2017-04-08] MEDS: KETOROLAC TROMETHAMINE 30 MG/ML (IVP) VIAL IV PUSH PRN ×2 (14:29→19:37)
--- NOTE | 2017-04-08 20:51 | MG ---
cc: OLESYA FARMER M.D. Lab No: Date: 04/08/2017 Age: Sex: F Race: REQUESTING PHYSICIAN INDICATION An EEG was obtained on this 36-year-old patient described as being awake. History of thalamic lacunar CSF spaces. Previous EEG from yesterday. DESCRIPTION This study is showing a lot of beta rhythms intermixed with some alpha and theta activity bilaterally. There are some shifting rhythms but no consistent asymmetry. The patient enters sleep stage I and probably sleep stage II later on. The tracing remains fairly symmetrical. When there is awakening, there is lot of movement artifact. Photic stimulation unremarkable. Hyperventilation was not performed. INTERPRETATION Very mildly abnormal EEG because of intermixed and mild slowing of the background suggesting a very mild diffuse disturbance of cerebral function but no epileptiform features present. MD MONI Urbano/KK /8:19 PM /8:34 PM
--- NOTE | 2017-04-08 21:22 | HHI.PR ---
Review/Management Diagnosis probable pseudoseizures. SHe has had no recurrences. Plan continue current dose of keppra. If she has no further episodes ok to discharge tomorrow from neuro standpoint if ok with primary service. If more episodes occur, consider EEG telemetry Diagnosis/Plan: Subjective Subjective Comments No acute events reported No further seizure-like episodes Active Medications Current Medications Medications (Trade) Dose Ordered Sig/Annette Route Start Time Stop Time Status Last Admin (NS Flush) 2 ml UNSCH PRN IV FLUSH 04/06/17 23:15 (NS Flush) 2 ml BID IV FLUSH 04/07/17 09:00 04/08/17 20:36 (Tylenol) 650 mg Q4H PRN PO 04/06/17 23:15 Future Hold (Zofran Inj) 4 mg Q6H PRN IVP 04/06/17 23:15 04/08/17 18:08 (Narcan Inj) 0.4 mg UNSCH PRN IV PUSH 04/06/17 23:15 (Milk Of Magnesia Liq) 30 ml Q12H PRN PO 04/06/17 23:15 (Senokot) 17.2 mg Q12H PRN PO 04/06/17 23:15 (Dulcolax Supp) 10 mg DAILY PRN RECTAL 04/06/17 23:15 (Lactulose Liq) 30 ml DAILY PRN PO 04/06/17 23:15 (Ativan Inj) 2 mg UNSCH PRN IV PUSH 04/06/17 23:15 04/07/17 11:40 (Protonix Inj) 40 mg Q24H IV PUSH 04/06/17 23:30 04/07/17 22:42 (Aspirin) 325 mg DAILY PO 04/07/17 09:00 04/08/17 08:57 Levetriacetam 500 mg/Sodium Chloride 105 ml @ 420 mls/hr Q4HR IV 04/07/17 20:00 04/08/17 20:36 (Ativan Inj) 1 mg Q4H PRN IV PUSH 04/07/17 16:15 Dextrose/Sodium Chloride 1,000 ml @ 115 mls/hr Q8H42M IV 04/08/17 11:00 04/08/17 19:42 (Heparin Inj) 5,000 units Q12H SQ 04/08/17 14:00 04/08/17 14:29 (Toradol Inj) 15 mg Q6H PRN IV PUSH 04/08/17 13:30 04/12/17 13:29 04/08/17 19:37 Allergies Allergies Coded Allergies Sulfa (Sulfonamide Antibiotics) (Verified Allergy, Unknown, 04/06/17) penicillin G (Unverified Allergy, Unknown, hives, 04/06/17) Review of Systems All other ROS: ROS reviewed as documented in chart Exam I&O / VS 04/08/17 04/08/17 04/09/17 15:00 23:00 07:00 Intake Total 440 ml Output Total 900 ml Balance 440 ml -900 ml IV Total 440 ml Output Urine Total 900 ml # Bowel Movements 1 Vital Signs Date Time Temp Pulse Resp B/P (MAP) Pulse Ox O2 Delivery O2 Flow Rate FiO2 04/08/17 19:00 96 Nasal Cannula 2.00 04/08/17 18:00 87 04/08/17 16:00 98.5 88 19 139/91 (107) 97 04/08/17 16:00 88 04/08/17 14:00 67 04/08/17 12:00 78 04/08/17 12:00 98.1 78 36 134/91 (105) 97 04/08/17 10:00 61 04/08/17 08:00 98.5 76 21 135/87 (103) 99 04/08/17 08:00 76 04/08/17 08:00 99 Nasal Cannula 2.00 04/08/17 07:29 99 Nasal Cannula 1.00 04/08/17 06:00 84 04/08/17 04:00 70 04/08/17 04:00 98.3 70 16 125/68 (87) 98 04/08/17 02:00 77 04/08/17 00:00 98.5 68 18 125/82 (96) 100 04/08/17 00:00 68 04/07/17 22:00 80 General: Alert and Oriented, No acute distress Respiratory: Non-labored respirations Cardiology: Normal rate, Regular Rhythm Neurologic: Alert, Oriented Psychiatric: Cooperative, Appropriate mood & affect Exam Comments alert, follows commands CN intact MOTOR--5/5 RUE , 4/5 Ky Leal PhD Apr 08, 2017 21:22
[2017-04-08] MEDS: PANTOPRAZOLE SODIUM 40 MG VIAL IV PUSH SCH (23:25)
[2017-04-09] VITALS (12 sets, daily range): BP systolic 99–127; BP diastolic 59–83; PULSE 63–76; RESP 16–23; TEMP 98.1–98.7; O2SAT 95–100
[2017-04-09] MEDS: HEPARIN SODIUM - SQ 10,000 UNITS/ML VIAL SQ SCH ×2 (02:00→14:51)
[2017-04-09] MEDS: KETOROLAC TROMETHAMINE 30 MG/ML (IVP) VIAL IV PUSH PRN ×2 (02:06→21:02)
[2017-04-09] MEDS: levETIRAcetam INJ 500 MG in SODIUM CHLORIDE 0.9% INJ 100 ML IV SCH ×6 (04:00→23:58)
[2017-04-09] MEDS: DEXT 5%-NACL 0.9% 1000 ML INJ 1,000 ML IV SCH ×3 (04:15→20:57)
[2017-04-09] MEDS: SODIUM CHLORIDE 0.9% FLUSH 10 ML FLUSH IV FLUSH SCH ×2 (08:46→20:57)
[2017-04-09] MEDS: ASPIRIN 325 MG TAB PO SCH (08:47)
[2017-04-09] MEDS ORDERED: KEPP10002 PO (10:08)
--- NOTE | 2017-04-09 10:08 | HHI.DCPOC ---
Discharge Care Plan Diagnosis: (1) Seizure (2) Depression (3) Status epilepticus (4) History of CVA (cerebrovascular accident) Goals to Promote Your Health * To prevent worsening of your condition and complications * To maintain your health at the optimal level Directions to Meet Your Goals Take your medications as prescribed Follow your dietary instruction Follow activity as directed Keep your appointments as scheduled Take your immunizations and boosters as scheduled If your symptoms worsen call your PCP, if no PCP go to Urgent Care Center or Emergency Room Smoking is Dangerous to Your Health. Avoid second hand smoke Call the 24-hour hour crisis hotline for domestic abuse at Ely Munoz MD R1 Apr 09, 2017 10:08
--- NOTE | 2017-04-09 10:14 | HHI.FPPN ---
Subjective Remarks No acute events overnight. Pt lying in bed this AM, alert and awake. Pleasant. Responding with full sentences. She reports that she slept well and doing better. Very interested in going to rehab upon discharge. Afebrile. VSS. No seizure activity since admission. (Ely Munoz MD R1) Objective Vitals Vital Signs Date Time Temp Pulse Resp B/P (MAP) Pulse Ox O2 Delivery O2 Flow Rate FiO2 04/09/17 08:00 71 04/09/17 08:00 98.2 71 20 115/83 (94) 98 04/09/17 07:00 96 Room Air 04/09/17 06:00 70 04/09/17 04:00 98.4 71 16 99/63 (75) 95 04/09/17 04:00 71 04/09/17 02:00 72 04/09/17 00:00 98.4 76 22 99 04/09/17 00:00 76 04/08/17 22:00 76 04/08/17 20:00 80 04/08/17 20:00 98.3 80 19 109/55 (73) 94 04/08/17 19:00 96 Nasal Cannula 2.00 04/08/17 18:00 87 04/08/17 16:00 98.5 88 19 139/91 (107) 97 04/08/17 16:00 88 04/08/17 14:00 67 04/08/17 12:00 78 04/08/17 12:00 98.1 78 36 134/91 (105) 97 I/O 04/08/17 04/08/17 04/08/17 04/09/17 04/09/17 04/09/17 07:00 15:00 23:00 07:00 15:00 23:00 Intake Total 305 ml 440 ml 210 ml 1893 ml Output Total 900 ml Balance 305 ml 440 ml -690 ml 1893 ml Intake Oral 0 ml 600 ml IV Total 305 ml 440 ml 210 ml 1293 ml Output Urine Total 900 ml # Voids 3 4 # Bowel Movements 0 1 0 (Ely Munoz MD R1) Result Diagram: 04/07/17 1101 04/07/17 1101 Objective Remarks GENERAL: Awake,Alert, pleasant, responsive with full sentences SKIN: No rashes, ecchymoses or lesions. Cool and dry. HEAD: NC/AT EYES: PERRL. No conjunctival injection or drainage. ENT: MMM. NECK: Firm cervical collar in place CARDIOVASCULAR: NRRR. Normal S1/S2. No MRG RESPIRATORY: CTAB. No crackles or wheezes. GASTROINTESTINAL: Abdomen soft, protuberant, appearing nontender to palpation. MUSCULOSKELETAL: Extremities without clubbing, cyanosis, or edema. NEUROLOGICAL: Awake, Alert, Oriented x3. Left side hemiparesis. (Ely Munoz MD R1) A/P Assessment and Plan 36 year old woman admitted with seizure-like activity concerning for recurrent seizures vs pseudoseizures. Discharge Planning 04-08-17 4 p.m. Anticipate discharge 04-09-17. (Ely Munoz MD R1) Attending Attestation Patient seen and examined. Case reviewed and discussed with the resident team. Agree with plan of care as discussed with me and documented in the resident note. (Monique Arriaga MD) Problem List: (1) Seizure ICD Codes: R56.9 - Unspecified convulsions Status: Acute Plan: Seizures lasting longer than 5 min, and no interictal return to baseline consciousness Possibly complex partial seizures based on history, vs. pseudoseizures 1st seizure occurred in November of this year, was placed on antiseizure medication Keppra Head CT showing no acute abnormalities, minimal persistent encephalomalacia at the posterior medial parietal lobes Brain MRI 04/07 with bilateral anterior thalamic lacunar CSF spaces, no acute findings or abnormal areas of enhancement Electrolytes WNL Neurology consulted, appreciate recommendations of Dr. Kemp Probable pseudoseizures Initial EEG read as very mildly abnormal EEG due to intermixed theta rhythms with the awake background, no epileptiform features were present Repeat EEG read very mildly abnormal EEG due to intermixed and mild slowing of the background suggesting a very mild diffuse disturbance of cerebral function, no epileptiform present Patient will be discharge with 1000mg PO Keppra TID Follow-up with neurology in 3 weeks (2) History of CVA (cerebrovascular accident) ICD Codes: Z86.73 - Personal history of transient ischemic attack (TIA), and cerebral infarction without residual deficits Status: Chronic Plan: Plan as above Continue aspirin 325 mg daily once able to take PO (3) Left hemiparesis ICD Codes: G81.94 - Hemiplegia, unspecified affecting left nondominant side Status: Chronic Plan: Hx of left hemiparesis from last CVA episode in 11/2015 Plan as above (4) Depression ICD Codes: F32.9 - Major depressive disorder, single episode, unspecified Status: Chronic Plan: Patient on duloxetine at home, resume once able to take PO (5) FEN Plan: Fluids: D5-NS at 115 cc/hr Electrolytes: WNL 04/07 Nutrition: Regular basic GI ppx: Protonix 40 mg IV daily DVT ppx: Heparin 5000 units sq q12h (Ely Munoz MD R1) Ely Munoz MD R1 Apr 09, 2017 10:14 Monique Arriaga MD Apr 09, 2017 12:36
[2017-04-09] MEDS: PANTOPRAZOLE SODIUM 40 MG VIAL IV PUSH SCH (23:58)
[2017-04-10] VITALS (11 sets, daily range): BP systolic 113–129; BP diastolic 58–96; PULSE 66–93; RESP 30; TEMP 98.1–98.7; O2SAT 93–100
[2017-04-10] MEDS: HEPARIN SODIUM - SQ 10,000 UNITS/ML VIAL SQ SCH ×2 (02:00→14:00)
[2017-04-10] MEDS: levETIRAcetam INJ 500 MG in SODIUM CHLORIDE 0.9% INJ 100 ML IV SCH ×3 (03:58→11:57)
[2017-04-10] MEDS: DEXT 5%-NACL 0.9% 1000 ML INJ 1,000 ML IV SCH (03:58)
[2017-04-10] MEDS: ASPIRIN 325 MG TAB PO SCH (07:53)
[2017-04-10] MEDS: SODIUM CHLORIDE 0.9% FLUSH 10 ML FLUSH IV FLUSH SCH (07:54)
[2017-04-10] MEDS: KETOROLAC TROMETHAMINE 30 MG/ML (IVP) VIAL IV PUSH PRN (08:05)
[2017-04-10] MEDS ORDERED: WHEEMIS3 ×2 (09:16→09:18)
--- NOTE | 2017-04-10 09:21 | HHI.FF ---
Face to Face Verification Diagnosis: (1) History of CVA (cerebrovascular accident) (2) Left hemiparesis (3) Seizure Physical Therapy Order: Evaluate and Treat, Improve ambulation, Strength and gait training I have seen patient Faith Cuevas on 04/10/17. My clinical findings support the need for the requested home health care services because: Ltd mobility - disease progression Deconditioned w/ increased weakness I certify that my clinical findings support that this patient is homebound because: Unsteady gait/balance Ely Munoz MD R1 Apr 10, 2017 09:21
--- NOTE | 2017-04-10 09:24 | HHI.FPPN ---
Subjective Remarks No acute events overnight. Afebrile, vitals stable. Patient seen and examined this AM. Patient is awake, alert, answering questions appropriately. Has been sitting up in chair. She and RN deny further seizure-like activity. Denies any new focal neuro deficit. Patient states she has assistance from her siblings at home to help with ADLs and is agreeable to do physical therapy as an outpatient. She otherwise has no specific complaints or concerns at this time. Objective Vitals Vital Signs Date Time Temp Pulse Resp B/P (MAP) Pulse Ox O2 Delivery O2 Flow Rate FiO2 04/10/17 08:00 93 04/10/17 08:00 98.6 93 129/87 (101) 93 04/10/17 06:00 74 04/10/17 04:00 98.1 66 116/72 (87) 97 04/10/17 04:00 66 04/10/17 02:00 67 04/10/17 00:00 66 04/10/17 00:00 98.2 66 30 113/58 (76) 98 04/09/17 22:00 68 04/09/17 20:00 69 04/09/17 20:00 98.1 69 21 109/59 (76) 98 04/09/17 19:00 Room Air 04/09/17 18:00 75 04/09/17 16:00 98.7 63 23 117/61 (79) 100 04/09/17 16:00 63 04/09/17 14:00 75 04/09/17 12:00 71 04/09/17 12:00 98.6 71 21 127/78 (94) 98 04/09/17 10:00 76 I/O 04/09/17 04/09/17 04/09/17 04/10/17 04/10/17 04/10/17 07:00 15:00 23:00 07:00 15:00 23:00 Intake Total 1893 ml 690 ml 330 ml 110 ml Output Total 1100 ml Balance 1893 ml -410 ml 330 ml 110 ml Intake Oral 600 ml 480 ml 120 ml IV Total 1293 ml 210 ml 210 ml 110 ml Output Urine Total 1100 ml # Voids 4 3 4 # Bowel Movements 0 0 Result Diagram: 04/07/17 1101 04/07/17 1101 Objective Remarks GENERAL: Awake,Alert, pleasant, responsive with full sentences SKIN: No rashes, ecchymoses or lesions. Cool and dry. HEAD: NC/AT EYES: PERRL. No conjunctival injection or drainage. ENT: MMM. NECK: Firm cervical collar in place CARDIOVASCULAR: NRRR. Normal S1/S2. No MRG RESPIRATORY: CTAB. No crackles or wheezes. GASTROINTESTINAL: Abdomen soft, protuberant, appearing nontender to palpation. MUSCULOSKELETAL: Extremities without clubbing, cyanosis, or edema. NEUROLOGICAL: Awake, Alert, Oriented x3. Speech coherent. A/P Assessment and Plan 36 year old woman admitted with seizure-like activity concerning for recurrent seizures vs pseudoseizures. Discharge Planning Stable for discharge home today Will arrange outpatient physical therapy Case management assisting with DME needs at home Problem List: (1) Seizure ICD Codes: R56.9 - Unspecified convulsions Status: Acute Plan: Seizures lasting longer than 5 min, and no interictal return to baseline consciousness Possibly complex partial seizures based on history, vs. pseudoseizures 1st seizure occurred in November of this year, was placed on antiseizure medication Keppra Head CT showing no acute abnormalities, minimal persistent encephalomalacia at the posterior medial parietal lobes Brain MRI 04/07 with bilateral anterior thalamic lacunar CSF spaces, no acute findings or abnormal areas of enhancement Electrolytes [facility] Neurology consulted, appreciate recommendations of Dr. Kemp Probable pseudoseizures Initial EEG read as very mildly abnormal EEG due to intermixed theta rhythms with the awake background, no epileptiform features were present Repeat EEG read very mildly abnormal EEG due to intermixed and mild slowing of the background suggesting a very mild diffuse disturbance of cerebral function, no epileptiform present Patient will be discharge with 1000mg PO Keppra TID Follow-up with neurology in 3 weeks Advised outpatient physical therapy, patient may establish with PT at [address] [place] [address] at [place] (2) History of CVA (cerebrovascular accident) ICD Codes: Z86.73 - Personal history of transient ischemic attack (TIA), and cerebral infarction without residual deficits Status: Chronic Plan: Plan as above Continue aspirin 325 mg daily (3) Left hemiparesis ICD Codes: G81.94 - Hemiplegia, unspecified affecting left nondominant side Status: Chronic Plan: Hx of left hemiparesis from last CVA episode in 11/2015 Plan as above (4) Depression ICD Codes: F32.9 - Major depressive disorder, single episode, unspecified Status: Chronic Plan: Continue home duloxetine (5) FEN Plan: Fluids: PO Electrolytes: WNL 04/07 Nutrition: Regular GI ppx: Protonix 40 mg IV daily DVT ppx: Heparin 5000 units sq q12h Austen Zelaya MD R2 Apr 10, 2017 09:24
[2017-04-10] MEDS ORDERED: BEDSIDE COMMODE1 MI1 (13:28)
--- NOTE | 2017-04-10 13:42 | HHI.DS ---
Discharge Summary Admission Date Apr 06, 2017 at 23:17 Discharge Date: Apr 10, 2017 Admitting Diagnosis recurrent breakthrough seizures (1) Seizure Diagnosis: Principal Plan: Seizures lasting longer than 5 min, and no interictal return to baseline consciousness Possibly complex partial seizures based on history, vs. pseudoseizures 1st seizure occurred in November of this year, was placed on antiseizure medication Keppra Head CT showing no acute abnormalities, minimal persistent encephalomalacia at the posterior medial parietal lobes Brain MRI 04/07 with bilateral anterior thalamic lacunar CSF spaces, no acute findings or abnormal areas of enhancement Electrolytes [facility] Neurology consulted, appreciate recommendations of Dr. Kemp Probable pseudoseizures Initial EEG read as very mildly abnormal EEG due to intermixed theta rhythms with the awake background, no epileptiform features were present Repeat EEG read very mildly abnormal EEG due to intermixed and mild slowing of the background suggesting a very mild diffuse disturbance of cerebral function, no epileptiform present Patient will be discharge with 1000mg PO Keppra TID Follow-up with neurology in 3 weeks Advised outpatient physical therapy, patient may establish with PT at [address] [place] [address] ICD Codes: R56.9 - Unspecified convulsions Status: Acute (2) History of CVA (cerebrovascular accident) Diagnosis: Secondary Plan: Plan as above Continue aspirin 325 mg daily ICD Codes: Z86.73 - Personal history of transient ischemic attack (TIA), and cerebral infarction without residual deficits Status: Chronic (3) Left hemiparesis Diagnosis: Secondary Plan: Hx of left hemiparesis from last CVA episode in 11/2015 Plan as above ICD Codes: G81.94 - Hemiplegia, unspecified affecting left nondominant side Status: Chronic (4) Depression Diagnosis: Secondary Plan: Continue home duloxetine ICD Codes: F32.9 - Major depressive disorder, single episode, unspecified Status: Chronic (5) FEN Diagnosis: Secondary Plan: Fluids: PO Electrolytes: WNL 04/07 Nutrition: Regular GI ppx: Protonix 40 mg IV daily DVT ppx: Heparin 5000 units sq q12h [facility] Brief History Patient is a 36 y/o F w/hx of hemiparesis 2/2 to CVA x2 who presents w/ seizures. Sister is at bedside. Patient is unable to respond to verbal stimuli. Sister states that patient was at home with other sister and brother. At around 6 pm in the evening, patient was seen to display twitching and clenching of the muscles in her face and foaming at the mouth. Also had jerking of her hand at one point. 1st seizure was 6 min, the next two were a minute longer. After first seizures, patient was able to speak and move. Patient had three seizures that occurred close apart, each lasting longer than 5 minutes. After second seizure, sister states she was not able to speak and had trouble moving. Patient remained like this for half an hour. After arrival in the ED, spoke a few words to her sister, reporting that she believed she had a pneumonia. Patient has had no recent trauma or fall, no recent sick symptoms. At baseline, patient is able to move around and talk. Has been complaining of neck pain. Sees Dr. Ku of neurology, Dr. Brock for physical medicine and rehab, Dr. Garrett at [facility]. Per patient medical record, she was admitted to [facility] on 01/11[facility]16 after being found unresponsive. MRI showed bilateral parietal infarcts right greater than left. Due to left hemiparesis, she received inpatient rehabilitation at [facility] for inpatient rehabilitation. She subsequently underwent C5-C6/C6-C7 ACDF on 01/07/17 after patient complained of neck pain - imaging showed some degree of spinal stenosis from C3 to C4 through C6-7w/ moderate to severe spinal stenosis and probable cord compromise especially at the level of C6-7. Patient continued to follow up with neurosurgery and wearing a cervical collar. Also has been undergoing physical therapy one day/week and following up with neurology. In November of 2016, patient was admitted to [place] for new onset seizure activity. EEG consistent with epileptic activity but all other imaging showed no acute abnormalities. She had two seizure episodes during the hospitalization ; neuro was consulted, and she was d/c'd on Keppra 750 mg BID PO per recommendations. CBC/BMP: 04/07/17 1101 04/07/17 1101 Imaging Brain MRI showing bilateral thalamic lacunar CSF spaces, no acute intracranial abnormalities PE at Discharge GENERAL: Awake,Alert, pleasant, responsive with full sentences SKIN: No rashes, ecchymoses or lesions. Cool and dry. HEAD: NC/AT EYES: PERRL. No conjunctival injection or drainage. ENT: MMM. NECK: Firm cervical collar in place CARDIOVASCULAR: NRRR. Normal S1/S2. No MRG RESPIRATORY: CTAB. No crackles or wheezes. GASTROINTESTINAL: Abdomen soft, protuberant, appearing nontender to palpation. MUSCULOSKELETAL: Extremities without clubbing, cyanosis, or edema. NEUROLOGICAL: Awake, Alert, Oriented x3. Speech coherent. Hospital Course Patient was admitted to the ICU. Head CT and MRI brain revealed no acute abnormality. Neurology was consulted. EEG and repeat EEG showed no epileptiform activities. Patient was increased to Keppra 400 mg IV q4h while inpatient and recommended by neurology to take Keppra 1000 mg po TID as an outpatient. She had no active seizures while hospitalized. She remained in the ICU for close monitoring during her entire hospitalization and was discharged from ICU. She was instructed to perform physical therapy as an outpatient. Pt Condition on Discharge: Stable Discharge Disposition: Rehab Inpatient Discharge Instructions DIET: Follow Instructions for: As Tolerated, No Restrictions Activities you can perform: Weight Bearing as Ryan Follow up Referrals: Neurology - 3 Weeks PCP Follow-up - 1 Week Physical Medicine & Rehab New Orders: Physical Therapy - 1 Week New Medications: Bedside Commode (Bedside Commode) 1 Mis Mis EA .ROUTE DIRECTED, #1 Levetiracetam (Keppra) 1,000 Mg Tab 1000 MG PO TID for Control Seizures for 30 Days, #60 TAB 0 Refills Wheelchair (Wheelchair) 1 Mis Mis EA .ROUTE DIRECTED, #1 0 Refills Continued Medications: Baclofen (Baclofen) 10 Mg Tab 10 MG PO Q8HR for muscle relaxant , #20 TAB Rmqfjpuhsy-Mrcyjrcoocjtz-Lgjipnge (Fioricet) 50-300-40 Mg Cap 1 CAP PO Q4H PRN for HEADACHE, CAP [address] (Cymbalta DR) 30 Mg Capdr 30 MG PO DAILY, #30 CAP 1 Refill Eslicarbazepine (Aptiom) 400 Mg Tab 1 TAB PO DAILY Gabapentin (Neurontin) 400 Mg Cap 400 MG PO TID for neuropathy, #90 CAP Hydromorphone (Hydromorphone) 4 Mg Tab 4 MG PO Q4-6H PRN for PAIN, #30 TAB 0 Refills Pantoprazole (Protonix) 40 Mg Tab 40 MG PO DAILY for Reflux, #30 TAB 0 Refills Temazepam (Temazepam) 30 Mg Cap 1 TAB PO HS Triamterene-Hydrochlorothiazide (Triamterene-Hydrochlorothiazide) 37.5-25 Mg Cap 1 TAB PO DAILY Austen Zelaya MD R2 Apr 10, 2017 13:42
== END 2017-04-10 15:00 | disposition home or self-care (01) | DRG 101 ==
LOC: NEPC 19:55 → NEDA 21:57 → OBSVTOIN 23:17 → HIME 04-07 02:05
PROVIDERS: ADMIT Family Medicine; ATTEND Family Medicine
DX: G40.901 Epilepsy, unspecified, not intractable, with status epilepticus (principal); I69.354 Hemiplegia and hemiparesis following cerebral infarction affecting left non-dominant side; I10 Essential (primary) hypertension; F32.9 Major depressive disorder, single episode, unspecified; Z98.1 Arthrodesis status; G47.00 Insomnia, unspecified; M21.372 Foot drop, left foot
CPT/HCPCS: 70450; 70553; 71010; 72125; 76937; 80053; 80177; 80307; 81001; 82330; 82948; 83735; 85025; 87641; 93005; 95819; 96374; A9579; C9113; J0131; J1644; J1650; J1885; J1953; J2060; J2405; J7030; J7042; P9612

== ENCOUNTER 2017-05-17 22:37 | Emergency (ER) | payer OTHER ==
[2017-05-17] MEDS: ACETAMINOPHEN/CODEINE ELIX 120 MG/12 MG/5 ML CUP PO (23:36)
== END 2017-05-17 23:53 | disposition home or self-care (01) ==
LOC: PHED 22:37
DX: J98.01 Acute bronchospasm (principal); R73.03 Prediabetes; K21.9 Gastro-esophageal reflux disease without esophagitis; I10 Essential (primary) hypertension; J45.909 Unspecified asthma, uncomplicated; Z86.73 Personal history of transient ischemic attack (TIA), and cerebral infarction without residual deficits
CPT/HCPCS: 99284

== ENCOUNTER 2017-08-11 15:35 | Inpatient (IN) | payer MEDICAID, OTHER ==
[~2017-08-11] VITALS: Ht 152.4 cm; Wt 120.0 kg
[~2017-08-11 15:35] MED LIST changes: -ASPI-183 PO; -CARA1TAB6 PO; +CEPH500T PO; +DIFL150T PO; +GUAISYP4 PO; +KEPP10002 PO; -LEVE500 PO; -LIDO1ADH4 T-DERMAL; +MEDR4PAK PO; -OXYC-432 PO; +PROT40TA PO; -SELE1SHA3; -TRIA37.53 PO; +VENTAER INH; -VOLT1GEL16
[2017-08-11 15:57] VITALS: BP 153/74; PULSE 98; RESP 18; TEMP 98.7; O2SAT 100
--- NOTE | 2017-08-11 16:42 | PD ---
HPI Chief Complaint: Neuro Symptoms/ Deficits Time Seen by Provider: 16:42 Travel History International Travel<30 days: Yes Contact w/Intl Traveler<30days: Yes Name of Country Traveled to: [place] Traveled to known affect area: Yes History of Present Illness HPI 36-year-old female came to the emergency room with history of right upper and right lower extremity weakness since 3:30 PM yesterday. Patient says it feels heavy and she has been able to move it. She did not want to come in and bother people in the hospital because she has been in the hospital recently multiple times for previous stroke. Patient is awake and answering questions appropriately. Patient says usually her deficits are left-sided so this is new. Vital signs are stable. No history of headache or chest pain. [facility]LY [facility], [facility] Past Medical History Narrative Medical List of her past medical, surgical, social and family history reviewed from the nursing note Hx Anticoagulant Therapy: Yes Arthritis: No Asthma: Yes (USES INHALERS) Autoimmune Disease: No Anxiety: No Depression: No Heart Rhythm Problems: No Cancer: No Cardiovascular Problems: No High Cholesterol: No Chemotherapy: No Chest Pain: No Congestive Heart Failure: No COPD: No Cerebrovascular Accident: Yes Diabetes: Yes (BORDERLINE DIABETES, HYPERGLYCEMIA) Diminished Hearing: No Endocrine: No GERD: Yes Genitourinary: No Headaches: Yes Hiatal Hernia: No Heparin Induced Thrombocytopen: No Hypertension: Yes (UNCONTROLLED HTN) Immune Disorder: No Implanted Vascular Access Dvce: No Kidney Stones: No Musculoskeletal: Yes Neurologic: Yes (ACUTE ENCEPHALOPATHY) Psychiatric: No Reproductive: No Respiratory: Yes (ASPIRATION PNEUMONIA, ACUTE RESPIRATORY FAILURE WITH HYPOXEMIA) Immunizations Current: Yes Migraines: No Radiation Therapy: No Renal Failure: Yes (ACUTE RENAL INSUFFICIENCY) Seizures: No Sickle Cell Disease: No Sleep Apnea: No Thyroid Disease: No Ulcer: No ?: Not LMP: 08/07/17 : 0 Ovarian Cysts: Yes Past Surgical History Abdominal Surgery: Yes (GALLBLADDER 2014 ) AICD: No Arteriovenous Shunt: No Cardiac Surgery: No Cholecystectomy: Yes Ear Surgery: No Endocrine Surgery: No Eye Surgery: No Genitourinary Surgery: No Gynecologic Surgery: Yes (OVARIAN CYST D/C 2014) Insulin Pump: No Joint Replacement: No Neurologic Surgery: No Oral Surgery: No Pacemaker: No Thoracic Surgery: No Other Surgery: Yes Social History Alcohol Use: No Tobacco Use: No Substance Use: No Allergies-Medications (Allergen,Severity, Reaction): Coded Allergies: Sulfa (Sulfonamide Antibiotics) (Verified Allergy, Unknown, 05/17/17) penicillin G (Unverified Allergy, Unknown, hives, 05/17/17) Comments List of her allergies reviewed from the nursing note Reported Meds & Prescriptions Reported Meds & Active Scripts Active Ventolin Hfa 18 GM Inh (Albuterol Sulfate) 90 Mcg/Act Aer 2 Puff INH Q4-6H PRN Medrol Dosepak (Methylprednisolone) 4 Mg Dspk 4 Mg PO DIRECTED Per Pharmacist direction Guaifenesin AC Liq (Guaifenesin-Codeine Liq) 100-10 Mg/5 Ml Syrp 10 Ml PO Q4H PRN Diflucan (Fluconazole) 150 Mg Tab 150 Mg PO ONCE Keppra (Levetiracetam) 1,000 Mg Tab 1,000 Mg PO BID 30 Days Neurontin (Gabapentin) 400 Mg Cap 400 Mg PO TID Baclofen 10 Mg Tab 10 Mg PO Q8HR Cymbalta DR (Duloxetine HCl) 30 Mg Capdr 30 Mg PO DAILY Reported Cephalexin 500 Mg Tab 500 Mg PO Q8H Protonix (Pantoprazole Sodium) 40 Mg Tab 40 Mg PO DAILY Aptiom (Eslicarbazepine) 400 Mg Tab 1 Tab PO DAILY Temazepam 30 Mg Cap 1 Tab PO HS Narrative Medication List of her home medications reviewed from the nursing note Review of Systems Except as stated in HPI: all other systems reviewed are Neg Musculoskeletal: Positive: Weakness Physical Exam Narrative GENERAL: Awake, alert, anxious, mild distress SKIN: Focused skin assessment warm/dry. HEAD: Atraumatic. Normocephalic. EYES: Pupils equal and round. No scleral icterus. No injection or drainage. ENT: No nasal bleeding or discharge. Mucous membranes pink and moist. NECK: Trachea midline. No JVD. CARDIOVASCULAR: Regular rate and rhythm. No murmur appreciated. RESPIRATORY: No accessory muscle use. Clear to auscultation. Breath sounds equal bilaterally. GASTROINTESTINAL: Abdomen soft, non-tender, nondistended. Hepatic and splenic margins not palpable. MUSCULOSKELETAL: No obvious deformities. No clubbing. No cyanosis. No edema. NEUROLOGICAL: Awake and alert. No obvious cranial nerve deficits. Right upper and lower extremity weakness with strength 1 out of 5. Normal speech. PSYCHIATRIC: Appropriate mood and affect; insight and judgment normal. Data Data Last Documented VS Vital Signs Date Time Temp Pulse Resp B/P (MAP) Pulse Ox O2 Delivery O2 Flow Rate FiO2 08/11/17 15:57 98.7 98 18 153/74 (100) 100 Orders Orders Electrocardiogram (08/11/17 16:02) Prothrombin Time / Inr (Pt) (08/11/17 16:02) Act Partial Throm Time (Ptt) (08/11/17 16:02) Complete Blood Count With Diff (08/11/17 16:02) Comprehensive Metabolic Panel (08/11/17 16:02) Creatine Kinase (Cpk) (08/11/17 16:02) Troponin I (08/11/17 16:02) Urinalysis - C+S If Indicated (08/11/17 16:02) Ct Brain W/O Iv Contrast(Rout) (08/11/17 16:02) Mri Brain W/O Contrast (08/11/17 ) Mra Brain W/O Contrast (Cow) (08/11/17 ) Aspirin (Aspirin) (08/11/17 17:15) Ed Discharge Order (08/11/17 17:22) Admit Order (Ed Use Only) (08/11/17 17:42) Duloxetine Dr (Kenneth Mina) (08/12/17 09:00) Gabapentin (Neurontin) (08/11/17 18:00) Levetiracetam (Keppra) (08/11/17 21:00) Temazepam (Restoril) (08/11/17 21:00) Patient Own Medication (08/12/17 09:00) Mri C Spine W&W/O Contrast (08/11/17 ) Labs Laboratory Tests Test 08/11/17 16:18 White Blood Count 7.8 TH/MM3 Red Blood Count 4.33 MIL/MM3 Hemoglobin 12.6 GM/DL Hematocrit 37.6 % Mean Corpuscular Volume 86.8 FL Mean Corpuscular Hemoglobin 29.1 PG Mean Corpuscular Hemoglobin Concent 33.5 % Red Cell Distribution Width 15.7 % Platelet Count 412 TH/MM3 Mean Platelet Volume 7.1 FL Neutrophils (%) (Auto) 39.5 % Lymphocytes (%) (Auto) 50.4 % Monocytes (%) (Auto) 8.0 % Eosinophils (%) (Auto) 1.6 % Basophils (%) (Auto) 0.5 % Neutrophils # (Auto) 3.1 TH/MM3 Lymphocytes # (Auto) 3.9 TH/MM3 Monocytes # (Auto) 0.6 TH/MM3 Eosinophils # (Auto) 0.1 TH/MM3 Basophils # (Auto) 0.0 TH/MM3 CBC Comment DIFF FINAL Differential Comment Prothrombin Time 9.8 SEC Prothromb Time International Ratio 1.0 RATIO Activated Partial Thromboplast Time 27.5 SEC Urine Color YELLOW Urine Turbidity HAZY Urine pH 6.0 Urine Specific [place] 1.023 Urine Protein TRACE mg/dL Urine Glucose (UA) NEG mg/dL Urine Ketones NEG mg/dL Urine Occult Blood MOD Urine Nitrite NEG Urine Bilirubin NEG Urine Urobilinogen LESS THAN 2.0 MG/DL Urine Leukocyte Esterase NEG Urine RBC LESS THAN 1 /hpf Urine Squamous Epithelial Cells 4 /hpf Urine Mucus FEW /lpf Microscopic Urinalysis Comment CATH-CULT NOT IND Blood Urea Nitrogen 8 MG/DL Creatinine 0.96 MG/DL Random Glucose 84 MG/DL Total Protein 8.5 GM/DL Albumin 3.6 GM/DL Calcium Level 9.2 MG/DL Alkaline Phosphatase 89 U/L Aspartate Amino Transf (AST/SGOT) 34 U/L Alanine Aminotransferase (ALT/SGPT) 39 U/L Total Bilirubin 0.4 MG/DL Sodium Level 138 MEQ/L Potassium Level 3.6 MEQ/L Chloride Level 106 MEQ/L Carbon Dioxide Level 25.8 MEQ/L Anion Gap 6 MEQ/L Estimat Glomerular Filtration Rate 81 ML/MIN Total Creatine Kinase 147 U/L Troponin I LESS THAN 0.02 NG/ML MDM Medical Decision Making Medical Screen Exam Complete: Yes Emergency Medical Condition: Yes Medical Record Reviewed: Yes Differential Diagnosis CVA Narrative Course 5:[address] scan of the head was negative. Blood test results are within acceptable limits. I have ordered an MRI and MRA of her brain. Patient will need to be admitted. Awaiting for the hospitalist to call back. Procedures EKG Prior to Arrival: No Diagnosis Primary Impression: CVA (cerebral vascular accident) Qualified Codes: I63.9 - Cerebral infarction, unspecified Admitting Information Admitting Physician Requests: Admit Maryellen Deal MD Aug 11, 2017 16:42
[2017-08-11 16:43] LABS: AUTOMATED NEUTROPHIL # 3.1 TH/MM3 (1.8-7.7); BASOPHIL % 0.5 % (0.0-2.0); EOSINOPHIL # 0.1 TH/MM3 (0-0.4); EOSINOPHIL % 1.6 % (0.0-4.0); HEMATOCRIT 37.6 % (35.0-46.0); HEMOGLOBIN 12.6 GM/DL (11.6-15.3); LYMPH % 50.4 % (9.0-44.0); LYMPHOCYTE # 3.9 TH/MM3 (1.0-4.8); MEAN CELL VOLUME 86.8 FL (80.0-100.0); MEAN CORPUSCULAR HEMOGLOBIN 29.1 PG (27.0-34.0); MEAN CORPUSCULAR HGB CONC 33.5 % (32.0-36.0); MEAN PLATELET VOLUME 7.1 FL (7.0-11.0); MONOCYTE # 0.6 TH/MM3 (0-0.9); NEUT % 39.5 % (16.0-70.0); PLATELET COUNT 412 TH/MM3 (150-450); RED BLOOD COUNT 4.33 MIL/MM3 (4.00-5.30); RED CELL DISTRIBUTION WIDTH 15.7 % (11.6-17.2); WHITE BLOOD COUNT 7.8 TH/MM3 (4.0-11.0)
[2017-08-11 16:47] LABS: BILIRUBIN, URINE NEG (NEG); BLOOD, URINE MOD (NEG); GLUCOSE,URINE NEG (NEG); KETONE, URINE NEG (NEG); MUCUS URINE FEW /lpf (OCC); NITRITE,URINE NEG (NEG); SQUAMOUS EPITHELIAL CELL URINE 4 /hpf (0-5); URINE COLOR YELLOW (YELLW/STRAW); URINE LEUKOCYTE ESTERASE NEG (NEG)
--- NOTE | 2017-08-11 16:50 | RADRPT ---
EXAM DATE/TIME: 08/11/2017 16:30 [place] COMPARISON: CT BRAIN W/O CONTRAST, April 06, 2017, 20:18. INDICATIONS : Headache,right side body numbness RADIATION DOSE: 56.35 CTDIvol (mGy) MEDICAL HISTORY : Cardiovascular disease. Cerebrovascular disease. Asthma Acute encephalopathy,d iabetes SURGICAL HISTORY : None. ENCOUNTER: Initial ACUITY: 1 day PAIN SCALE: 9/10 LOCATION: cranial TECHNIQUE: Multiple contiguous axial images were obtained of the head. Using automated exposure control and adjustment of the mA and/or kV according to patient size, radiation dose was kept as low as reasonably achievable to obtain optimal diagnostic quality images. DICOM format image data is av ailable electronically for review and comparison. FINDINGS: CEREBRUM: The ventricles are normal for age. No evidence of midline shift, mass lesion, hemorrha ge or acute infarction. No extra-axial fluid collections are seen. POSTERIOR FOSSA: The cerebellum and brainstem are intact. The 4th ventricle is midline. The cer ebellopontine angle is unremarkable. EXTRACRANIAL: The visualized portion of the orbits is intact. SKULL: The calvaria is intact. No evidence of skull fracture. CONCLUSION: Negative for acute process. Fuentes Grossman MD FACR on August 11, 2017 at 16:47 Board Certified Radiologist. This report was verified electronically.
[2017-08-11 16:52] LABS: PROTHROMBIN TIME - PATIENT 9.8 SEC (9.8-11.6)
[2017-08-11 17:00] LABS: ALBUMIN 3.6 GM/DL (3.4-5.0); AST (GOT) 34 U/L (15-37); BICARBONATE 25.8 MEQ/L (21.0-32.0); BLOOD UREA NITROGEN 8 MG/DL (7-18); CALCIUM 9.2 MG/DL (8.5-10.1); CHLORIDE 106 MEQ/L (98-107); CREATININE 0.96 MG/DL (0.50-1.00); GLOMERULAR FILTRATION RATE 81 ML/MIN (>89); GLUCOSE,RANDOM 84 MG/DL (74-106); SODIUM (NA) 138 MEQ/L (136-145)
[2017-08-11 17:02] LABS: ALT (GPT) 39 U/L (10-53)
[2017-08-11 17:05] LABS: ALKALINE PHOSPHATASE 89 U/L (45-117); TOTAL BILIRUBIN ADULT 0.4 MG/DL (0.2-1.0); TOTAL PROTEIN 8.5 GM/DL (6.4-8.2); TROPONIN I LESS THAN 0.02 NG/ML (0.02-0.05)
[2017-08-11] MEDS ORDERED: ASPIRIN 325 MG TAB PO ONE (17:15)
[2017-08-11] MEDS ORDERED: SODIUM CHLORIDE 0.9% FLUSH 10 ML FLUSH IV FLUSH PRN (17:45)
--- NOTE | 2017-08-11 17:57 | HHI.HP ---
HPI Service [facility] Primary Care Physician Denita Gayle M.D. 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 Patient reports his symptoms started yesterday afternoon. She was hoping there would go away therefore she did not come into the hospital. She also complained of neck pain mainly on the right. She states she has been unable to walk or use the right home because they feel so heavy. Patient reports her last known seizure was in November of last year. She has been following outpatient with physical rehab since she had C5-C7 cervical discectomy and fusion in December. The strength on her left side has been improving steadily. Workup in the emergency room revealed a negative head CT. Patient was given aspirin. Review of Systems Constitutional: DENIES: Fever, Chills Gastrointestinal: COMPLAINS OF: Nausea Musculoskeletal: COMPLAINS OF: Neck pain Neurologic: COMPLAINS OF: Abnormal gait, Headache, Localized weakness, Poor Balance Except as stated in HPI: all other systems reviewed are Neg Past Family Social History Past Medical History Bilateral parietal CVA in December 2015 rate residual left sided weakness Seizure disorder Past Surgical History C5-6 and C6-7 anterior cervical discectomy and fusion on 01/07/17 Cholecystectomy Reported Medications Reported Meds & Active Scripts Active Ventolin Hfa 18 GM Inh (Albuterol Sulfate) 90 Mcg/Act Aer 2 Puff INH Q4-6H PRN Medrol Dosepak (Methylprednisolone) 4 Mg Dspk 4 Mg PO DIRECTED Per Pharmacist direction Guaifenesin AC Liq (Guaifenesin-Codeine Liq) 100-10 Mg/5 Ml Syrp 10 Ml PO Q4H PRN Diflucan (Fluconazole) 150 Mg Tab 150 Mg PO ONCE Keppra (Levetiracetam) 1,000 Mg Tab 1,000 Mg PO BID 30 Days Neurontin (Gabapentin) 400 Mg Cap 400 Mg PO TID Baclofen 10 Mg Tab 10 Mg PO Q8HR Cymbalta DR (Duloxetine HCl) 30 Mg Capdr 30 Mg PO DAILY Reported Cephalexin 500 Mg Tab 500 Mg PO Q8H Protonix (Pantoprazole Sodium) 40 Mg Tab 40 Mg PO DAILY Aptiom (Eslicarbazepine) 400 Mg Tab 1 Tab PO DAILY Temazepam 30 Mg Cap 1 Tab PO HS Allergies: Coded Allergies: Sulfa (Sulfonamide Antibiotics) (Verified Allergy, Unknown, 05/17/17) penicillin G (Unverified Allergy, Unknown, hives, 05/17/17) Family History Reviewed and found to be noncontributory. Social History Does not use tobacco, alcohol, or illicit drugs. Physical Exam Vital Signs Vital Signs Date Time Temp Pulse Resp B/P (MAP) Pulse Ox O2 Delivery O2 Flow Rate FiO2 08/11/17 17:47 95 Room Air 08/11/17 15:57 98.7 98 18 153/74 (100) 100 Physical Exam GENERAL: Obese female in no acute distress. SKIN: No rashes, ecchymoses or lesions. Cool and dry. HEAD: Atraumatic. Normocephalic. No temporal or scalp tenderness. EYES: Pupils equal round and reactive. Extraocular motions intact. No scleral icterus. No injection or drainage. ENT: Nose without bleeding, purulent drainage or septal hematoma. Throat without erythema, tonsillar hypertrophy or exudate. Uvula midline. Airway patent. NECK: Trachea midline. No JVD or lymphadenopathy. Supple, nontender, no meningeal signs. CARDIOVASCULAR: Regular rate and rhythm without murmurs, gallops, or rubs. RESPIRATORY: Clear to auscultation. Breath sounds equal bilaterally. No wheezes , rales, or rhonchi. GASTROINTESTINAL: Abdomen soft, non-tender, nondistended. No hepato-splenomegaly , or palpable masses. No guarding. MUSCULOSKELETAL: Extremities without clubbing, cyanosis, or edema. No joint tenderness, effusion, or edema noted. No calf tenderness. Negative Homans sign bilaterally. NEUROLOGICAL: Awake and alert. Speech is normal. Reports numbness over the right side of the face. Left upper and lower extremity 4 out of 5 strength. Right upper and lower extremity 2 out of 5 strength. Laboratory Laboratory Tests Test 08/11/17 16:18 White Blood Count 7.8 Red Blood Count 4.33 Hemoglobin 12.6 Hematocrit 37.6 Mean Corpuscular Volume 86.8 Mean Corpuscular Hemoglobin 29.1 Mean Corpuscular Hemoglobin Concent 33.5 Red Cell Distribution Width 15.7 Platelet Count 412 Mean Platelet Volume 7.1 Neutrophils (%) (Auto) 39.5 Lymphocytes (%) (Auto) 50.4 Monocytes (%) (Auto) 8.0 Eosinophils (%) (Auto) 1.6 Basophils (%) (Auto) 0.5 Neutrophils # (Auto) 3.1 Lymphocytes # (Auto) 3.9 Monocytes # (Auto) 0.6 Eosinophils # (Auto) 0.1 Basophils # (Auto) 0.0 CBC Comment DIFF FINAL Differential Comment Prothrombin Time 9.8 Prothromb Time International Ratio 1.0 Activated Partial Thromboplast Time 27.5 Urine Color YELLOW Urine Turbidity HAZY Urine pH 6.0 Urine Specific [place] 1.023 Urine Protein TRACE Urine Glucose (UA) NEG Urine Ketones NEG Urine Occult Blood MOD Urine Nitrite NEG Urine Bilirubin NEG Urine Urobilinogen LESS THAN 2.0 Urine Leukocyte Esterase NEG Urine RBC LESS THAN 1 Urine Squamous Epithelial Cells 4 Urine Mucus FEW Microscopic Urinalysis Comment CATH-CULT NOT IND Blood Urea Nitrogen 8 Creatinine 0.96 Random Glucose 84 Total Protein 8.5 Albumin 3.6 Calcium Level 9.2 Alkaline Phosphatase 89 Aspartate Amino Transf (AST/SGOT) 34 Alanine Aminotransferase (ALT/SGPT) 39 Total Bilirubin 0.4 Sodium Level 138 Potassium Level 3.6 Chloride Level 106 Carbon Dioxide Level 25.8 Anion Gap 6 Estimat Glomerular Filtration Rate 81 Total Creatine Kinase 147 Troponin I LESS THAN 0.02 Result Diagram: 08/11/17 1618 08/11/17 1618 Imaging Last Impressions Head CT 08/11/17 1602 Signed Impressions: Service Date/Time: Friday, August 11, 2017 16:30 - CONCLUSION: Negative for acute process. Fuentes Grossman MD FACR Caprini VTE Risk Assessment Caprini VTE Risk Assessment: Mod/High Risk (score >= 2) Caprini Risk Assessment Model Point Value = 1 Point Value = 2 Point Value = 3 Point Value = 5 Age 41-60 Minor surgery BMI > 25 kg/m2 Swollen legs Varicose veins or History of unexplained or recurrent spontaneous Oral contraceptives or hormone replacement Sepsis (< 1 month) Serious lung disease, including pneumonia (< 1 month) Abnormal pulmonary function Acute myocardial infarction Congestive heart failure (< 1 month) History of inflammatory bowel disease Medical patient at bed rest Age 61-74 Arthroscopic surgery Major open surgery (> 45 min) Laparoscopic surgery (> 45 min) Malignancy Confined to bed (> 72 hours) Immobilizing plaster cast Central venous access Age >= 75 History of VTE Family history of VTE Factor V Leiden Prothrombin [id number] Lupus anticoagulant Anticardiolipin antibodies Elevated serum homocysteine Heparin-induced thrombocytopenia Other congenital or acquired thrombophilia Stroke (< 1 month) Elective arthroplasty Hip, pelvis, or leg fracture Acute spinal cord injury (< 1 month) Prophylaxis Regimen Total Risk Factor Score Risk Level Prophylaxis Regimen 0-1 Low Early ambulation 2 Moderate Order ONE of the following: *Sequential Compression Device (SCD) *Heparin 5000 units SQ BID 3-4 Higher Order ONE of the following medications: *Heparin 5000 units SQ TID *Enoxaparin/Lovenox 40 mg SQ daily (WT < 150 kg, CrCl > 30 mL/min) *Enoxaparin/Lovenox 30 mg SQ daily (WT < 150 kg, CrCl > 10-29 mL/min) *Enoxaparin/Lovenox 30 mg SQ BID (WT < 150 kg, CrCl > 30 mL/min) AND/OR *Sequential Compression Device (SCD) 5 or more Highest Order ONE of the following medications: *Heparin 5000 units SQ TID (Preferred with Epidurals) *Enoxaparin/Lovenox 40 mg SQ daily (WT < 150 kg, CrCl > 30 mL/min) *Enoxaparin/Lovenox 30 mg SQ daily (WT < 150 kg, CrCl > 10-29 mL/min) *Enoxaparin/Lovenox 30 mg SQ BID (WT < 150 kg, CrCl > 30 mL/min) AND *Sequential Compression Device (SCD) Assessment and Plan Assessment and Plan 36-year-old female with history of previous CVA who presented with acute right- sided weakness concerning for CVA. Acute right-sided weakness, right sided headache: Concern for CVA versus cervical myelopathy. Would be an unusual presentation for seizure. Need to rule out CVA. Head CT negative. MRI of the brain and cervical spine pending. - Patient has been given aspirin. Continue daily aspirin 325 mg. - Consult neurology, rehab medicine. PT - continue neuro checks. 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 Has been followed outpatient by hematology. If stroke confirmed, would consider hematology consult - Monitor on telemetry Seizure disorder: Continue home dose Keppra History of iron deficiency anemia: - H&H is normal. Patient normally gets iron infusion. Monitor as indicated. DVT PPx: Lovenox Discussed Condition With Dr. Deal Physician Certification 2 Midnight Certification Type: Admission for Inpatient Services Order for Inpatient Services The services are ordered in accordance with Medicare regulations or non- Medicare payer requirements, as applicable. In the case of services not specified as inpatient-only, they are appropriately provided as inpatient services in accordance with the 2-midnight benchmark. Estimated LOS (days): 3 days is the estimated time the patient will need to remain in the hospital, assuming treatment plan goals are met and no additional complications. Post-Hospital Plan: Not yet determined Luciano Boggs MD Aug 11, 2017 17:56
[2017-08-11 18:06] VITALS: O2SAT 95
[2017-08-11] MEDS ORDERED: GADODIAMIDE PF 287 MG/ML 5 ML VIAL (for RAD MRI) IVCONTRAST ONE (19:53)
[2017-08-11] MEDS ORDERED: ENOXAPARIN SODIUM 40 MG/0.4 ML SYRINGE SQ SCH (20:00)
--- NOTE | 2017-08-11 20:07 | RADRPT ---
EXAM DATE/TIME: 08/11/2017 19:01 [facility] COMPARISON: MRI BRAIN W/O CONTRAST, August 11, 2017, 19:01. MRA BRAIN W/O CONTRAST, December 12, 2015, 19:16. INDICATIONS : CVA. Right sided weakness for two days. MEDICAL HISTORY : Cerebrovascular disease. Hypertension. Renal insufficiency. GERD SURGICAL HISTORY : Fusion, cervical. Ovarian cyst removed. ENCOUNTER: Initial ACUITY: 1 day PAIN SCORE: 8/10 LOCATION: Right arm and leg. Please note a normal MRA of the brain does not entirely exclude the possibility of a small aneurysm, nor the possibility of distal intracranial vessel disease. TECHNIQUE: 3D time of flight MRA was performed. Source images, multiplanar STS MIP, and 3D volume MIP reconstru ctions were reviewed. FINDINGS: There is excellent visualization of the major intracranial arteries out to the second-order branch ve ssels. There is no evidence for aneurysm, vessel truncation or stenosis, and no evidence for vascula r malformation. CONCLUSION: No acute disease. Julio Velasco MD on August 11, 2017 at 20:03 Board Certified Radiologist. This report was verified electronically.
--- NOTE | 2017-08-11 20:10 | RADRPT ---
EXAM DATE/TIME: 08/11/2017 19:01 [facility] COMPARISON: MRI BRAIN W/O CONTRAST, December 27, 2016, 18:38. INDICATIONS : CVA. Right sided weakness for two days. MEDICAL HISTORY : Cerebrovascular disease. Hypertension. Renal insufficiency. GERD SURGICAL HISTORY : Fusion, cervical. Ovarian cyst. ENCOUNTER: Initial ACUITY: 2 day PAIN SCORE: 6/10 LOCATION: Right arm and leg. TECHNIQUE: Multiplanar, multisequence MRI of the brain was performed without contrast. FINDINGS: CEREBRUM: The ventricles are normal for age. There is a persistent small area of insufflation of the superior medial right parietal lobe. There is stable mild symmetric cystic change seen in the medial aspect of the basal ganglia bilaterally. No evidence of midline shift, mass lesion, hemorrhage or acute infarc tion. No extraaxial fluid collections are seen. The pituitary gland and suprasellar cistern are nor mal in configuration. WHITE MATTER: No significant signal abnormalities are seen in the white matter. POSTERIOR FOSSA: The cerebellum and brainstem are intact. The 4th ventricle is midline. The cerebellopontine angle is unremarkable. The cerebellar tonsils are normal in position. DIFFUSION IMAGING: No focal areas of restricted diffusion are seen. No evidence of acute infarction. EXTRACRANIAL: The visualized portions of the orbits and paranasal sinuses are unremarkable. CONCLUSION: 1. Stable MRI examination of the brain without acute abnormality. 2. Stable small area of encephalomalacia at the superior medial right parietal lobe. 3. Stable cystic change medial basal ganglia regions were present either old infarcts or dilated yessi vascular spaces. Julio Velasco MD on August 11, 2017 at 20:05 Board Certified Radiologist. This report was verified electronically.
[2017-08-11] MEDS: GABAPENTIN 400 MG CAP PO SCH (20:21)
[2017-08-11] MEDS: levETIRAcetam 500 MG TAB PO SCH (20:21)
[2017-08-11] MEDS: TEMAZEPAM 15 MG CAP PO SCH (20:21)
[2017-08-11] MEDS: SODIUM CHLORIDE 0.9% FLUSH 10 ML FLUSH IV FLUSH SCH (20:23)
[2017-08-11] MEDS: ONDANSETRON HCL 4 MG/2 ML VIAL IV PUSH PRN (20:25)
[2017-08-11 20:38] VITALS: BP 130/78; PULSE 78; RESP 16; O2SAT 98
--- NOTE | 2017-08-11 22:08 | RADRPT ---
EXAM DATE/TIME: 08/11/2017 19:01 [facility] COMPARISON: CT CERVICAL SPINE W/O CONTRAST, April 07, 2017, 1:04. INDICATIONS : Myelopathy. Right sided weakness for two days. CONTRAST: 16 cc Omniscan (gadodiamide) IV MEDICAL HISTORY : Cerebrovascular disease. Hypertension. Renal insufficiency. GERD SURGICAL HISTORY : Fusion, cervical. Ovarian cyst sx. ENCOUNTER: Initial ACUITY: 2 day PAIN SCORE: 8/10 LOCATION: Right arm and leg. TECHNIQUE: Multiplanar, multisequence MRI examination of the cervical spine was performed. FINDINGS: VERTEBRAE: There is anterior cervical fusion plate extending from C5-C7. This is associated with susceptibility artifact. ALIGNMENT: No evidence of subluxation. CORD: Normal configuration and signal. POST FOSSA: The cerebellar tonsils are normal in position. POST-CONTRAST: No abnormal areas of enhancement are seen. C2-C3: The thecal sac has a normal configuration. There is no evidence of disc herniation or spinal canal stenosis. The neural foramina are patent bilaterally. C3-C4: The thecal sac has a normal configuration. There is no evidence of disc herniation or spinal canal s tenosis. The neural foramina are patent bilaterally. C4-C5: There is mild diffuse disc bulge. There is a superimposed mild right lateral recess disc protrusion. These changes however lead to moderate stenosis with minimal CSF seen around the cord. The neural for rishabh are patent bilaterally. C5-C6: The patient is status post fusion at this level. The thecal sac has a normal configuration. There is no evidence of disc herniation or spinal canal stenosis. The neural foramina are patent bilaterally . C6-C7: There is a mild impression on the anterior epidural space at the left lateral recess. This area does appear to enhance and is likely related to scarring. This causes a mild impression on the thecal sac . There continues to be CSF around the cord. The neural foramina are patent bilaterally. C7-T1: The thecal sac has a normal configuration. There is no evidence of disc herniation or spinal canal s tenosis. The neural foramina are patent bilaterally. CONCLUSION: 1. Status post anterior cervical fusion from C5-C7. 2. Moderate stenosis at the C4-C5 level caused by disc bulge and a minimal right lateral recess disc protrusion. 3. Mild impression on the thecal sac at the left lateral recess region at the C6-C7 level with enhanc ement likely related to scarring. Julio Velasco MD on August 11, 2017 at 21:57 Board Certified Radiologist. This report was verified electronically.
[2017-08-12] VITALS (9 sets, daily range): BP systolic 93–120; BP diastolic 53–84; PULSE 75–94; RESP 16–18; TEMP 97.4–98.2; O2SAT 96–99
[2017-08-12 07:39] LABS: CHOLESTEROL/ HDL RATIO 2.86 RATIO; HDL CHOLESTEROL 46.8 MG/DL (40.0-60.0)
[2017-08-12] MEDS ORDERED: PNEUMOCOCCAL POLYVALENT INJ 25 MCG/0.5 ML SYR IM ONE (09:00)
[2017-08-12] MEDS: ESLICARBAZEPINE 400 MG PO SCH (09:00)
[2017-08-12] MEDS: SODIUM CHLORIDE 0.9% FLUSH 10 ML FLUSH IV FLUSH SCH ×2 (09:00→21:46)
[2017-08-12] MEDS: GABAPENTIN 400 MG CAP PO SCH ×3 (09:21→19:20)
[2017-08-12] MEDS: ASPIRIN 325 MG TAB PO SCH (09:22)
[2017-08-12] MEDS: levETIRAcetam 500 MG TAB PO SCH (09:22)
[2017-08-12] MEDS: DULoxetine HCl DR 30 MG CAP PO SCH (09:22)
--- NOTE | 2017-08-12 10:45 | PD.PN.STU ---
Subjective Remarks The patient is a 36 y/o female with a hx of of 2 prior strokes , seizures, migraines, hypertension, iron deficiency anemia, and elevated factor VIII with the complaint of right sided weakness. She normally has a weakness in her left arm and leg from her prior strokes but this was new and on the right side. This started Friday around 3pm while she was eating food at the table. She had a really bad headache similar to the headaches she has prior to a seizure. She says she also had trouble seeing out of her right eye. She then began to have right arm and leg numbness. She says she may have been drooling a little as well. She had trouble walking because of the weakness and numbness. She did not have a seizure and never fell or hit her head. Upon arrival to the ED she was given aspirin with no relief of symptoms. She had a normal head CT. She continues to feel numbness and weakness on her right side and said she also has an achy pain on the right side that is not alleviated by anything. She said her vision is back to normal as well. She has had an outpatient workup for her stroke hx that only showed an elevated factor VIII and no other obvious causes of the strokes. She denies incontinence, fever, nausea, vomiting, diarrhea, constipation, chest pain, SOB, cough, abdominal pain, or rashes. PMH- 2 prior strokes, hypertension, seizures, migraines, iron deficiency anemia , elevated Factor VIII Social hx: denies tobacco or alcohol use, denies any other recreational drug use Surgical hx: cholecystectomy, neck surgery (2017) Objective Vitals Vital Signs Date Time Temp Pulse Resp B/P (MAP) Pulse Ox O2 Delivery O2 Flow Rate FiO2 08/12/17 09:15 98.2 79 16 119/82 (94) 99 08/12/17 04:18 75 18 114/63 (80) 98 08/12/17 02:56 80 08/12/17 02:00 120/65 (83) 08/12/17 01:02 85 16 99/59 (72) 97 08/12/17 00:27 84 08/12/17 00:11 97.4 80 16 93/53 (66) 99 08/11/17 23:24 08/11/17 20:38 78 16 130/78 (95) 98 Room Air 08/11/17 18:39 98 Room Air 08/11/17 18:06 95 21 08/11/17 17:47 95 Room Air 08/11/17 15:57 98.7 98 18 153/74 (100) 100 Result Diagram: 08/11/17 1618 08/11/17 1618 Other Results Laboratory Tests Test 08/11/17 16:18 08/11/17 20:50 08/12/17 06:20 White Blood Count 7.8 TH/MM3 Red Blood Count 4.33 MIL/MM3 Hemoglobin 12.6 GM/DL Hematocrit 37.6 % Mean Corpuscular Volume 86.8 FL Mean Corpuscular Hemoglobin 29.1 PG Mean Corpuscular Hemoglobin Concent 33.5 % Red Cell Distribution Width 15.7 % Platelet Count 412 TH/MM3 Mean Platelet Volume 7.1 FL Neutrophils (%) (Auto) 39.5 % Lymphocytes (%) (Auto) 50.4 % Monocytes (%) (Auto) 8.0 % Eosinophils (%) (Auto) 1.6 % Basophils (%) (Auto) 0.5 % Neutrophils # (Auto) 3.1 TH/MM3 Lymphocytes # (Auto) 3.9 TH/MM3 Monocytes # (Auto) 0.6 TH/MM3 Eosinophils # (Auto) 0.1 TH/MM3 Basophils # (Auto) 0.0 TH/MM3 CBC Comment DIFF FINAL Differential Comment Prothrombin Time 9.8 SEC Prothromb Time International Ratio 1.0 RATIO Activated Partial Thromboplast Time 27.5 SEC Urine Color YELLOW Urine Turbidity HAZY Urine pH 6.0 Urine Specific [place] 1.023 Urine Protein TRACE mg/dL Urine Glucose (UA) NEG mg/dL Urine Ketones NEG mg/dL Urine Occult Blood MOD Urine Nitrite NEG Urine Bilirubin NEG Urine Urobilinogen LESS THAN 2.0 MG/DL Urine Leukocyte Esterase NEG Urine RBC LESS THAN 1 /hpf Urine Squamous Epithelial Cells 4 /hpf Urine Mucus FEW /lpf Microscopic Urinalysis Comment CATH-CULT NOT IND Blood Urea Nitrogen 8 MG/DL Creatinine 0.96 MG/DL Random Glucose 84 MG/DL Total Protein 8.5 GM/DL Albumin 3.6 GM/DL Calcium Level 9.2 MG/DL Alkaline Phosphatase 89 U/L Aspartate Amino Transf (AST/SGOT) 34 U/L Alanine Aminotransferase (ALT/SGPT) 39 U/L Total Bilirubin 0.4 MG/DL Sodium Level 138 MEQ/L Potassium Level 3.6 MEQ/L Chloride Level 106 MEQ/L Carbon Dioxide Level 25.8 MEQ/L Anion Gap 6 MEQ/L Estimat Glomerular Filtration Rate 81 ML/MIN Total Creatine Kinase 147 U/L Troponin I LESS THAN 0.02 NG/ML Triglycerides Level 94 MG/DL Cholesterol Level 134 MG/DL LDL Cholesterol 68 MG/DL HDL Cholesterol 46.8 MG/DL Cholesterol/HDL Ratio 2.86 RATIO Imaging Last Impressions Head CT 08/11/17 1602 Signed Impressions: Service Date/Time: Friday, August 11, 2017 16:30 - CONCLUSION: Negative for acute process. Fuentes Grossman MD FACR Head Magnetic Resonance Angiography 08/11/17 0000 Signed Impressions: Service Date/Time: Friday, August 11, 2017 19:01 - CONCLUSION: No acute disease. Julio Velasco MD Cervical Spine MRI 08/11/17 0000 Signed Impressions: Service Date/Time: Friday, August 11, 2017 19:01 - CONCLUSION: 1. Status post anterior cervical fusion from C5-C7. 2. Moderate stenosis at the C4-C5 level caused by disc bulge and a minimal right lateral recess disc protrusion. 3. Mild impression on the thecal sac at the left lateral recess region at the C6-C7 level with enhancement likely related to scarring. Julio Velasco MD Brain MRI 08/11/17 0000 Signed Impressions: Service Date/Time: Friday, August 11, 2017 19:01 - CONCLUSION: 1. Stable MRI examination of the brain without acute abnormality. 2. Stable small area of encephalomalacia at the superior medial right parietal lobe. 3. Stable cystic change medial basal ganglia regions were present either old infarcts or dilated perivascular spaces. Julio Velasco MD Objective Remarks GENERAL: Well-nourished, well-developed patient in no acute distress. SKIN: Warm and dry. HEAD: Normocephalic. EYES: No scleral icterus. No injection or drainage. NECK: Supple, trachea midline. No JVD or lymphadenopathy. CARDIOVASCULAR: Regular rate and rhythm without murmurs, gallops, or rubs. RESPIRATORY: Breath sounds equal bilaterally. No accessory muscle use. GASTROINTESTINAL: Abdomen soft, non-tender, nondistended. MSK: No cyanosis, or edema. Right arm and right leg +2 muscle strength, left side +3 muscle strength. NEUROLOGICAL: Awake, alert, and oriented x 3. Decreased sensation over right face, right arm, and right leg when compared to the left side. Medications and IVs Current Medications Medications (Trade) Dose Ordered Sig/Annette Route PRN Reason Start Time Stop Time Status Last Admin Dose Admin Duloxetine HCl (Cymbalta Dr) 30 mg DAILY PO 08/12/17 09:00 08/12/17 09:22 Gabapentin (Neurontin) 400 mg TID PO 08/11/17 18:00 08/12/17 09:21 Levetriacetam (Keppra) 1,000 mg BID PO 08/11/17 21:00 08/12/17 09:22 Temazepam (Restoril) 30 mg HS PO 08/11/17 21:00 08/11/17 20:21 Patient Own Medication PT OWN MED: (Eslicarbazepine (Aptiom) 400... DAILY PO 08/12/17 09:00 Sodium Chloride (NS Flush) 2 ml BID IV FLUSH 08/11/17 21:00 08/12/17 09:00 Sodium Chloride (NS Flush) 2 ml UNSCH PRN IV FLUSH FLUSH AFTER USING IV ACCESS 08/11/17 17:45 Aspirin (Aspirin) 325 mg DAILY PO 08/12/17 09:00 08/12/17 09:22 Enoxaparin Sodium (Lovenox Inj) 40 mg Q24H SQ 08/11/17 20:00 08/11/17 20:21 Ondansetron HCl (Zofran Inj) 4 mg Q6H PRN IV PUSH NAUSEA 08/11/17 18:45 08/11/17 20:25 A/P Assessment and Plan A 36 y/o female with 2 past CVA's presented with new right sided numbness and weakness consistent with a new CVA. Acute right-sided weakness, right sided headache: - negative Head CT, head MRI, and neck MRI - Continue daily aspirin 325 mg. - Consult neurology and PT - ST cleared her for normal diet - Consult hematology Seizure disorder: -Continue home medications History of iron deficiency anemia: -Trend H&H -Lovenox for DVT prophylaxis Sammy Juarez M3 Aug 12, 2017 10:45
[2017-08-12 10:52] LABS: HEMOGLOBIN A1C 5.8 % (4.3-6.0)
--- NOTE | 2017-08-12 15:40 | EKG ---
Date Performed: 08/11/2017 Time Performed: 16:23:31 PTAGE: 36 years EKG: Sinus rhythm Nonspecific ST-T wave changes PREVIOUS TRACING : 04/07/2017 18.43 DOCTOR: Srinivas Palacios Interpretating Date/Time 08/12/2017 15:30:24
--- NOTE | 2017-08-12 15:49 | HHI.PR ---
Subjective Remarks Patient still reporting significant weakness of the right side. Headache subsided. Objective Vitals Vital Signs Date Time Temp Pulse Resp B/P (MAP) Pulse Ox O2 Delivery O2 Flow Rate FiO2 08/12/17 14:44 98.1 94 18 120/84 (96) 96 08/12/17 11:53 97.9 83 16 117/77 (90) 98 08/12/17 09:15 98.2 79 16 119/82 (94) 99 08/12/17 04:18 75 18 114/63 (80) 98 08/12/17 02:56 80 08/12/17 02:00 120/65 (83) 08/12/17 01:02 85 16 99/59 (72) 97 08/12/17 00:27 84 08/12/17 00:11 97.4 80 16 93/53 (66) 99 08/11/17 23:24 08/11/17 20:38 78 16 130/78 (95) 98 Room Air 08/11/17 18:39 98 Room Air 08/11/17 18:06 95 21 08/11/17 17:47 95 Room Air 08/11/17 15:57 98.7 98 18 153/74 (100) 100 Result Diagram: 08/11/17 1618 08/11/17 1618 Objective Remarks GENERAL: Obese female in no acute distress. CARDIOVASCULAR: Regular rate and rhythm without murmurs, gallops, or rubs. RESPIRATORY: Clear to auscultation. Breath sounds equal bilaterally. No wheezes , rales, or rhonchi. GASTROINTESTINAL: Abdomen soft, non-tender, nondistended. MUSCULOSKELETAL: Extremities without clubbing, cyanosis, or edema. NEUROLOGICAL: Awake and alert. Speech is normal. Reports numbness over the right side of the face. Left upper and lower extremity 4 out of 5 strength. Right upper and lower extremity 2 out of 5 strength. A/P Assessment and Plan 36-year-old female with history of previous CVA who presented with acute right- sided weakness concerning for CVA. Acute right-sided weakness, right sided headache: Concern for CVA versus cervical myelopathy. DW Neurology Dr. Ortiz, stroke vs seizure vs complicated migraine. MRI brain with no acute findings. Cervical MR shows some stenosis. - Continue daily aspirin 325 mg. - Consult neurology, rehab medicine. PT - continue neuro checks. 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 Has been followed outpatient by hematology. - Consult Hematology - If no improvement , will consult Neurosurgery for an opinion regarding the cervical MR findings. History of ACDF. Seizure disorder: Per Neurology, switch back to Vimpat. Home dose. History of iron deficiency anemia: - H&H is normal. Patient normally gets iron infusion. Monitor as indicated. DVT PPx: Luciano Arrington MD Aug 12, 2017 15:49
--- NOTE | 2017-08-12 16:28 | MB ---
cc: Elizabeth Ortiz MD DATE: 08/12/2017 REASON FOR CONSULTATION: Weakness right side, history of stroke, history of factor VIII abnormality. 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 Brooks in [place] who switched from Keppra to Vimpat 100 mg every 12 hours due to issues with Keppra in the past. She has had seizure disorder since she had her stroke back in 2015. Comes in with right-sided numbness and pain, headache. For the pain, she usually uses sumatriptan nasal. The weakness is in the right upper and right lower extremity with some pain as well as stiffness. She is supposed to be on a muscle relaxant. She was hoping that it would go away, but it had not, so she decided to come to the hospital. Her last known seizure was in November. She had outpatient PT for a C5-C7 diskectomy, had a cervical spine MRI without anything acute. Left side is better. She had an MRI of the brain with no acute findings. The [place] was really unremarkable as well. PAST MEDICAL HISTORY: Stroke, seizures, factor VIII abnormality. Follows with Dr. Haji. PAST SURGICAL HISTORY: C5-C6 and C6-C7 anterior cervical discectomy with fusion 01/07/2017 and cholecystectomy. HOME MEDICINES: 1. Ventolin. 2. Medrol Dosepak. 3. P.r.n. guaifenesin. 4. Diflucan. 5. Keppra. No longer taking. 6. She is on Vimpat 100 mg b.i.d. 7. Neurontin 400 mg t.i.d. 8. Baclofen 10 mg every 8 hours. 9. Cymbalta. ALLERGIES: SULFA AND PENICILLIN. SOCIAL HISTORY: She lives with her sister. No alcohol, tobacco, or drugs. PHYSICAL EXAMINATION: VITAL SIGNS: Temperature 98.1, pulse 94, respiratory rate 18, blood pressure 120/84. NECK: Supple. No appreciable bruits. HEART: Regular. NEUROLOGIC: She is awake, alert, oriented, fluent. Pupils reactive. Visual [place] full. Face symmetrical. Tongue midline. Motor right upper extremity, she can move her wrist, but cannot lift the arm antigravity. Tone is increased with some pain, referred pain. Leg, she can wiggle toes, but cannot lift antigravity. Left side best of 4/5. DTRs are 2+. Toes withdraw. Gait is withheld at this time. She is in the chair. No truncal ataxia. IMAGING STUDIES: MRI of the brain did not show anything acute. MRA [place], no acute findings. CT cervical spine shows status post anterior cervical fusion C5-C7, moderate stenosis C4-C5 level caused by disk bulge, minimal right lateral recess disk protrusion, mild impression on the thecal sac in the left lateral recess region of C6-C7 with enhancement, likely related to scarring. LABORATORY DATA: Her CBC is really unremarkable. Coag panel normal. Chemistries: GFR 81, cholesterol 134, triglycerides 94, LDL 68, HDL 46.8. IMPRESSION AND PLAN: Right-sided weakness. No acute infarct. Could this be a complicated migraine or seizure equivalent. It is a possibility. Recommend changing her back to Vimpat. We will get an EEG. PT daily. Rehab consult. Place her on Zanaflex 4 mg b.i.d. Eliot p.r.n. Stop the Keppra and she will need daily physical therapy. Consideration would be to reconsult hematology and possibly consider putting her on anticoagulation instead of aspirin, but in the meantime, she will stay on aspirin for the interim. Looking back in the last few MRIs, the last MRI that was positive was 11/2015 with acute infarcts in the paramidline right superior parietal lobe, to a lesser extent left superior parietal lobe. Continue current recommendations. MD JEIMY Valero/ELINA , 03:31 PM , 04:27 PM
--- NOTE | 2017-08-12 18:39 | MB ---
cc: Leydi Haji MD, Ruby Anne E MD DATE: 08/12/2017 REFERRING PHYSICIAN: Ian Boggs MD. CHIEF COMPLAINT: Dr. Boggs requests a consultation for Ms. Cuevas with a suspected recurrent stroke associated with elevated Factor VIII activity level. HISTORY OF PRESENT ILLNESS: Ms. Cuevas is a 36-year-old woman, well known patient from initial consultation back in -12/2015. She was found unresponsive by family members and was brought into the emergency room, intubated and sent to the ICU. Workup showed acute bilateral, right more than left, parietal infarcts. She clinically improved and was found to have a decrease in antithrombin activity and elevated Factor VIII activity. Other thrombophilia workup including Factor V Leiden, lupus anticoagulant, antiphospholipid antibody was negative. She had elevation of Factor VIII activity level, however, it was the high normal range when she recovered. She was placed on aspirin as secondary prophylaxis and she did not fail aspirin with her initial stroke. The etiology of the stroke was not truly identified as thrombophilia related. Her course is complicated by cervical disk disease with myelopathy. She had cervical stenosis that led to weakness of her left leg. She underwent a C5-C6 and C6-C7 anterior cervical discectomy in . She has recovered from that surgery and had improvement in her left leg. She presented with symptoms of progressive weakness in the right side since Friday prior to her admission. She finally came in with concern for recurrent stroke. She was compliant with her aspirin prophylaxis. Imaging study included MRI of the brain that showed no acute abnormality. There was a small area of encephalomalacia in the superior medial right parietal lobe. There is stable cystic change in the medial basal ganglia, which represents old infarcts. MRA of the head shows no acute disease. The MRI of the cervical spine status post anterior cervical fusion from C5-C7. There is moderate stenosis at C4-C5 level because of disk bulge. There is minimal right lateral recess disk protrusion. There is mild impression on the thecal sac on the left lateral recess at C6-C7. Despite this, she has weakness of the right arm. She is unable to move her right leg. She has weakness on both sides. She was started on low molecular weight heparin on aspirin and has no improvement in her symptoms. She was seen by neurology for her right-sided weakness. Neurology agrees that there was no acute infarct. Complications of migraines or seizure equivalent was considered. Dr. Ortiz recommended a hematology/oncology to consult to consider a different anticoagulant prophylaxis. I discussed with Ms. Cuevas previously the use of Coumadin as secondary prophylaxis. Since she had not failed aspirin, we went to aspirin prophylaxis. She does not appear to have failed aspirin prophylaxis without the appearance of a new stroke; however, she has clear symptoms of right-sided and lower extremity weakness. She had associated symptoms of low back pain. She has to readjust her pillows for her low back pain. This is a new symptom from previous and has not been investigated as yet. She denies any fevers, chills or night sweats. She was treated for iron deficiency. She has some fatigue, but her last ferritin from April was normal. Repeat ferritin was not done in the hospital. Her CBC was completely normal and the MCV was normal. The rest of her review of systems was negative. PAST MEDICAL HISTORY: 1. Elevated Factor VIII activity level. 2. Bilateral stroke. 3. Seizure disorder. 4. Asthma. 5. Low back pain. PAST SURGICAL HISTORY: 1. Cholecystectomy. 2. Ovarian cyst removal. 3. Anterior diskectomy. FAMILY HISTORY: Sister had ovarian cancer. Sister also had bilateral breast surgery for benign disease. Mother has a history of stroke. SOCIAL HISTORY: She now lives in the area, from [place]. She denies any tobacco, alcohol or illicit drug use. ALLERGIES: SULFA, PENICILLIN G MEDICATIONS: Vimpat, Zanaflex, Lovenox, Clemons, Cymbalta, aspirin, temazepam p.r.n., Zofran, Neurontin PHYSICAL EXAMINATION: VITAL SIGNS: Temperature 98.1, heart rate 94, respiratory rate 18, blood pressure 120/84, saturation 96%. GENERAL: Ms. Cuevas is a well-developed, obese young woman, pleasant, in no acute distress. She has adjusted her position and her back pain is resolved. HEENT: Pupils are round, reactive to light and accommodation. Oropharynx is clear. NECK: Supple with no adenopathy. LUNGS: Clear to auscultation. CARDIOVASCULAR: Reveals normal rate and rhythm. ABDOMEN: Large and benign. EXTREMITIES: No edema. She is able to lift her left leg slightly against gravity. She is able to wiggle her toes on both sides. She has right arm weakness. She is unable to move them during the exam. LABORATORY DATA: CBC normal. Chemistry shows normal kidney function. Total protein was elevated. ASSESSMENT AND PLAN: Ms. Cuevas is a 36-year-old woman with history of bilateral strokes on aspirin prophylaxis. Her course is complicated by cervical stenosis status post cervical discectomy and seizures. She presents with progressive right-sided weakness, residual left-sided weakness and worsening low back pain. I discussed with Ms. Cuevas her workup so far. MRI of the brain shows no acute changes. MRA was negative. MRI of the cervical spine shows stable disk protrusion that does not explain currently her leg weakness and her right arm weakness. We discussed further workup of her low back pain. She describes severe pain in her lumbosacral area. I will obtain a lumbar CT scan and MRI of the sacrum and coccyx. We will evaluate for etiology of possible contributions of her lower extremity weakness. We entertain switching her to Coumadin as secondary prophylaxis. She is agreeable to starting Coumadin. My concern is that she does not appear to have progressive symptoms from worsening stroke or thromboembolic event, at least not that could be verified by imaging study. We discussed that the repeat MRI may not have been sensitive enough to detect the changes that we are seeing namely the weakness on the right side. For this reason, she was agreeable to proceeding with secondary prophylaxis with Coumadin. She will undergo Coumadin teaching. Her Lovenox is increased to 40 mg subcutaneous q. 12 hours to bridge her to a therapeutic INR. A small dose of Coumadin is started. I want to have the opportunity to check a Factor VIII activity level before starting her on Coumadin. Her PT, PTT was normal on admission. I anticipate stopping her aspirin at some point to continue with secondary prophylaxis with Coumadin. Her questions were answered to her satisfaction. We can transfer her to the oncology floor as we bridge her to a therapeutic INR. We will see how her symptoms evolve. MD CRISTÓBAL Cohen/ , 05:58 PM , 06:39 PM
[2017-08-12] MEDS: ACETAMINOPHEN/HYDROcodone 325 MG/5 MG TAB PO PRN (19:25)
--- NOTE | 2017-08-12 20:36 | RADRPT ---
EXAM DATE/TIME: 08/12/2017 20:15 [facility] COMPARISON: No previous studies available for comparison. INDICATIONS : Back pain. RADIATION DOSE: 45.04 CTDIvol (mGy) MEDICAL HISTORY : Seizures. Hypertension. Acute encephalopathy. SURGICAL HISTORY : None. ENCOUNTER: Initial ACUITY: 3 days PAIN SCALE: 5/10 LOCATION: Bilateral lumbar TECHNIQUE: Volumetric scanning of the lumbar spine was performed. Multiplanar reconstructions in the sagittal, coronal and oblique axial planes were performed. Using automated exposure control and adjustment of the mA and/or kV according to patient size, radiation dose was kept as low as reasonably achievable t o obtain optimal diagnostic quality images. DICOM format image data is available electronically for review and comparison. FINDINGS: VERTEBRAE: Normal vertebral body height. ALIGNMENT: No evidence of subluxation. Pelvic kidney seen. T12-L1: The thecal sac has a normal diameter. No evidence of disc bulge or protrusion. The neural foramina are patent bilaterally. L1-L2: The thecal sac has a normal diameter. No evidence of disc bulge or protrusion. The neural foramina are patent bilaterally. L2-L3: The thecal sac has a normal diameter. No evidence of disc bulge or protrusion. The neural foramina are patent bilaterally. L3-L4: Mild broad-based disc bulge abuts ventral thecal sac without canal stenosis. The neural foramina are patent bilaterally. L4-L5: Mild broad-based disc bulge abuts ventral thecal sac without canal stenosis. The neural foramina are patent bilaterally. L5-S1: Mild broad-based disc bulge abuts ventral thecal sac without canal stenosis. The neural foramina are patent bilaterally. CONCLUSION: 1. Mild broad-based disc bulges L3-4, L4-5 and L5-S1 levels. 2. No fracture or subluxation. 3. No canal stenosis. 4. Pelvic kidney. Teofilo Montanez MD on August 12, 2017 at 20:32 Board Certified Radiologist. This report was verified electronically.
--- NOTE | 2017-08-12 20:39 | RADRPT ---
EXAM DATE/TIME: 08/12/2017 19:40 [facility] COMPARISON: No previous studies available for comparison. INDICATIONS : Lower leg weakness. MEDICAL HISTORY : Cerebrovascular disease. Hypertension. Renal insufficiency. SURGICAL HISTORY : Cholecystectomy. Ovarian cyst sx. ENCOUNTER: Initial ACUITY: 2 day PAIN SCORE: 5/10 LOCATION: Bilateral lower leg. TECHNIQUE: Multiplanar multisequence MRI examination of the sacrum/coccyx was performed. FINDINGS: BONE/CARTILAGE: Bone marrow signal is homogeneous. Articular cartilage signal is within normal limits. MUSCLES/TENDONS: All of the visualized muscles and tendons are intact. MISCELLANEOUS: Neurovascular structures are within normal limits. Distended urinary bladder. Sacral alae are normal. Nerve roots appear unremarkable. CONCLUSION: Unremarkable sacrum/coccyx. Urinary bladder mildly distended. Teofilo Montanez MD on August 12, 2017 at 20:36 Board Certified Radiologist. This report was verified electronically.
[2017-08-12] MEDS: TEMAZEPAM 15 MG CAP PO SCH (21:45)
[2017-08-12] MEDS: LACOSAMIDE 100 MG TAB PO SCH (21:45)
[2017-08-12] MEDS: ENOXAPARIN SODIUM 40 MG/0.4 ML SYRINGE SQ SCH (21:46)
[2017-08-13] VITALS (13 sets, daily range): BP systolic 119–153; BP diastolic 65–78; PULSE 75–108; RESP 14–30; TEMP 97.7–98.7; O2SAT 91–100
[2017-08-13] MEDS: ACETAMINOPHEN/HYDROcodone 325 MG/5 MG TAB PO PRN ×2 (05:33→12:19)
--- NOTE | 2017-08-13 07:42 | HHI.PR ---
Addendum to Inpatient Note Addendum Reason: Additional Documentation Additional Information Shon called overhead at approximately 0730. S: Nursing staff reports the patient had been seizing for approximately 2 minutes. They state that the patient writing her call button, they enter the room and witnessed her with a clenched jaw, shaking of her right arm, and unresponsive to stimuli. No acute complaints through the night. Unable to interview patient at this time due to active seizure. O: BP: 163/85 pulse: 92 RR: 18 SPO2 100% on room air GENERAL: Laying in bed, actively seizing, initially unresponsive to stimuli SKIN: Warm and dry. HEAD: Normocephalic, jaw clenched. EYES: No scleral icterus. No injection or drainage. NECK: Supple, trachea midline. No JVD or lymphadenopathy. CARDIOVASCULAR: Regular rate and rhythm without murmurs, gallops, or rubs. RESPIRATORY: Breath sounds equal bilaterally. No accessory muscle use. GASTROINTESTINAL: Abdomen soft, nondistended. MUSCULOSKELETAL: No cyanosis, or edema. Active myoclonic movement of bilateral arms. A/P: 36-year-old female with past history of seizures with recent discontinuation of Keppra experiencing active seizure. Patient was maintaining airway and saturating well. 2 mg of Ativan was administered, myoclonic movement resolved, patient remained unresponsive with clenched jaw. Additional 2 mg of Ativan was administered. Patient's jaw became unclenched, became responsive to painful stimuli. Dr. Kemp was contacted and case was discussed. He advised to start Celebrex with a 1000 mg bolus, as well as 100 mg q. 8, EEG, transfer to ICU. He reported he would discuss case with patient's neurologist Dr. Ortiz. - F/U CBC, CMP, magnesium, phosphorus -EEG -Cerebyx 1000 mg bolus, followed by 100 mg every 8 -transfer to ICU -Continue to monitor neurologic status Ambrosio Henderson MD R1 Aug 13, 2017 07:42
[2017-08-13] MEDS ORDERED: LORazepam 2 MG/ML VIAL IV PUSH ONE (07:45)
[2017-08-13] MEDS ORDERED: FOSPHENYTOIN SODIUM 500 MG PE/10 ML VIAL IV ONE (07:45)
[2017-08-13] MEDS: ASPIRIN 325 MG TAB PO SCH (09:48)
[2017-08-13] MEDS: DULoxetine HCl DR 30 MG CAP PO SCH (09:48)
[2017-08-13] MEDS: GABAPENTIN 400 MG CAP PO SCH ×3 (09:48→18:25)
[2017-08-13] MEDS: ENOXAPARIN SODIUM 40 MG/0.4 ML SYRINGE SQ SCH (09:48)
[2017-08-13] MEDS ORDERED: FOSPHENYTOIN INJ 1,000 MGPE in SODIUM CHLORIDE 0.9% INJ 50 ML IV ONE (10:00)
[2017-08-13] MEDS: SODIUM CHLORIDE 0.9% FLUSH 10 ML FLUSH IV FLUSH SCH ×2 (10:17→22:15)
[2017-08-13] MEDS: LACOSAMIDE 100 MG TAB PO SCH ×2 (10:56→22:15)
--- NOTE | 2017-08-13 12:41 | HHI.PR ---
Subjective Remarks pt had sz this am now in icu awake but somnolent moves rue better but painful. Objective Vital Signs Date Time Temp Pulse Resp B/P (MAP) Pulse Ox O2 Delivery O2 Flow Rate FiO2 08/13/17 09:55 108 30 98 08/13/17 08:00 83 08/13/17 07:49 98 2.00 08/13/17 07:49 98 Nasal Cannula 2.00 08/13/17 07:45 85 153/67 (95) 91 08/13/17 06:33 18 08/13/17 03:49 98.7 84 18 122/78 (93) 08/13/17 00:00 97.7 78 16 132/74 (93) 08/12/17 14:44 98.1 94 18 120/84 (96) 96 I/O 08/12/17 08/12/17 08/12/17 08/13/17 08/13/17 08/13/17 07:00 15:00 23:00 07:00 15:00 23:00 Intake Total 70 ml Balance 70 ml Intake IV Total 70 ml # Voids 1 Result Diagram: 08/11/17 1618 08/11/17 1618 Objective Remarks awake alert no facial droop rue improved pain with rom Assessment and Plan Assessment and Plan sz hx cva due to fact viii -warfarin-check inr daily -cont vimpat 100 mg bid for now cont cerebyx 100mg tid-if able to swallow can change to po 100mg tid dilantin sz precautions ativan prn eeg pt-ot-st,rehab consult. Elizabeth Ortiz MD Aug 13, 2017 12:41
[2017-08-13 13:37] LABS: AUTOMATED NEUTROPHIL # 2.7 TH/MM3 (1.8-7.7); BASOPHIL % 0.5 % (0.0-2.0); EOSINOPHIL # 0.2 TH/MM3 (0-0.4); EOSINOPHIL % 2.6 % (0.0-4.0); HEMATOCRIT 34.4 % (35.0-46.0); HEMOGLOBIN 11.4 GM/DL (11.6-15.3); LYMPH % 49.5 % (9.0-44.0); LYMPHOCYTE # 3.2 TH/MM3 (1.0-4.8); MEAN CORPUSCULAR HEMOGLOBIN 28.9 PG (27.0-34.0); MEAN CORPUSCULAR HGB CONC 33.2 % (32.0-36.0); MEAN PLATELET VOLUME 7.3 FL (7.0-11.0); MONO % 6.5 % (0.0-8.0); MONOCYTE # 0.4 TH/MM3 (0-0.9); NEUT % 40.9 % (16.0-70.0); PLATELET COUNT 379 TH/MM3 (150-450); RED BLOOD COUNT 3.95 MIL/MM3 (4.00-5.30); RED CELL DISTRIBUTION WIDTH 15.5 % (11.6-17.2); WHITE BLOOD COUNT 6.5 TH/MM3 (4.0-11.0)
[2017-08-13 14:03] LABS: ALBUMIN 3.5 GM/DL (3.4-5.0); AST (GOT) 29 U/L (15-37); BICARBONATE 26.9 MEQ/L (21.0-32.0); BLOOD UREA NITROGEN 9 MG/DL (7-18); CHLORIDE 104 MEQ/L (98-107); CREATININE 0.84 MG/DL (0.50-1.00); GLOMERULAR FILTRATION RATE 94 ML/MIN (>89); GLUCOSE,RANDOM 83 MG/DL (74-106); MAGNESIUM 2.2 MG/DL (1.5-2.5); SODIUM (NA) 139 MEQ/L (136-145)
[2017-08-13 14:04] LABS: ALT (GPT) 37 U/L (10-53); PHOSPHORUS 3.3 MG/DL (2.5-4.9)
[2017-08-13 14:06] LABS: ALKALINE PHOSPHATASE 85 U/L (45-117); TOTAL BILIRUBIN ADULT 0.5 MG/DL (0.2-1.0)
--- NOTE | 2017-08-13 14:36 | PD.ONC.PN ---
Subjective Subjective Remarks Afebrile Patient's sister at the bedside states she just fell asleep approximately 10 minutes ago I had a difficult time waking her up Per the sister the right-sided weakness is unchanged Patient apparently had a seizure earlier this morning Objective Data Date Time Temp Pulse Resp B/P (MAP) Pulse Ox O2 Delivery O2 Flow Rate FiO2 08/13/17 13:39 18 08/13/17 12:00 81 08/13/17 09:55 108 30 98 08/13/17 08:00 83 08/13/17 07:49 98 2.00 08/13/17 07:49 98 Nasal Cannula 2.00 08/13/17 07:45 85 153/67 (95) 91 08/13/17 03:49 98.7 84 18 122/78 (93) 08/13/17 00:00 97.7 78 16 132/74 (93) 08/12/17 14:44 98.1 94 18 120/84 (96) 96 08/13/17 08/13/17 08/13/17 07:00 15:00 23:00 Intake Total 70 ml Balance 70 ml Result Diagram: 08/13/17 1315 08/13/17 1315 Laboratory Results Laboratory Tests Test 08/13/17 05:08 08/13/17 13:15 White Blood Count 6.5 TH/MM3 Red Blood Count 3.95 MIL/MM3 Hemoglobin 11.4 GM/DL Hematocrit 34.4 % Mean Corpuscular Volume 87.0 FL Mean Corpuscular Hemoglobin 28.9 PG Mean Corpuscular Hemoglobin Concent 33.2 % Red Cell Distribution Width 15.5 % Platelet Count 379 TH/MM3 Mean Platelet Volume 7.3 FL Neutrophils (%) (Auto) 40.9 % Lymphocytes (%) (Auto) 49.5 % Monocytes (%) (Auto) 6.5 % Eosinophils (%) (Auto) 2.6 % Basophils (%) (Auto) 0.5 % Neutrophils # (Auto) 2.7 TH/MM3 Lymphocytes # (Auto) 3.2 TH/MM3 Monocytes # (Auto) 0.4 TH/MM3 Eosinophils # (Auto) 0.2 TH/MM3 Basophils # (Auto) 0.0 TH/MM3 CBC Comment DIFF FINAL Differential Comment Blood Urea Nitrogen 9 MG/DL Creatinine 0.84 MG/DL Random Glucose 83 MG/DL Total Protein 8.0 GM/DL Albumin 3.5 GM/DL Calcium Level 9.0 MG/DL Phosphorus Level 3.3 MG/DL Magnesium Level 2.2 MG/DL Alkaline Phosphatase 85 U/L Aspartate Amino Transf (AST/SGOT) 29 U/L Alanine Aminotransferase (ALT/SGPT) 37 U/L Total Bilirubin 0.5 MG/DL Sodium Level 139 MEQ/L Potassium Level 4.0 MEQ/L Chloride Level 104 MEQ/L Carbon Dioxide Level 26.9 MEQ/L Anion Gap 8 MEQ/L Estimat Glomerular Filtration Rate 94 ML/MIN Administered Medications Medications (Trade) Dose Ordered Sig/Annette Route PRN Reason Start Time Stop Time Status Last Admin Dose Admin Duloxetine HCl (Cymbalta Dr) 30 mg DAILY PO 08/12/17 09:00 08/13/17 09:48 Gabapentin (Neurontin) 400 mg TID PO 08/11/17 18:00 08/13/17 12:18 Temazepam (Restoril) 30 mg HS PO 08/11/17 21:00 08/12/17 21:45 Patient Own Medication PT OWN MED: (Eslicarbazepine (Aptiom) 400... DAILY PO 08/12/17 09:00 08/12/17 09:00 Sodium Chloride (NS Flush) 2 ml BID IV FLUSH 08/11/17 21:00 08/13/17 10:17 Aspirin (Aspirin) 325 mg DAILY PO 08/12/17 09:00 08/13/17 09:48 Ondansetron HCl (Zofran Inj) 4 mg Q6H PRN IV PUSH NAUSEA 08/11/17 18:45 08/11/17 20:25 Lacosamide (Vimpat) 100 mg BID PO 08/12/17 21:00 08/13/17 10:56 Tizanidine HCl (Zanaflex) 4 mg Q12HR PO 08/12/17 21:00 08/13/17 09:49 Acetaminophen/ Hydrocodone Bitart ([place] 5-325 Mg) 1 tab Q6H PRN PO PAIN SCALE 1-10 08/12/17 15:30 08/13/17 12:19 Enoxaparin Sodium (Lovenox Inj) 40 mg Q12HR SQ 08/12/17 21:00 08/13/17 09:48 Objective Remarks GENERAL: Comfortable appearing young female resting in bed asleep SKIN: Warm and dry. HEAD: Normocephalic. EYES: No scleral icterus. No injection or drainage. NECK: Supple, trachea midline. No JVD or lymphadenopathy. CARDIOVASCULAR: Regular rate and rhythm without murmurs. RESPIRATORY: Clear anteriorly. Breathing unlabored at rest. GASTROINTESTINAL: Abdomen soft, non-tender, nondistended. EXTREMITIES: No edema to bilateral lower extremities NEUROLOGICAL: Asleep on exam Assessment/Plan Problem List: (1) History of CVA (cerebrovascular accident) ICD Codes: Z86.73 - Personal history of transient ischemic attack (TIA), and cerebral infarction without residual deficits Status: Chronic Plan: --MRI of the brain showed no acute abnormality --MRA of the head shows no acute disease --CT of the head shows no acute abnormality --As patient has new right-sided weakness we will place her on secondary prophylaxis with Coumadin however there is no imaging that shows she has failed the initial therapy with aspirin. (2) Seizure ICD Codes: R56.9 - Unspecified convulsions Status: Acute Plan: --Apparent seizure early this a.m. 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 Continue Coumadin and Lovenox 2. Monitor daily INR 3. Monitor CBC 4. Await results of factor VIII level Attending Statement The exam, history, and the medical decision-making described in the above note were completed with the assistance of the mid-level provider. I reviewed and agree with the findings presented. I attest that I had a [id number] encounter with the patient on the same day, and personally performed and documented my assessment and findings in the medical record. Events noted, speech worse- less fluent. R arm still weak as well as both legs. Optimize lovenox dose, cont small dose of Coumadin. FVIII activity levels did return to normal after- therefore does not explain the strokes. FVIII was elevated during acute event as expected as an acute phase reactant. Goal to switch to Coumadin, as clinically failing ASA with new neurologic symptoms, MRI may be slower to reflect changes. CT lumbar and MRI sacrum do not explain LE weakness, also not the etiology of R arm weakness. Negrita Duque Aug 13, 2017 14:36 Leydi Haji MD Aug 13, 2017 18:04
[2017-08-13] MEDS: WARFARIN SOD 2.5 MG TAB PO SCH (15:32)
--- NOTE | 2017-08-13 17:27 | HHI.PR ---
Subjective Remarks Patient seen earlier this morning around 10 AM. She had a seizure this morning. She was started on Cerebyx and transferred to the ICU She reports that she was aware of the whole incident. She reports twitching of her face and left upper and lower extremities. Reports strength on the right side is better today. Objective Vitals Vital Signs Date Time Temp Pulse Resp B/P (MAP) Pulse Ox O2 Delivery O2 Flow Rate FiO2 08/13/17 16:00 96 08/13/17 16:00 96 22 119/65 (83) 99 08/13/17 14:00 75 08/13/17 13:39 18 08/13/17 12:00 81 08/13/17 09:55 108 30 98 08/13/17 08:00 83 08/13/17 07:49 98 2.00 08/13/17 07:49 98 Nasal Cannula 2.00 08/13/17 07:45 85 153/67 (95) 91 08/13/17 03:49 98.7 84 18 122/78 (93) 08/13/17 00:00 97.7 78 16 132/74 (93) I/O 08/12/17 08/12/17 08/12/17 08/13/17 08/13/17 08/13/17 06:59 14:59 22:59 06:59 14:59 22:59 Intake Total 70 ml Balance 70 ml Intake IV Total 70 ml # Voids 1 Result Diagram: 08/13/17 1315 08/13/17 1315 Objective Remarks GENERAL: Obese female in no acute distress. CARDIOVASCULAR: Regular rate and rhythm without murmurs, gallops, or rubs. RESPIRATORY: Clear to auscultation. Breath sounds equal bilaterally. No wheezes , rales, or rhonchi. GASTROINTESTINAL: Abdomen soft, non-tender, nondistended. MUSCULOSKELETAL: Extremities without clubbing, cyanosis, or edema. NEUROLOGICAL: Awake and alert. Speech is normal. Reports numbness over the right side of the face. Left upper and lower extremity 4 out of 5 strength. Right upper and lower extremity 3 out of 5 strength. Improved. A/P Assessment and Plan 36-year-old female with history of previous CVA who presented with acute right- sided weakness concerning for CVA. Acute right-sided weakness, right sided headache: Concern for CVA versus cervical myelopathy. DW Neurology Dr. Ortiz, stroke vs seizure vs complicated migraine. MRI brain with no acute findings. Cervical MR shows some stenosis. - Continue daily aspirin 325 mg. - Consult neurology, rehab medicine. PT - continue neuro checks. 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 Has been followed outpatient by hematology. -Hematology following, she has been started on Lovenox bridging to Coumadin. Seizure disorder: Reported breakthrough seizure this morning. Currently on Cerebyx. Neurology aware and will follow up. On the femoropopliteal. EEG History of iron deficiency anemia: - H&H is normal. Patient normally gets iron infusion. Monitor as indicated. DVT PPx: Lovenox Discharge Planning Continue to monitor closely in ICU. Luciano Boggs MD Aug 13, 2017 17:27
[2017-08-13] MEDS: FOSPHENYTOIN SODIUM 100 MG PE/2 ML VIAL IV SCH (18:25)
[2017-08-13] MEDS: LORazepam 2 MG/ML VIAL IV PUSH PRN (18:26)
--- NOTE | 2017-08-13 19:14 | MG ---
cc: Agustin Gamboa MD DATE OF EE08/13/2017 REQUESTING PHYSICIAN: ABHISHEK, ____ INDICATION FOR EEG: EEG was obtained on this 36-year-old patient. This was a stat EEG study and 4 mg Ativan given prior to the EEG. The patient is awake and asleep. DESCRIPTION OF EEG: Today's EEG shows typical widespread beta activity secondary to sedative medication. There are some alpha rhythms. There are theta rhythms. There are some sleep spindles and K complexes. The patient is predominantly asleep and the tracing is overall symmetrical without any pathological findings. Photic stimulation disclosed no significant change. Hyperventilation was not performed. INTERPRETATION: Normal predominantly sleep/sedated electroencephalogram study. Specifically, no epileptiform features present. Agustin Gamboa MD OFC/KD , 06:45 PM , 07:13 PM
[2017-08-13] MEDS ORDERED: ENOXAPARIN SODIUM 40 MG/0.4 ML SYRINGE SQ SCH (21:00)
[2017-08-13] MEDS: ENOXAPARIN SODIUM 60 MG/0.6 ML SYRINGE SQ SCH (22:00)
[2017-08-13] MEDS: TEMAZEPAM 15 MG CAP PO SCH (22:15)
[2017-08-14] VITALS (12 sets, daily range): BP systolic 98–120; BP diastolic 56–82; PULSE 79–98; RESP 11–30; TEMP 98.1–98.7; O2SAT 95–99
[2017-08-14] MEDS: FOSPHENYTOIN SODIUM 100 MG PE/2 ML VIAL IV SCH ×3 (02:46→17:24)
[2017-08-14] MEDS: ACETAMINOPHEN/HYDROcodone 325 MG/5 MG TAB PO PRN ×3 (02:58→17:24)
[2017-08-14] MEDS: LORazepam 2 MG/ML VIAL IV PUSH PRN ×4 (03:27→16:29)
[2017-08-14 06:52] LABS: HEMATOCRIT 35.5 % (35.0-46.0); HEMOGLOBIN 11.9 GM/DL (11.6-15.3); MEAN CELL VOLUME 87.2 FL (80.0-100.0); MEAN CORPUSCULAR HEMOGLOBIN 29.2 PG (27.0-34.0); MEAN CORPUSCULAR HGB CONC 33.5 % (32.0-36.0); MEAN PLATELET VOLUME 7.5 FL (7.0-11.0); PLATELET COUNT 366 TH/MM3 (150-450); RED BLOOD COUNT 4.07 MIL/MM3 (4.00-5.30); RED CELL DISTRIBUTION WIDTH 15.6 % (11.6-17.2); WHITE BLOOD COUNT 8.2 TH/MM3 (4.0-11.0)
[2017-08-14 06:54] LABS: PROTHROMBIN TIME - PATIENT 10.1 SEC (9.8-11.6)
[2017-08-14 07:16] LABS: BICARBONATE 29.5 MEQ/L (21.0-32.0); CALCIUM 8.9 MG/DL (8.5-10.1); CREATININE 0.89 MG/DL (0.50-1.00)
[2017-08-14 07:19] LABS: PHENYTOIN (DILANTIN) 3.3 MCG/ML (10.0-20.0)
[2017-08-14] MEDS: LACOSAMIDE 100 MG TAB PO SCH ×2 (09:34→21:17)
[2017-08-14] MEDS: ENOXAPARIN SODIUM 60 MG/0.6 ML SYRINGE SQ SCH ×2 (09:35→21:17)
[2017-08-14] MEDS: DULoxetine HCl DR 30 MG CAP PO SCH (09:35)
[2017-08-14] MEDS: SODIUM CHLORIDE 0.9% FLUSH 10 ML FLUSH IV FLUSH SCH ×2 (09:35→21:18)
[2017-08-14] MEDS: ASPIRIN 325 MG TAB PO SCH (09:35)
[2017-08-14] MEDS: GABAPENTIN 400 MG CAP PO SCH ×3 (09:35→17:23)
--- NOTE | 2017-08-14 13:49 | PD.ONC.PN ---
Subjective Subjective Remarks Afebrile overnight. Patient sedated. Per nurse she had an ~ 7 minute seizure this AM around 12 and was given ativan ( about an hour prior to my exam). during my exam she is not arousable. however, her vitals are stable on the bedside monitor. sister at bedside also reports patient had seizure this AM. Objective Data Date Time Temp Pulse Resp B/P (MAP) Pulse Ox O2 Delivery O2 Flow Rate FiO2 08/14/17 10:00 91 08/14/17 08:00 79 08/14/17 08:00 98.2 79 11 109/63 (78) 08/14/17 06:00 98 08/14/17 04:00 89 08/14/17 04:00 98.1 89 30 109/56 (73) 95 08/14/17 02:00 82 08/14/17 00:00 82 08/14/17 00:00 98.7 82 13 106/68 (81) 08/13/17 22:00 83 08/13/17 20:31 98 Nasal Cannula 2.00 08/13/17 20:00 76 08/13/17 20:00 76 14 119/70 (86) 100 08/13/17 18:00 75 08/13/17 16:00 96 08/13/17 16:00 96 22 119/65 (83) 99 08/13/17 14:00 75 08/14/17 08/14/17 08/14/17 07:00 15:00 23:00 Intake Total 500 ml Output Total 900 ml Balance -400 ml Result Diagram: 08/14/17 0559 08/14/17 0559 Laboratory Results Laboratory Tests Test 08/13/17 18:30 08/14/17 05:59 Nasal Screen MRSA (PCR) MRSA NOT DETECTED White Blood Count 8.2 TH/MM3 Red Blood Count 4.07 MIL/MM3 Hemoglobin 11.9 GM/DL Hematocrit 35.5 % Mean Corpuscular Volume 87.2 FL Mean Corpuscular Hemoglobin 29.2 PG Mean Corpuscular Hemoglobin Concent 33.5 % Red Cell Distribution Width 15.6 % Platelet Count 366 TH/MM3 Mean Platelet Volume 7.5 FL Prothrombin Time 10.1 SEC Prothromb Time International Ratio 1.0 RATIO Blood Urea Nitrogen 10 MG/DL Creatinine 0.89 MG/DL Random Glucose 96 MG/DL Calcium Level 8.9 MG/DL Sodium Level 138 MEQ/L Potassium Level 4.0 MEQ/L Chloride Level 103 MEQ/L Carbon Dioxide Level 29.5 MEQ/L Anion Gap 6 MEQ/L Estimat Glomerular Filtration Rate 88 ML/MIN Phenytoin (Dilantin) Level 3.3 MCG/ML Administered Medications Medications (Trade) Dose Ordered Sig/Annette Route PRN Reason Start Time Stop Time Status Last Admin Dose Admin Duloxetine HCl (Cymbalta Dr) 30 mg DAILY PO 08/12/17 09:00 08/14/17 09:35 Gabapentin (Neurontin) 400 mg TID PO 08/11/17 18:00 08/14/17 11:59 Temazepam (Restoril) 30 mg HS PO 08/11/17 21:00 08/13/17 22:15 Patient Own Medication PT OWN MED: (Eslicarbazepine (Aptiom) 400... DAILY PO 08/12/17 09:00 08/12/17 09:00 Sodium Chloride (NS Flush) 2 ml BID IV FLUSH 08/11/17 21:00 08/14/17 09:35 Aspirin (Aspirin) 325 mg DAILY PO 08/12/17 09:00 08/14/17 09:35 Ondansetron HCl (Zofran Inj) 4 mg Q6H PRN IV PUSH NAUSEA 08/11/17 18:45 08/11/17 20:25 Lacosamide (Vimpat) 100 mg BID PO 08/12/17 21:00 08/14/17 09:34 Tizanidine HCl (Zanaflex) 4 mg Q12HR PO 08/12/17 21:00 08/14/17 09:35 Acetaminophen/ Hydrocodone Bitart ([place] 5-325 Mg) 1 tab Q6H PRN PO PAIN SCALE 1-10 08/12/17 15:30 08/14/17 09:48 Warfarin Sodium (Coumadin) 2.5 mg DAILY@16 PO 08/13/17 16:00 08/13/17 15:32 Lorazepam (Ativan Inj) 2 mg Q15M PRN IV PUSH SEIZURES 08/13/17 07:45 08/14/17 12:17 Fosphenytoin Sodium (Cerebyx Inj) 100 mgpe Q8H IV 08/13/17 18:00 08/14/17 09:36 Enoxaparin Sodium (Lovenox Inj) 60 mg Q12H SQ 08/13/17 22:00 08/14/17 09:35 Objective Remarks GENERAL: Young woman, lying in bed, head of bed at 45 degrees. She is sedated. SKIN: Warm and dry. HEAD: Normocephalic. EYES: No injection or drainage. NECK: Supple, trachea midline. CARDIOVASCULAR: Regular rate and rhythm RESPIRATORY: anterior [place] clear. On 2L O2 via NC GASTROINTESTINAL: Abdomen nondistended. EXTREMITIES: No cyanosis NEUROLOGICAL: sedated. does not awaken to sternal rub. Assessment/Plan Problem List: (1) History of CVA (cerebrovascular accident) ICD Codes: Z86.73 - Personal history of transient ischemic attack (TIA), and cerebral infarction without residual deficits Status: Chronic Plan: --check repeat CT brain 08/14 --MRI of the brain showed no acute abnormality --MRA of the head shows no acute disease --CT of the head shows no acute abnormality --As patient has new right-sided weakness we will place her on secondary prophylaxis with Coumadin however there is no imaging that shows she has failed the initial therapy with aspirin. (2) Seizure ICD Codes: R56.9 - Unspecified convulsions Status: Acute Plan: --had another seizure 08/14, given ativan --EEG on 08/13 showed no seizure activity. 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 check CT brain 2. continue Lovenox/coumadin unless evidence of bleeding 3. await Factor VIII activity level Attending Statement The exam, history, and the medical decision-making described in the above note were completed with the assistance of the mid-level provider. I reviewed and agree with the findings presented. I attest that I had a [id number] encounter with the patient on the same day, and personally performed and documented my assessment and findings in the medical record. Pt seen and examined in AM w/ sister at bedside. No bleeding. Noted post ictal, more sleepy, unable to cooperate with exam. Noted EEG was negative. Anticoagulation titrate to therapeutic INR for Coumadin on going. Danna Birch Aug 14, 2017 13:49 Leydi Haji MD Aug 14, 2017 17:13
[2017-08-14] MEDS ORDERED: FOSPHENYTOIN INJ 500 MGPE in SODIUM CHLORIDE 0.9% INJ 50 ML IV ONE (14:45)
--- NOTE | 2017-08-14 15:12 | HHI.PR ---
Subjective Remarks Patient seen earlier this morning. Reportedly had 2 seizures overnight. She appears sedated. Objective Vitals Vital Signs Date Time Temp Pulse Resp B/P (MAP) Pulse Ox O2 Delivery O2 Flow Rate FiO2 08/14/17 10:00 91 08/14/17 08:00 79 08/14/17 08:00 98.2 79 11 109/63 (78) 08/14/17 06:00 98 08/14/17 04:00 89 08/14/17 04:00 98.1 89 30 109/56 (73) 95 08/14/17 02:00 82 08/14/17 00:00 82 08/14/17 00:00 98.7 82 13 106/68 (81) 08/13/17 22:00 83 08/13/17 20:31 98 Nasal Cannula 2.00 08/13/17 20:00 76 08/13/17 20:00 76 14 119/70 (86) 100 08/13/17 18:00 75 08/13/17 16:00 96 08/13/17 16:00 96 22 119/65 (83) 99 I/O 08/13/17 08/13/17 08/13/17 08/14/17 08/14/17 08/14/17 06:59 14:59 22:59 06:59 14:59 22:59 Intake Total 70 ml 240 ml 500 ml Output Total 400 ml 900 ml Balance 70 ml -160 ml -400 ml Intake Oral 240 ml 500 ml IV Total 70 ml Output Urine Total 400 ml 900 ml Stool Total 0 ml # Voids 2 3 # Bowel Movements 0 Result Diagram: 08/14/17 0559 08/14/17 0559 Objective Remarks GENERAL: Obese female in no acute distress. CARDIOVASCULAR: Regular rate and rhythm without murmurs, gallops, or rubs. RESPIRATORY: Clear to auscultation. Breath sounds equal bilaterally. No wheezes , rales, or rhonchi. GASTROINTESTINAL: Abdomen soft, non-tender, nondistended. MUSCULOSKELETAL: Extremities without clubbing, cyanosis, or edema. NEUROLOGICAL: Appears sedated, woke up with stimulation. Left upper and lower extremity 4 out of 5 strength. Right upper and lower extremity 3 out of 5 strength. Improved. A/P Assessment and Plan 36-year-old female with history of previous CVA who presented with acute right- sided weakness concerning for CVA. Acute right-sided weakness, right sided headache: Concern for CVA versus cervical myelopathy. DW Neurology Dr. Ortiz, stroke vs seizure vs complicated migraine. MRI brain with no acute findings. Cervical MR shows some stenosis. - Continue daily aspirin 325 mg. - Consult neurology, rehab medicine. PT - continue neuro checks. 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 Has been followed outpatient by hematology. - Hematology following, she has been started on Lovenox bridging to Coumadin. Seizure disorder: Recurrent breakthrough seizures per report. Currently on Cerebyx. Neurology aware and will follow up. On Vimpat. EEG without epileptic activities. Cautious to avoid oversedation. History of iron deficiency anemia: - H&H is normal. Patient normally gets iron infusion. Monitor as indicated. DVT PPx: Lovenox Discharge Planning Continue to monitor neuro status closely in ICU. Appreciate further input from neurology. Luciano Boggs MD Aug 14, 2017 15:12
--- NOTE | 2017-08-14 15:40 | RADRPT ---
EXAM DATE/TIME: 08/14/2017 15:23 [facility] COMPARISON: MRI BRAIN W/O CONTRAST, August 11, 2017, 19:01. CT BRAIN W/O CONTRAST, August 11, 2017, 16:30. INDICATIONS : Intracerebral hemorrhage RADIATION DOSE: 39.39 CTDIvol (mGy) MEDICAL HISTORY : Cerebrovascular disease. Seizures. Hypertension.Diabetes SURGICAL HISTORY : None. ENCOUNTER: Initial ACUITY: 1 day PAIN SCALE: 0/10 LOCATION: cranial TECHNIQUE: Multiple contiguous axial images were obtained of the head. Using automated exposure control and adj ustment of the mA and/or kV according to patient size, radiation dose was kept as low as reasonably a chievable to obtain optimal diagnostic quality images. DICOM format image data is available electro nically for review and comparison. FINDINGS: CEREBRUM: Stable mild encephalomalacia in the medial right parietal high convexities near the vertex. The ventr icles are normal for age. No evidence of midline shift, mass lesion, hemorrhage or acute infarction. No extra-axial fluid collections are seen. POSTERIOR FOSSA: The cerebellum and brainstem are intact. The 4th ventricle is midline. The cerebellopontine angle i s unremarkable. EXTRACRANIAL: The visualized portion of the orbits is intact. SKULL: The calvaria is intact. No evidence of skull fracture. CONCLUSION: 1. Stable CT examination without acute intracranial abnormality. 2. Stable focal region of encephalomalacia in the medial right parietal high convexities. Macho Colmenares MD on August 14, 2017 at 15:36 Board Certified Radiologist. This report was verified electronically.
[2017-08-14] MEDS ORDERED: clonazePAM 0.5 MG TAB PO ONE (17:15)
[2017-08-14] MEDS: WARFARIN SOD 2.5 MG TAB PO SCH (17:23)
[2017-08-14] MEDS: clonazePAM 0.5 MG TAB PO SCH (21:17)
[2017-08-14] MEDS: TEMAZEPAM 15 MG CAP PO SCH (21:17)
[2017-08-14] MEDS ORDERED: ACETAMINOPHEN/HYDROcodone 325 MG/5 MG TAB PO ONE (22:30)
[2017-08-15] VITALS (13 sets, daily range): BP systolic 98–126; BP diastolic 53–74; PULSE 76–94; RESP 9–23; TEMP 97.5–98.2; O2SAT 96–100
[2017-08-15] MEDS: FOSPHENYTOIN SODIUM 100 MG PE/2 ML VIAL IV SCH ×3 (02:16→17:11)
[2017-08-15] MEDS: ACETAMINOPHEN/HYDROcodone 325 MG/5 MG TAB PO PRN ×3 (02:33→16:50)
[2017-08-15] MEDS: LORazepam 2 MG/ML VIAL IV PUSH PRN ×4 (04:35→14:51)
[2017-08-15] MEDS: ESLICARBAZEPINE 400 MG PO SCH (09:00)
[2017-08-15] MEDS: SODIUM CHLORIDE 0.9% FLUSH 10 ML FLUSH IV FLUSH SCH ×2 (09:00→21:06)
[2017-08-15] MEDS: clonazePAM 0.5 MG TAB PO SCH ×2 (09:20→21:06)
[2017-08-15] MEDS: LACOSAMIDE 100 MG TAB PO SCH ×2 (09:20→21:04)
[2017-08-15] MEDS: DULoxetine HCl DR 30 MG CAP PO SCH (09:20)
[2017-08-15] MEDS: GABAPENTIN 400 MG CAP PO SCH ×3 (09:21→17:11)
[2017-08-15] MEDS: ENOXAPARIN SODIUM 60 MG/0.6 ML SYRINGE SQ SCH ×2 (09:21→21:05)
[2017-08-15] MEDS: ASPIRIN 325 MG TAB PO SCH (09:21)
--- NOTE | 2017-08-15 11:37 | PD.ONC.PN ---
Subjective Subjective Remarks Afebrile overnight. Patient resting in bed. she remains lethargic/fatigued. sister at bedside states she had another seizure this AM. patient is lethargic and somewhat confused/slow to answer questions. she denies pain. Objective Data Date Time Temp Pulse Resp B/P (MAP) Pulse Ox O2 Delivery O2 Flow Rate FiO2 08/15/17 10:00 83 08/15/17 08:00 94 08/15/17 08:00 98.0 82 14 117/71 (86) 97 08/15/17 06:00 94 08/15/17 04:00 98.2 84 9 111/74 (86) 98 08/15/17 04:00 84 08/15/17 02:00 76 08/15/17 00:00 81 08/15/17 00:00 98.0 81 15 98/69 (79) 08/14/17 22:00 83 08/14/17 20:00 85 08/14/17 20:00 98.1 85 14 98/82 (87) 99 08/14/17 18:00 97 08/14/17 16:00 85 08/14/17 16:00 98.6 85 23 120/75 (90) 97 08/14/17 14:00 85 08/14/17 12:00 98.4 80 13 101/59 (73) 95 08/14/17 12:00 80 08/15/17 08/15/17 08/15/17 06:59 14:59 22:59 Intake Total 400 ml Output Total 850 ml Balance -450 ml Result Diagram: 08/14/17 0559 08/14/1759 Laboratory Results Laboratory Tests Test 08/15/17 05:41 Phenytoin (Dilantin) Level 9.3 MCG/ML Administered Medications Medications (Trade) Dose Ordered Sig/Annette Route PRN Reason Start Time Stop Time Status Last Admin Dose Admin Duloxetine HCl (Cymbalta Dr) 30 mg DAILY PO 08/12/17 09:00 08/15/17 09:20 Gabapentin (Neurontin) 400 mg TID PO 08/11/17 18:00 08/15/17 09:21 Temazepam (Restoril) 30 mg HS PO 08/11/17 21:00 08/14/17 21:17 Patient Own Medication PT OWN MED: (Eslicarbazepine (Aptiom) 400... DAILY PO 08/12/17 09:00 08/12/17 09:00 Sodium Chloride (NS Flush) 2 ml BID IV FLUSH 08/11/17 21:00 08/15/17 09:00 Aspirin (Aspirin) 325 mg DAILY PO 08/12/17 09:00 08/15/17 09:21 Ondansetron HCl (Zofran Inj) 4 mg Q6H PRN IV PUSH NAUSEA 08/11/17 18:45 08/11/17 20:25 Lacosamide (Vimpat) 100 mg BID PO 08/12/17 21:00 08/15/17 09:20 Tizanidine HCl (Zanaflex) 4 mg Q12HR PO 08/12/17 21:00 08/15/17 09:20 Acetaminophen/ Hydrocodone Bitart ([place] 5-325 Mg) 1 tab Q6H PRN PO PAIN SCALE 1-10 08/12/17 15:30 08/15/17 02:33 Warfarin Sodium (Coumadin) 2.5 mg DAILY@16 PO 08/13/17 16:00 08/14/17 17:23 Lorazepam (Ativan Inj) 2 mg Q15M PRN IV PUSH SEIZURES 08/13/17 07:45 08/15/17 05:00 Fosphenytoin Sodium (Cerebyx Inj) 100 mgpe Q8H IV 08/13/17 18:00 08/15/17 09:21 Enoxaparin Sodium (Lovenox Inj) 60 mg Q12H SQ 08/13/17 22:00 08/15/17 09:21 Clonazepam (KlonoPIN) 0.5 mg BID PO 08/14/17 21:00 08/15/17 09:20 Objective Remarks GENERAL: Young woman, lying in bed, sleeping on approach. SKIN: Warm and dry. HEAD: Normocephalic. EYES: No scleral icterus. No injection or drainage. NECK: Supple, trachea midline. CARDIOVASCULAR: Regular rate and rhythm RESPIRATORY: anterior [place] clear. GASTROINTESTINAL: Abdomen soft, non-tender, nondistended. EXTREMITIES: No cyanosis NEUROLOGICAL: awake, but lethargic. right sided weakness. facial movements symmetric. oriented to self. Assessment/Plan Problem List: (1) History of CVA (cerebrovascular accident) ICD Codes: Z86.73 - Personal history of transient ischemic attack (TIA), and cerebral infarction without residual deficits Status: Chronic Plan: --repeat CT brain 08/14 shows no change --MRI of the brain showed no acute abnormality --MRA of the head shows no acute disease --CT of the head shows no acute abnormality --patient had new right-sided weakness-->placed on secondary prophylaxis with Coumadin however there is no imaging that shows she has failed the initial therapy with aspirin. (2) Seizure ICD Codes: R56.9 - Unspecified convulsions Status: Acute Plan: --had another seizure 08/14, given ativan --EEG on 08/13 showed no seizure activity. 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 continue Lovenox/coumadin 2. await Factor VIII activity level 3. monitor CBC, INR Attending Statement The exam, history, and the medical decision-making described in the above note were completed with the assistance of the mid-level provider. I reviewed and agree with the findings presented. I attest that I had a [id number] encounter with the patient on the same day, and personally performed and documented my assessment and findings in the medical record. Feels down, frustrated about her seizures. Denies any bleeding. Tolerating bridge Lovenox/Coumadin. Repeat FVIII activity not high and not likely reason for stroke, likely acute phase reactant. Switch prophylaxis in case thromboembolic component/ failure on ASA. Cont follow INR. Danna Birch Aug 15, 2017 11:37 Leydi Haji MD Aug 15, 2017 18:58
--- NOTE | 2017-08-15 16:03 | HHI.PR ---
Subjective Remarks pt reported to have sz's awakens after nopostictal confusion asked her what is going on "stress maybe" Objective Vital Signs Date Time Temp Pulse Resp B/P (MAP) Pulse Ox O2 Delivery O2 Flow Rate FiO2 08/15/17 14:00 85 08/15/17 12:00 79 08/15/17 12:00 97.8 79 23 110/66 (81) 100 08/15/17 10:00 83 08/15/17 09:00 100 08/15/17 08:00 94 08/15/17 08:00 98.0 82 14 117/71 (86) 97 08/15/17 06:00 94 08/15/17 04:00 98.2 84 9 111/74 (86) 98 08/15/17 04:00 84 08/15/17 02:00 76 08/15/17 00:00 81 08/15/17 00:00 98.0 81 15 98/69 (79) 08/14/17 22:00 83 08/14/17 20:00 85 08/14/17 20:00 98.1 85 14 98/82 (87) 99 08/14/17 18:00 97 08/14/17 16:00 85 08/14/17 16:00 98.6 85 23 120/75 (90) 97 I/O 08/14/17 08/14/17 08/14/17 08/15/17 08/15/17 08/15/17 07:00 15:00 23:00 07:00 15:00 23:00 Intake Total 500 ml 685 ml 400 ml Output Total 900 ml 1100 ml 850 ml Balance -400 ml -415 ml -450 ml Intake Oral 500 ml 625 ml 400 ml IV Total 60 ml Output Urine Total 900 ml 1100 ml 850 ml Stool Total 0 ml 0 ml # Voids 3 # Bowel Movements 0 0 0 Result Diagram: 08/14/1759 08/14/17558 Objective Remarks awake alert,nad no facial droop rue improved able to lift up antigravity Assessment and Plan Assessment and Plan sz vs nonepileptic sz most likely ?stress/depression -psychiatric consult-pt agreeable. -cont cerebyx-can change to po dilantin,cont vimpat po,klonopin 0.5mg bid. -I did order today a repeat eeg. -cont to monitor. avoid ativan if possible pht level in am on warfarin monitor inr. factor viii normal range now.-heme on case. no new stroke on mri/ct neg as well. Elizabeth Ortiz MD Aug 15, 2017 16:03
[2017-08-15] MEDS: WARFARIN SOD 2.5 MG TAB PO SCH (17:11)
--- NOTE | 2017-08-15 20:21 | MG ---
cc: Agustin Gamboa MD ____. An EEG was obtained on this 36-year-old patient. The patient is asleep. This EEG shows a beta rhythm of low amplitude. There are sleep spindles. The EEG initially is reasonably symmetrical and characterized by sleep activities. There are some ____ K complexes along with the sleep spindles. The patient is asleep, snoring and toward the end around photic stimulation, the patient awakens and alpha activity is seen intermixed diffusely. Photic stimulation shows some driving response bilaterally. INTERPRETATION: Probably normal asleep electroencephalogram. Agustin Gamboa MD OFC/rt , 08:07 PM , 08:21 PM
[2017-08-15] MEDS: TEMAZEPAM 15 MG CAP PO SCH (21:04)
[2017-08-16] VITALS (14 sets, daily range): BP systolic 94–127; BP diastolic 54–81; PULSE 82–117; RESP 16–30; TEMP 97.8–99.3; O2SAT 93–100
[2017-08-16] MEDS ORDERED: LACTULOSE SYRUP 20 GM/30 ML CUP PO PRN
[2017-08-16] MEDS ORDERED: BISACODYL 10 MG SUPP RECTAL PRN
[2017-08-16] MEDS ORDERED: MAGNESIUM HYDROXIDE SUSP 30 ML CUP PO PRN
[2017-08-16] MEDS: FOSPHENYTOIN SODIUM 100 MG PE/2 ML VIAL IV SCH ×3 (01:10→17:24)
[2017-08-16] MEDS: ACETAMINOPHEN/HYDROcodone 325 MG/5 MG TAB PO PRN ×4 (01:10→21:50)
[2017-08-16] MEDS: ONDANSETRON HCL 4 MG/2 ML VIAL IV PUSH PRN ×5 (02:03→23:56)
[2017-08-16] MEDS: clonazePAM 0.5 MG TAB PO SCH ×2 (09:34→21:16)
[2017-08-16] MEDS: DULoxetine HCl DR 30 MG CAP PO SCH (09:35)
[2017-08-16] MEDS: LACOSAMIDE 100 MG TAB PO SCH ×2 (09:35→21:17)
[2017-08-16] MEDS: DOCUSATE SODIUM 50 MG/SENNA 8.6 MG TAB PO SCH ×2 (09:35→21:17)
[2017-08-16] MEDS: SODIUM CHLORIDE 0.9% FLUSH 10 ML FLUSH IV FLUSH SCH ×2 (09:35→21:16)
[2017-08-16] MEDS: GABAPENTIN 400 MG CAP PO SCH ×3 (09:35→17:24)
[2017-08-16] MEDS: ASPIRIN 325 MG TAB PO SCH (09:35)
[2017-08-16] MEDS: ENOXAPARIN SODIUM 60 MG/0.6 ML SYRINGE SQ SCH ×2 (09:36→21:16)
--- NOTE | 2017-08-16 10:00 | PD.ONC.PN ---
Subjective Subjective Remarks Afebrile overnight. Patient more awake today. She received lactulose early this AM and now feels nauseated. Sister at bedside. Objective Data Date Time Temp Pulse Resp B/P (MAP) Pulse Ox O2 Delivery O2 Flow Rate FiO2 08/16/17 06:00 94 08/16/17 04:00 97.8 87 20 100/81 (87) 93 08/16/17 04:00 87 08/16/17 02:00 93 08/16/17 00:00 90 08/16/17 00:00 99.3 82 18 94/54 (67) 98 08/15/17 22:00 87 08/15/17 20:00 90 08/15/17 20:00 98.2 90 18 98/53 (68) 08/15/17 18:00 83 08/15/17 16:00 97.5 80 13 126/66 (86) 96 08/15/17 16:00 80 08/15/17 14:00 85 08/15/17 12:00 79 08/15/17 12:00 97.8 79 23 110/66 (81) 100 08/15/17 10:00 83 08/16/17 08/16/17 08/16/17 07:00 15:00 23:00 Intake Total 300 ml Output Total 1700 ml Balance -1400 ml Result Diagram: 08/14/17 0559 08/14/1759 Administered Medications Medications (Trade) Dose Ordered Sig/Annette Route PRN Reason Start Time Stop Time Status Last Admin Dose Admin Duloxetine HCl (Cymbalta Dr) 30 mg DAILY PO 08/12/17 09:00 08/16/17 09:35 Gabapentin (Neurontin) 400 mg TID PO 08/11/17 18:00 08/16/17 09:35 Temazepam (Restoril) 30 mg HS PO 08/11/17 21:00 08/15/17 21:04 Patient Own Medication PT OWN MED: (Eslicarbazepine (Aptiom) 400... DAILY PO 08/12/17 09:00 08/12/17 09:00 Sodium Chloride (NS Flush) 2 ml BID IV FLUSH 08/11/17 21:00 08/16/17 09:35 Aspirin (Aspirin) 325 mg DAILY PO 08/12/17 09:00 08/16/17 09:35 Ondansetron HCl (Zofran Inj) 4 mg Q6H PRN IV PUSH NAUSEA 08/11/17 18:45 08/16/17 07:08 Lacosamide (Vimpat) 100 mg BID PO 08/12/17 21:00 08/16/17 09:35 Tizanidine HCl (Zanaflex) 4 mg Q12HR PO 08/12/17 21:00 08/16/17 09:35 Acetaminophen/ Hydrocodone Bitart ([place] 5-325 Mg) 1 tab Q6H PRN PO PAIN SCALE 1-10 08/12/17 15:30 08/16/17 09:36 Warfarin Sodium (Coumadin) 2.5 mg DAILY@16 PO 08/13/17 16:00 08/15/17 17:11 Lorazepam (Ativan Inj) 2 mg Q15M PRN IV PUSH SEIZURES 08/13/17 07:45 08/15/17 14:51 Fosphenytoin Sodium (Cerebyx Inj) 100 mgpe Q8H IV 08/13/17 18:00 08/16/17 09:35 Enoxaparin Sodium (Lovenox Inj) 60 mg Q12H SQ 08/13/17 22:00 08/16/17 09:36 Clonazepam (KlonoPIN) 0.5 mg BID PO 08/14/17 21:00 08/16/17 09:34 Senna/Docusate Sodium (Kate-Colace) 1 tab BID PO 08/16/17 09:00 08/16/17 09:35 Objective Remarks GENERAL: Young woman, sitting up on side of bed. more awake then usual but still mildly lethargic. SKIN: Warm and dry. HEAD: Normocephalic. EYES: No scleral icterus. No injection or drainage. NECK: Supple, trachea midline. CARDIOVASCULAR: Regular rate and rhythm RESPIRATORY: diminished at bases, anterior [place] clear. GASTROINTESTINAL: Abdomen soft, non-tender, nondistended. EXTREMITIES: No cyanosis NEUROLOGICAL: awake, mildly lethargic. right sided weakness is persistent. Assessment/Plan Problem List: (1) History of CVA (cerebrovascular accident) ICD Codes: Z86.73 - Personal history of transient ischemic attack (TIA), and cerebral infarction without residual deficits Status: Chronic Plan: --repeat CT brain 08/14 shows no change --MRI of the brain showed no acute abnormality --MRA of the head shows no acute disease --CT of the head shows no acute abnormality --patient had new right-sided weakness-->placed on secondary prophylaxis with Coumadin however there is no imaging that shows she has failed the initial therapy with aspirin. (2) Seizure ICD Codes: R56.9 - Unspecified convulsions Status: Acute Plan: --had another seizure 08/14, given ativan --EEG on 08/13 showed no seizure activity. --Neurology following --Patient on Cerebyx (3) Elevated factor VIII level ICD Codes: R79.1 - Abnormal coagulation profile Plan: 08/16: Factor VIII level is within normal limits. --Patient has been as high as 376 in November 2015 with a normal cut off high value of 180 --On this admission this was drawn prior to administration of Coumadin and this is currently pending Assessment 36-year-old female with history of CVA and history of elevated factor VIII activity levels admitted for right-sided weakness Plan 1. continue Lovenox/coumadin 2. monitor INR 3. continue supportive care. Attending Statement The exam, history, and the medical decision-making described in the above note were completed with the assistance of the mid-level provider. I reviewed and agree with the findings presented. I attest that I had a [id number] encounter with the patient on the same day, and personally performed and documented my assessment and findings in the medical record. Patient seen and examined, vital signs labs and medications as well as imaging studies reviewed. Presents with right-sided weakness. Also noted to have uncontrolled motor activity with loss of consciousness findings consistent with a seizure however her EEGs are normal. I did speak to the patient's nurse and reviewed the records, there is some concern she may be having pseudoseizures. Imaging studies of the brain however do indicate encephalomalacia and previous history of lacunar infarcts. Which does raise the concern for previous history of strokes. She is appropriately on therapeutic anticoagulation which I would recommend continuing at this point. Per the nursing staff psychiatrist was in to see her who adjusted her antidepressants. Oncology/hematology service to continue following with you. Danna Birch Aug 16, 2017 10:00 Jake Oakley MD Aug 16, 2017 14:09
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
--- NOTE | 2017-08-16 12:46 | HHI.PR ---
Review/Management Daily Summary 08/16 depressed, not participating well on the exam sister at bedside eeg's normal probably some significant psychomotor component in her sx dr Ortiz back Friday Subjective Subjective Comments reviewed with her RN Active Medications Current Medications Medications (Trade) Dose Ordered Sig/Annette Route Start Time Stop Time Status Last Admin (Neurontin) 400 mg TID PO 08/11/17 18:00 08/16/17 11:52 (Restoril) 30 mg HS PO 08/11/17 21:00 08/15/17 21:04 Patient Own Medication PT OWN MED: (Eslicarbazepine (Aptiom) 400... DAILY PO 08/12/17 09:00 Future Hold 08/12/17 09:00 (NS Flush) 2 ml BID IV FLUSH 08/11/17 21:00 08/16/17 09:35 (NS Flush) 2 ml UNSCH PRN IV FLUSH 08/11/17 17:45 (Aspirin) 325 mg DAILY PO 08/12/17 09:00 08/16/17 09:35 (Zofran Inj) 4 mg Q6H PRN IV PUSH 08/11/17 18:45 08/16/17 07:08 (Vimpat) 100 mg BID PO 08/12/17 21:00 08/16/17 09:35 (Zanaflex) 4 mg Q12HR PO 08/12/17 21:00 08/16/17 09:35 ([place] 5-325 Mg) 1 tab Q6H PRN PO 08/12/17 15:30 08/16/17 09:36 (Coumadin) 2.5 mg DAILY@16 PO 08/13/17 16:00 08/15/17 17:11 (Ativan Inj) 2 mg Q15M PRN IV PUSH 08/13/17 07:45 08/15/17 14:51 (Cerebyx Inj) 100 mgpe Q8H IV 08/13/17 18:00 08/16/17 09:35 (Lovenox Inj) 60 mg Q12H SQ 08/13/17 22:00 08/16/17 09:36 (KlonoPIN) 0.5 mg BID PO 08/14/17 21:00 08/16/17 09:34 (Kate-Colace) 1 tab BID PO 08/16/17 09:00 08/16/17 09:35 (Milk Of Magnesia Liq) 30 ml Q12H PRN PO 08/16/17 00:00 (Senokot) 17.2 mg Q12H PRN PO 08/16/17 00:00 (Dulcolax Supp) 10 mg DAILY PRN RECTAL 08/16/17 00:00 (Lactulose Liq) 30 ml DAILY PRN PO 08/16/17 00:00 (Lexapro) 10 mg DAILY PO 08/17/17 09:00 Allergies Allergies Coded Allergies Sulfa (Sulfonamide Antibiotics) (Verified Allergy, Unknown, 05/17/17) penicillin G (Unverified Allergy, Unknown, hives, 05/17/17) Review of Systems All other ROS: ROS reviewed as documented in chart Exam I&O / VS Vital Signs Date Time Temp Pulse Resp B/P (MAP) Pulse Ox O2 Delivery O2 Flow Rate FiO2 08/16/17 10:00 93 08/16/17 08:00 92 08/16/17 08:00 98.0 92 16 127/79 (95) 08/16/17 06:00 94 08/16/17 04:00 97.8 87 20 100/81 (87) 93 08/16/17 04:00 87 08/16/17 02:00 93 08/16/17 00:00 90 08/16/17 00:00 99.3 82 18 94/54 (67) 98 08/15/17 22:00 87 08/15/17 20:00 90 08/15/17 20:00 98.2 90 18 98/53 (68) 08/15/17 18:00 83 08/15/17 16:00 97.5 80 13 126/66 (86) 96 08/15/17 16:00 80 08/15/17 14:00 85 General: Alert and Oriented, No acute distress Respiratory: Non-labored respirations Cardiology: Normal rate, Regular Rhythm Neurologic: Alert, Oriented Psychiatric: Cooperative, Appropriate mood & affect Agustin Gamboa MD Aug 16, 2017 12:46
[2017-08-16 13:33] LABS: AUTOMATED NEUTROPHIL # 7.3 TH/MM3 (1.8-7.7); BASOPHIL % 0.3 % (0.0-2.0); EOSINOPHIL # 0.2 TH/MM3 (0-0.4); EOSINOPHIL % 1.7 % (0.0-4.0); HEMATOCRIT 36.4 % (35.0-46.0); HEMOGLOBIN 12.2 GM/DL (11.6-15.3); LYMPH % 20.2 % (9.0-44.0); MEAN CELL VOLUME 87.5 FL (80.0-100.0); MEAN CORPUSCULAR HEMOGLOBIN 29.3 PG (27.0-34.0); MEAN CORPUSCULAR HGB CONC 33.5 % (32.0-36.0); MEAN PLATELET VOLUME 7.4 FL (7.0-11.0); MONOCYTE # 0.5 TH/MM3 (0-0.9); NEUT % 72.8 % (16.0-70.0); PLATELET COUNT 344 TH/MM3 (150-450); RED BLOOD COUNT 4.15 MIL/MM3 (4.00-5.30); RED CELL DISTRIBUTION WIDTH 15.5 % (11.6-17.2)
[2017-08-16 13:37] LABS: PROTHROMBIN TIME - PATIENT 10.3 SEC (9.8-11.6)
--- NOTE | 2017-08-16 13:44 | HHI.PR ---
Subjective Remarks delayed entry note from 08/15/17 note failed to be saved yesterday Patient resting in bed awake alert, complained of total body aching but no specific focal area Her neuro exam showing upper lower extremity weakness 2-3 out of 5 Objective Vitals Vital Signs Date Time Temp Pulse Resp B/P (MAP) Pulse Ox O2 Delivery O2 Flow Rate FiO2 08/16/17 10:41 100 21 08/16/17 10:00 93 08/16/17 08:00 92 08/16/17 08:00 98.0 92 16 127/79 (95) 08/16/17 06:00 94 08/16/17 04:00 97.8 87 20 100/81 (87) 93 08/16/17 04:00 87 08/16/17 02:00 93 08/16/17 00:00 90 08/16/17 00:00 99.3 82 18 94/54 (67) 98 08/15/17 22:00 87 08/15/17 20:00 90 08/15/17 20:00 98.2 90 18 98/53 (68) 08/15/17 18:00 83 08/15/17 16:00 97.5 80 13 126/66 (86) 96 08/15/17 16:00 80 08/15/17 14:00 85 I/O 08/15/17 08/15/17 08/15/17 08/16/17 08/16/17 08/16/17 07:00 15:00 23:00 07:00 15:00 23:00 Intake Total 400 ml 650 ml 300 ml Output Total 850 ml 6 ml 1700 ml Balance -450 ml 644 ml -1400 ml Intake Oral 400 ml 650 ml 300 ml Output Urine Total 850 ml 1500 ml Stool Total 0 ml 6 ml 200 ml # Bowel Movements 0 2 Result Diagram: 08/16/17 1242 08/14/17 0559 Objective Remarks GENERAL: This is a well-nourished, well-developed patient, in no apparent distress. CARDIOVASCULAR: RRR, no gallops, or rubs. RESPIRATORY: Fair air entry bilaterally. No W, R, or R GASTROINTESTINAL: Abdomen soft, non-tender, nondistended. Positive bowel sounds MUSCULOSKELETAL: Extremities without clubbing, cyanosis, or edema. Pedal pulses appreciated NEUROLOGICAL: Awake and alert. Moves all extremity. Strength is 2 out of 5 in all extremities, normal speech.no focal neurological deficit A/P Assessment and Plan 36-year-old female with history of previous CVA who presented with acute right- sided weakness concerning for CVA. 08/15: Continue current care follow with neurology, normal EEG, neurology recommended psychiatry evaluation A/P: Acute right-sided weakness, right sided headache: Concern for CVA versus cervical myelopathy. DW Neurology Dr. Ortiz, stroke vs seizure vs complicated migraine. MRI brain with no acute findings. Cervical MR shows some stenosis. - Continue daily aspirin 325 mg. - Consult neurology, rehab medicine. PT - continue neuro checks. 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 Has been followed outpatient by hematology. - Hematology following, she has been started on Lovenox bridging to Coumadin. Seizure disorder: Recurrent breakthrough seizures per report. Currently on Cerebyx. Neurology aware and will follow up. On Vimpat. EEG without epileptic activities. Cautious to avoid oversedation. History of iron deficiency anemia: - H&H is normal. Patient normally gets iron infusion. Monitor as indicated. DVT PPx: Trip Bravo MD Aug 16, 2017 13:44
[2017-08-16 14:38] LABS: BICARBONATE 28.4 MEQ/L (21.0-32.0); CALCIUM 9.3 MG/DL (8.5-10.1); CREATININE 0.93 MG/DL (0.50-1.00)
--- NOTE | 2017-08-16 16:00 | HHI.PR ---
Subjective Remarks Patient resting in bed reported right sided weakness she stated it is from top of her head to the top of her toes on the right side Seen by psychiatry, EEG within normal limits, started on Lexapro Objective Vitals Vital Signs Date Time Temp Pulse Resp B/P (MAP) Pulse Ox O2 Delivery O2 Flow Rate FiO2 08/16/17 14:00 90 08/16/17 12:00 117 08/16/17 12:00 98.6 117 30 08/16/17 10:41 100 21 08/16/17 10:00 93 08/16/17 08:00 92 08/16/17 08:00 98.0 92 16 127/79 (95) 08/16/17 06:00 94 08/16/17 04:00 97.8 87 20 100/81 (87) 93 08/16/17 04:00 87 08/16/17 02:00 93 08/16/17 00:00 90 08/16/17 00:00 99.3 82 18 94/54 (67) 98 08/15/17 22:00 87 08/15/17 20:00 90 08/15/17 20:00 98.2 90 18 98/53 (68) 08/15/17 18:00 83 08/15/17 16:00 97.5 80 13 126/66 (86) 96 08/15/17 16:00 80 I/O 08/15/17 08/15/17 08/15/17 08/16/17 08/16/17 08/16/17 07:00 15:00 23:00 07:00 15:00 23:00 Intake Total 400 ml 650 ml 300 ml Output Total 850 ml 6 ml 1700 ml Balance -450 ml 644 ml -1400 ml Intake Oral 400 ml 650 ml 300 ml Output Urine Total 850 ml 1500 ml Stool Total 0 ml 6 ml 200 ml # Bowel Movements 0 2 Result Diagram: 08/16/17 1242 08/16/17 1242 Objective Remarks GENERAL: This is a well-nourished, well-developed patient, in no apparent distress. CARDIOVASCULAR: RRR, no gallops, or rubs. RESPIRATORY: Fair air entry bilaterally. No W, R, or R GASTROINTESTINAL: Abdomen soft, non-tender, nondistended. Positive bowel sounds MUSCULOSKELETAL: Extremities without clubbing, cyanosis, or edema. Pedal pulses appreciated NEUROLOGICAL: Awake and alert. Moves all extremity. Strength is 2 out of 5 in all extremities, normal speech.no focal neurological deficit A/P Assessment and Plan 36-year-old female with history of previous CVA who presented with acute right- sided weakness concerning for CVA. 08/15: Continue current care follow with neurology, normal EEG, neurology recommended psychiatry evaluation 08/16: Appreciate psychiatry commendation, neurology/hematology following EKG normal, continue monitoring A/P: Acute right-sided weakness, right sided headache: Concern for CVA versus cervical myelopathy. DW Neurology Dr. Ortiz, stroke vs seizure vs complicated migraine. MRI brain with no acute findings. Cervical MR shows some stenosis. - Continue daily aspirin 325 mg. - Consult neurology, rehab medicine. PT - continue neuro checks. 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 Has been followed outpatient by hematology. - Hematology following, she has been started on Lovenox bridging to Coumadin. Seizure disorder: Recurrent breakthrough seizures per report. Currently on Cerebyx. Neurology aware and will follow up. On Vimpat. EEG without epileptic activities. Cautious to avoid oversedation. History of iron deficiency anemia: - H&H is normal. Patient normally gets iron infusion. Monitor as indicated. DVT PPx: Lovenox Trip Garcia MD Aug 16, 2017 16:00
[2017-08-16] MEDS: LORazepam 2 MG/ML VIAL IV PUSH PRN (16:48)
[2017-08-16] MEDS: WARFARIN SOD 2.5 MG TAB PO SCH (17:24)
[2017-08-16] MEDS: TEMAZEPAM 15 MG CAP PO SCH (21:16)
[2017-08-17] VITALS (14 sets, daily range): BP systolic 96–113; BP diastolic 55–63; PULSE 74–98; RESP 12–19; TEMP 98.1–98.6; O2SAT 92–97
[2017-08-17] MEDS: FOSPHENYTOIN SODIUM 100 MG PE/2 ML VIAL IV SCH ×3 (03:15→16:57)
[2017-08-17] MEDS: ACETAMINOPHEN/HYDROcodone 325 MG/5 MG TAB PO PRN (04:35)
[2017-08-17] MEDS: clonazePAM 0.5 MG TAB PO SCH ×2 (09:12→21:08)
[2017-08-17] MEDS: ESCITALOPRAM OXALATE 10 MG TAB PO SCH (09:12)
[2017-08-17] MEDS: GABAPENTIN 400 MG CAP PO SCH ×3 (09:12→16:56)
[2017-08-17] MEDS: DOCUSATE SODIUM 50 MG/SENNA 8.6 MG TAB PO SCH ×2 (09:12→21:08)
[2017-08-17] MEDS: ASPIRIN 325 MG TAB PO SCH (09:12)
[2017-08-17] MEDS: LACOSAMIDE 100 MG TAB PO SCH ×2 (09:13→21:08)
[2017-08-17] MEDS: SODIUM CHLORIDE 0.9% FLUSH 10 ML FLUSH IV FLUSH SCH ×2 (09:13→21:08)
[2017-08-17] MEDS: ENOXAPARIN SODIUM 60 MG/0.6 ML SYRINGE SQ SCH ×2 (09:13→21:09)
--- NOTE | 2017-08-17 14:08 | HHI.PR ---
Subjective Remarks PT ON CONTINUOUS G , non verbal sister at bedside no acute issues Objective Vitals Vital Signs Date Time Temp Pulse Resp B/P (MAP) Pulse Ox O2 Delivery O2 Flow Rate FiO2 08/17/17 12:00 98.1 88 19 96/61 (73) 08/17/17 12:00 88 08/17/17 10:00 81 08/17/17 08:00 98.6 74 12 98/59 (72) 97 08/17/17 08:00 74 08/17/17 07:59 96 21 08/17/17 06:00 81 08/17/17 05:35 14 08/17/17 04:00 86 08/17/17 04:00 98.4 86 12 108/55 (72) 94 08/17/17 02:00 86 08/17/17 00:00 98.2 89 14 99/56 (70) 94 08/17/17 00:00 89 08/16/17 22:00 98 08/16/17 20:00 97 08/16/17 20:00 98.5 97 16 111/71 (84) 98 08/16/17 19:05 98 21 08/16/17 18:00 99 08/16/17 16:00 98.4 93 20 109/81 (90) 99 08/16/17 16:00 93 I/O 08/16/17 08/16/17 08/16/17 08/17/17 08/17/17 08/17/17 07:00 15:00 23:00 07:00 15:00 23:00 Intake Total 300 ml 375 ml 240 ml 50 ml Output Total 1700 ml 5 ml Balance -1400 ml 370 ml 240 ml 50 ml Intake Oral 300 ml 375 ml 240 ml IV Total 50 ml Output Urine Total 1500 ml Stool Total 200 ml 5 ml # Voids 2 # Bowel Movements 2 1 0 Result Diagram: 08/16/17 1242 08/16/17 1242 Objective Remarks GENERAL: This is a well-nourished, well-developed patient, in no apparent distress. CARDIOVASCULAR: RRR, no gallops, or rubs. RESPIRATORY: Fair air entry bilaterally. No W, R, or R GASTROINTESTINAL: Abdomen soft, non-tender, nondistended. Positive bowel sounds MUSCULOSKELETAL: Extremities without clubbing, cyanosis, or edema. Pedal pulses appreciated NEUROLOGICAL: Awake and alert. Moves all extremity. Strength is 2 out of 5 in all extremities, normal speech.no focal neurological deficit A/P Assessment and Plan 36-year-old female with history of previous CVA who presented with acute right- sided weakness concerning for CVA. 08/15: Continue current care follow with neurology, normal EEG, neurology recommended psychiatry evaluation 08/16: Appreciate psychiatry commendation, neurology/hematology following EKG normal, continue monitoring 422: on continous G , ff with neuro ,psych recs A/P: Acute right-sided weakness, right sided headache: Concern for CVA versus cervical myelopathy. DW Neurology Dr. Ortiz, stroke vs seizure vs complicated migraine. MRI brain with no acute findings. Cervical MR shows some stenosis. - Continue daily aspirin 325 mg. - Consult neurology, rehab medicine. PT - continue neuro checks. 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 Has been followed outpatient by hematology. - Hematology following, she has been started on Lovenox bridging to Coumadin. Seizure disorder: Recurrent breakthrough seizures per report. Currently on Cerebyx. Neurology aware and will follow up. On Vimpat. EEG without epileptic activities. Cautious to avoid oversedation. History of iron deficiency anemia: - H&H is normal. Patient normally gets iron infusion. Monitor as indicated. DVT PPx: Trip Bravo MD Aug 17, 2017 14:08
[2017-08-17] MEDS: WARFARIN SOD 2.5 MG TAB PO SCH (16:57)
--- NOTE | 2017-08-17 17:23 | MG ---
cc: Agustin Gamboa MD This is a rather prolonged EEG monitoring. The study was reviewed. It appears that over 2 hours or so were recorded. The patient had a fairly typical seizure lasting 15 minutes or so. This is characterized by eye twitching, right hand twitching, some moaning, crunching and mouth movement, etc. During this episode, the patient changed from sleep recording to the presence of some eye movement. The eye movement became more pronounced described as eye twitching and there was no buildup of a rhythmic activity, but interestingly, there was some associated slowing suggesting the patient might have been asleep. There continues to be some alpha activity and as the eye twitching became more pronounced, the patient evidently seemed to be more awake in terms of EEG appearance, and there appears to be underlying alpha activity. A lot of artifact is noted. The patient is asleep afterwards. There is only brief awakenings throughout the recording. INTERPRETATION: This EEG shows a seizure-like episode lasting approximately 15 minutes. During this time, the EEG is more suggestive of a pseudoseizure, though there are a couple of concerns on this recording. The patient seemed to start having this eye twitching during sleep, and the artifact from the eye twitching is distinct from the remainder activity. Therefore, the possibility that there is some associated underlying seizure activity is not excluded. On the other hand, the eye twitching became more pronounced and there was actually appearance of alpha activity in the background that is also suggestive of pseudoseizure. Clinical correlation. Agustin Gamboa MD OFC/SB , 04:59 PM , 05:22 PM
[2017-08-17] MEDS: ONDANSETRON HCL 4 MG/2 ML VIAL IV PUSH PRN ×2 (18:21→23:13)
[2017-08-17] MEDS: LORazepam 2 MG/ML VIAL IV PUSH PRN (18:57)
[2017-08-17] MEDS: TEMAZEPAM 15 MG CAP PO SCH (21:08)
[2017-08-18] VITALS (14 sets, daily range): BP systolic 100–148; BP diastolic 59–94; PULSE 82–97; RESP 14–28; TEMP 98.2–98.7; O2SAT 94–99
[2017-08-18] MEDS: FOSPHENYTOIN SODIUM 100 MG PE/2 ML VIAL IV SCH ×2 (02:36→09:40)
[2017-08-18] MEDS: DOCUSATE SODIUM 50 MG/SENNA 8.6 MG TAB PO SCH ×2 (09:00→20:59)
[2017-08-18] MEDS: LACOSAMIDE 100 MG TAB PO SCH ×2 (09:39→20:56)
[2017-08-18] MEDS: ESCITALOPRAM OXALATE 10 MG TAB PO SCH (09:39)
[2017-08-18] MEDS: ASPIRIN 325 MG TAB PO SCH (09:39)
[2017-08-18] MEDS: SODIUM CHLORIDE 0.9% FLUSH 10 ML FLUSH IV FLUSH SCH ×2 (09:39→20:59)
[2017-08-18] MEDS: clonazePAM 0.5 MG TAB PO SCH ×2 (09:39→20:57)
[2017-08-18] MEDS: GABAPENTIN 400 MG CAP PO SCH ×3 (09:39→19:17)
[2017-08-18] MEDS: ENOXAPARIN SODIUM 60 MG/0.6 ML SYRINGE SQ SCH ×2 (09:40→20:58)
--- NOTE | 2017-08-18 12:18 | MB ---
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 Haji, who was admitted to [facility] on 08/11/2017 under hospitalist service for acute right-sided weakness associated with headaches. During her hospital course, she was seen by Dr. Haji. She had a CT scan of the brain, MRI of the brain, MRA which were all unremarkable. A repeat CT scan of the brain was obtained on 08/14/2017 which showed no evidence of any acute intracranial abnormalities. She was started on antiseizure medication which include Cerebyx, Vimpat. Prior to admission, the patient was on Keppra and Neurontin. EEG was performed as well on 08/15/2017 which showed no evidence of any epileptic activity. This morning, the patient was found unresponsive and ABG was performed on room air oxygen, which showed a pH of 7.38, CO2 49, PaO2 79, sats of 93%. When seen, the patient is nonverbal; however, she responded by opening up her eyes. Neurology service was notified and she is scheduled to undergo MRI of the brain without contrast. She had a repeat EEG yesterday which showed a seizure-like episode. Critical care medicine was consulted for critical care management. PAST MEDICAL HISTORY: Significant for bilateral parietal CVA, seizure disorder, elevated factor VIII level. PAST SURGICAL HISTORY: Previous cholecystectomy, previous C5-C6, C6-C7 anterior cervical discectomy and fusion in 12/2016. ALLERGIES: SULFA, PENICILLIN G. FAMILY HISTORY: Noncontributory to present illness. SOCIAL HISTORY: Nonsmoker, nondrinker. CURRENT MEDICATIONS: Include: Lexapro, Kate-Colace, Cerebyx, Lovenox, coumadin, Vimpat, Ativan, aspirin. REVIEW OF SYSTEMS: As per HPI. Rest of the review of systems limited. PHYSICAL EXAMINATION: GENERAL: A 36-year-old female lying in bed in no acute respiratory distress. VITAL SIGNS: Temperature 98.2, pulse of 88, respiratory rate of 14, blood pressure 100/69, sats 95% on room air. HEENT: Atraumatic, normocephalic. Pupils are equal, round, reactive to light and accommodation. Extraocular muscles intact. Conjunctivae pink, nonicteric sclerae. Oral mucosa within normal. NECK: Supple. No JVD, adenopathy, thyromegaly. Trachea midline. HEART: Regular rate and rhythm. Normal S1, S2, no murmurs, rubs or gallops noted. LUNGS: Bilateral equal air entry. No rales or wheezing. ABDOMEN: Soft, nontender. No distention. Positive bowel sounds. EXTREMITIES: No cyanosis, clubbing or edema. NEUROLOGIC: Weakness in the upper extremities noted. LABORATORY DATA: From 08/16/2017, sodium 140, potassium 4.2, chloride 103, CO2 28, BUN 5, creatinine 0.93, glucose 107. WBC 10, hemoglobin 12.2 and hematocrit 32, platelet count 344. RADIOGRAPHIC STUDIES: A CT of the brain on 08/14/2017 and 08/11/2017, no acute intracranial abnormalities. MRI, MRA of the brain on 08/11/2017 showed no acute process. IMPRESSION: 1. Likely recurrent seizure. 2. History of seizure disorder. 3. History of cerebrovascular accident with residual left-sided weakness. 4. Elevated factor VIII level. RECOMMENDATIONS: 1. Monitor neuro status closely and continue with antiseizure medication per neurology. She is on Cerebyx 100 mg q. 8 hours, Vimpat 100 mg b.i.d. and Neurontin 400 mg t.i.d. The patient is scheduled for repeat MRI of the brain stat. Previous neuro workup including CT scan of the brain x 2, MRI/MRA of the brain were all unremarkable. 2. Oxygen p.r.n. to maintain sats above 92%. 3. Aspiration precautions. 4. Head of bed at 30 degrees. 5. Monitor heart rate and blood pressure closely and maintain MAP greater than [address] on IV fluids and D5 NS at 75 mL an hour. 7. Continue with aspirin 325 mg daily. 8. Monitor renal function, I's and O's and electrolyte replacement per protocol. 9. Keep n.p.o. for now. 10. Monitor for signs of infection which include fever, WBC. Duarte culture if spikes fever. 11. Monitor CBC and coags as the patient is on Lovenox and Coumadin. Hematology service is following. 12. No indication for GI prophylaxis, DVT prophylaxis with SCDs. In addition, the patient is currently on Lovenox and Coumadin. 13. Will repeat labs stat which include a CBC and CMP. 14. Further recommendations will be based on hospital course. MD LILY Crow/JAROD , 11:40 AM , 12:17 PM
[2017-08-18 13:36] LABS: AUTOMATED NEUTROPHIL # 3.8 TH/MM3 (1.8-7.7); BASOPHIL % 0.4 % (0.0-2.0); EOSINOPHIL # 0.2 TH/MM3 (0-0.4); EOSINOPHIL % 2.3 % (0.0-4.0); HEMATOCRIT 37.3 % (35.0-46.0); HEMOGLOBIN 12.3 GM/DL (11.6-15.3); LYMPH % 40.5 % (9.0-44.0); LYMPHOCYTE # 3.1 TH/MM3 (1.0-4.8); MEAN CELL VOLUME 87.9 FL (80.0-100.0); MEAN CORPUSCULAR HEMOGLOBIN 29.1 PG (27.0-34.0); MEAN CORPUSCULAR HGB CONC 33.1 % (32.0-36.0); MEAN PLATELET VOLUME 7.1 FL (7.0-11.0); MONO % 6.7 % (0.0-8.0); MONOCYTE # 0.5 TH/MM3 (0-0.9); NEUT % 50.1 % (16.0-70.0); PLATELET COUNT 354 TH/MM3 (150-450); RED BLOOD COUNT 4.25 MIL/MM3 (4.00-5.30); RED CELL DISTRIBUTION WIDTH 15.8 % (11.6-17.2); WHITE BLOOD COUNT 7.6 TH/MM3 (4.0-11.0)
[2017-08-18 13:59] LABS: ALBUMIN 3.5 GM/DL (3.4-5.0); ALT (GPT) 70 U/L (10-53); AST (GOT) 43 U/L (15-37); BICARBONATE 30.1 MEQ/L (21.0-32.0); BLOOD UREA NITROGEN 6 MG/DL (7-18); CALCIUM 9.1 MG/DL (8.5-10.1); CHLORIDE 103 MEQ/L (98-107); CREATININE 0.97 MG/DL (0.50-1.00); GLOMERULAR FILTRATION RATE 80 ML/MIN (>89); GLUCOSE,RANDOM 88 MG/DL (74-106); MAGNESIUM 2.4 MG/DL (1.5-2.5); PHOSPHORUS 2.6 MG/DL (2.5-4.9); SODIUM (NA) 140 MEQ/L (136-145)
[2017-08-18 14:01] LABS: ALKALINE PHOSPHATASE 106 U/L (45-117); TOTAL BILIRUBIN ADULT 0.2 MG/DL (0.2-1.0); TOTAL PROTEIN 8.4 GM/DL (6.4-8.2)
--- NOTE | 2017-08-18 14:07 | RADRPT ---
EXAM DATE/TIME: 08/18/2017 13:37 [facility] COMPARISON: CT BRAIN W/O CONTRAST, August 14, 2017, 15:23. MRI BRAIN W/O CONTRAST, August 11, 2017, 19:01. INDICATIONS : Decreased level of consciousness. MEDICAL HISTORY : Hypertension. Gastroesophageal reflux disease. CVA, Asthma SURGICAL HISTORY : Cholecystectomy. ovarian cyst removed ENCOUNTER: Subsequent ACUITY: 1 day PAIN SCORE: Nonresponsive. LOCATION: cranial TECHNIQUE: Multiplanar, multisequence MRI of the brain was performed without contrast. FINDINGS: CEREBRUM: The ventricles are normal for age. No evidence of midline shift, mass lesion, hemorrhage or acute in farction. No extraaxial fluid collections are seen. The pituitary gland and suprasellar cistern are normal in configuration. WHITE MATTER: No significant signal abnormalities are seen in the white matter. POSTERIOR FOSSA: The cerebellum and brainstem are intact. The 4th ventricle is midline. The cerebellopontine angle is unremarkable. The cerebellar tonsils are normal in position. DIFFUSION IMAGING: No focal areas of restricted diffusion are seen. No evidence of acute infarction. EXTRACRANIAL: The visualized portions of the orbits and paranasal sinuses are unremarkable. CONCLUSION: Stable MRI study with no evidence of acute hemorrhage, mass or infarction. Ambrosio Tran MD on August 18, 2017 at 13:59 Board Certified Radiologist. This report was verified electronically.
--- NOTE | 2017-08-18 15:11 | PD.ONC.PN ---
Subjective Subjective Remarks Afebrile Patient awake and alert Per MANAGER TREASURY, patient has just returned from getting a stat MRI of the brain apparently she was quite unresponsive for approximately 45 minutes earlier today On my exam with the patient, she remembers me from our outpatient visit several months ago and is able to recall very specific details about that visit No bleeding Objective Data Date Time Temp Pulse Resp B/P (MAP) Pulse Ox O2 Delivery O2 Flow Rate FiO2 08/18/17 09:00 98 08/18/17 06:00 88 08/18/17 04:00 85 08/18/17 04:00 98.2 82 14 100/69 (79) 95 08/18/17 02:00 95 08/18/17 00:00 98.4 93 16 100/59 (73) 94 08/18/17 00:00 93 08/17/17 22:00 98 08/17/17 20:00 98.2 87 14 113/63 (80) 92 08/17/17 20:00 87 08/17/17 19:06 93 21 08/17/17 18:00 84 08/17/17 16:00 98.4 86 13 104/63 (77) 96 08/17/17 16:00 86 08/18/17 08/18/17 08/18/17 07:00 15:00 23:00 Intake Total 490 ml Balance 490 ml Result Diagram: 08/18/17 1320 08/18/17 1320 Laboratory Results Laboratory Tests Test 08/18/17 10:12 08/18/17 11:06 08/18/17 13:20 Prothrombin Time 10.0 SEC Prothromb Time International Ratio 1.0 RATIO Blood Gas Puncture Site RT RADIAL Blood Gas Patient Temperature 98.6 Blood Gas HCO3 29 mmol/L Blood Gas Base Excess 3.9 mmol/L Blood Gas Oxygen Saturation 93 % Arterial Blood pH 7.38 Arterial Blood Partial Pressure CO2 49 mmHg Arterial Blood Partial Pressure O2 79 mmHg Arterial Blood Oxygen Content 14.7 Vol % Arterial Blood Carboxyhemoglobin 0.8 % Arterial Blood Methemoglobin 1.3 % Blood Gas Hemoglobin 11.2 G/DL Blood Gas Inspired Oxygen 21 % White Blood Count 7.6 TH/MM3 Red Blood Count 4.25 MIL/MM3 Hemoglobin 12.3 GM/DL Hematocrit 37.3 % Mean Corpuscular Volume 87.9 FL Mean Corpuscular Hemoglobin 29.1 PG Mean Corpuscular Hemoglobin Concent 33.1 % Red Cell Distribution Width 15.8 % Platelet Count 354 TH/MM3 Mean Platelet Volume 7.1 FL Neutrophils (%) (Auto) 50.1 % Lymphocytes (%) (Auto) 40.5 % Monocytes (%) (Auto) 6.7 % Eosinophils (%) (Auto) 2.3 % Basophils (%) (Auto) 0.4 % Neutrophils # (Auto) 3.8 TH/MM3 Lymphocytes # (Auto) 3.1 TH/MM3 Monocytes # (Auto) 0.5 TH/MM3 Eosinophils # (Auto) 0.2 TH/MM3 Basophils # (Auto) 0.0 TH/MM3 CBC Comment DIFF FINAL Differential Comment Blood Urea Nitrogen 6 MG/DL Creatinine 0.97 MG/DL Random Glucose 88 MG/DL Total Protein 8.4 GM/DL Albumin 3.5 GM/DL Calcium Level 9.1 MG/DL Phosphorus Level 2.6 MG/DL Magnesium Level 2.4 MG/DL Alkaline Phosphatase 106 U/L Aspartate Amino Transf (AST/SGOT) 43 U/L Alanine Aminotransferase (ALT/SGPT) 70 U/L Total Bilirubin 0.2 MG/DL Sodium Level 140 MEQ/L Potassium Level 4.2 MEQ/L Chloride Level 103 MEQ/L Carbon Dioxide Level 30.1 MEQ/L Anion Gap 7 MEQ/L Estimat Glomerular Filtration Rate 80 ML/MIN Lactic Acid Level 1.4 mmol/L B-Type Natriuretic Peptide LESS THAN 2 PG/ML Phenytoin (Dilantin) Level 9.6 MCG/ML Imaging Studies Last 24 hours Impressions Brain MRI 08/18/17 0000 Signed Impressions: Service Date/Time: Friday, August 18, 2017 13:37 - CONCLUSION: Stable MRI study with no evidence of acute hemorrhage, mass or infarction. Ambrosio Tran MD Administered Medications Medications (Trade) Dose Ordered Sig/Annette Route PRN Reason Start Time Stop Time Status Last Admin Dose Admin Gabapentin (Neurontin) 400 mg TID PO 08/11/17 18:00 08/18/17 09:39 Temazepam (Restoril) 30 mg HS PO 08/11/17 21:00 08/17/17 21:08 Patient Own Medication PT OWN MED: (Eslicarbazepine (Aptiom) 400... DAILY PO 08/12/17 09:00 Future Hold 08/12/17 09:00 Sodium Chloride (NS Flush) 2 ml BID IV FLUSH 08/11/17 21:00 08/18/17 09:39 Aspirin (Aspirin) 325 mg DAILY PO 08/12/17 09:00 08/18/17 09:39 Ondansetron HCl (Zofran Inj) 4 mg Q6H PRN IV PUSH NAUSEA 08/11/17 18:45 08/17/17 23:13 Lacosamide (Vimpat) 100 mg BID PO 08/12/17 21:00 08/18/17 09:39 Tizanidine HCl (Zanaflex) 4 mg Q12HR PO 08/12/17 21:00 08/18/17 09:39 Acetaminophen/ Hydrocodone Bitart (Rebuck 5-325 Mg) 1 tab Q6H PRN PO PAIN SCALE 1-10 08/12/17 15:30 08/17/17 04:35 Warfarin Sodium (Coumadin) 2.5 mg DAILY@16 PO 08/13/17 16:00 08/17/17 16:57 Lorazepam (Ativan Inj) 2 mg Q15M PRN IV PUSH SEIZURES 08/13/17 07:45 08/17/17 18:57 Fosphenytoin Sodium (Cerebyx Inj) 100 mgpe Q8H IV 08/13/17 18:00 08/18/17 09:40 Enoxaparin Sodium (Lovenox Inj) 60 mg Q12H SQ 08/13/17 22:00 08/18/17 09:40 Clonazepam (KlonoPIN) 0.5 mg BID PO 08/14/17 21:00 08/18/17 09:39 Senna/Docusate Sodium (Kate-Colace) 1 tab BID PO 08/16/17 09:00 08/17/17 21:08 Magnesium Hydroxide (Milk Of Magnesia Liq) 30 ml Q12H PRN PO Mild constipation 08/16/17 00:00 08/16/17 21:49 Escitalopram Oxalate (Lexapro) 10 mg DAILY PO 08/17/17 09:00 08/18/17 09:39 Objective Remarks GENERAL: Young female resting in bed in no obvious distress. Sister at bedside. SKIN: Warm and dry. HEAD: Normocephalic. EYES: No scleral icterus. No injection or drainage. NECK: Supple, trachea midline. CARDIOVASCULAR: Regular rate and rhythm RESPIRATORY: Clear anteriorly. Rate and unlabored at rest. GASTROINTESTINAL: Abdomen soft, non-tender, nondistended. EXTREMITIES: No cyanosis NEUROLOGICAL: Awake and alert. Right-sided weakness. Patient with slow speech , however this is baseline for her Assessment/Plan Problem List: (1) History of CVA (cerebrovascular accident) ICD Codes: Z86.73 - Personal history of transient ischemic attack (TIA), and cerebral infarction without residual deficits Status: Chronic Plan: --repeat CT brain 08/14 shows no change --MRI of the brain showed no acute abnormality even on repeat 08/18 --MRA of the head shows no acute disease --CT of the head shows no acute abnormality --patient had new right-sided weakness-->placed on secondary prophylaxis with Coumadin however there is no imaging that shows she has failed the initial therapy with aspirin. (2) Seizure ICD Codes: R56.9 - Unspecified convulsions Status: Acute Plan: --had another seizure 08/14, given ativan --EEG on 08/13 showed no seizure activity. --Neurology following --Patient on Cerebyx (3) Elevated factor VIII level ICD Codes: R79.1 - Abnormal coagulation profile Plan: --Factor VIII level is within normal limits. --Patient has been as high as 376 in November 2015 with a normal cut off high value of 180 Assessment 36-year-old female with history of CVA and history of elevated factor VIII activity levels admitted for right-sided weakness Plan 1. Increase Coumadin to 4 mg daily as her INR has been labile at 2.5 mg dosing 2. Daily INR 3. Continue Lovenox until INR therapeutic 4. Monitor CBC; monitor for bleeding Negrita Duque Aug 18, 2017 15:11
--- NOTE | 2017-08-18 15:53 | MG ---
cc: Ky Kemp MD, PhD TEST NUMBER: [id number]. TECHNIQUE: A 17-channel EEG. DESCRIPTION: The background rhythm reveals normal alpha rhythm frequency of 8-9 Hz. Amplitude is about 20 microvolts. There are no lateralizing features seen. There is some slowing in the theta range, probably drowsiness related. No epileptiform discharges are identified. Of note, there is a period of time where it was noted that the eyebrows were twitching, but there is no concomitant seizure activity identified in the EEG. There was some beta activity, probably medication effect. Photic stimulation results in a modest driving response. INTERPRETATION: Normal EEG. Ky Kemp MD, PhD MARGE/SB , 03:40 PM , 03:52 PM
[2017-08-18] MEDS ORDERED: WARFARIN SOD 4 MG TAB PO SCH (16:00)
--- NOTE | 2017-08-18 16:52 | HHI.PR ---
Subjective Remarks ?sz today c/o unable to sleep. Objective Vital Signs Date Time Temp Pulse Resp B/P (MAP) Pulse Ox O2 Delivery O2 Flow Rate FiO2 08/18/17 09:00 98 08/18/17 06:00 88 08/18/17 04:00 85 08/18/17 04:00 98.2 82 14 100/69 (79) 95 08/18/17 02:00 95 08/18/17 00:00 98.4 93 16 100/59 (73) 94 08/18/17 00:00 93 08/17/17 22:00 98 08/17/17 20:00 98.2 87 14 113/63 (80) 92 08/17/17 20:00 87 08/17/17 19:06 93 21 08/17/17 18:00 84 I/O 08/17/17 08/17/17 08/17/17 08/18/17 08/18/17 08/18/17 07:00 15:00 23:00 07:00 15:00 23:00 Intake Total 240 ml 50 ml 300 ml 490 ml Balance 240 ml 50 ml 300 ml 490 ml Intake Oral 240 ml 300 ml 440 ml IV Total 50 ml 50 ml # Voids 2 2 3 # Bowel Movements 0 1 1 Result Diagram: 08/18/17 1320 08/18/17 1320 Imaging mri today neg. Objective Remarks awake alert,nad no facial droop rue improved able to lift up antigravity mild weakness,legs intact dtrs 1+ rue sensory decreased to lt /pain. Assessment and Plan Assessment and Plan ?sz today ?ladonna may need outpt sleep study vimpat/dilantin now po/gabapentin increase klonopin 1mg bid-may help her sleep. sz precautions warfarin increased goal inr 2. pt-ot d/c planning Elizabeth Ortiz MD Aug 18, 2017 16:52
[2017-08-18] MEDS ORDERED: INSULIN HUMAN REGULAR 1,000 UNITS/10 ML VIAL SQ ONE (18:15)
[2017-08-18] MEDS ORDERED: CALCIUM CARBONATE 500 MG CHEWABLE TAB PO PRN (18:15)
--- NOTE | 2017-08-18 19:00 | HHI.PR ---
Objective Vitals Vital Signs Date Time Temp Pulse Resp B/P (MAP) Pulse Ox O2 Delivery O2 Flow Rate FiO2 08/18/17 16:00 82 08/18/17 16:00 98.7 83 19 148/94 (112) 97 08/18/17 14:00 83 08/18/17 12:00 93 08/18/17 12:00 98.2 83 14 120/69 (86) 99 08/18/17 10:00 85 08/18/17 09:00 98 08/18/17 08:00 89 08/18/17 08:00 98.4 89 18 142/66 (91) 96 08/18/17 06:00 88 08/18/17 04:00 85 08/18/17 04:00 98.2 82 14 100/69 (79) 95 08/18/17 02:00 95 08/18/17 00:00 98.4 93 16 100/59 (73) 94 08/18/17 00:00 93 08/17/17 22:00 98 08/17/17 20:00 98.2 87 14 113/63 (80) 92 08/17/17 20:00 87 08/17/17 19:06 93 21 I/O 08/17/17 08/17/17 08/17/17 08/18/17 08/18/17 08/18/17 07:00 15:00 23:00 07:00 15:00 23:00 Intake Total 240 ml 50 ml 300 ml 490 ml Balance 240 ml 50 ml 300 ml 490 ml Intake Oral 240 ml 300 ml 440 ml IV Total 50 ml 50 ml # Voids 2 2 3 # Bowel Movements 0 1 1 Result Diagram: 08/18/17 1320 08/18/17 1320 Objective Remarks GENERAL: This is a well-nourished, well-developed patient, in no apparent distress. CARDIOVASCULAR: RRR, no gallops, or rubs. RESPIRATORY: Fair air entry bilaterally. No W, R, or R GASTROINTESTINAL: Abdomen soft, non-tender, nondistended. Positive bowel sounds MUSCULOSKELETAL: Extremities without clubbing, cyanosis, or edema. Pedal pulses appreciated NEUROLOGICAL: Awake and alert. Moves all extremity. Strength is 2 out of 5 in all extremities, normal speech.no focal neurological deficit A/P Assessment and Plan 36-year-old female with history of previous CVA who presented with acute right- sided weakness concerning for CVA. 08/15: Continue current care follow with neurology, normal EEG, neurology recommended psychiatry evaluation 08/16: Appreciate psychiatry commendation, neurology/hematology following EKG normal, continue monitoring A/P: Acute right-sided weakness, right sided headache: Concern for CVA versus cervical myelopathy. DW Neurology Dr. Ortiz, stroke vs seizure vs complicated migraine. MRI brain with no acute findings. Cervical MR shows some stenosis. - Continue daily aspirin 325 mg. - Consult neurology, rehab medicine. PT - continue neuro checks. 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 Has been followed outpatient by hematology. - Hematology following, she has been started on Lovenox bridging to Coumadin. Seizure disorder: Recurrent breakthrough seizures per report. Currently on Cerebyx. Neurology aware and will follow up. On Vimpat. EEG without epileptic activities. Cautious to avoid oversedation. History of iron deficiency anemia: - H&H is normal. Patient normally gets iron infusion. Monitor as indicated. DVT PPx: Trip Bravo MD Aug 18, 2017 19:00
[2017-08-18] MEDS: DEXT 5%-NACL 0.9% 1000 ML INJ 1,000 ML IV SCH (19:16)
[2017-08-18] MEDS: PHENYTOIN SODIUM 100 MG CAP PO SCH (20:57)
[2017-08-18] MEDS: TEMAZEPAM 15 MG CAP PO SCH (20:57)
[2017-08-19] VITALS (19 sets, daily range): BP systolic 88–144; BP diastolic 54–86; PULSE 73–95; RESP 13–28; TEMP 98–98.5; O2SAT 96–99
[2017-08-19] MEDS: DEXT 5%-NACL 0.9% 1000 ML INJ 1,000 ML IV SCH (01:05)
[2017-08-19 05:10] LABS: AUTOMATED NEUTROPHIL # 3.5 TH/MM3 (1.8-7.7); BASOPHIL % 0.2 % (0.0-2.0); EOSINOPHIL # 0.2 TH/MM3 (0-0.4); EOSINOPHIL % 2.3 % (0.0-4.0); HEMATOCRIT 33.6 % (35.0-46.0); LYMPH % 47.9 % (9.0-44.0); MEAN CELL VOLUME 88.3 FL (80.0-100.0); MEAN CORPUSCULAR HGB CONC 32.8 % (32.0-36.0); MONO % 7.2 % (0.0-8.0); MONOCYTE # 0.6 TH/MM3 (0-0.9); NEUT % 42.4 % (16.0-70.0); PLATELET COUNT 321 TH/MM3 (150-450); RED CELL DISTRIBUTION WIDTH 15.6 % (11.6-17.2); WHITE BLOOD COUNT 8.3 TH/MM3 (4.0-11.0)
[2017-08-19] MEDS: PHENYTOIN SODIUM 100 MG CAP PO SCH ×3 (05:14→22:07)
[2017-08-19 05:15] LABS: PROTHROMBIN TIME - PATIENT 10.3 SEC (9.8-11.6)
[2017-08-19 05:21] LABS: ALBUMIN 3.1 GM/DL (3.4-5.0); ALT (GPT) 55 U/L (10-53); AST (GOT) 30 U/L (15-37); BICARBONATE 28.6 MEQ/L (21.0-32.0); BLOOD UREA NITROGEN 8 MG/DL (7-18); CALCIUM 8.6 MG/DL (8.5-10.1); CHLORIDE 105 MEQ/L (98-107); CREATININE 0.88 MG/DL (0.50-1.00); GLOMERULAR FILTRATION RATE 89 ML/MIN (>89); GLUCOSE,RANDOM 90 MG/DL (74-106); SODIUM (NA) 140 MEQ/L (136-145)
[2017-08-19 05:24] LABS: ALKALINE PHOSPHATASE 98 U/L (45-117); TOTAL BILIRUBIN ADULT 0.2 MG/DL (0.2-1.0); TOTAL PROTEIN 7.4 GM/DL (6.4-8.2)
[2017-08-19] MEDS: ESCITALOPRAM OXALATE 10 MG TAB PO SCH (09:00)
[2017-08-19] MEDS: ENOXAPARIN SODIUM 60 MG/0.6 ML SYRINGE SQ SCH (09:00)
[2017-08-19] MEDS: DOCUSATE SODIUM 50 MG/SENNA 8.6 MG TAB PO SCH ×2 (09:00→22:06)
[2017-08-19] MEDS: ASPIRIN 325 MG TAB PO SCH (09:01)
[2017-08-19] MEDS: PANTOPRAZOLE SOD 40 MG DELAYED RELEASE TAB PO SCH (09:01)
[2017-08-19] MEDS: LACOSAMIDE 100 MG TAB PO SCH ×2 (09:01→22:06)
[2017-08-19] MEDS: GABAPENTIN 400 MG CAP PO SCH ×3 (09:01→17:04)
[2017-08-19] MEDS: clonazePAM 0.5 MG TAB PO SCH ×2 (09:01→22:05)
[2017-08-19] MEDS: SODIUM CHLORIDE 0.9% FLUSH 10 ML FLUSH IV FLUSH SCH ×2 (09:03→22:05)
--- NOTE | 2017-08-19 09:35 | HHI.CCPN ---
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 Haji, who was admitted to [facility] on 08/11/2017 under hospitalist service for acute right-sided weakness associated with headaches. During her hospital course, she was seen by Dr. Haji. She had a CT scan of the brain, MRI of the brain, MRA which were all unremarkable. A repeat CT scan of the brain was obtained on 08/14/2017 which showed no evidence of any acute intracranial abnormalities. She was started on antiseizure medication which include Cerebyx, Vimpat. Prior to admission, the patient was on Keppra and Neurontin. EEG was performed as well on 08/15/2017 which showed no evidence of any epileptic activity. This morning, the patient was found unresponsive and ABG was performed on room air oxygen, which showed a pH of 7.38, CO2 49, PaO2 79, sats of 93%. When seen, the patient is nonverbal; however, she responded by opening up her eyes. Neurology service was notified and she is scheduled to undergo MRI of the brain without contrast. She had a repeat EEG yesterday which showed a seizure-like episode. Critical care medicine was consulted for critical care management. 08/19 No events overnight. Patient is awake and alert. MRI brain and EEG yesterday unremarkable. Afebrile. Objective Vital Signs Date Time Temp Pulse Resp B/P (MAP) Pulse Ox O2 Delivery O2 Flow Rate FiO2 08/19/17 06:00 82 08/19/17 04:00 98.4 22 104/66 (79) 96 08/18/17 20:16 21 Intake and Output 08/19/17 08/19/17 08/20/17 08:00 16:00 00:00 Intake Total 620 ml Balance 620 ml Result Diagram: 08/19/17 0449 08/19/17 0449 Other Results Last Impressions Brain MRI 08/18/17 0000 Signed Impressions: Service Date/Time: Friday, August 18, 2017 13:37 - CONCLUSION: Stable MRI study with no evidence of acute hemorrhage, mass or infarction. Ambrosio Tran MD Head CT 08/14/17 0000 Signed Impressions: Service Date/Time: July 15:23 - CONCLUSION: 1. Stable CT examination without acute intracranial abnormality. 2. Stable focal region of encephalomalacia in the medial right parietal high convexities. Macho Colmenares MD Sacrum/Coccyx MRI 08/12/17 0000 Signed Impressions: Service Date/Time: Saturday, August 12, 2017 19:40 - CONCLUSION: Unremarkable sacrum/coccyx. Urinary bladder mildly distended. Teofilo Montanez MD Lumbar Spine CT 08/12/17 0000 Signed Impressions: Service Date/Time: Saturday, August 12, 2017 20:15 - CONCLUSION: 1. Mild broad-based disc bulges L3-4, L4-5 and L5-S1 levels. 2. No fracture or subluxation. 3. No canal stenosis. 4. Pelvic kidney. Teofilo Montanez MD Head Magnetic Resonance Angiography 08/11/17 0000 Signed Impressions: Service Date/Time: Friday, August 11, 2017 19:01 - CONCLUSION: No acute disease. Julio Velasco MD Cervical Spine MRI 08/11/17 0000 Signed Impressions: Service Date/Time: Friday, August 11, 2017 19:01 - CONCLUSION: 1. Status post anterior cervical fusion from C5-C7. 2. Moderate stenosis at the C4-C5 level caused by disc bulge and a minimal right lateral recess disc protrusion. 3. Mild impression on the thecal sac at the left lateral recess region at the C6-C7 level with enhancement likely related to scarring. Julio Velasco MD Objective Remarks GENERAL: Patient is 36 yo lying in bed in NAD SKIN: Warm and dry. HEAD: Normocephalic. EYES: No scleral icterus. No injection or drainage. NECK: Supple, trachea midline. No JVD or lymphadenopathy. CARDIOVASCULAR: Regular rate and rhythm without murmurs, gallops, or rubs. RESPIRATORY: Breath sounds equal bilaterally. No accessory muscle use. GASTROINTESTINAL: Abdomen soft, non-tender, nondistended. MUSCULOSKELETAL: No cyanosis, or edema. Neuro: awake and alert A/P Assessment and Plan 1. ? seizure. 2. History of seizure disorder. 3. History of cerebrovascular accident with residual left-sided weakness. 4. Elevated factor VIII level. Plan Neuro: Monitor neuro status, seizure precautions Continue with antiseizure meds per neurology. On Cerebyx 100 mg q. 8 hours, Vimpat 100 mg b.i.d. and Neurontin 400 mg t.i.d. Klonopin 1mg BID MRI brain and EEG 08/18 unremarkable Previous neuro workup including CT scan of the brain x 2, MRI/MRA of the brain were all unremarkable. Pulm: Oxygen p.r.n. to maintain sats above 92%. CV: Monitor HR and BP and maintain MAP> 65 mmHg. d/c IVF. Continue with aspirin 325 mg daily. :Monitor renal function, I's and O's and electrolyte replacement per protocol. GI: On PO diet ID: Monitor for signs of infection which include fever, WBC. Duarte culture if spikes fever. Heme: Monitor CBC and coags--on Lovenox 60mg Q12/Coumadin. Hem is following. On Protonix for GI prophylaxis, DVT prophylaxis with SCDs/ Lovenox/Coumadin Will sign off and transfer care to [facility] Level 2 Blanquita Woodruff MD Aug 19, 2017 09:35
--- NOTE | 2017-08-19 12:46 | PD.ONC.PN ---
Subjective Subjective Remarks Afebrile overnight. Patient awake and alert today. She states she feels very fatigued and tired. otherwise without complaints. Objective Data Date Time Temp Pulse Resp B/P (MAP) Pulse Ox O2 Delivery O2 Flow Rate FiO2 08/19/17 10:00 95 14 98/54 (69) 96 08/19/17 09:00 79 28 144/85 (104) 99 08/19/17 08:00 98.3 84 23 118/78 (91) 99 08/19/17 06:00 82 08/19/17 04:00 79 08/19/17 04:00 98.4 80 22 104/66 (79) 96 08/19/17 02:00 84 08/19/17 00:00 87 08/19/17 00:00 98.2 87 20 88/64 (72) 97 08/18/17 22:00 87 08/18/17 20:16 96 21 08/18/17 20:00 89 08/18/17 20:00 98.3 97 28 127/72 (90) 97 08/18/17 18:00 85 08/18/17 16:00 82 08/18/17 16:00 98.7 83 19 148/94 (112) 97 08/18/17 14:00 83 08/19/17 08/19/17 08/19/17 07:00 15:00 23:00 Intake Total 620 ml Balance 620 ml Result Diagram: 08/19/17 0449 08/19/17 0449 Laboratory Results Laboratory Tests Test 08/18/17 13:20 08/19/17 04:49 White Blood Count 7.6 TH/MM3 8.3 TH/MM3 Red Blood Count 4.25 MIL/MM3 3.80 MIL/MM3 Hemoglobin 12.3 GM/DL 11.0 GM/DL Hematocrit 37.3 % 33.6 % Mean Corpuscular Volume 87.9 FL 88.3 FL Mean Corpuscular Hemoglobin 29.1 PG 29.0 PG Mean Corpuscular Hemoglobin Concent 33.1 % 32.8 % Red Cell Distribution Width 15.8 % 15.6 % Platelet Count 354 TH/MM3 321 TH/MM3 Mean Platelet Volume 7.1 FL 7.0 FL Neutrophils (%) (Auto) 50.1 % 42.4 % Lymphocytes (%) (Auto) 40.5 % 47.9 % Monocytes (%) (Auto) 6.7 % 7.2 % Eosinophils (%) (Auto) 2.3 % 2.3 % Basophils (%) (Auto) 0.4 % 0.2 % Neutrophils # (Auto) 3.8 TH/MM3 3.5 TH/MM3 Lymphocytes # (Auto) 3.1 TH/MM3 4.0 TH/MM3 Monocytes # (Auto) 0.5 TH/MM3 0.6 TH/MM3 Eosinophils # (Auto) 0.2 TH/MM3 0.2 TH/MM3 Basophils # (Auto) 0.0 TH/MM3 0.0 TH/MM3 CBC Comment DIFF FINAL DIFF FINAL Differential Comment Blood Urea Nitrogen 6 MG/DL 8 MG/DL Creatinine 0.97 MG/DL 0.88 MG/DL Random Glucose 88 MG/DL 90 MG/DL Total Protein 8.4 GM/DL 7.4 GM/DL Albumin 3.5 GM/DL 3.1 GM/DL Calcium Level 9.1 MG/DL 8.6 MG/DL Phosphorus Level 2.6 MG/DL Magnesium Level 2.4 MG/DL Alkaline Phosphatase 106 U/L 98 U/L Aspartate Amino Transf (AST/SGOT) 43 U/L 30 U/L Alanine Aminotransferase (ALT/SGPT) 70 U/L 55 U/L Total Bilirubin 0.2 MG/DL 0.2 MG/DL Sodium Level 140 MEQ/L 140 MEQ/L Potassium Level 4.2 MEQ/L 4.0 MEQ/L Chloride Level 103 MEQ/L 105 MEQ/L Carbon Dioxide Level 30.1 MEQ/L 28.6 MEQ/L Anion Gap 7 MEQ/L 6 MEQ/L Estimat Glomerular Filtration Rate 80 ML/MIN 89 ML/MIN Lactic Acid Level 1.4 mmol/L B-Type Natriuretic Peptide LESS THAN 2 PG/ML Phenytoin (Dilantin) Level 9.6 MCG/ML Prothrombin Time 10.3 SEC Prothromb Time International Ratio 1.0 RATIO Administered Medications Medications (Trade) Dose Ordered Sig/Annette Route PRN Reason Start Time Stop Time Status Last Admin Dose Admin Gabapentin (Neurontin) 400 mg TID PO 08/11/17 18:00 08/19/17 09:01 Temazepam (Restoril) 30 mg HS PO 08/11/17 21:00 08/18/17 20:57 Patient Own Medication PT OWN MED: (Eslicarbazepine (Aptiom) 400... DAILY PO 08/12/17 09:00 Future Hold 08/12/17 09:00 Sodium Chloride (NS Flush) 2 ml BID IV FLUSH 08/11/17 21:00 08/19/17 09:03 Aspirin (Aspirin) 325 mg DAILY PO 08/12/17 09:00 08/19/17 09:01 Ondansetron HCl (Zofran Inj) 4 mg Q6H PRN IV PUSH NAUSEA 08/11/17 18:45 08/17/17 23:13 Lacosamide (Vimpat) 100 mg BID PO 08/12/17 21:00 08/19/17 09:01 Tizanidine HCl (Zanaflex) 4 mg Q12HR PO 08/12/17 21:00 08/19/17 09:00 Acetaminophen/ Hydrocodone Bitart (Sublette 5-325 Mg) 1 tab Q6H PRN PO PAIN SCALE 1-10 08/12/17 15:30 08/17/17 04:35 Lorazepam (Ativan Inj) 2 mg Q15M PRN IV PUSH SEIZURES 08/13/17 07:45 08/17/17 18:57 Enoxaparin Sodium (Lovenox Inj) 60 mg Q12H SQ 08/13/17 22:00 08/19/17 09:00 Senna/Docusate Sodium (Kate-Colace) 1 tab BID PO 08/16/17 09:00 08/17/17 21:08 Magnesium Hydroxide (Milk Of Magnesia Liq) 30 ml Q12H PRN PO Mild constipation 08/16/17 00:00 08/16/17 21:49 Escitalopram Oxalate (Lexapro) 10 mg DAILY PO 08/17/17 09:00 08/19/17 09:00 Warfarin Sodium (Coumadin) 4 mg DAILY@1600 PO 08/18/17 16:00 08/18/17 15:35 Clonazepam (KlonoPIN) 1 mg BID PO 08/18/17 21:00 08/19/17 09:01 Phenytoin (Dilantin) 100 mg Q8HR PO 08/18/17 22:00 08/19/17 05:14 Pantoprazole Sodium (Protonix) 40 mg DAILY PO 08/19/17 09:00 08/19/17 09:01 Objective Remarks GENERAL: Young woman, sitting up in bed in nad. SKIN: Warm and dry. HEAD: Normocephalic. EYES: No injection or drainage. NECK: Supple, trachea midline. CARDIOVASCULAR: Regular rate and rhythm RESPIRATORY: Breath sounds equal bilaterally. No accessory muscle use. GASTROINTESTINAL: Abdomen soft, non-tender, nondistended. EXTREMITIES: No cyanosis MUSCULOSKELETAL: Adequate muscle tone. NEUROLOGICAL: awake and alert. normal speech. answering questions appropriately. right sided weakness. Assessment/Plan Problem List: (1) History of CVA (cerebrovascular accident) ICD Codes: Z86.73 - Personal history of transient ischemic attack (TIA), and cerebral infarction without residual deficits Status: Chronic Plan: 08/19: stop Lovenox and coumadin, no evidence of stroke this admission and Factor VIII level is normal. discussed with patient and sister at bedside who are both agreeable with plan. --repeat CT brain 08/14 shows no change --MRI of the brain showed no acute abnormality even on repeat 08/18 --MRA of the head shows no acute disease --CT of the head shows no acute abnormality (2) Seizure ICD Codes: R56.9 - Unspecified convulsions Status: Acute Plan: --question of pseudoseizures given normal EEG x 2. --had another seizure 08/14, given ativan --EEG on 08/13 showed no seizure activity. --Neurology following --Patient on Cerebyx (3) Elevated factor VIII level ICD Codes: R79.1 - Abnormal coagulation profile Status: Resolved Plan: --Factor VIII level is within normal limits. --Patient has been as high as 376 in November 2015 with a normal cut off high value of 180 Assessment 36-year-old female with history of CVA and history of elevated factor VIII activity levels admitted for right-sided weakness Plan 1. stop Lovenox and coumadin 2. recommend continuing ASA 3. continue supportive care d/w Dr. Ortiz, Dr. Haji, patient and patient's sister Inez Attending Statement The exam, history, and the medical decision-making described in the above note were completed with the assistance of the mid-level provider. I reviewed and agree with the findings presented. I attest that I had a [id number] encounter with the patient on the same day, and personally performed and documented my assessment and findings in the medical record. Pt seen and examined in AM. Reviewed the EEG results, consideration for pseudoseizures. Two negative MRI for new strokes or recurrent thrombotic event. No clear failure on ASA. Plan to continue on ASA prophylaxis. Danna Birch Aug 19, 2017 12:46 Leydi Haji MD Aug 19, 2017 21:10
[2017-08-19] MEDS: ONDANSETRON HCL 4 MG/2 ML VIAL IV PUSH PRN (18:17)
[2017-08-19] MEDS: TEMAZEPAM 15 MG CAP PO SCH (22:06)
[2017-08-20] VITALS (10 sets, daily range): BP systolic 96–145; BP diastolic 50–85; PULSE 71–92; RESP 12–21; TEMP 97.8–98.4; O2SAT 96–98
[2017-08-20] MEDS: ACETAMINOPHEN/HYDROcodone 325 MG/5 MG TAB PO PRN ×3 (01:29→13:27)
[2017-08-20] MEDS ORDERED: oxyCODONE/ACETAMINOPHEN 5 MG/325 MG TAB PO ONE (05:00)
[2017-08-20] MEDS: PHENYTOIN SODIUM 100 MG CAP PO SCH ×3 (05:09→21:17)
[2017-08-20] MEDS ORDERED: diphenhydrAMINE HCL 25 MG CAP PO ONE (05:15)
[2017-08-20] MEDS: GABAPENTIN 400 MG CAP PO SCH ×3 (07:42→18:38)
[2017-08-20] MEDS: DOCUSATE SODIUM 50 MG/SENNA 8.6 MG TAB PO SCH ×2 (07:42→21:17)
[2017-08-20] MEDS: PANTOPRAZOLE SOD 40 MG DELAYED RELEASE TAB PO SCH (07:42)
[2017-08-20] MEDS: LACOSAMIDE 100 MG TAB PO SCH ×2 (07:43→21:17)
[2017-08-20] MEDS: ASPIRIN 325 MG TAB PO SCH (07:43)
[2017-08-20] MEDS: ESCITALOPRAM OXALATE 10 MG TAB PO SCH (07:43)
[2017-08-20] MEDS: SODIUM CHLORIDE 0.9% FLUSH 10 ML FLUSH IV FLUSH SCH ×2 (07:43→21:16)
[2017-08-20] MEDS: clonazePAM 0.5 MG TAB PO SCH ×2 (07:43→21:17)
--- NOTE | 2017-08-20 14:53 | HHI.PR ---
Subjective Remarks NO sz's c/o headache and diffuse pain from neck to back area. off warfarin-fact 8 nl. Objective Vital Signs Date Time Temp Pulse Resp B/P (MAP) Pulse Ox O2 Delivery O2 Flow Rate FiO2 08/20/17 10:42 96 08/20/17 10:01 78 21 112/84 (93) 08/20/17 09:00 71 12 96/55 (69) 08/20/17 08:01 97.8 73 16 145/67 (93) 08/20/17 06:00 76 08/20/17 04:00 98.0 92 18 97/50 (66) 98 08/20/17 04:00 92 08/20/17 02:00 89 08/20/17 00:00 97.8 89 18 98/54 (69) 98 08/20/17 00:00 87 08/19/17 23:10 98 21 08/19/17 22:00 83 08/19/17 20:00 98.1 73 18 137/86 (103) 96 08/19/17 20:00 73 08/19/17 19:00 79 19 08/19/17 18:00 83 16 08/19/17 17:00 75 17 08/19/17 16:00 98.5 76 18 08/19/17 15:10 80 22 119/86 (97) I/O 08/19/17 08/19/17 08/19/17 08/20/17 08/20/17 08/20/17 07:00 15:00 23:00 07:00 15:00 23:00 Intake Total 620 ml 600 ml 750 ml Output Total 900 ml Balance 620 ml -300 ml 750 ml Intake Oral 620 ml 600 ml 750 ml Output Urine Total 900 ml # Voids 4 4 5 # Bowel Movements 0 1 1 Result Diagram: 08/19/179 08/19/179 Objective Remarks awake alert,nad no facial droop nl speech rom c spine intact tenderness nape has ice pack motor grossly nl. Assessment and Plan Assessment and Plan stroke hx sz vs nonepil sz headache and cervicogenic pain. -cont aeds -asa qd -off warfarin -solumedrol 250mg iv x1-change to medrol pack tomorrow -d/c planning Elizabeth Ortiz MD Aug 20, 2017 14:53
[2017-08-20] MEDS ORDERED: methylPREDNISolone SOD SUCC 125 MG/2 ML VIAL IV ONE (15:00)
--- NOTE | 2017-08-20 15:12 | HHI.PR ---
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 Haji, who was admitted to [facility] on 08/11/2017 under hospitalist service for acute right-sided weakness associated with headaches. During her hospital course, she was seen by Dr. Haji. She had a CT scan of the brain, MRI of the brain, MRA which were all unremarkable. A repeat CT scan of the brain was obtained on 08/14/2017 which showed no evidence of any acute intracranial abnormalities. She was started on antiseizure medication which include Cerebyx, Vimpat. Prior to admission, the patient was on Keppra and Neurontin. EEG was performed as well on 08/15/2017 which showed no evidence of any epileptic activity. This morning, the patient was found unresponsive and ABG was performed on room air oxygen, which showed a pH of 7.38, CO2 49, PaO2 79, sats of 93%. When seen, the patient is nonverbal; however, she responded by opening up her eyes. Neurology service was notified and she is scheduled to undergo MRI of the brain without contrast. 08-20 transferred back to our service [facility] SHE WILL GET SOLUMEDROL 250MG X1 MEDROL DOSE PACK STARTING TOMORROW TRANSFER TO FLOOR PT AND OT AM LABS INCREASE ACTIVITY ONLY CONTINUE ASPIRIN 325MG FOR ANTICOAGULATION DW RN AND PT AND NEUROLOGY Objective Vitals Vital Signs Date Time Temp Pulse Resp B/P (MAP) Pulse Ox O2 Delivery O2 Flow Rate FiO2 08/20/17 10:42 96 08/20/17 10:01 78 21 112/84 (93) 08/20/17 09:00 71 12 96/55 (69) 08/20/17 08:01 97.8 73 16 145/67 (93) 08/20/17 06:00 76 08/20/17 04:00 98.0 92 18 97/50 (66) 98 08/20/17 04:00 92 08/20/17 02:00 89 08/20/17 00:00 97.8 89 18 98/54 (69) 98 08/20/17 00:00 87 08/19/17 23:10 98 21 08/19/17 22:00 83 08/19/17 20:00 98.1 73 18 137/86 (103) 96 08/19/17 20:00 73 08/19/17 19:00 79 19 08/19/17 18:00 83 16 08/19/17 17:00 75 17 08/19/17 16:00 98.5 76 18 08/19/17 15:10 80 22 119/86 (97) I/O 08/19/17 08/19/17 08/19/17 08/20/17 08/20/17 08/20/17 06:59 14:59 22:59 06:59 14:59 22:59 Intake Total 620 ml 600 ml 750 ml Output Total 900 ml Balance 620 ml -300 ml 750 ml Intake Oral 620 ml 600 ml 750 ml Output Urine Total 900 ml # Voids 4 4 5 # Bowel Movements 0 1 1 Result Diagram: 08/19/179 08/19/179 Other Results Laboratory Tests Test 08/18/17 10:12 08/18/17 11:06 08/18/17 13:20 08/19/17 04:49 Prothrombin Time 10.0 SEC 10.3 SEC Prothromb Time International Ratio 1.0 RATIO 1.0 RATIO Blood Gas Puncture Site RT RADIAL Blood Gas Patient Temperature 98.6 Blood Gas HCO3 29 mmol/L Blood Gas Base Excess 3.9 mmol/L Blood Gas Oxygen Saturation 93 % Arterial Blood pH 7.38 Arterial Blood Partial Pressure CO2 49 mmHg Arterial Blood Partial Pressure O2 79 mmHg Arterial Blood Oxygen Content 14.7 Vol % Arterial Blood Carboxyhemoglobin 0.8 % Arterial Blood Methemoglobin 1.3 % Blood Gas Hemoglobin 11.2 G/DL Blood Gas Inspired Oxygen 21 % White Blood Count 7.6 TH/MM3 8.3 TH/MM3 Red Blood Count 4.25 MIL/MM3 3.80 MIL/MM3 Hemoglobin 12.3 GM/DL 11.0 GM/DL Hematocrit 37.3 % 33.6 % Mean Corpuscular Volume 87.9 FL 88.3 FL Mean Corpuscular Hemoglobin 29.1 PG 29.0 PG Mean Corpuscular Hemoglobin Concent 33.1 % 32.8 % Red Cell Distribution Width 15.8 % 15.6 % Platelet Count 354 TH/MM3 321 TH/MM3 Mean Platelet Volume 7.1 FL 7.0 FL Neutrophils (%) (Auto) 50.1 % 42.4 % Lymphocytes (%) (Auto) 40.5 % 47.9 % Monocytes (%) (Auto) 6.7 % 7.2 % Eosinophils (%) (Auto) 2.3 % 2.3 % Basophils (%) (Auto) 0.4 % 0.2 % Neutrophils # (Auto) 3.8 TH/MM3 3.5 TH/MM3 Lymphocytes # (Auto) 3.1 TH/MM3 4.0 TH/MM3 Monocytes # (Auto) 0.5 TH/MM3 0.6 TH/MM3 Eosinophils # (Auto) 0.2 TH/MM3 0.2 TH/MM3 Basophils # (Auto) 0.0 TH/MM3 0.0 TH/MM3 CBC Comment DIFF FINAL DIFF FINAL Differential Comment Blood Urea Nitrogen 6 MG/DL 8 MG/DL Creatinine 0.97 MG/DL 0.88 MG/DL Random Glucose 88 MG/DL 90 MG/DL Total Protein 8.4 GM/DL 7.4 GM/DL Albumin 3.5 GM/DL 3.1 GM/DL Calcium Level 9.1 MG/DL 8.6 MG/DL Phosphorus Level 2.6 MG/DL Magnesium Level 2.4 MG/DL Alkaline Phosphatase 106 U/L 98 U/L Aspartate Amino Transf (AST/SGOT) 43 U/L 30 U/L Alanine Aminotransferase (ALT/SGPT) 70 U/L 55 U/L Total Bilirubin 0.2 MG/DL 0.2 MG/DL Sodium Level 140 MEQ/L 140 MEQ/L Potassium Level 4.2 MEQ/L 4.0 MEQ/L Chloride Level 103 MEQ/L 105 MEQ/L Carbon Dioxide Level 30.1 MEQ/L 28.6 MEQ/L Anion Gap 7 MEQ/L 6 MEQ/L Estimat Glomerular Filtration Rate 80 ML/MIN 89 ML/MIN Lactic Acid Level 1.4 mmol/L B-Type Natriuretic Peptide LESS THAN 2 PG/ML Phenytoin (Dilantin) Level 9.6 MCG/ML Imaging Last Impressions Brain MRI 08/18/17 0000 Signed Impressions: Service Date/Time: Friday, August 18, 2017 13:37 - CONCLUSION: Stable MRI study with no evidence of acute hemorrhage, mass or infarction. Ambrosio Tran MD Head CT 08/14/17 0000 Signed Impressions: Service Date/Time: July 15:23 - CONCLUSION: 1. Stable CT examination without acute intracranial abnormality. 2. Stable focal region of encephalomalacia in the medial right parietal high convexities. Macho Colmenares MD Sacrum/Coccyx MRI 08/12/17 0000 Signed Impressions: Service Date/Time: Saturday, August 12, 2017 19:40 - CONCLUSION: Unremarkable sacrum/coccyx. Urinary bladder mildly distended. Teofilo Montanez MD Lumbar Spine CT 08/12/17 0000 Signed Impressions: Service Date/Time: Saturday, August 12, 2017 20:15 - CONCLUSION: 1. Mild broad-based disc bulges L3-4, L4-5 and L5-S1 levels. 2. No fracture or subluxation. 3. No canal stenosis. 4. Pelvic kidney. Teofilo Montanez MD Head Magnetic Resonance Angiography 08/11/17 0000 Signed Impressions: Service Date/Time: Friday, August 11, 2017 19:01 - CONCLUSION: No acute disease. Julio Velasco MD Cervical Spine MRI 08/11/17 0000 Signed Impressions: Service Date/Time: Friday, August 11, 2017 19:01 - CONCLUSION: 1. Status post anterior cervical fusion from C5-C7. 2. Moderate stenosis at the C4-C5 level caused by disc bulge and a minimal right lateral recess disc protrusion. 3. Mild impression on the thecal sac at the left lateral recess region at the C6-C7 level with enhancement likely related to scarring. Julio Velasco MD Objective Remarks GENERAL: AWAKE ALERT AND ORIENTED X3 TALKATIVE AND COOPERATIVE SKIN: Warm and dry. HEAD: Atraumatic. Normocephalic. EYES: Pupils equal and round. No scleral icterus. No injection or drainage. EOMI ENT: No nasal bleeding or discharge. Mucous membranes pink and moist. TONGUE MIDLINE NECK: Trachea midline. No JVD. SUPPLE CARDIOVASCULAR: Regular rate and rhythm. S1, S 2 NO S3 OR S4 RESPIRATORY: No accessory muscle use. Clear to auscultation. Breath sounds equal bilaterally. GASTROINTESTINAL: Abdomen soft, non-tender, nondistended. Hepatic and splenic margins not palpable. OBESE MUSCULOSKELETAL: Extremities without clubbing, cyanosis, or edema. No obvious deformities. NEUROLOGICAL: Awake and alert. No obvious cranial nerve deficits. Motor grossly within normal limits. 4 out of 5 muscle strength in the arms and legs. Normal speech. PSYCHIATRIC: INAppropriate mood and affect; insight and judgment ABnormal. Procedures EEGS Medications and IVs Current Medications Aspirin (Aspirin) 325 mg ONCE ONCE PO Last administered on 08/11/17 17:37; Start 08/11/17 at 17:15; Stop 08/11/17 at 17:24; Status DC Duloxetine HCl (Cymbalta Dr) 30 mg DAILY PO Last administered on 08/16/17at 09: 35; Start 08/12/17 at 09:00; Stop 08/16/17 at 11:58; Status DC Gabapentin (Neurontin) 400 mg TID PO Last administered on 08/20/17 12:38; Start 08/11/17 at 18:00 Levetriacetam (Keppra) 1,000 mg BID PO Last administered on 08/12/17 09:22; Start 08/11/17 at 21:00; Stop 08/12/17 at 15:25; Status DC Temazepam (Restoril) 30 mg HS PO Last administered on 08/19/17 22:06; Start at 21:00 Patient Own Medication PT OWN MED: (Eslicarbazepine (Aptiom) 400... DAILY PO Last administered on 08/12/17at 09:00; Start 08/12/17 at 09:00; Status Future Hold Sodium Chloride (NS Flush) 2 ml BID IV FLUSH Last administered on 08/20/17 07: 43; Start 08/11/17 at 21:00 Sodium Chloride (NS Flush) 2 ml UNSCH PRN IV FLUSH FLUSH AFTER USING IV ACCESS ; Start 08/11/17 at 17:45 Aspirin (Aspirin) 325 mg DAILY PO Last administered on 08/20/17 07:43; Start 08/12/17 at 09:00 Enoxaparin Sodium (Lovenox Inj) 40 mg Q24H SQ Last administered on 08/11/17 20 :21; Start 08/11/17 at 20:00; Stop 08/12/17 at 17:43; Status DC Ondansetron HCl (Zofran Inj) 4 mg Q6H PRN IV PUSH NAUSEA Last administered on 18:17; Start 08/11/17 at 18:45 Gadodiamide (Omniscan Pf Inj) 16 ml STK-MED ONCE IVCONTRAST Last administered on 08/11/17 19:55; Start 08/11/17 at 19:53; Stop 08/11/17 at 19:54; Status DC Pneumococcal Polyvalent Vaccine (Pneumovax-23 Inj) 25 mcg ONCE ONCE IM Last administered on 08/12/17 09:28; Start 08/12/17 at 09:00; Stop 08/12/17 at 09:01 ; Status DC Lacosamide (Vimpat) 100 mg BID PO Last administered on 08/20/17 07:43; Start 08/12/17 at 21:00 Tizanidine HCl (Zanaflex) 4 mg Q12HR PO Last administered on 08/20/17 07:43; Start 08/12/17 at 21:00 Acetaminophen/ Hydrocodone Bitart (Tabor 5-325 Mg) 1 tab Q6H PRN PO PAIN SCALE 1-10 Last administered on 08/20/17 13:27; Start 08/12/17 at 15:30 Enoxaparin Sodium (Lovenox Inj) 40 mg Q12HR SQ Last administered on 08/13/17 09:48; Start 08/12/17 at 21:00; Stop 08/13/17 at 18:02; Status DC Warfarin Sodium (Coumadin) 2.5 mg DAILY@16 PO Last administered on 08/17/17 16 :57; Start 08/13/17 at 16:00; Stop 08/18/17 at 15:07; Status DC Lorazepam (Ativan Inj) 4 mg ONCE ONCE IV PUSH Last administered on 08/13/17at 07:45; Start 08/13/17 at 07:45; Stop 08/13/17 at 07:46; Status DC Lorazepam (Ativan Inj) 2 mg Q15M PRN IV PUSH SEIZURES Last administered on 08/17 18:57; Start 08/13/17 at 07:45 Fosphenytoin Sodium (Cerebyx Inj) 1,000 mgpe ONCE ONCE IV ; Start 08/13/17 at 07:45; Stop 08/13/17 at 08:46; Status DC Fosphenytoin Sodium (Cerebyx Inj) 100 mgpe Q8H IV Last administered on 09:40; Start 08/13/17 at 18:00; Stop 08/18/17 at 16:49; Status DC Fosphenytoin Sodium 1000 mgpe/ Sodium Chloride 70 ml @ 420 mls/hr ONCE ONCE IV Last administered on 08/13/17at 10:00; Start 08/13/17 at 10:00; Stop at 10:09; Status DC Enoxaparin Sodium (Lovenox Inj) 60 mg Q12HR SQ ; Start 08/13/17 at 21:00; Status UNV Enoxaparin Sodium (Lovenox Inj) 60 mg Q12H SQ Last administered on 08/19/17at 09 :00; Start 08/13/17 at 22:00; Stop 08/19/17 at 12:43; Status DC Fosphenytoin Sodium 500 mgpe/ Sodium Chloride 60 ml @ 240 mls/hr NOW ONCE IV Last administered on 08/14/17at 15:02; Start 08/14/17 at 14:45; Stop 08/14/17 at 14:59; Status DC Clonazepam (KlonoPIN) 0.5 mg NOW ONCE PO Last administered on 08/14/17at 17:23 ; Start 08/14/17 at 17:15; Stop 08/14/17 at 17:16; Status DC Clonazepam (KlonoPIN) 0.5 mg BID PO Last administered on 08/18/17at 09:39; Start 08/14/17 at 21:00; Stop 08/18/17 at 16:49; Status DC Acetaminophen/ Hydrocodone Bitart (Tabor 5-325 Mg) 1 tab ONCE ONCE PO ; Start 08/14/17 at 22:30; Stop 08/14/17 at 22:31; Status DC Senna/Docusate Sodium (Kate-Colace) 1 tab BID PO Last administered on at 07:42; Start 08/16/17 at 09:00 Magnesium Hydroxide (Milk Of Magnesia Liq) 30 ml Q12H PRN PO Mild constipation Last administered on 08/16/17at 21:49; Start 08/16/17 at 00:00 Sennosides (Senokot) 17.2 mg Q12H PRN PO Moderate constipation; Start 08/16/17 at 00:00 Bisacodyl (Dulcolax Supp) 10 mg DAILY PRN RECTAL SEVERE CONSITIPATION; Start at 00:00 Lactulose (Lactulose Liq) 30 ml DAILY PRN PO SEVERE CONSITIPATION; Start at 00:00 Escitalopram Oxalate (Lexapro) 10 mg DAILY PO Last administered on 08/20/17at 07 :43; Start 08/17/17 at 09:00 Dextrose/Sodium Chloride 1,000 ml @ 75 mls/hr [id number] IV Last administered on 08/18/17at 19:16; Start 08/18/17 at 11:45; Stop 08/19/17 at 09:43; Status DC Warfarin Sodium (Coumadin) 4 mg DAILY@1600 PO Last administered on 08/18/17at 15 :35; Start 08/18/17 at 16:00; Stop 08/19/17 at 12:43; Status DC Clonazepam (KlonoPIN) 1 mg BID PO Last administered on 08/20/17at 07:43; Start 08/18/17 at 21:00 Phenytoin (Dilantin) 100 mg Q8HR PO Last administered on 08/20/17at 12:38; Start 08/18/17 at 22:00 Pantoprazole Sodium (Protonix) 40 mg DAILY PO Last administered on 08/20/17at 07 :42; Start 08/19/17 at 09:00 Calcium Carbonate (Tums Chew) 500 mg Q6H PRN PO HEARTBURN; Start 08/18/17 at 18 :15 Insulin Human Regular (NovoLIN R INJ) 5 units NOW ONCE SQ ; Start 08/18/17 at 18:15; Stop 08/18/17 at 18:16; Status Cancel Oxycodone/ Acetaminophen (Percocet 5-325 Mg) 1 tab ONCE ONCE PO Last administered on 08/20/17at 05:33; Start 08/20/17 at 05:00; Stop 08/20/17 at 05:01 ; Status DC Diphenhydramine HCl (Benadryl) 25 mg ONCE ONCE PO Last administered on at 05:32; Start 08/20/17 at 05:15; Stop 08/20/17 at 05:24; Status DC Methylprednisolone Sodium Succinate (SoluMEDROL INJ) 250 mg ONCE ONCE IV ; Start 08/20/17 at 15:00; Stop 08/20/17 at 15:01; Status DC A/P Assessment and Plan 1. ? seizure. 2. History of seizure disorder. 3. History of cerebrovascular accident with residual left-sided weakness. 4. Elevated factor VIII level.--NOW NORMAL SWITCH TO ASPIRIN 325MG PO DAILY PER HEMATOLOGY Plan Neuro: Monitor neuro status, seizure precautions Continue with antiseizure meds per neurology. On Cerebyx 100 mg q. 8 hours, Vimpat 100 mg b.i.d. and Neurontin 400 mg t.i.d. Klonopin 1mg BID MRI brain and EEG 08/18 unremarkable Previous neuro workup including CT scan of the brain x 2, MRI/MRA of the brain were all unremarkable. Pulm: Oxygen p.r.n. to maintain sats above 92%. CV: Monitor HR and BP and maintain MAP> 65 mmHg. d/c IVF. Continue with aspirin 325 mg daily. :Monitor renal function, I's and O's and electrolyte replacement per protocol. GI: On PO diet ID: Monitor for signs of infection which include fever, WBC. Duarte culture if spikes fever. Heme: Monitor CBC and coags--on Lovenox 60mg Q12/Coumadin. Hem is following. On Protonix for GI prophylaxis, DVT prophylaxis with SCDs AND ASPIRIN AND LOVENOX LOW DOSE SUSPECTED PSEUDO SEIZURES- [facility] PT AND OT OUT OF ICU SOLUMEDROL 250MG ONE TIME THEN MEDROL STARTING TOMORROW INCREASE ACTIVITY Discharge Planning TRANSFER OUT OF ICU Fuentes Parry DO Aug 20, 2017 15:11
[2017-08-20] MEDS ORDERED: METHYLPREDNISOLONE SO SUCC IV ONE (16:30)
[2017-08-20] MEDS ORDERED: SODIUM CHLORIDE 0.9% IV ONE (16:30)
[2017-08-20] MEDS: TEMAZEPAM 15 MG CAP PO SCH (21:17)
[2017-08-21] VITALS (7 sets, daily range): BP systolic 103–127; BP diastolic 58–80; PULSE 67–95; RESP 16–20; TEMP 97.6–98.9; O2SAT 96–100
[2017-08-21] MEDS: ACETAMINOPHEN/HYDROcodone 325 MG/5 MG TAB PO PRN ×3 (04:00→17:29)
[2017-08-21] MEDS: PHENYTOIN SODIUM 100 MG CAP PO SCH ×3 (06:34→22:41)
[2017-08-21] MEDS ORDERED: [UNRECOGNIZED DRUG - OTHER] PO SCH (08:00)
[2017-08-21] MEDS ORDERED: METHYLPREDNISOLONE PO SCH ×2 (08:00→13:00)
[2017-08-21] MEDS ORDERED: methylPREDNISolone 4 MG TAB PO SCH ×4 (08:00→21:00)
[2017-08-21] MEDS ORDERED: DILA100C PO (08:15)
[2017-08-21] MEDS ORDERED: CLON.5 PO (08:15)
[2017-08-21] MEDS ORDERED: LACO100 PO (08:15)
[2017-08-21] MEDS ORDERED: ESCI10TA PO (08:15)
[2017-08-21] MEDS ORDERED: TIZA4 PO (08:15)
[2017-08-21] MEDS ORDERED: MEDR4PAK PO (08:15)
[2017-08-21] MEDS ORDERED: ASA325 PO (08:15)
[2017-08-21] MEDS ORDERED: PERI PO (08:15)
[2017-08-21] MEDS ORDERED: HYDR-3516 PO (08:15)
--- NOTE | 2017-08-21 08:17 | HHI.DS ---
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 Patient reports his symptoms started yesterday afternoon. She was hoping there would go away therefore she did not come into the hospital. She also complained of neck pain mainly on the right. She states she has been unable to walk or use the right home because they feel so heavy. Patient reports her last known seizure was in November of last year. She has been following outpatient with physical rehab since she had C5-C7 cervical discectomy and fusion in December. The strength on her left side has been improving steadily. Workup in the emergency room revealed a negative head CT. Patient was given aspirin. CBC/BMP: 08/19/17 0449 08/19/17 0449 Significant Findings Laboratory Tests Test 08/18/17 10:12 08/18/17 11:06 08/18/17 13:20 08/19/17 04:49 Blood Gas HCO3 29 mmol/L (22-26) Blood Gas Base Excess 3.9 mmol/L (-2-2) Arterial Blood Partial Pressure CO2 49 mmHg (38-42) Blood Gas Hemoglobin 11.2 G/DL (12.0-16.0) Blood Urea Nitrogen 6 MG/DL (7-18) Total Protein 8.4 GM/DL (6.4-8.2) Aspartate Amino Transf (AST/SGOT) 43 U/L (15-37) Alanine Aminotransferase (ALT/SGPT) 70 U/L (10-53) 55 U/L (10-53) Estimat Glomerular Filtration Rate 80 ML/MIN (>89) Phenytoin (Dilantin) Level 9.6 MCG/ML (10.0-20.0) Red Blood Count 3.80 MIL/MM3 (4.00-5.30) Hemoglobin 11.0 GM/DL (11.6-15.3) Hematocrit 33.6 % (35.0-46.0) Lymphocytes (%) (Auto) 47.9 % (9.0-44.0) Albumin 3.1 GM/DL (3.4-5.0) PE at Discharge GENERAL: AWAKE ALERT AND ORIENTED X3 TALKATIVE AND COOPERATIVE SKIN: Warm and dry. HEAD: Atraumatic. Normocephalic. EYES: Pupils equal and round. No scleral icterus. No injection or drainage. EOMI ENT: No nasal bleeding or discharge. Mucous membranes pink and moist. TONGUE MIDLINE NECK: Trachea midline. No JVD. SUPPLE CARDIOVASCULAR: Regular rate and rhythm. S1, S 2 NO S3 OR S4 RESPIRATORY: No accessory muscle use. Clear to auscultation. Breath sounds equal bilaterally. GASTROINTESTINAL: Abdomen soft, non-tender, nondistended. Hepatic and splenic margins not palpable. OBESE MUSCULOSKELETAL: Extremities without clubbing, cyanosis, or edema. No obvious deformities. NEUROLOGICAL: Awake and alert. No obvious cranial nerve deficits. Motor grossly within normal limits. 4 out of 5 muscle strength in the arms and legs. Normal speech. PSYCHIATRIC: INAppropriate mood and affect; insight and judgment ABnormal. Pt Condition on Discharge: Stable Discharge Disposition: Rehab Inpatient Discharge Instructions DIET: Follow Instructions for: As Tolerated, No Restrictions Activities you can perform: Regular-No Restrictions Amelia Mayo MD Aug 21, 2017 08:17
[2017-08-21] MEDS: clonazePAM 0.5 MG TAB PO SCH ×2 (09:35→22:40)
[2017-08-21] MEDS: LACOSAMIDE 100 MG TAB PO SCH ×2 (09:35→22:41)
[2017-08-21] MEDS: PANTOPRAZOLE SOD 40 MG DELAYED RELEASE TAB PO SCH (09:35)
[2017-08-21] MEDS: DOCUSATE SODIUM 50 MG/SENNA 8.6 MG TAB PO SCH ×2 (09:36→22:40)
[2017-08-21] MEDS: GABAPENTIN 400 MG CAP PO SCH ×3 (09:36→17:26)
[2017-08-21] MEDS: ASPIRIN 325 MG TAB PO SCH (09:37)
[2017-08-21] MEDS: ESCITALOPRAM OXALATE 10 MG TAB PO SCH (09:37)
[2017-08-21] MEDS: SODIUM CHLORIDE 0.9% FLUSH 10 ML FLUSH IV FLUSH SCH ×2 (09:38→22:43)
[2017-08-21] MEDS ORDERED: [UNRECOGNIZED DRUG - OTHER] PO SCH (13:00)
--- NOTE | 2017-08-21 15:35 | HHI.PR ---
Subjective Remarks In bed appears tired. Patient says no seizures overnight. She feels very tired. Not eating much. No nausea vomiting no diarrhea or constipation. Had a bowel movement in the morning. Objective Vitals Vital Signs Date Time Temp Pulse Resp B/P (MAP) Pulse Ox O2 Delivery O2 Flow Rate FiO2 08/21/17 12:49 98 21 08/21/17 12:00 98.2 95 18 127/65 (85) 97 08/21/17 08:00 97.6 77 18 103/58 (73) 99 08/21/17 04:45 98.9 83 16 111/60 (77) 96 08/21/17 00:20 98.9 67 20 127/80 (96) 97 08/20/17 20:00 85 08/20/17 20:00 98.3 85 18 141/85 (103) 08/20/17 16:19 98.4 I/O 08/20/17 08/20/17 08/20/17 08/21/17 08/21/17 08/21/17 07:00 15:00 23:00 07:00 15:00 23:00 Intake Total 750 ml 840 ml 650 ml Output Total 700 ml Balance 750 ml 140 ml 650 ml Intake Oral 750 ml 840 ml 650 ml Output Urine Total 700 ml # Voids 5 3 1 # Bowel Movements 1 0 0 Result Diagram: 08/19/17 0449 08/19/17 0449 Imaging Last Impressions Brain MRI 08/18/17 0000 Signed Impressions: Service Date/Time: Friday, August 18, 2017 13:37 - CONCLUSION: Stable MRI study with no evidence of acute hemorrhage, mass or infarction. Ambrosio Tran MD Head CT 08/14/17 0000 Signed Impressions: Service Date/Time: July 15:23 - CONCLUSION: 1. Stable CT examination without acute intracranial abnormality. 2. Stable focal region of encephalomalacia in the medial right parietal high convexities. Macho Colmenares MD Sacrum/Coccyx MRI 08/12/17 0000 Signed Impressions: Service Date/Time: Saturday, August 12, 2017 19:40 - CONCLUSION: Unremarkable sacrum/coccyx. Urinary bladder mildly distended. Teofilo Montanez MD Lumbar Spine CT 4/17/18 0000 Signed Impressions: Service Date/Time: Saturday, August 12, 2017 20:15 - CONCLUSION: 1. Mild broad-based disc bulges L3-4, L4-5 and L5-S1 levels. 2. No fracture or subluxation. 3. No canal stenosis. 4. Pelvic kidney. Teofilo Montanez MD Head Magnetic Resonance Angiography 08/11/17 0000 Signed Impressions: Service Date/Time: Friday, August 11, 2017 19:01 - CONCLUSION: No acute disease. Julio Velasco MD Cervical Spine MRI 08/11/17 0000 Signed Impressions: Service Date/Time: Friday, August 11, 2017 19:01 - CONCLUSION: 1. Status post anterior cervical fusion from C5-C7. 2. Moderate stenosis at the C4-C5 level caused by disc bulge and a minimal right lateral recess disc protrusion. 3. Mild impression on the thecal sac at the left lateral recess region at the C6-C7 level with enhancement likely related to scarring. Julio Velasco MD Objective Remarks GENERAL: Awake and alert, morbidly obese, appears in nad. CARDIOVASCULAR: Regular rate and rhythm. S1, S 2 NO S3 OR S4 RESPIRATORY: No accessory muscle use. Clear to auscultation. Breath sounds equal bilaterally. GASTROINTESTINAL: Abdomen soft, obese, non-tender, nondistended. Hepatic and splenic margins not palpable. OBESE MUSCULOSKELETAL: Extremities without clubbing, cyanosis, or edema. No obvious deformities. NEUROLOGICAL: Awake and alert. No obvious cranial nerve deficits. Motor grossly within normal limits. 4 out of 5 muscle strength in the arms and legs. Normal speech. Procedures EEGS A/P Assessment and Plan Poss seizure. History of seizure disorder. History of cerebrovascular accident with residual left-sided weakness. Elevated factor VIII level.--NOW NORMAL SWITCH TO ASPIRIN 325MG PO DAILY PER HEMATOLOGY Morbidly obese with BMI of 44 Plan Neuro: Monitor neuro status, seizure precautions Continue with antiseizure meds per neurology. On Cerebyx 100 mg q. 8 hours, Vimpat 100 mg b.i.d. and Neurontin 400 mg t.i.d. Klonopin 1mg BID MRI brain and EEG 08/18 unremarkable Previous neuro workup including CT scan of the brain x 2, MRI/MRA of the brain were all unremarkable. Pulm: Oxygen p.r.n. to maintain sats above 92%. CV: Monitor HR and BP and maintain MAP> 65 mmHg. d/c IVF. Continue with aspirin 325 mg daily. :Monitor renal function, I's and O's and electrolyte replacement per protocol. GI: On PO diet ID: Monitor for signs of infection which include fever, WBC. Duarte culture if spikes fever. Heme: Monitor CBC and coags--on Lovenox 60mg Q12/Coumadin. Hem is following. On Protonix for GI prophylaxis, DVT prophylaxis with SCDs AND ASPIRIN AND LOVENOX LOW DOSE SUSPECTED PSEUDO SEIZURES- [facility] PT AND OT OUT OF ICU SOLUMEDROL 250MG ONE TIME THEN MEDROL STARTING TOMORROW INCREASE ACTIVITY Discharge Planning Pending improvement PT recommends rehab. Burns to evaluate. PT daily until patient improves and safe to go home. Amelia Mayo MD Aug 21, 2017 15:35
--- NOTE | 2017-08-21 15:37 | HHI.FF ---
Face to Face Verification Diagnosis: (1) History of fusion of cervical spine (2) Elevated factor VIII level (3) Impaired mobility and activities of daily living (4) History of CVA (cerebrovascular accident) (5) Cervical stenosis of spinal canal (6) Complex partial epilepsy (7) Seizure (8) Left hemiparesis Physical Therapy Order: Evaluate and Treat Home Health Nursing Order: Medical education Signs/symptoms of disease process CHF education Medication education-adverse effect Nursing assessment with vital signs I have seen patient Faith Cuevas on 08/21/17. My clinical findings support the need for the requested home health care services because: Ltd mobility - disease progression I certify that my clinical findings support that this patient is homebound because: Post-op weakness Impaired cognitive ability/safety Amelia Mayo MD Aug 21, 2017 15:36
[2017-08-21] MEDS ORDERED: METHYLPREDNISOLONE 4 MG PO SCH (18:00)
[2017-08-21] MEDS ORDERED: METHYLPREDNISOLONE 8 MG PO SCH (21:00)
[2017-08-21] MEDS ORDERED: [UNRECOGNIZED DRUG - OTHER] PO SCH (21:00)
[2017-08-21] MEDS: TEMAZEPAM 15 MG CAP PO SCH (22:40)
[2017-08-22] VITALS (7 sets, daily range): BP systolic 93–136; BP diastolic 62–90; PULSE 70–86; RESP 18; TEMP 97.2–98.1; O2SAT 92–100
[2017-08-22] MEDS: ACETAMINOPHEN/HYDROcodone 325 MG/5 MG TAB PO PRN ×3 (00:01→21:04)
[2017-08-22] MEDS: PHENYTOIN SODIUM 100 MG CAP PO SCH ×3 (05:13→20:53)
[2017-08-22] MEDS ORDERED: SIMETHICONE 80 MG CHEWABLE TAB CHEW ONE (05:15)
[2017-08-22] MEDS ORDERED: methylPREDNISolone 4 MG TAB PO SCH (08:00)
[2017-08-22] MEDS: PANTOPRAZOLE SOD 40 MG DELAYED RELEASE TAB PO SCH (08:32)
[2017-08-22] MEDS: DOCUSATE SODIUM 50 MG/SENNA 8.6 MG TAB PO SCH ×2 (08:32→20:53)
[2017-08-22] MEDS: ASPIRIN 325 MG TAB PO SCH (08:33)
[2017-08-22] MEDS: GABAPENTIN 400 MG CAP PO SCH ×3 (08:33→16:50)
[2017-08-22] MEDS: ESCITALOPRAM OXALATE 10 MG TAB PO SCH (08:33)
[2017-08-22] MEDS: clonazePAM 0.5 MG TAB PO SCH ×2 (08:33→20:54)
[2017-08-22] MEDS: LACOSAMIDE 100 MG TAB PO SCH ×2 (08:34→20:53)
[2017-08-22] MEDS: SENNOSIDES 8.6 MG TAB PO PRN (08:41)
[2017-08-22] MEDS: SODIUM CHLORIDE 0.9% FLUSH 10 ML FLUSH IV FLUSH SCH ×2 (08:41→20:52)
--- NOTE | 2017-08-22 09:20 | HHI.PR ---
Subjective Remarks In bed doesn't appear in acute distress. No n/v/d/c. Objective Vitals Vital Signs Date Time Temp Pulse Resp B/P (MAP) Pulse Ox O2 Delivery O2 Flow Rate FiO2 08/22/17 08:00 97.9 71 18 132/90 (104) 100 08/22/17 04:00 97.5 76 18 101/70 (80) 99 08/22/17 00:00 97.6 72 18 112/67 (82) 100 08/21/17 21:34 21 08/21/17 20:00 97.9 77 18 110/65 (80) 100 08/21/17 16:00 97.9 91 18 126/67 (86) 98 08/21/17 12:49 98 21 08/21/17 12:00 98.2 95 18 127/65 (85) 97 I/O 08/21/17 08/21/17 08/21/17 08/22/17 08/22/17 08/22/17 07:00 15:00 23:00 07:00 15:00 23:00 Intake Total 650 ml Balance 650 ml Intake Oral 650 ml # Voids 1 1 # Bowel Movements 0 1 Result Diagram: 08/19/17 0449 08/19/17 0449 Imaging Last Impressions Brain MRI 08/18/17 0000 Signed Impressions: Service Date/Time: Friday, August 18, 2017 13:37 - CONCLUSION: Stable MRI study with no evidence of acute hemorrhage, mass or infarction. Ambrosio Tran MD Head CT 08/14/17 0000 Signed Impressions: Service Date/Time: July 15:23 - CONCLUSION: 1. Stable CT examination without acute intracranial abnormality. 2. Stable focal region of encephalomalacia in the medial right parietal high convexities. Macho Colmenares MD Sacrum/Coccyx MRI 08/12/17 0000 Signed Impressions: Service Date/Time: Saturday, August 12, 2017 19:40 - CONCLUSION: Unremarkable sacrum/coccyx. Urinary bladder mildly distended. Teofilo Montanez MD Lumbar Spine CT 08/12/17 0000 Signed Impressions: Service Date/Time: Saturday, August 12, 2017 20:15 - CONCLUSION: 1. Mild broad-based disc bulges L3-4, L4-5 and L5-S1 levels. 2. No fracture or subluxation. 3. No canal stenosis. 4. Pelvic kidney. Teofilo Montanez MD Head Magnetic Resonance Angiography 08/11/17 0000 Signed Impressions: Service Date/Time: Friday, August 11, 2017 19:01 - CONCLUSION: No acute disease. Julio Velasco MD Cervical Spine MRI 08/11/17 0000 Signed Impressions: Service Date/Time: Friday, August 11, 2017 19:01 - CONCLUSION: 1. Status post anterior cervical fusion from C5-C7. 2. Moderate stenosis at the C4-C5 level caused by disc bulge and a minimal right lateral recess disc protrusion. 3. Mild impression on the thecal sac at the left lateral recess region at the C6-C7 level with enhancement likely related to scarring. Julio Velasco MD Objective Remarks GENERAL: Awake and alert, morbidly obese, appears in nad. CARDIOVASCULAR: Regular rate and rhythm. S1, S 2 NO S3 OR S4 RESPIRATORY: No accessory muscle use. Clear to auscultation. Breath sounds equal bilaterally. GASTROINTESTINAL: Abdomen soft, obese, non-tender, nondistended. Hepatic and splenic margins not palpable. OBESE MUSCULOSKELETAL: Extremities without clubbing, cyanosis, or edema. No obvious deformities. NEUROLOGICAL: Awake and alert. No obvious cranial nerve deficits. Motor grossly within normal limits. 4 out of 5 muscle strength in the arms and legs. Normal speech. Procedures EEGS A/P Assessment and Plan Poss seizure. History of seizure disorder. History of cerebrovascular accident with residual left-sided weakness. Elevated factor VIII level. NOW NORMAL SWITCH TO ASPIRIN 325MG PO DAILY PER HEMATOLOGY Morbidly obese with BMI of 44 Plan Neuro: Monitor neuro status, seizure precautions Continue with antiseizure meds per neurology. On Cerebyx 100 mg q. 8 hours, Vimpat 100 mg b.i.d. and Neurontin 400 mg t.i.d. Klonopin 1mg BID MRI brain and EEG 08/18 unremarkable Previous neuro workup including CT scan of the brain x 2, MRI/MRA of the brain were all unremarkable. Pulm: Oxygen p.r.n. to maintain sats above 92%. CV: Monitor HR and BP and maintain MAP> 65 mmHg. d/c IVF. Continue with aspirin 325 mg daily. :Monitor renal function, I's and O's and electrolyte replacement per protocol. GI: On PO diet ID: Monitor for signs of infection which include fever, WBC. Duarte culture if spikes fever. Heme: Monitor CBC and coags--on Lovenox 60mg Q12/Coumadin. Hem is following. On Protonix for GI prophylaxis, DVT prophylaxis with SCDs AND ASPIRIN AND LOVENOX LOW DOSE SUSPECTED PSEUDO SEIZURES- [facility] PT AND OT OUT OF ICU SOLUMEDROL 250MG ONE TIME THEN MEDROL STARTING TOMORROW INCREASE ACTIVITY Discharge Planning Pending improvement PT recommends rehab. Grant evaluate patient doesn't meet criteria PT daily until patient improves and safe to go home. Amelia Mayo MD Aug 22, 2017 09:20
--- NOTE | 2017-08-22 11:11 | PD.ONC.PN ---
Subjective Subjective Remarks Afebrile overnight. Patient reports she is still having trouble sleeping at night, so she often sleeps during the day. reports she still has pain and weakness on the right side of her body. no change. Objective Data Date Time Temp Pulse Resp B/P (MAP) Pulse Ox O2 Delivery O2 Flow Rate FiO2 08/22/17 08:00 97.9 71 18 132/90 (104) 100 08/22/17 04:00 97.5 76 18 101/70 (80) 99 08/22/17 00:00 97.6 72 18 112/67 (82) 100 08/21/17 21:34 21 08/21/17 20:00 97.9 77 18 110/65 (80) 100 08/21/17 16:00 97.9 91 18 126/67 (86) 98 08/21/17 12:49 98 21 08/21/17 12:00 98.2 95 18 127/65 (85) 97 Result Diagram: 08/19/17 0449 08/19/179 Administered Medications Medications (Trade) Dose Ordered Sig/Annette Route PRN Reason Start Time Stop Time Status Last Admin Dose Admin Gabapentin (Neurontin) 400 mg TID PO 08/11/17 18:00 08/22/17 08:33 Temazepam (Restoril) 30 mg HS PO 08/11/17 21:00 08/21/17 22:40 Patient Own Medication PT OWN MED: (Eslicarbazepine (Aptiom) 400... DAILY PO 08/12/17 09:00 Future Hold 08/12/17 09:00 Sodium Chloride (NS Flush) 2 ml BID IV FLUSH 08/11/17 21:00 08/22/17 08:41 Aspirin (Aspirin) 325 mg DAILY PO 08/12/17 09:00 08/22/17 08:33 Ondansetron HCl (Zofran Inj) 4 mg Q6H PRN IV PUSH NAUSEA 08/11/17 18:45 08/19/17 18:17 Lacosamide (Vimpat) 100 mg BID PO 08/12/17 21:00 08/22/17 08:34 Tizanidine HCl (Zanaflex) 4 mg Q12HR PO 08/12/17 21:00 08/22/17 08:34 Acetaminophen/ Hydrocodone Bitart (Jamul 5-325 Mg) 1 tab Q6H PRN PO PAIN SCALE 1-10 08/12/17 15:30 08/22/17 00:01 Lorazepam (Ativan Inj) 2 mg Q15M PRN IV PUSH SEIZURES 08/13/17 07:45 08/17/17 18:57 Senna/Docusate Sodium (Kate-Colace) 1 tab BID PO 08/16/17 09:00 08/22/17 08:32 Magnesium Hydroxide (Milk Of Matthew Sheppard) 30 ml Q12H PRN PO Mild constipation 08/16/17 00:00 08/16/17 21:49 Sennosides (Senokot) 17.2 mg Q12H PRN PO Moderate constipation 08/16/17 00:00 08/22/17 08:41 Escitalopram Oxalate (Lexapro) 10 mg DAILY PO 08/17/17 09:00 08/22/17 08:33 Clonazepam (KlonoPIN) 1 mg BID PO 08/18/17 21:00 08/22/17 08:33 Phenytoin (Dilantin) 100 mg Q8HR PO 08/18/17 22:00 08/22/17 05:13 Pantoprazole Sodium (Protonix) 40 mg DAILY PO 08/19/17 09:00 08/22/17 08:32 Objective Remarks GENERAL: Young woman, sleeping in bed in [facility]. SKIN: Warm and dry. HEAD: Normocephalic. EYES: No injection or drainage. NECK: Supple, trachea midline. CARDIOVASCULAR: Regular rate and rhythm RESPIRATORY: Breath sounds equal bilaterally. No accessory muscle use. GASTROINTESTINAL: Abdomen soft, non-tender, nondistended. EXTREMITIES: No cyanosis NEUROLOGICAL: sleeping on approach. awakens to physical stimuli. right sided weakness. normal speech. Assessment/Plan Problem List: (1) History of CVA (cerebrovascular accident) ICD Codes: Z86.73 - Personal history of transient ischemic attack (TIA), and cerebral infarction without residual deficits Status: Chronic Plan: 08/22: continue ASA --repeat CT brain 08/14 shows no change --MRI of the brain showed no acute abnormality even on repeat 08/18 --MRA of the head shows no acute disease --CT of the head shows no acute abnormality (2) Seizure ICD Codes: R56.9 - Unspecified convulsions Status: Acute Plan: --question of pseudoseizures given normal EEG x 2. --had another seizure 08/14, given ativan --EEG on 08/13 showed no seizure activity. --Neurology following --Patient on Cerebyx (3) Elevated factor VIII level ICD Codes: R79.1 - Abnormal coagulation profile Status: Resolved Plan: --Factor VIII level is within normal limits. --Patient has been as high as 376 in November 2015 with a normal cut off high value of 180 Assessment 36-year-old female with history of CVA and history of elevated factor VIII activity levels admitted for right-sided weakness Plan 1. monitor CBC 2. monitor ASA 3. follow up in clinic after discharge Danna Birch Aug 22, 2017 11:11
[2017-08-22] MEDS: TEMAZEPAM 15 MG CAP PO SCH (20:53)
[2017-08-22] MEDS: ONDANSETRON HCL 4 MG/2 ML VIAL IV PUSH PRN (20:54)
[2017-08-23] VITALS (7 sets, daily range): BP systolic 110–136; BP diastolic 58–74; PULSE 78–91; RESP 18; TEMP 97.3–98.3; O2SAT 96–99
[2017-08-23] MEDS: PHENYTOIN SODIUM 100 MG CAP PO SCH ×3 (04:03→22:31)
[2017-08-23] MEDS: ACETAMINOPHEN/HYDROcodone 325 MG/5 MG TAB PO PRN ×4 (04:04→22:32)
[2017-08-23] MEDS: GABAPENTIN 400 MG CAP PO SCH ×3 (07:51→16:26)
[2017-08-23] MEDS: LACOSAMIDE 100 MG TAB PO SCH ×2 (07:51→20:10)
[2017-08-23] MEDS: PANTOPRAZOLE SOD 40 MG DELAYED RELEASE TAB PO SCH (07:51)
[2017-08-23] MEDS: METHYLPREDNISOLONE 4 MG PO SCH ×3 (07:52→16:26)
[2017-08-23] MEDS: clonazePAM 0.5 MG TAB PO SCH ×2 (07:52→20:11)
[2017-08-23] MEDS: ASPIRIN 325 MG TAB PO SCH (07:52)
[2017-08-23] MEDS: DOCUSATE SODIUM 50 MG/SENNA 8.6 MG TAB PO SCH ×2 (07:52→20:10)
[2017-08-23] MEDS: ESCITALOPRAM OXALATE 10 MG TAB PO SCH (07:52)
--- NOTE | 2017-08-23 07:59 | HHI.PR ---
Subjective Remarks In the chair. Says she has a lump in her armpit left side. No fever or chills. Says she did start to do more OT yesterday. Improves with PT. No n/v/d/c. Denies chest pain or sob. No rash. No fever or chills. Objective Vitals Vital Signs Date Time Temp Pulse Resp B/P (MAP) Pulse Ox O2 Delivery O2 Flow Rate FiO2 08/23/17 04:00 97.9 82 18 116/58 (77) 99 08/23/17 00:00 97.3 91 18 110/61 (77) 98 08/22/17 20:00 98.1 86 18 136/64 (88) 99 08/22/17 16:00 97.8 78 18 121/62 (81) 99 08/22/17 13:36 92 21 08/22/17 12:00 97.2 70 18 93/62 (72) 97 08/22/17 08:00 97.9 71 18 132/90 (104) 100 I/O 08/22/17 08/22/17 08/22/17 08/23/17 08/23/17 08/23/17 07:00 15:00 23:00 07:00 15:00 23:00 # Voids 1 3 # Bowel Movements 2 Result Diagram: 08/19/17 0449 08/19/17 0449 Imaging Last Impressions Brain MRI 08/18/17 0000 Signed Impressions: Service Date/Time: Friday, August 18, 2017 13:37 - CONCLUSION: Stable MRI study with no evidence of acute hemorrhage, mass or infarction. Ambrosio Tran MD Head CT 08/14/17 0000 Signed Impressions: Service Date/Time: July 15:23 - CONCLUSION: 1. Stable CT examination without acute intracranial abnormality. 2. Stable focal region of encephalomalacia in the medial right parietal high convexities. Macho Colmenares MD Sacrum/Coccyx MRI 08/12/17 0000 Signed Impressions: Service Date/Time: Saturday, August 12, 2017 19:40 - CONCLUSION: Unremarkable sacrum/coccyx. Urinary bladder mildly distended. Teofilo Montanez MD Lumbar Spine CT 08/12/17 0000 Signed Impressions: Service Date/Time: Saturday, August 12, 2017 20:15 - CONCLUSION: 1. Mild broad-based disc bulges L3-4, L4-5 and L5-S1 levels. 2. No fracture or subluxation. 3. No canal stenosis. 4. Pelvic kidney. Teofilo Montanez MD Head Magnetic Resonance Angiography 08/11/17 0000 Signed Impressions: Service Date/Time: Friday, August 11, 2017 19:01 - CONCLUSION: No acute disease. Julio Velasco MD Cervical Spine MRI 08/11/17 0000 Signed Impressions: Service Date/Time: Friday, August 11, 2017 19:01 - CONCLUSION: 1. Status post anterior cervical fusion from C5-C7. 2. Moderate stenosis at the C4-C5 level caused by disc bulge and a minimal right lateral recess disc protrusion. 3. Mild impression on the thecal sac at the left lateral recess region at the C6-C7 level with enhancement likely related to scarring. Julio Velasco MD Objective Remarks GENERAL: Awake and alert, morbidly obese, appears in nad. CARDIOVASCULAR: Regular rate and rhythm. S1, S 2 NO S3 OR S4 RESPIRATORY: No accessory muscle use. Clear to auscultation. Breath sounds equal bilaterally. GASTROINTESTINAL: Abdomen soft, obese, non-tender, nondistended. Hepatic and splenic margins not palpable. OBESE MUSCULOSKELETAL: Extremities without clubbing, cyanosis, or edema. No obvious deformities. NEUROLOGICAL: Awake and alert. No obvious cranial nerve deficits. Motor grossly within normal limits. 4 out of 5 muscle strength in the arms and legs. Normal speech. Procedures EEGS A/P Assessment and Plan Poss seizure. History of seizure disorder. History of cerebrovascular accident with residual left-sided weakness. Elevated factor VIII level. NOW NORMAL SWITCH TO ASPIRIN 325MG PO DAILY PER HEMATOLOGY Morbidly obese with BMI of 44 Plan Neuro: Monitor neuro status, seizure precautions Continue with antiseizure meds per neurology. On Cerebyx 100 mg q. 8 hours, Vimpat 100 mg b.i.d. and Neurontin 400 mg t.i.d. Klonopin 1mg BID MRI brain and EEG 08/18 unremarkable Previous neuro workup including CT scan of the brain x 2, MRI/MRA of the brain were all unremarkable. Pulm: Oxygen p.r.n. to maintain sats above 92%. CV: Monitor HR and BP and maintain MAP> 65 mmHg. d/c IVF. Continue with aspirin 325 mg daily. :Monitor renal function, I's and O's and electrolyte replacement per protocol. GI: On PO diet ID: Monitor for signs of infection which include fever, WBC. Duarte culture if spikes fever. Heme: Monitor CBC and coags--on Lovenox 60mg Q12/Coumadin. Hem is following. On Protonix for GI prophylaxis, DVT prophylaxis with SCDs AND ASPIRIN AND LOVENOX LOW DOSE SUSPECTED PSEUDO SEIZURES- [facility] PT AND OT OUT OF ICU SOLUMEDROL 250MG ONE TIME THEN MEDROL tapered INCREASE ACTIVITY Discharge Planning Pending improvement PT recommends rehab. Grant evaluate patient doesn't meet criteria PT daily until patient improves and safe to go home. Amelia Mayo MD Aug 23, 2017 07:59
[2017-08-23] MEDS ORDERED: methylPREDNISolone 4 MG TAB PO SCH (08:00)
[2017-08-23] MEDS: SODIUM CHLORIDE 0.9% FLUSH 10 ML FLUSH IV FLUSH SCH ×2 (08:57→20:12)
[2017-08-23] MEDS: TEMAZEPAM 15 MG CAP PO SCH (20:10)
[2017-08-23] MEDS: ONDANSETRON HCL 4 MG/2 ML VIAL IV PUSH PRN (20:19)
[2017-08-23] MEDS ORDERED: METHYLPREDNISOLONE 8 MG PO SCH (21:00)
[2017-08-23] MEDS ORDERED: [UNRECOGNIZED DRUG - OTHER] PO SCH (21:00)
[2017-08-24] VITALS (9 sets, daily range): BP systolic 104–119; BP diastolic 53–66; PULSE 78–93; RESP 18; TEMP 97.3–98.5; O2SAT 96–100
[2017-08-24] MEDS: ACETAMINOPHEN/HYDROcodone 325 MG/5 MG TAB PO PRN ×3 (04:30→17:00)
[2017-08-24] MEDS: PHENYTOIN SODIUM 100 MG CAP PO SCH ×3 (05:55→21:34)
[2017-08-24] MEDS: SODIUM CHLORIDE 0.9% FLUSH 10 ML FLUSH IV FLUSH SCH ×2 (07:20→20:49)
[2017-08-24] MEDS: PANTOPRAZOLE SOD 40 MG DELAYED RELEASE TAB PO SCH (07:21)
[2017-08-24] MEDS: clonazePAM 0.5 MG TAB PO SCH ×2 (07:21→20:48)
[2017-08-24] MEDS: ASPIRIN 325 MG TAB PO SCH (07:21)
[2017-08-24] MEDS: LACOSAMIDE 100 MG TAB PO SCH ×2 (07:21→20:48)
[2017-08-24] MEDS: ESCITALOPRAM OXALATE 10 MG TAB PO SCH (07:21)
[2017-08-24] MEDS: GABAPENTIN 400 MG CAP PO SCH ×3 (07:21→17:00)
[2017-08-24] MEDS: METHYLPREDNISOLONE 4 MG PO SCH ×4 (07:21→20:48)
[2017-08-24] MEDS: DOCUSATE SODIUM 50 MG/SENNA 8.6 MG TAB PO SCH ×2 (07:21→20:48)
[2017-08-24 07:56] LABS: AUTOMATED NEUTROPHIL # 4.4 TH/MM3 (1.8-7.7); BASOPHIL % 0.3 % (0.0-2.0); EOSINOPHIL # 0.1 TH/MM3 (0-0.4); EOSINOPHIL % 1.2 % (0.0-4.0); HEMATOCRIT 34.8 % (35.0-46.0); HEMOGLOBIN 11.5 GM/DL (11.6-15.3); LYMPH % 46.7 % (9.0-44.0); LYMPHOCYTE # 4.5 TH/MM3 (1.0-4.8); MEAN CELL VOLUME 87.6 FL (80.0-100.0); MEAN CORPUSCULAR HEMOGLOBIN 29.1 PG (27.0-34.0); MEAN CORPUSCULAR HGB CONC 33.2 % (32.0-36.0); MEAN PLATELET VOLUME 7.2 FL (7.0-11.0); MONO % 6.3 % (0.0-8.0); MONOCYTE # 0.6 TH/MM3 (0-0.9); NEUT % 45.5 % (16.0-70.0); PLATELET COUNT 372 TH/MM3 (150-450); RED BLOOD COUNT 3.97 MIL/MM3 (4.00-5.30); RED CELL DISTRIBUTION WIDTH 15.9 % (11.6-17.2); WHITE BLOOD COUNT 9.7 TH/MM3 (4.0-11.0)
[2017-08-24] MEDS ORDERED: methylPREDNISolone 4 MG TAB PO SCH (08:00)
--- NOTE | 2017-08-24 08:20 | HHI.PR ---
Subjective Remarks In bed. nodule left armpit is painful and started draining but not much. no fever ro chills. No n/v/d/c. Deneis chest pain or sob. No other complaints. Objective Vitals Vital Signs Date Time Temp Pulse Resp B/P (MAP) Pulse Ox O2 Delivery O2 Flow Rate FiO2 08/24/17 05:00 98.0 87 18 119/53 (75) 97 08/24/17 04:35 87 08/24/17 01:17 82 08/24/17 00:00 98.1 78 18 112/66 (81) 96 08/23/17 21:14 21 08/23/17 20:00 98.3 88 18 126/74 (91) 96 08/23/17 17:33 16 08/23/17 16:00 79 08/23/17 15:58 97.8 82 18 117/73 (88) 97 08/23/17 12:06 21 08/23/17 11:50 85 I/O 08/23/17 08/23/17 08/23/17 08/24/17 08/24/17 08/24/17 07:00 15:00 23:00 07:00 15:00 23:00 # Voids 3 4 Result Diagram: 08/24/17 0704 Imaging Last Impressions Brain MRI 08/18/17 0000 Signed Impressions: Service Date/Time: Friday, August 18, 2017 13:37 - CONCLUSION: Stable MRI study with no evidence of acute hemorrhage, mass or infarction. Ambrosio Tran MD Head CT 08/14/17 0000 Signed Impressions: Service Date/Time: July 15:23 - CONCLUSION: 1. Stable CT examination without acute intracranial abnormality. 2. Stable focal region of encephalomalacia in the medial right parietal high convexities. Macho Colmenares MD Sacrum/Coccyx MRI 08/12/17 0000 Signed Impressions: Service Date/Time: Saturday, August 12, 2017 19:40 - CONCLUSION: Unremarkable sacrum/coccyx. Urinary bladder mildly distended. Teofilo Montanez MD Lumbar Spine CT 08/12/17 0000 Signed Impressions: Service Date/Time: Saturday, August 12, 2017 20:15 - CONCLUSION: 1. Mild broad-based disc bulges L3-4, L4-5 and L5-S1 levels. 2. No fracture or subluxation. 3. No canal stenosis. 4. Pelvic kidney. Teofilo Montanez MD Head Magnetic Resonance Angiography 08/11/17 0000 Signed Impressions: Service Date/Time: Friday, August 11, 2017 19:01 - CONCLUSION: No acute disease. Julio Velasco MD Cervical Spine MRI 08/11/17 0000 Signed Impressions: Service Date/Time: Friday, August 11, 2017 19:01 - CONCLUSION: 1. Status post anterior cervical fusion from C5-C7. 2. Moderate stenosis at the C4-C5 level caused by disc bulge and a minimal right lateral recess disc protrusion. 3. Mild impression on the thecal sac at the left lateral recess region at the C6-C7 level with enhancement likely related to scarring. Julio Velasco MD Objective Remarks GENERAL: Awake and alert, morbidly obese, appears in nad. SKIN: Skin is dry. Left axillary lymphadenopathy with hard nodule now draining after applying warm compresses. CARDIOVASCULAR: Regular rate and rhythm. S1, S 2 NO S3 OR S4 RESPIRATORY: No accessory muscle use. Clear to auscultation. Breath sounds equal bilaterally. GASTROINTESTINAL: Abdomen soft, obese, non-tender, nondistended. Hepatic and splenic margins not palpable. OBESE MUSCULOSKELETAL: Extremities without clubbing, cyanosis, or edema. No obvious deformities. NEUROLOGICAL: Awake and alert. No obvious cranial nerve deficits. Motor grossly within normal limits. 4 out of 5 muscle strength in the arms and legs. Normal speech. Procedures EEGS A/P Assessment and Plan Poss seizure. History of seizure disorder. History of cerebrovascular accident with residual left-sided weakness. Elevated factor VIII level. NOW NORMAL SWITCH TO ASPIRIN 325MG PO DAILY PER HEMATOLOGY Morbidly obese with BMI of 51.5 Neuro: Monitor neuro status, seizure precautions Continue with antiseizure meds per neurology. On Cerebyx 100 mg q. 8 hours, Vimpat 100 mg b.i.d. and Neurontin 400 mg t.i.d. Klonopin 1mg BID MRI brain and EEG 08/18 unremarkable Previous neuro workup including CT scan of the brain x 2, MRI/MRA of the brain were all unremarkable. Pulm: Oxygen p.r.n. to maintain sats above 92%. CV: Monitor HR and BP and maintain MAP> 65 mmHg. d/c IVF. Continue with aspirin 325 mg daily. :Monitor renal function, I's and O's and electrolyte replacement per protocol. GI: On PO diet ID: Monitor for signs of infection which include fever, WBC. Duarte culture if spikes fever. Likely hydradenitis. Lymphadenopathy left axillary painful LN. WBC normal. Now draining after applying warm compresses, obtain cultures. continue warm compresses. Patient started OT might be related to OT, monitor and if not improves might consider further work up as OP if not improving. Discussed with the patient Heme: Monitor CBC and coags--on Lovenox 60mg Q12/Coumadin. Hem is following. On Protonix for GI prophylaxis, DVT prophylaxis with SCDs AND ASPIRIN AND LOVENOX LOW DOSE SUSPECTED PSEUDO SEIZURES- [facility] PT AND OT SOLUMEDROL 250MG ONE TIME THEN MEDROL tapered INCREASE ACTIVITY Discharge Planning Pending improvement PT recommends rehab. Grant evaluate patient doesn't meet criteria PT daily until patient improves and safe to go home. Amelia Mayo MD Aug 24, 2017 08:20
[2017-08-24 08:29] LABS: BICARBONATE 27.7 MEQ/L (21.0-32.0); CREATININE 0.89 MG/DL (0.50-1.00)
[2017-08-24] MEDS: SENNOSIDES 8.6 MG TAB PO PRN (13:33)
[2017-08-24] MEDS: [UNRECOGNIZED DRUG - OTHER] PO SCH (20:48)
[2017-08-24] MEDS: TEMAZEPAM 15 MG CAP PO SCH (20:49)
[2017-08-24] MEDS: ONDANSETRON HCL 4 MG/2 ML VIAL IV PUSH PRN (21:34)
[2017-08-25] VITALS (10 sets, daily range): BP systolic 91–130; BP diastolic 59–82; PULSE 73–89; RESP 16–19; TEMP 97.6–99.2; O2SAT 97–100
[2017-08-25] MEDS: PHENYTOIN SODIUM 100 MG CAP PO SCH ×3 (05:29→21:22)
[2017-08-25] MEDS ORDERED: methylPREDNISolone 4 MG TAB PO SCH (08:00)
[2017-08-25] MEDS: ESCITALOPRAM OXALATE 10 MG TAB PO SCH (09:40)
[2017-08-25] MEDS: PANTOPRAZOLE SOD 40 MG DELAYED RELEASE TAB PO SCH (09:40)
[2017-08-25] MEDS: ASPIRIN 325 MG TAB PO SCH (09:40)
[2017-08-25] MEDS: METHYLPREDNISOLONE 4 MG PO SCH ×3 (09:40→21:22)
[2017-08-25] MEDS: LACOSAMIDE 100 MG TAB PO SCH ×2 (09:40→21:23)
[2017-08-25] MEDS: clonazePAM 0.5 MG TAB PO SCH ×2 (09:41→21:18)
[2017-08-25] MEDS: DOCUSATE SODIUM 50 MG/SENNA 8.6 MG TAB PO SCH ×2 (09:41→21:22)
[2017-08-25] MEDS: GABAPENTIN 400 MG CAP PO SCH ×3 (09:41→17:30)
[2017-08-25] MEDS: SODIUM CHLORIDE 0.9% FLUSH 10 ML FLUSH IV FLUSH SCH ×2 (09:42→21:25)
[2017-08-25] MEDS: ACETAMINOPHEN/HYDROcodone 325 MG/5 MG TAB PO PRN ×2 (09:42→21:19)
--- NOTE | 2017-08-25 12:01 | HHI.PR ---
Subjective Remarks 36-year-old female admitted for seizure, history of CVA. She revealed today that she sleeps approximately 2 hours per night for the last 1-1/2 years following her stroke. She has tried Ambien, trazodone, now Restoril but none of them seem to help with her sleep. She complains of left axillary ingrown hair. Objective Vitals Vital Signs Date Time Temp Pulse Resp B/P (MAP) Pulse Ox O2 Delivery O2 Flow Rate FiO2 08/25/17 08:00 82 08/25/17 08:00 99.2 83 17 130/82 (98) 98 08/25/17 05:27 73 103/59 (74) 08/25/17 04:29 80 08/25/17 04:26 79 08/25/17 04:00 97.6 89 16 91/ 98 08/25/17 00:00 97.9 73 16 112/62 (79) 100 08/24/17 20:00 98.5 84 18 119/66 (83) 97 08/24/17 18:28 16 08/24/17 16:00 79 08/24/17 16:00 97.9 82 18 113/64 (80) 100 08/24/17 12:00 97.3 93 18 104/53 (70) 98 I/O 08/24/17 08/24/17 08/24/17 08/25/17 08/25/17 08/25/17 07:00 15:00 23:00 07:00 15:00 23:00 # Voids 4 1 # Bowel Movements 1 Result Diagram: 08/24/17 0704 08/24/17 0704 Objective Remarks GENERAL: Well-nourished, well-developed patient, obese SKIN: 1 x 2 cm area of induration in her left axilla, no fluctuance, no drainage HEAD: Normocephalic. EYES: No scleral icterus. No injection or drainage. NECK: Supple, trachea midline. No JVD or lymphadenopathy. CARDIOVASCULAR: Regular rate and rhythm without murmurs, gallops, or rubs. RESPIRATORY: Breath sounds equal bilaterally. No accessory muscle use. GASTROINTESTINAL: Abdomen soft, non-tender, nondistended. EXTREMITIES: No cyanosis, or edema. NEUROLOGICAL: Awake, alert, and oriented x 3. No obvious focal deficits, history of left-sided weakness Procedures EEGS A/P Assessment and Plan Seizure Patient has had approximately 4 seizures since last November, EEG and MRI workups on admissions have been negative Possible etiology includes chronic insomnia following her stroke, she sleeps about 2 hours per night and is otherwise awake Continue his Cerebyx, Vimpat, Neurontin, Klonopin per neurology Chronic insomnia Patient has not responded to trazodone, Ambien, or Restoril Will add a high dose of melatonin to her evening regimen tonight Left axillary cellulitis Indurated knot in left axilla, no fluctuance Begin topical Bactroban and oral doxycycline 7 days h/o CVA with left-sided weakness She has built her strength back up very well, working with PT daily, walked upstairs today 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
[2017-08-25] MEDS: DOXYCYCLINE HYCLATE 100 MG CAP PO SCH ×2 (12:45→21:17)
[2017-08-25] MEDS: MUPIROCIN 2% OINT 22 GM TUBE TOPICAL SCH ×2 (12:46→21:23)
[2017-08-25] MEDS ORDERED: MELATONIN 5 MG TAB PO SCH (21:00)
[2017-08-25] MEDS: TEMAZEPAM 15 MG CAP PO SCH (21:17)
[2017-08-25] MEDS: [UNRECOGNIZED DRUG - OTHER] PO SCH (21:22)
[2017-08-26] VITALS (9 sets, daily range): BP systolic 104–124; BP diastolic 59–80; PULSE 74–96; RESP 16–18; TEMP 97.4–98.7; O2SAT 97–100
[2017-08-26] MEDS: PHENYTOIN SODIUM 100 MG CAP PO SCH ×3 (05:14→21:35)
[2017-08-26] MEDS: ACETAMINOPHEN/HYDROcodone 325 MG/5 MG TAB PO PRN (05:14)
[2017-08-26] MEDS: ESCITALOPRAM OXALATE 10 MG TAB PO SCH (08:50)
[2017-08-26] MEDS: GABAPENTIN 400 MG CAP PO SCH ×3 (08:50→17:32)
[2017-08-26] MEDS: METHYLPREDNISOLONE 4 MG PO SCH ×2 (08:50→21:35)
[2017-08-26] MEDS: LACOSAMIDE 100 MG TAB PO SCH ×2 (08:50→21:35)
[2017-08-26] MEDS: ASPIRIN 325 MG TAB PO SCH (08:50)
[2017-08-26] MEDS: DOCUSATE SODIUM 50 MG/SENNA 8.6 MG TAB PO SCH ×2 (08:51→21:35)
[2017-08-26] MEDS: DOXYCYCLINE HYCLATE 100 MG CAP PO SCH ×2 (08:51→21:34)
[2017-08-26] MEDS: PANTOPRAZOLE SOD 40 MG DELAYED RELEASE TAB PO SCH (08:51)
[2017-08-26] MEDS: MUPIROCIN 2% OINT 22 GM TUBE TOPICAL SCH ×2 (08:52→21:46)
[2017-08-26] MEDS: SODIUM CHLORIDE 0.9% FLUSH 10 ML FLUSH IV FLUSH SCH ×2 (08:52→21:35)
[2017-08-26] MEDS: clonazePAM 0.5 MG TAB PO SCH ×2 (08:52→22:13)
[2017-08-26] MEDS: ONDANSETRON HCL 4 MG/2 ML VIAL IV PUSH PRN ×2 (09:38→21:35)
--- NOTE | 2017-08-26 12:25 | PD.ONC.PN ---
Subjective Subjective Remarks Afebrile Patient reports she felt great this morning until shortly after eating breakfast she became nauseous and threw up States she still feels slightly nauseous Reports the weakness on the right side is improving with physical therapy Objective Data Date Time Temp Pulse Resp B/P (MAP) Pulse Ox O2 Delivery O2 Flow Rate FiO2 08/26/17 11:56 97.4 90 18 104/66 (79) 98 08/26/17 08:00 98.5 80 18 124/59 (80) 98 08/26/17 08:00 78 08/26/17 05:45 97.6 74 18 118/69 (85) 99 08/26/17 04:00 76 08/26/17 00:10 98.0 80 17 120/80 (93) 98 08/26/17 00:00 85 08/25/17 21:00 98.6 83 16 124/71 (88) 97 08/25/17 20:00 88 08/25/17 16:00 98.8 79 19 100/64 (76) 99 08/26/17 08/26/17 08/26/17 07:00 15:00 23:00 Intake Total 1000 ml Balance 1000 ml Result Diagram: 08/24/17 0704 08/24/17 0704 Laboratory Results Laboratory Tests Test 08/26/17 06:56 Human Chorionic Gonadotropin, Quant LESS THAN 1 MIU/ML Administered Medications Medications (Trade) Dose Ordered Sig/Annette Route PRN Reason Start Time Stop Time Status Last Admin Dose Admin Gabapentin (Neurontin) 400 mg TID PO 08/11/17 18:00 08/26/17 08:50 Temazepam (Restoril) 30 mg HS PO 08/11/17 21:00 08/25/17 21:17 Patient Own Medication PT OWN MED: (Eslicarbazepine (Aptiom) 400... DAILY PO 08/12/17 09:00 Future Hold 08/12/17 09:00 Sodium Chloride (NS Flush) 2 ml BID IV FLUSH 08/11/17 21:00 08/26/17 08:52 Aspirin (Aspirin) 325 mg DAILY PO 08/12/17 09:00 08/26/17 08:50 Ondansetron HCl (Zofran Inj) 4 mg Q6H PRN IV PUSH NAUSEA 08/11/17 18:45 08/26/17 09:38 Lacosamide (Vimpat) 100 mg BID PO 08/12/17 21:00 08/26/17 08:50 Tizanidine HCl (Zanaflex) 4 mg Q12HR PO 08/12/17 21:00 08/26/17 08:50 Acetaminophen/ Hydrocodone Bitart ([place] 5-325 Mg) 1 tab Q6H PRN PO PAIN SCALE 1-10 08/12/17 15:30 08/26/17 05:14 Lorazepam (Ativan Inj) 2 mg Q15M PRN IV PUSH SEIZURES 08/13/17 07:45 08/17/17 18:57 Senna/Docusate Sodium (Kate-Colace) 1 tab BID PO 08/16/17 09:00 08/26/17 08:51 Magnesium Hydroxide (Milk Of Magnesia Liq) 30 ml Q12H PRN PO Mild constipation 08/16/17 00:00 08/16/17 21:49 Sennosides (Senokot) 17.2 mg Q12H PRN PO Moderate constipation 08/16/17 00:00 08/24/17 13:33 Lactulose (Lactulose Liq) 30 ml DAILY PRN PO SEVERE CONSITIPATION 08/16/17 00:00 08/24/17 13:33 Escitalopram Oxalate (Lexapro) 10 mg DAILY PO 08/17/17 09:00 08/26/17 08:50 Clonazepam (KlonoPIN) 1 mg BID PO 08/18/17 21:00 08/26/17 08:52 Phenytoin (Dilantin) 100 mg Q8HR PO 08/18/17 22:00 08/26/17 05:14 Pantoprazole Sodium (Protonix) 40 mg DAILY PO 08/19/17 09:00 08/26/17 08:51 Methylprednisolone (Medrol) 4 mg DAILY@08 PO 08/23/17 08:00 08/27/17 08:01 08/26/17 08:50 Methylprednisolone (Medrol) 4 mg HS PO 08/24/17 21:00 08/26/17 21:01 08/25/17 21:22 Doxycycline Hyclate (Vibramycin) 100 mg BID PO 08/25/17 12:00 08/26/17 08:51 Mupirocin (Bactroban 2% Oint) 1 applic Q12HR TOPICAL 08/25/17 12:00 08/26/17 08:52 Melatonin (Melatonin) 5 mg HS PO 08/25/17 21:00 08/25/17 21:23 Objective Remarks GENERAL: Young female asleep in bed on approach. She wakens easily to verbal stimuli. SKIN: Warm and dry. HEAD: Normocephalic. EYES: No scleral icterus. No injection or drainage. NECK: Supple, trachea midline. CARDIOVASCULAR: Regular rate and rhythm RESPIRATORY: Clear anteriorly. Breathing easy and unlabored GASTROINTESTINAL: Abdomen soft, non-tender, nondistended. EXTREMITIES: No cyanosis NEUROLOGICAL: Awake and alert. Right-sided weakness. Patient with slow speech , however this is baseline for her Assessment/Plan Problem List: (1) History of CVA (cerebrovascular accident) ICD Codes: Z86.73 - Personal history of transient ischemic attack (TIA), and cerebral infarction without residual deficits Status: Chronic Plan: --repeat CT brain 08/14 shows no change --MRI of the brain showed no acute abnormality even on repeat 08/18 --MRA of the head shows no acute disease --CT of the head shows no acute abnormality (2) Seizure ICD Codes: R56.9 - Unspecified convulsions Status: Acute Plan: --question of pseudoseizures given normal EEG x 2. --had another seizure 08/14, given ativan --EEG on 08/13 showed no seizure activity. --Neurology following --Patient on Cerebyx (3) Elevated factor VIII level ICD Codes: R79.1 - Abnormal coagulation profile Status: Resolved Plan: --Factor VIII level is within normal limits. --Patient has been as high as 376 in November 2015 with a normal cut off high value of 180 Assessment 36-year-old female with history of CVA and history of elevated factor VIII activity levels admitted for right-sided weakness Plan 1. Continue aspirin 2. Clear for discharge from hematology standpoint 3. Hematology will sign off for now; pt will followup as outpatient once discharged. Attending Statement Agree with above, as discussed. Cont ASA as secondary prophylaxis. Negrita Duque August 26, 2017 12:25 Leydi Haji MD August 26, 2017 20:15
--- NOTE | 2017-08-26 13:47 | HHI.PR ---
Subjective Remarks Patient states that her left armpit is less tender and slightly less swollen. She says that she felt like she was able to sleep a little longer last night after starting melatonin. Objective Vitals Vital Signs Date Time Temp Pulse Resp B/P (MAP) Pulse Ox O2 Delivery O2 Flow Rate FiO2 08/26/17 11:56 97.4 90 18 104/66 (79) 98 08/26/17 08:00 98.5 80 18 124/59 (80) 98 08/26/17 08:00 78 08/26/17 05:45 97.6 74 18 118/69 (85) 99 08/26/17 04:00 76 08/26/17 00:10 98.0 80 17 120/80 (93) 98 08/26/17 00:00 85 08/25/17 21:00 98.6 83 16 124/71 (88) 97 08/25/17 20:00 88 08/25/17 16:00 98.8 79 19 100/64 (76) 99 I/O 08/25/17 08/25/17 08/25/17 08/26/17 08/26/17 08/26/17 07:00 15:00 23:00 07:00 15:00 23:00 Intake Total 1220 ml 1000 ml Balance 1220 ml 1000 ml Intake Oral 1220 ml 1000 ml # Voids 2 3 # Bowel Movements 1 0 Result Diagram: 08/24/1770308/24/17703 Objective Remarks GENERAL: Well-nourished, well-developed patient, obese SKIN: 1 x 2 cm area of induration in her left axilla, no fluctuance, no drainage HEAD: Normocephalic. EYES: No scleral icterus. No injection or drainage. NECK: Supple, trachea midline. No JVD or lymphadenopathy. CARDIOVASCULAR: Regular rate and rhythm without murmurs, gallops, or rubs. RESPIRATORY: Breath sounds equal bilaterally. No accessory muscle use. GASTROINTESTINAL: Abdomen soft, non-tender, nondistended. EXTREMITIES: No cyanosis, or edema. NEUROLOGICAL: Awake, alert, and oriented x 3. No obvious focal deficits, history of left-sided weakness Procedures EEGS A/P Assessment and Plan Seizure Patient has had approximately 4 seizures since last November, EEG and MRI workups on admissions have been negative Possible etiology includes chronic insomnia following her stroke, she sleeps about 2 hours per night and is otherwise awake Continue his Cerebyx, Vimpat, Neurontin, Klonopin per neurology Chronic insomnia Patient has not responded to trazodone, Ambien, or Restoril Continue melatonin 5 mg nightly Left axillary cellulitis Indurated knot in left axilla, less swelling today, no fluctuance Continue topical Bactroban and oral doxycycline 7 days Negative test on lab work (doxycycline risk) h/o CVA with left-sided weakness She has built her strength back up very well, working with PT daily, walking up and down stairwell 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
[2017-08-26] MEDS: TEMAZEPAM 15 MG CAP PO SCH (21:34)
[2017-08-26] MEDS: MELATONIN 5 MG TAB PO SCH (21:34)
[2017-08-26] MEDS: [UNRECOGNIZED DRUG - OTHER] PO SCH (21:35)
[2017-08-27] VITALS (10 sets, daily range): BP systolic 101–118; BP diastolic 43–69; PULSE 74–100; RESP 18–21; TEMP 98.3–99.4; O2SAT 96–99
[2017-08-27] MEDS: PHENYTOIN SODIUM 100 MG CAP PO SCH ×3 (06:24→21:09)
[2017-08-27] MEDS: METHYLPREDNISOLONE 4 MG PO SCH (08:33)
[2017-08-27] MEDS: DOXYCYCLINE HYCLATE 100 MG CAP PO SCH ×2 (08:33→21:08)
[2017-08-27] MEDS: ESCITALOPRAM OXALATE 10 MG TAB PO SCH (08:33)
[2017-08-27] MEDS: ASPIRIN 325 MG TAB PO SCH (08:33)
[2017-08-27] MEDS: PANTOPRAZOLE SOD 40 MG DELAYED RELEASE TAB PO SCH (08:33)
[2017-08-27] MEDS: DOCUSATE SODIUM 50 MG/SENNA 8.6 MG TAB PO SCH ×2 (08:33→21:08)
[2017-08-27] MEDS: clonazePAM 0.5 MG TAB PO SCH ×2 (08:34→21:09)
[2017-08-27] MEDS: LACOSAMIDE 100 MG TAB PO SCH ×2 (08:34→21:09)
[2017-08-27] MEDS: GABAPENTIN 400 MG CAP PO SCH ×3 (08:34→18:23)
[2017-08-27] MEDS: MUPIROCIN 2% OINT 22 GM TUBE TOPICAL SCH ×2 (08:35→21:00)
[2017-08-27] MEDS: SODIUM CHLORIDE 0.9% FLUSH 10 ML FLUSH IV FLUSH SCH ×2 (08:35→21:10)
[2017-08-27] MEDS: ACETAMINOPHEN/HYDROcodone 325 MG/5 MG TAB PO PRN (08:38)
[2017-08-27] MEDS ORDERED: PROCHLORPERAZINE MALEATE 5 MG TAB PO PRN (10:00)
[2017-08-27] MEDS ORDERED: LORazepam 2 MG/ML VIAL IM PRN (10:00)
--- NOTE | 2017-08-27 15:19 | HHI.PR ---
Subjective Remarks Patient states that her sleep was somewhat inconsistent due to receiving her melatonin late compared to her Restoril dosing. She had some nausea and vomiting this morning 1. She denies any fevers denies any dysuria. Objective Vitals Vital Signs Date Time Temp Pulse Resp B/P (MAP) Pulse Ox O2 Delivery O2 Flow Rate FiO2 08/27/17 11:49 98.6 74 20 101/43 (62) 97 08/27/17 07:38 99.2 82 21 108/58 (75) 99 08/27/17 05:15 98.3 80 20 118/64 (82) 97 08/27/17 04:00 84 08/27/17 00:15 98.7 88 20 115/69 (84) 96 08/27/17 00:00 94 08/26/17 21:00 98.7 90 16 111/68 (82) 97 08/26/17 20:00 96 08/26/17 16:00 76 08/26/17 16:00 98.4 83 18 117/61 (79) 100 I/O 08/26/17 08/26/17 08/26/17 08/27/17 08/27/17 08/27/17 07:00 15:00 23:00 07:00 15:00 23:00 Intake Total 1000 ml 900 ml 850 ml Balance 1000 ml 900 ml 850 ml Intake Oral 1000 ml 900 ml 850 ml # Voids 3 4 1 # Bowel Movements 0 0 0 Result Diagram: 08/24/1770308/24/17703 Objective Remarks GENERAL: Well-nourished, well-developed patient, obese SKIN: 1 x 2 cm area of induration in her left axilla, no fluctuance, no drainage HEAD: Normocephalic. EYES: No scleral icterus. No injection or drainage. NECK: Supple, trachea midline. No JVD or lymphadenopathy. CARDIOVASCULAR: Regular rate and rhythm without murmurs, gallops, or rubs. RESPIRATORY: Breath sounds equal bilaterally. No accessory muscle use. GASTROINTESTINAL: Abdomen soft, non-tender, nondistended. EXTREMITIES: No cyanosis, or edema. NEUROLOGICAL: Awake, alert, and oriented x 3. No obvious focal deficits, history of left-sided weakness Procedures EEGS A/P Assessment and Plan Seizure Patient has had approximately 4 seizures since last November, EEG and MRI workups on admissions have been negative Possible etiology includes chronic insomnia following her stroke, she sleeps about 2 hours per night and is otherwise awake Continue his Cerebyx, Vimpat, Neurontin, Klonopin per neurology Chronic insomnia Patient has not responded to trazodone, Ambien, or Restoril Continue melatonin 10 mg nightly Nausea with vomiting 1 Possible side effect of medication, consider doxycycline and induced reflux We will treat with Compazine p.o. 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
[2017-08-27 20:38] LABS: BILIRUBIN, URINE NEG (NEG); BLOOD, URINE NEG (NEG); GLUCOSE,URINE NEG (NEG); KETONE, URINE NEG (NEG); NITRITE,URINE NEG (NEG); URINE COLOR YELLOW (YELLW/STRAW); URINE LEUKOCYTE ESTERASE NEG (NEG)
[2017-08-27] MEDS: MELATONIN 5 MG TAB PO SCH (21:09)
[2017-08-27] MEDS: TEMAZEPAM 15 MG CAP PO SCH (21:09)
[2017-08-28] VITALS: BP 112/67; PULSE 95; RESP 19; TEMP 98; O2SAT 96
[2017-08-28 05:47] VITALS: BP 104/57; PULSE 88; RESP 19; TEMP 98.3; O2SAT 96
[2017-08-28] MEDS: PHENYTOIN SODIUM 100 MG CAP PO SCH (06:10)
[2017-08-28 07:32] VITALS: BP 120/74; PULSE 82; RESP 20; TEMP 98.6; O2SAT 100
[2017-08-28] MEDS: ASPIRIN 325 MG TAB PO SCH (07:48)
[2017-08-28] MEDS: GABAPENTIN 400 MG CAP PO SCH (07:48)
[2017-08-28] MEDS: ESCITALOPRAM OXALATE 10 MG TAB PO SCH (07:48)
[2017-08-28] MEDS: DOXYCYCLINE HYCLATE 100 MG CAP PO SCH (07:49)
[2017-08-28] MEDS: SODIUM CHLORIDE 0.9% FLUSH 10 ML FLUSH IV FLUSH SCH (07:49)
[2017-08-28] MEDS: DOCUSATE SODIUM 50 MG/SENNA 8.6 MG TAB PO SCH (07:49)
[2017-08-28] MEDS: LACOSAMIDE 100 MG TAB PO SCH (07:49)
[2017-08-28] MEDS: clonazePAM 0.5 MG TAB PO SCH (07:49)
[2017-08-28] MEDS: MUPIROCIN 2% OINT 22 GM TUBE TOPICAL SCH (07:50)
[2017-08-28] MEDS: PANTOPRAZOLE SOD 40 MG DELAYED RELEASE TAB PO SCH (07:53)
[2017-08-28 08:00] VITALS: PULSE 85
[2017-08-28] MEDS ORDERED: DILA100C PO (10:06)
[2017-08-28] MEDS ORDERED: MELA5 PO (10:06)
[2017-08-28] MEDS ORDERED: DOXY100C PO (10:06)
[2017-08-28] MEDS ORDERED: Mupirocin 2% Oint TOPICAL (10:06)
[2017-08-28] MEDS ORDERED: DIFL150T PO (10:06)
[2017-08-28] MEDS ORDERED: CLIN300C5 PO (10:07)
--- NOTE | 2017-08-28 10:13 | HHI.DS ---
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 Patient reports his symptoms started yesterday afternoon. She was hoping there would go away therefore she did not come into the hospital. She also complained of neck pain mainly on the right. She states she has been unable to walk or use the right home because they feel so heavy. Patient reports her last known seizure was in November of last year. She has been following outpatient with physical rehab since she had C5-C7 cervical discectomy and fusion in December. The strength on her left side has been improving steadily. Workup in the emergency room revealed a negative head CT. Patient was given aspirin. CBC/BMP: 08/24/17 0704 08/24/17 0704 Significant Findings Laboratory Tests Test 08/26/17 06:56 08/27/17 20:00 PE at Discharge GENERAL: Well-nourished, well-developed patient, obese SKIN: 1 x 2 cm area of induration in her left axilla, no fluctuance, no drainage HEAD: Normocephalic. EYES: No scleral icterus. No injection or drainage. NECK: Supple, trachea midline. No JVD or lymphadenopathy. CARDIOVASCULAR: Regular rate and rhythm without murmurs, gallops, or rubs. RESPIRATORY: Breath sounds equal bilaterally. No accessory muscle use. GASTROINTESTINAL: Abdomen soft, non-tender, nondistended. EXTREMITIES: No cyanosis, or edema. NEUROLOGICAL: Awake, alert, and oriented x 3. No obvious focal deficits, history of left-sided weakness Hospital Course 36-year-old female with history of CVA approximately 1.5 years ago presented to the ER following seizure-like activity. Workup during this hospitalization including EEGs did not support evidence for active seizure. While it is possible she has pseudoseizure, it is also possible that she had a seizure in between the EEG testing. What is clear is that she does not have typical seizure activity. Further history from patient revealed that she has not had more than 2 hours of sleep in the last 1.5 years following her stroke. I reviewed her use of sleeping pills and she had already failed Ambien, trazodone , Restoril. Considering that melatonin is a natural sleep hormone produced in the brain, it was considered that it is possible that she was not producing enough melatonin. Patient was started on melatonin at 5 mg nightly along with the Restoril and slept 4 hours the first night. The melatonin was increased to 10 mg and last night she slept 6 hours straight. Optimistically we discussed the possibility that her seizure-like activity may be directly related to her severe insomnia. My advice to her was to guard her sleep and work to get at least 6 hours of sleep per night and then monitor to see if her seizures reduce or possibly stop. She is currently on seizure medicines that she cannot afford so I have attempted to simplify her plan with double therapy, back on the Keppra and continuing phenytoin. She is instructed to follow-up with her primary care doctor and her neurologist to proceed with weaning if she become seizure-free following better sleep. She will have ongoing physical therapy as an outpatient to give her more strength during her recovery from her CVA 1.5 years ago. Pt Condition on Discharge: Good Discharge Disposition: Disch w/ Home Health Serv Discharge Time: <= 30 minutes Discharge Instructions DIET: Follow Instructions for: As Tolerated, No Restrictions Activities you can perform: Regular-No Restrictions Robert Osborn MD August 28, 2017 10:13
[2017-08-28] MEDS ORDERED: TEMA30CA PO (10:24)
[2017-08-28] MEDS ORDERED: DAND1SHA3 TOPICAL (10:24)
[2017-08-28] MEDS ORDERED: PROT40TA PO (10:24)
== END 2017-08-28 11:12 | disposition home health service (06) | DRG 101 ==
LOC: NEPE 15:35 → NEDA 17:44 → NEPFCDU 23:19 → HIMN 08-13 08:00 → N05A 08-20 22:30
PROVIDERS: ADMIT Family Medicine; ATTEND Family Medicine
DX: G40.909 Epilepsy, unspecified, not intractable, without status epilepticus (principal); G93.89 Other specified disorders of brain; M50.00 Cervical disc disorder with myelopathy, unspecified cervical region; I69.354 Hemiplegia and hemiparesis following cerebral infarction affecting left non-dominant side; M50.221 Other cervical disc displacement at C4-C5 level; F33.1 Major depressive disorder, recurrent, moderate; Z68.43 Body mass index [BMI] 50.0-59.9, adult; L03.112 Cellulitis of left axilla; E66.01 Morbid (severe) obesity due to excess calories; I10 Essential (primary) hypertension; J45.909 Unspecified asthma, uncomplicated; Z79.01 Long term (current) use of anticoagulants; K21.9 Gastro-esophageal reflux disease without esophagitis; Z79.82 Long term (current) use of aspirin; Z79.899 Other long term (current) drug therapy; Z80.41 Family history of malignant neoplasm of ovary; R79.1 Abnormal coagulation profile; F51.04 Psychophysiologic insomnia; Z98.1 Arthrodesis status; Z90.49 Acquired absence of other specified parts of digestive tract; R11.2 Nausea with vomiting, unspecified; R53.1 Weakness; Z23 Encounter for immunization
CPT/HCPCS: 36600; 70450; 70544; 70551; 72131; 72156; 72195; 76937; 80048; 80053; 80061; 80185; 81001; 82550; 82805; 82948; 83036; 83605; 83735; 83880; 84100; 84484; 84702; 85025; 85027; 85240; 85610; 85730; 87641; 90732; 93005; 95819; A9579; J1650; J2060; J2405; J2930; J7042; J7509; Q2009

== ENCOUNTER 2017-09-06 17:28 | Emergency (ER) | payer MEDICAID ==
[~2017-09-06] VITALS: Ht 167.6 cm; Wt 100.0 kg
[~2017-09-06 17:28] MED LIST changes: +ASA325 PO; -CEPH500T PO; +CLIN300C5 PO; +CLON.5 PO; -CYMB30CA PO; +DAND1SHA3 TOPICAL; +DILA100C PO; +DOXY100C PO; +ESCI10TA PO; -ESLI1TAB2 PO; -GUAISYP4 PO; +HYDR-3516 PO; +MELA5 PO; +Mupirocin 2% Oint TOPICAL; +PERI PO; +TIZA4 PO
[2017-09-06 17:48] VITALS: BP 136/75; PULSE 90; RESP 18; O2SAT 99
[2017-09-06] MEDS ORDERED: LORazepam 2 MG/ML VIAL IM ONE (18:00)
[2017-09-06] MEDS ORDERED: SODIUM CHLORIDE 0.9% FLUSH 10 ML FLUSH IVF PRN (18:00)
[2017-09-06 18:20] VITALS: BP 135/82; PULSE 90; RESP 18; O2SAT 100
[2017-09-06 18:24] LABS: AUTOMATED NEUTROPHIL # 3.2 TH/MM3 (1.8-7.7); BASOPHIL % 0.4 % (0.0-2.0); EOSINOPHIL # 0.2 TH/MM3 (0-0.4); HEMATOCRIT 37.9 % (35.0-46.0); HEMOGLOBIN 12.5 GM/DL (11.6-15.3); LYMPH % 48.5 % (9.0-44.0); LYMPHOCYTE # 3.7 TH/MM3 (1.0-4.8); MEAN CELL VOLUME 88.2 FL (80.0-100.0); MEAN CORPUSCULAR HEMOGLOBIN 29.1 PG (27.0-34.0); MEAN PLATELET VOLUME 6.9 FL (7.0-11.0); MONO % 6.4 % (0.0-8.0); MONOCYTE # 0.5 TH/MM3 (0-0.9); NEUT % 41.7 % (16.0-70.0); PLATELET COUNT 352 TH/MM3 (150-450); RED CELL DISTRIBUTION WIDTH 15.6 % (11.6-17.2); WHITE BLOOD COUNT 7.7 TH/MM3 (4.0-11.0)
--- NOTE | 2017-09-06 18:55 | PD ---
HPI Chief Complaint: Seizure Time Seen by Provider: 17:49 Travel History International Travel<30 days: No Contact w/Intl Traveler<30days: No Traveled to known affect area: No History of Present Illness HPI 37-year-old female with history of bilateral parietal infarcts with residual left-sided weakness, seizure disorder on Keppra and phenytoin, brought in by ambulance from home for evaluation of seizure-like activity. According to the patient's family who is present, the patient was having upper extremity seizure- like activity that lasted for about 15 minutes. Shortly after arriving to the emergency department, the patient had similar like activity, however the patient seem to be aware during this episode. She is unable to provide any history, and most of her history was obtained from recent discharge summary from 08/28/17. The family reports that she has not had any recent illness other than this hospitalization. During this hospitalization the patient had EEGs that did not support evidence for seizure activity. PFSH Past Medical History Hx Anticoagulant Therapy: Yes Arthritis: No Asthma: Yes (USES INHALERS) Autoimmune Disease: No Anxiety: Yes Depression: Yes Heart Rhythm Problems: No Cancer: No Cardiovascular Problems: Yes (htn ) High Cholesterol: No Chemotherapy: No Chest Pain: No Congestive Heart Failure: No COPD: No Cerebrovascular Accident: Yes (cva 2015) Diabetes: Yes (BORDERLINE DIABETES, HYPERGLYCEMIA) Diminished Hearing: No Endocrine: No GERD: Yes Genitourinary: Yes (born with one kidney) Headaches: Yes Hiatal Hernia: No Heparin Induced Thrombocytopen: No Hypertension: Yes (UNCONTROLLED HTN) Immune Disorder: No Implanted Vascular Access Dvce: No Kidney Stones: No Musculoskeletal: Yes (neck sx c5-c7 dec 2016) Neurologic: Yes (ACUTE ENCEPHALOPATHY) Psychiatric: Yes (since cva 2015) Reproductive: Yes (ovarian cyst removed on left ovary) Respiratory: Yes (ASPIRATION PNEUMONIA, ACUTE RESPIRATORY FAILURE WITH HYPOXEMIA) Immunizations Current: Yes Migraines: No Radiation Therapy: No Seizures: Yes Sickle Cell Disease: No Sleep Apnea: No Thyroid Disease: No Ulcer: No ?: Not : 0 Ovarian Cysts: Yes Past Surgical History Abdominal Surgery: Yes (GALLBLADDER 2014 ) AICD: No Arteriovenous Shunt: No Body Medical Devices: c5 to c-6 infused Cardiac Surgery: No Cholecystectomy: Yes Ear Surgery: No Endocrine Surgery: No Eye Surgery: No Genitourinary Surgery: No Gynecologic Surgery: Yes (OVARIAN CYST D/C 2011) Insulin Pump: No Joint Replacement: No Neurologic Surgery: No Oral Surgery: No Pacemaker: No Thoracic Surgery: Yes (neck c5-c7 2016) Other Surgery: Yes Social History Alcohol Use: No Tobacco Use: No Substance Use: No Allergies-Medications (Allergen,Severity, Reaction): Coded Allergies: Sulfa (Sulfonamide Antibiotics) (Verified Allergy, Unknown, 09/06/17) penicillin G (Unverified Allergy, Unknown, hives, 09/06/17) Reported Meds & Prescriptions Reported Meds & Active Scripts Active Dandruff Topical (Selenium Sulfide) 1 % Sham 1 Applic TOPICAL 2XWEEK Protonix (Pantoprazole Sodium) 40 Mg Tab 40 Mg PO DAILY 30 Days Temazepam 30 Mg Cap 1 Tab PO HS 30 Days Clindamycin (Clindamycin HCl) 300 Mg Cap 300 Mg PO TID 7 Days [Mupirocin 2% Oint] 22 APPLIC/22 GM Oint 1 Applic TOPICAL Q12HR 7 Days Melatonin 5 Mg Tab 10 Mg PO HS 30 Days Doxycycline Hyclate 100 Mg Cap 100 Mg PO BID 7 Days Dilantin (Phenytoin Extended) 100 Mg Cap 100 Mg PO BID 30 Days Diflucan (Fluconazole) 150 Mg Tab 150 Mg PO ONCE 1 Days Gnp Senna Plus 8.6-50 mg (Sennosides-Docusate Sodium) 8.6 Mg-50 Mg Tab 1 Tab PO BID Escitalopram (Escitalopram Oxalate) 10 Mg Tab 10 Mg PO DAILY Hydrocodone-Acetamin 5-325 mg (Hydrocodone/Acetaminophen) 5 Mg-325 Mg Tablet 1 Tab PO Q6H PRN Klonopin (Clonazepam) 0.5 Mg Tab 1 Mg PO BID Px Aspirin (Aspirin) 325 Mg Tab 325 Mg PO DAILY Zanaflex (Tizanidine HCl) 4 Mg Tab 4 Mg PO Q12HR Ventolin Hfa 18 GM Inh (Albuterol Sulfate) 90 Mcg/Act Aer 2 Puff INH Q4-6H PRN Keppra (Levetiracetam) 1,000 Mg Tab 1,000 Mg PO BID 30 Days Neurontin (Gabapentin) 400 Mg Cap 400 Mg PO TID Baclofen 10 Mg Tab 10 Mg PO Q8HR Review of Systems Except as stated in HPI: all other systems reviewed are Neg Physical Exam Narrative GENERAL: Well-developed, well-nourished, overweight, keeps eyes closed, no apparent distress, looks around the room, does not follow commands SKIN: Focused skin assessment warm/dry. HEAD: Atraumatic. Normocephalic. EYES: Pupils equal, round, 3 mm, reactive to light. No gaze palsy. No scleral icterus. No injection or drainage. ENT: Mucous membranes pink and moist. NECK: Trachea midline. No JVD. CARDIOVASCULAR: Regular rate and rhythm. RESPIRATORY: No accessory muscle use. Clear to auscultation. Breath sounds equal bilaterally. GASTROINTESTINAL: Abdomen soft, non-tender, nondistended. MUSCULOSKELETAL: No obvious deformities. No clubbing. No cyanosis. No edema. NEUROLOGICAL: Awake. Keeps eyes closed. Does not follow commands. PSYCHIATRIC: Unable to assess. Data Data Last Documented VS Vital Signs Date Time Temp Pulse Resp B/P (MAP) Pulse Ox O2 Delivery O2 Flow Rate FiO2 09/06/17 18:20 90 18 135/82 (99) 100 Room Air Orders Orders Complete Blood Count With Diff (09/06/17 17:49) Drug Screen, Random Urine (09/06/17 17:49) Ct Brain W/O Iv Contrast(Rout) (09/06/17 ) Blood Glucose (09/06/17 17:49) Ecg Monitoring (09/06/17 17:49) Iv Access Insert/Monitor (09/06/17 17:49) Oximetry (09/06/17 17:49) Comprehensive Metabolic Panel (09/06/17 17:49) Sodium Chloride 0.9% Flush (Ns Flush) (09/06/17 18:00) Lorazepam Inj (Ativan Inj) (09/06/17 18:00) Urinalysis - C+S If Indicated (09/06/17 17:49) Beta Hcg (Quant/Titer) (09/06/17 17:49) Phenytoin (Dilantin) (09/06/17 18:01) Labs Laboratory Tests Test 09/06/17 18:10 White Blood Count 7.7 TH/MM3 Red Blood Count 4.30 MIL/MM3 Hemoglobin 12.5 GM/DL Hematocrit 37.9 % Mean Corpuscular Volume 88.2 FL Mean Corpuscular Hemoglobin 29.1 PG Mean Corpuscular Hemoglobin Concent 33.0 % Red Cell Distribution Width 15.6 % Platelet Count 352 TH/MM3 Mean Platelet Volume 6.9 FL Neutrophils (%) (Auto) 41.7 % Lymphocytes (%) (Auto) 48.5 % Monocytes (%) (Auto) 6.4 % Eosinophils (%) (Auto) 3.0 % Basophils (%) (Auto) 0.4 % Neutrophils # (Auto) 3.2 TH/MM3 Lymphocytes # (Auto) 3.7 TH/MM3 Monocytes # (Auto) 0.5 TH/MM3 Eosinophils # (Auto) 0.2 TH/MM3 Basophils # (Auto) 0.0 TH/MM3 CBC Comment DIFF FINAL Differential Comment Blood Urea Nitrogen 11 MG/DL Creatinine 1.11 MG/DL Random Glucose 81 MG/DL Total Protein 8.1 GM/DL Albumin 3.6 GM/DL Calcium Level 8.7 MG/DL Alkaline Phosphatase 119 U/L Aspartate Amino Transf (AST/SGOT) 30 U/L Alanine Aminotransferase (ALT/SGPT) 40 U/L Total Bilirubin 0.2 MG/DL Sodium Level 139 MEQ/L Potassium Level 4.0 MEQ/L Chloride Level 106 MEQ/L Carbon Dioxide Level 24.1 MEQ/L Anion Gap 9 MEQ/L Estimat Glomerular Filtration Rate 68 ML/MIN Human Chorionic Gonadotropin, Quant LESS THAN 1 MIU/ML Phenytoin (Dilantin) Level 3.3 MCG/ML MDM Medical Decision Making Medical Screen Exam Complete: Yes Emergency Medical Condition: Yes Differential Diagnosis Breakthrough seizures, status epilepticus, pseudoseizures, metabolic abnormality , intracranial abnormality Narrative Course Vital signs are within normal limits. At approximately 7:00 PM at the end of my shift the patient was signed out to Dr. James follow-up labs, CT head, and disposition. Ronaldo Jimenez MD September 06, 2017 18:55
[2017-09-06 19:33] LABS: ALBUMIN 3.6 GM/DL (3.4-5.0); AST (GOT) 30 U/L (15-37); BICARBONATE 24.1 MEQ/L (21.0-32.0); BLOOD UREA NITROGEN 11 MG/DL (7-18); CALCIUM 8.7 MG/DL (8.5-10.1); CHLORIDE 106 MEQ/L (98-107); CREATININE 1.11 MG/DL (0.50-1.00); GLOMERULAR FILTRATION RATE 68 ML/MIN (>89); GLUCOSE,RANDOM 81 MG/DL (74-106); SODIUM (NA) 139 MEQ/L (136-145)
[2017-09-06 19:34] LABS: ALT (GPT) 40 U/L (10-53)
[2017-09-06 19:38] LABS: ALKALINE PHOSPHATASE 119 U/L (45-117); TOTAL BILIRUBIN ADULT 0.2 MG/DL (0.2-1.0); TOTAL PROTEIN 8.1 GM/DL (6.4-8.2)
[2017-09-06] MEDS ORDERED: FOSPHENYTOIN INJ 1,000 MGPE in SODIUM CHLORIDE 0.9% INJ 50 ML IV ONE (20:00)
[2017-09-06] MEDS ORDERED: ACETAMINOPHEN/HYDROcodone 325 MG/5 MG TAB PO ONE (20:30)
[2017-09-06 20:39] VITALS: BP 117/74; PULSE 91; RESP 16; TEMP 98.4; O2SAT 100
[2017-09-06] MEDS ORDERED: DILA100C PO (21:04)
--- NOTE | 2017-09-06 21:11 | PD ---
Data Data Last Documented VS Vital Signs Date Time Temp Pulse Resp B/P (MAP) Pulse Ox O2 Delivery O2 Flow Rate FiO2 09/06/17 21:42 09/06/17 20:39 98.4 91 16 100 Nasal Cannula 2.00 Orders Orders Complete Blood Count With Diff (09/06/17 17:49) Blood Glucose (09/06/17 17:49) Ecg Monitoring (09/06/17 17:49) Iv Access Insert/Monitor (09/06/17 17:49) Oximetry (09/06/17 17:49) Comprehensive Metabolic Panel (09/06/17 17:49) Sodium Chloride 0.9% Flush (Ns Flush) (09/06/17 18:00) Lorazepam Inj (Ativan Inj) (09/06/17 18:00) Beta Hcg (Quant/Titer) (09/06/17 17:49) Phenytoin (Dilantin) (09/06/17 18:01) Fosphenytoin Inj (Cerebyx Inj) (09/06/17 20:00) Acetamin-Hydrocod 325-5 Mg ([place] 5-325 (09/06/17 20:30) Electrocardiogram (09/06/17 17:55) ^ Patient Temperature (09/06/17 20:30) Ed Discharge Order (09/06/17 21:04) Labs Laboratory Tests Test 09/06/17 18:10 White Blood Count 7.7 TH/MM3 Red Blood Count 4.30 MIL/MM3 Hemoglobin 12.5 GM/DL Hematocrit 37.9 % Mean Corpuscular Volume 88.2 FL Mean Corpuscular Hemoglobin 29.1 PG Mean Corpuscular Hemoglobin Concent 33.0 % Red Cell Distribution Width 15.6 % Platelet Count 352 TH/MM3 Mean Platelet Volume 6.9 FL Neutrophils (%) (Auto) 41.7 % Lymphocytes (%) (Auto) 48.5 % Monocytes (%) (Auto) 6.4 % Eosinophils (%) (Auto) 3.0 % Basophils (%) (Auto) 0.4 % Neutrophils # (Auto) 3.2 TH/MM3 Lymphocytes # (Auto) 3.7 TH/MM3 Monocytes # (Auto) 0.5 TH/MM3 Eosinophils # (Auto) 0.2 TH/MM3 Basophils # (Auto) 0.0 TH/MM3 CBC Comment DIFF FINAL Differential Comment Blood Urea Nitrogen 11 MG/DL Creatinine 1.11 MG/DL Random Glucose 81 MG/DL Total Protein 8.1 GM/DL Albumin 3.6 GM/DL Calcium Level 8.7 MG/DL Alkaline Phosphatase 119 U/L Aspartate Amino Transf (AST/SGOT) 30 U/L Alanine Aminotransferase (ALT/SGPT) 40 U/L Total Bilirubin 0.2 MG/DL Sodium Level 139 MEQ/L Potassium Level 4.0 MEQ/L Chloride Level 106 MEQ/L Carbon Dioxide Level 24.1 MEQ/L Anion Gap 9 MEQ/L Estimat Glomerular Filtration Rate 68 ML/MIN Human Chorionic Gonadotropin, Quant LESS THAN 1 MIU/ML Phenytoin (Dilantin) Level 3.3 MCG/ML MDM Medical Record Reviewed: Yes Supervised Visit with HERMAN: No Narrative Course Please refer to Dr. Jimenez's note. Workup today shows subtherapeutic Dilantin level. The patient received Cerebyx. At the time of my assessment which was about 8:15 PM the patient was asleep and upon waking stated she has total body pain. She reported that upon discharge from her most recent she was not given any opioid pain medication. We will provide Lortab here. patient educated regarding Subtherapeutic Dilantin level. Pt has follow up with Dr Brock and Dr Ku and Dr Gayle. Diagnosis Primary Impression: Subtherapeutic phenytoin level Additional Impression: Chronic pain Qualified Codes: G89.29 - Other chronic pain Med/Other Pt SpecificInfo: Prescription(s) given, No Change to Meds Scripts Phenytoin Extended (Dilantin) 100 Mg Cap 100 MG PO BID for Seizure Control for 30 Days, #60 CAP Prov: Cesar James MD 09/06/17 Disposition: 01 DISCHARGE HOME Condition: Stable Cesar James MD September 06, 2017 20:30
--- NOTE | 2017-09-07 17:31 | EKG ---
Date Performed: 09/06/2017 Time Performed: 17:55:02 PTAGE: 37 years EKG: Sinus rhythm NORMAL ECG PREVIOUS TRACING : 08/11/2017 16.23 Since the previous tracing, no significant change noted DOCTOR: Les Jerry Interpretating Date/Time 09/07/2017 17:29:54
== END 2017-09-06 21:46 | disposition home or self-care (01) ==
LOC: NEPE 17:28
DX: R89.2 Abnormal level of other drugs, medicaments and biological substances in specimens from other organs, systems and tissues (principal); R53.1 Weakness; G89.29 Other chronic pain; G40.909 Epilepsy, unspecified, not intractable, without status epilepticus; J45.909 Unspecified asthma, uncomplicated; I10 Essential (primary) hypertension; R73.03 Prediabetes; Z51.81 Encounter for therapeutic drug level monitoring; Z79.01 Long term (current) use of anticoagulants; Z88.2 Allergy status to sulfonamides
CPT/HCPCS: 80053; 80185; 84702; 85025; 93005; 96365; 96372; 96375; 99284; J2060; Q2009